=== PATIENT | male | born 1955 | race Caucasian/White ===

== ENCOUNTER 2020-04-22 13:27 | Inpatient (IN) | payer BC, OTHER, SELFPAY ==
[2020-04-22] MEDS ORDERED: NA CHLORIDE 0.9% 500 ML ONE (14:05)
--- NOTE | 2020-04-22 14:42 | RAD REPORT ---
EXAM DESCRIPTION: Joaquín Single View04/22/2020 2:25 pm CLINICAL HISTORY: Hypotension/swelling COMPARISON: none FINDINGS: The lungs appear clear of acute infiltrate. The heart is normal size. 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
[2020-04-22 15:35] LABS: Absolute Lymphocytes (CBC) 0.8 K/uL (0.7-4.9); Basophils % 0.3 % (0-1.3); Hematocrit 35.4 % (39.6-49.0); Lymphocytes % 4.6 % (15.3-44.8); MPV 8.4 fL (7.6-11.3); RBC Red Blood Cell Count 4.38 M/uL (4.33-5.43)
[2020-04-22 15:36] LABS: Protime INR 1.08
[2020-04-22 15:53] LABS: ALT/SGPT 14 U/L (12-78); AST/SGOT 29 U/L (15-37); Albumin 2.4 g/dL (3.4-5.0); Alkaline Phosphatase 73 U/L (45-117); BUN Blood Urea Nitrogen 15 mg/dL (7-18); Bicarbonate 22 mmol/L (21-32); Bilirubin Direct 0.3 mg/dL (0-0.2); Glucose Level 241 mg/dL (74-106); NT PRO-BNP 2436 pg/mL (<125); Potassium 4.4 mmol/L (3.5-5.1); Protein, Total 5.9 g/dL (6.4-8.2); Sodium Level 139 mmol/L (136-145); Troponin (Emerg Dept Use Only) < 0.02 ng/mL (0.0-0.045)
[2020-04-22 16:01] LABS: SARS-COV-2 RT PCR NEGATIVE (NEGATIVE)
[2020-04-22] MEDS ORDERED: CEFEPIME/SWI 1gm 20 ML ONE (16:24)
[2020-04-22] MEDS ORDERED: NA CHLORIDE 0.9% 2,000 ML ONE (16:24)
--- NOTE | 2020-04-22 16:32 | RAD REPORT ---
EXAM DESCRIPTION: CT - Head Brain Wo Cont - 04/22/2020 3:34 pm CLINICAL HISTORY: Syncope COMPARISON: None TECHNIQUE: Computed axial tomography of the head was obtained. IV contrast was not requested. All CT scans are performed using dose optimization technique as appropriate and may include automated exposure control or mA/KV adjustment according to patient size. FINDINGS: An intracranial bleed is not seen . The ventricles are normal in caliber. No extra-axial fluid collection is noted. Mild low-density areas within periventricular, deep and subcortical white matter likely represent isc hemic changes secondary to small vessel disease. Fluid within the sinuses/ mastoids is not seen. IMPRESSION: No acute intracranial abnormality is seen. If patient's symptoms persist MRI of the bra in would be recommended.
[2020-04-22 16:48] LABS: Urine Bacteria <20 /HPF (NONE SEEN); Urine Mucus SLIGHT /HPF (NONE SEEN)
--- OUTSIDE RECORDS SUMMARY | 2020-04-22 16:57 | XMS REPORT | Clinical Summary ---
:1955 Author Organization [facility] Address [address] [place] [address] Care Team Providers Name Role Phone Junaid Bess MD Primary Care Provider Allergies No Known Active Allergies Medications Medication Sig Dispensed Refills Start End Status Date Date predniSONE Take 1 tablet 90 tablet 3 05/22/19 Activ e (DELTASONE) 5 mg (5 mg total) by 20 021 tabletIndications: mouth daily. Transplanted kidney, Pancreas transplanted (HCC) zolpidem (AMBIEN) 10 Take 1 tablet 30 tablet 5 10/21/1910/20 Active mg tablet (10 mg total) 20 021 by mouth nightly as needed for sleep. ondansetron ODT Take 1 tablet 20 tablet 1 02/21/20 Active (ZOFRAN-ODT) 8 MG (8 mg total) by 20 disintegrating mouth every 8 tabletIndications: (eight) hours Malignant neoplasm as needed for of stomach, nausea or unspecified location vomiting. (HCC) prochlorperazine Take 1 tablet 30 tablet 1 02/21/20 Active (COMPAZINE) 10 MG (10 mg total) 20 tabletIndications: by mouth every Malignant neoplasm 6 (six) hours of stomach, as needed for unspecified location nausea or (HCC) vomiting. bromfenac (BromSite) Apply 2 drops 0 Active 0.075 % drops to eye daily. mycophenolate Take 2.5 mL 160 mL 11 02/28/20 Acti ve (CELLCEPT) 200 mg/mL (500 mg total) 20 suspension by mouth 2 (two) times a day for 30 days. tacrolimus (PROGRAF) Take 1 capsule 60 capsule 0 04/13/1905/12 Active 0.5 MG capsule (0.5 mg total) 21 021 by mouth 2 (two) times a day for 30 days. magnesium oxide 500 Take 500 mg by 30 each 11 04/13/19 Active mg tablet mouth daily. 21 furosemide (Lasix) Take 1 tablet 7 tablet 0 04/22/19 Active 20 mg tablet (20 mg total) 21 021 by mouth daily for 7 days. aspirin (ECOTRIN) 81 Take 81 mg by 0 04/13 Discontinued MG enteric coated mouth daily. 021 tablet zolpidem (AMBIEN) 10 Take 1 tablet 30 tablet 5 02/22/2006/23 Discontinued mg tablet (10 mg total) 18 020 (Reord er) by mouth nightly as needed for sleep. tacrolimus (PROGRAF) Take 1 capsule 180 capsule 3 05/08/19 Discontinued 1 MG capsule (1 mg total) by 19 020 ( Reorder) mouth 2 (two) times a day. predniSONE Take 1 tablet 90 tablet 3 06/01/19 Disco ntinued (DELTASONE) 5 mg (5 mg total) by 19 020 (Reorder) tabletIndications: mouth daily. Transplanted kidney, Pancreas transplanted (HCC) mycophenolate Take 1 tablet 180 tablet 3 04/17/19 D iscontinued (CELLCEPT) 500 mg (500 mg total) 20 020 (Reorder) tablet by mouth 2 (two) times a day. mycophenolate Take 1 tablet 180 tablet 3 05/07/19 D iscontinued (CELLCEPT) 500 mg (500 mg total) 20 020 (Reorder) tablet by mouth 2 (two) times a day. tacrolimus (PROGRAF) Take 1 capsule 180 capsule 3 05/07/19 Discontinued 1 MG capsule (1 mg total) by 20 020 mouth 2 (two) times a day. zolpidem (AMBIEN) 10 Take 1 tablet 30 tablet 5 06/24/1910/20 Discontinued mg tablet (10 mg total) 20 020 (Reord er) by mouth nightly as needed for sleep. zolpidem (AMBIEN) 10 Take 1 tablet 30 tablet 5 10/21/1910/20 Discontinued mg tablet (10 mg total) 20 020 (Reord er) by mouth nightly as needed for sleep. tacrolimus (PROGRAF) Take 1 capsule 180 capsule 3 12/11/19 Discontinued 0.5 MG capsule (0.5 mg total) 20 020 (Reorder) by mouth 2 (two) times a day. Total dose 1.5 mg/ 1.5 mg tacrolimus (PROGRAF) Take 1 capsule 180 capsule 3 12/12/19 Discontinued 0.5 MG capsule (0.5 mg total) 20 020 by mouth 2 (two) times a day. Total dose 1.5 mg/ 1.5 mg mycophenolate Take 1 tablet 180 tablet 3 12/12/19 D iscontinued (CELLCEPT) 500 mg (500 mg total) 20 020 tablet by mouth 2 (two) times a day. prednisoLONE acetate 1 drop 4 (four) 0 12/26/1927/04 Discontinued (PRED FORTE) 1 % times a day. 20 020 (Alternate ophthalmic therapy) suspension amitriptyline Take 1 tablet 30 tablet 11 01/09/20 Di scontinued (ELAVIL) 25 MG (25 mg total) 20 020 ( Stop Taking at tablet by mouth Discharge) nightly. acetaminophen-codein Take 1 tablet 30 tablet 1 01/17/2002/15 e (TYLENOL WITH by mouth every 20 020 CODEINE #3) 300-30 4 (four) hours mg per as needed for tabletIndications: moderate pain acute pain for up to 30 days .acute pain. tacrolimus (PROGRAF) Take 2 caps in 270 capsule 3 01/30/20 Discontinued 1 MG capsule the am 1 cap in 20 020 ( Reorder) the pm tacrolimus (PROGRAF) Take 1 capsule 90 capsule 3 01/30/2001/05 Discontinued 0.5 MG capsule (0.5 mg total) 20 020 (Reorder) by mouth nightly. tacrolimus (PROGRAF) Take 1 capsule 90 capsule 3 12/25/1912/12 Discontinued 0.5 MG capsule (0.5 mg total) 20 020 (Reorder) by mouth nightly. tacrolimus (PROGRAF) Take 2 caps in 270 capsule 3 12/25/19 Discontinued 1 MG capsule the am 1 cap in 20 020 ( Reorder) the pm ondansetron ODT Take 1 tablet 20 tablet 1 02/18/20 Discontinued (ZOFRAN-ODT) 8 MG (8 mg total) by 020 (Reorder) disintegrating mouth every 8 tabletIndications: (eight) hours Malignant neoplasm as needed for of stomach, nausea or unspecified location vomiting. (HCC) prochlorperazine Take 1 tablet 30 tablet 1 02/18/20 Discontinued (COMPAZINE) 10 MG (10 mg total) 020 (Reorder) tabletIndications: by mouth every Malignant neoplasm 6 (six) hours of stomach, as needed for unspecified location nausea or (HCC) vomiting. tacrolimus (PROGRAF) Take 1 capsule 90 capsule 3 02/20/2003/14 Discontinued 0.5 MG capsule (0.5 mg total) (Stop Taking at by mouth Discharge) nightly. tacrolimus (PROGRAF) Take 2 caps in 270 capsule 3 02/20/20 Discontinued 1 MG capsule the am 1 cap in ( Stop Taking at the pm Discharge) apixaban 5 mg (74 follow package 74 tablet 0 04/03/19 Discontinued tabs) tablets,dose instructions (Stop Taking at pack Discharge) ciprofloxacin HCl Take 1 tablet 10 tablet 0 04/13/19 (CIPRO) 500 MG (500 mg total) 021 tablet by mouth 2 (two) times a day for 5 days. 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 Encounters Date Type Specialty Care Team Description 04/21/2020 Nurse Only Oncology Jordan Sullivan, Malignant neopl asm of stomach, unspec ified location (HCC) (Primary Dx) 04/21/2020 Telephone Oncology Ronak Whipple RN 04/21/2020 Travel 04/21/2020 Orders Only Oncology Cody Larios RN 04/20/2020 Telephone Oncology Jordan Sullivan MD 04/16/2020 Telephone Oncology Jordan Sullivan MD 04/15/2020 Telephone Oncology Jordan Sullivan MD 04/14/2020 Patient Outreach Quality Rhonda Moore, ERIKA 04/14/2020 Patient Outreach Quality Rhonda Moore, ERIKA 04/14/2020 Patient Outreach Quality Rhonda Moore, ERIKA 04/10/2020 Orders Only Pharmacy Nkechi Allen, [facility] 04/07/2020 Orders Only Oncology Tiffany Deras RN 04/06/2020 Hospital Encounter Cardiology Gretta Bacon MD 04/13/2020 04/06/2020 Orders Only Pharmacy Nkechi Allen, [facility] 04/06/2020 Orders Only Oncology Jordan Sullivan, Malignant neopl asm of stomach, unspec ified location (HCC) (Primary Dx) 04/06/2020 Travel 04/06/2020 Orders Only Oncology Linda Fallno, [facility] 04/06/2020 Orders Only Pharmacy Aniya Montoya, [facility] 04/05/2020 Orders Only Oncology Jordan Sullivan MD 04/03/2020 Office Visit Oncology Jordan Sullivan, Malignant neopl asm of stomach, unspecified location (HCC) (Primary Dx); Bilateral renal masses; 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) 04/03/2020 Hospital Encounter Radiology Jordan Sullivan, Malignant neoplasm of MD cardia of stoma ch (HCC) 04/03/2020 Travel 03/27/2020 Nurse Only Oncology Jordan Sullivan, Malignant neopl asm of stomach, unspec ified location (HCC) (Primary Dx) 03/27/2020 Travel 03/25/2020 Infusion Oncology Jordan Sullivan, Malignant neopl asm of stomach, unspec ified location (HCC) (Primary Dx) 03/25/2020 Documentation Oncology Jordan Sullivan MD 03/25/2020 Oncology Oncology Terra Gongora, Survivorship RN 03/25/2020 Travel 03/24/2020 Telephone Oncology Ronak Whipple RN 03/19/2020 Orders Only Oncology Linda Fallon, [facility] 03/18/2020 Office Visit Oncology Jordan Sullivan, Malignant neopl asm of cardia of stomach (HCC) (Primary Dx); Odynophagia; Chronic nonintr actable headache, unspecified headache type; Renal mass, rig ht; 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) 03/18/2020 Orders Only Oncology Rachel, Malignant neopl asm of JUAN CARLOS Tamez cardia of stoma ch (HCC) (Primary Dx) 03/18/2020 Travel 03/16/2020 Telephone Transplant Riki Drug Eliza Shell 03/12/2020 Nurse Only Oncology Jordan Sullivan, Malignant neopl asm of MD stomach, unspec ified location (HCC) (Primary Dx) 03/12/2020 Oncology Oncology Terra Gongora, Survivorship RN 03/12/2020 Refill Transplant Edil, Med Refill ERIKA Yuan 03/12/2020 Travel 03/12/2020 Orders Only Oncology Beverly Pa, RN 03/11/2020 Telephone Oncology Jordan Sullivan, Malignant neopl asm of stomach, unspecified location (HCC) (Primary Dx); Malignant neopl asm of cardia of stomach (HCC) 03/10/2020 Infusion Oncology Jordan Sullivan, Malignant neopl asm of MD stomach, unspec ified location (HCC) (Primary Dx) 03/10/2020 Orders Only Oncology Linda Fallon [facility] 03/09/2020 Orders Only Oncology Tiffany Deras, ERIKA 03/05/2020 Hospital Encounter Radiology Jordan Sullivan, Malignant neoplasm of MD cardia of stoma ch (HCC) 03/04/2020 Travel 02/28/2020 Nurse Only Oncology Jordan Sullivan, Malignant neopl asm of MD stomach, unspec ified location (HCC) (Primary Dx) 02/28/2020 Oncology Oncology Terra Gongora, Survivorship RN 02/28/2020 Travel 02/28/2020 Orders Only Oncology Ronak Whipple, RN 02/26/2020 Infusion Oncology Jordan Sullivan, Malignant neopl asm of MD stomach, unspec ified location (HCC) (Primary Dx) 02/26/2020 Oncology Oncology Terra Gongora, Survivorship RN 02/25/2020 Hospital Encounter Vascular Access Jordan Sullivan MD 02/25/2020 Hospital Encounter Vascular Access Jordan Sullivan, Malign ant neoplasm of MD cardia of stoma ch (HCC) 02/25/2020 Telephone Radiology Sarah Rice, ERIKA 02/25/2020 Orders Only Oncology Harini Amezquita, ERIKA 02/25/2020 Orders Only Oncology Chintapenta, Linda, RP 02/25/2020 Refill Transplant Solo, Med Refill; Med Refill ERIKA Yuan 02/25/2020 Travel 02/25/2020 Orders Only General Internal Jordan Sullivan, Malignant n eoplasm of Medicine stomach, unspec ified location (HCC) (Primary Dx) 02/25/2020 Orders Only Oncology Harini Amezquita, ERIKA 02/21/2020 Travel 02/21/2020 Orders Only Oncology Ronak Whipple Malignant neopl asm of cardia of stomach (HCC) (Primary Dx); ERIKA Luz Malignant neopl asm of stomach, unspecified location (HCC) 02/20/2020 Orders Only Oncology Jordan Sullivan MD 02/20/2020 Refill Transplant Solo, Med Refill ERIKA Yuan 02/19/2020 Lab Lab Jordan Sullivan, Malignant neopl asm of cardia of stoma ch (HCC) 02/19/2020 Travel 02/18/2020 Orders Only Oncology Chintapenta, Malignant neopl asm of Linda, [facility] stomach, unspec ified location (HCC) (Primary Dx) 02/18/2020 Telephone Oncology Jordan Sullivan, Malignant neopl asm of cardia of stomach (HCC) (Primary Dx); Malignant neopl asm of stomach, unspecified location (HCC) 02/17/2020 Telephone Oncology Jordan Sullivan MD 02/12/2020 Telemedicine Oncology Jordan Sullivan, Malignant neopl asm of cardia of stomach (HCC) (Primary Dx); Odynophagia; 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); Renal mass, rig ht 02/12/2020 Orders Only Oncology Rachel Malignant neopl asm of JUAN CARLOS Tamez cardia of stoma ch (HCC) (Primary Dx) 02/11/2020 Telephone Oncology Joi Ramos MA 02/10/2020 Hospital Encounter Radiology Shahriar, Malignant neoplasm of Luis Quiroga MD cardia of stom ach (HCC) 02/10/2020 Telephone General Surgery Josselin Solis NP 02/10/2020 Travel 02/03/2020 Office Visit General Surgery Shahriar, Malignant ne oplasm of Luis Quiroga MD cardia of stom ach (HCC) (Primary Dx) 02/03/2020 Lab Lab Shahriar, Malignant neopl asm of Luis Quiroga MD cardia of stom ach (HCC) 02/03/2020 Travel 01/31/2020 Orders Only General Surgery Imasogie, Malignant ne oplasm of Crystal, ENGROSSER cardia of stoma ch (HCC) (Primary Dx) 01/31/2020 Refill Neurology Machelle Santiago MD 01/30/2020 Telephone Oncology Jordan Sullivan MD 01/30/2020 Refill Transplant Jared Solo Reflexis Yuan RN 01/28/2020 Hospital Encounter Radiology Jordan Sullivan, Malignant neoplasm of esophagus, unsp ecified location (HCC) 01/28/2020 Office Visit Neurology Machelle Santiago MD Nonintractabl e headache, unspecified chronicity pattern, unspecified headache type (Primary Dx); Organ transplan t; Immunosuppressi on (HCC); Insomnia, unspe cified type; Injury of head, sequela; Malignant neopl asm of esophagus, unspecified location (HCC) 01/28/2020 Travel 01/21/2020 Travel 01/17/2020 Consult Oncology Jordan Sullivan, 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) (Primary Dx); New daily persi stent headache; Malignant neopl asm of cardia of stomach (HCC); Odynophagia 01/17/2020 Orders Only Oncology RideaJoi ye MA 01/17/2020 Orders Only Oncology Rideau, Malignant neopl asm of Joi MA esophagus, unsp ecified location (HCC) (Primary Dx) 01/17/2020 Orders Only Oncology RideauJoi, MA 01/17/2020 Documentation Transplant Lissy Solo RN 01/16/2020 Hospital Encounter Radiology Machelle Santiago MD Nonintr actable headache, unspe cified chronicity sanaz marilyn, unspecified hea dache type 01/16/2020 Hospital Encounter Radiology Rehan Ceballos 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) 01/16/2020 Lab Lab Rehan Ceballos 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) (Primary Dx) 01/16/2020 Travel 01/13/2020 Travel 01/10/2020 Documentation Transplant Lissy Solo RN 01/10/2020 Transcribe Orders Access Rehan Ceballos t kori of MD Mark lower third of esophagus (HCC) (Primary Dx) 01/09/2020 Lab Lab Rehan Ceballos MD 01/09/2020 Office Visit Neurology Machelle Santiago MD Nonintractabl e headache, unspecified chronicity pattern, unspecified headache type (Primary Dx); Organ transplan t; Immunosuppressi on (HCC); Insomnia, unspe cified type; Injury of head, sequela 01/09/2020 Telephone Transplant Hesham Critical lab Re jeremy Gtz 01/09/2020 Travel 01/06/2020 Lab Lab Rehan Ceballos Encounter for screening MD Mark for other viral diseases (Prima ry Dx) 01/06/2020 Travel 12/25/2019 Telephone Transplant Riki, Critical result Suleman 12/25/2019 Travel 12/24/2019 Documentation Transplant Lissy Solo RN 12/13/2019 Travel 12/13/2019 Telephone Neurology Machelle Santiago MD 12/12/2019 Documentation Transplant Lissy Solo RN 12/11/2019 Office Visit Transplant Mervat, 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) (Primary Dx); Alexis Ye, Personal hist ory of immunosuppressive therapy; Immunosuppressi ve management encounter following kidney transplant; New daily persi stent headache; Odynophagia 12/11/2019 Telephone Transplant Riki Critical result Suleman 12/11/2019 Travel 12/03/2019 Documentation Transplant Lissy Solo, ERIKA 11/12/2019 Documentation Transplant Lissy Solo, ERIKA 10/21/2019 Refill Transplant Edil, Med Refill ERIKA Yuan 10/07/2019 Documentation Transplant Lissy Solo, ERIKA 09/11/2019 Travel 09/02/2019 Telephone Transplant Ibanez, Shwetha 09/02/2019 Documentation Transplant Bettie Barakat RN 08/30/2019 Telephone Transplant Ibanez, Shwetha 06/27/2019 Telephone Transplant Ibanez, Shwetha 06/24/2019 Refill Transplant Bettie Barakat, Med Refill RN 06/24/2019 Telephone Transplant Teo Senior, Request New Rx MA 05/28/2019 Telephone Transplant Ibanez, Shwetha 05/22/2019 Telephone Transplant Ibanez, Shwetha 05/22/2019 Refill Transplant Bettie Barakat Med Refill RN 05/15/2019 Refill General Surgery Crowell, Transplanted kidney; Alexis Ye, Pancreas franco splanted (HCC) 05/07/2019 Refill Transplant Bettie Barakat Med Refill RN after 04/22/2019 Immunizations Name Administration Dates Next Due FLUCELVAX QUAD PF 01/14/2020 (Deferred: Other - Already ad ministered at outside facility) Surgical History Surgery Date Site/Laterality Comments COMBINED KIDNEY-PANCREAS TRANSPLANT 2009 COMBINED KIDNEY-PANCREAS TRANSPLANT 05/22/2000 Medical History Medical History Date Comments History of gastric cancer Social History Tobacco Use Types Packs/Day Years Used Date Never Smoker Smokeless Tobacco: Never Used Alcohol Use Drinks/Week oz/Week Comments Never Alcohol Habits Answer Date Recorded How often do you have a drink containing alcohol? Never 01/09/2020 How many drinks containing alcohol do you have on a typical Not asked day when you are drinking? How often do you have six or more drinks on one occasion? 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 Last Filed Vital Signs Vital Sign Reading Time Taken Comments Blood Pressure 100/65 04/21/2020 1:59 PM SCR[employer] HOIST OPERATOR Pulse 98 04/21/2020 1:59 PM [employer]CR[employer] HOIST OPERATOR Temperature 36.4 C (97.5 F) 04/21/2020 1:59 PM [employer]CR[employer] HOIST OPERATOR Respiratory Rate 18 04/21/2020 1:59 PM [employer]CR[employer]IST OPERATOR Oxygen Saturation 99% 04/21/2020 1:59 PM [employer]CR[employer] HOIST OPERATOR Inhaled Oxygen Concentration - - Weight 72.5 kg (159 lb 12.8 oz) 04/21/2020 8:36 AM SCRAP HOIST OPERATOR Height 175.3 cm (5' 9") 04/06/2020 12:31 PM SCR[employer] HOIST OPERATOR Body Mass Index 23.6 04/06/2020 12:31 PM SCRAP HOIST OPERATOR Plan of Treatment Date Type Specialty Care Team Description 04/23/2020 Nurse Only Oncology Jordan Sullivan MD [address] [place] [address] 7703 05/01/2020 Office Visit Oncology Jordan Sullivan MD [address] [place] [address] 7703 05/06/2020 Infusion Oncology Jordan Sullivan MD [address] [place] [address] 7703 05/08/2020 Nurse Only Oncology Jordan Sullivan MD [address] [place] [address] 7703 05/20/2020 Infusion Oncology Jordan Sullivan MD [address] [place] [address] 7703 05/22/2020 Nurse Only Oncology Jordan Sullivan MD [address] [place] [address] 7703 Health Maintenance Due Date Last Done Comments DIABETES: RETINAL EYE EXAM 06/10/1965 DIABETIC FOOT EXAM 06/10/1965 COVID-19 VACCINE (1 of 2) 1971 HEPATITIS C SCREENING 06/10/1973 COLONOSCOPY SCREENING 06/10/2005 INFLUENZA VACCINE 10/12/2019 SHINGLES VACCINES (#1) 03/07/2040 Postponed from 06/10/2005 (Not Indicated) Implants Implanted Type Area Superintendent System Operation Device Shelf Model / Identifier Expiration Serial / Date Lot Port Imlpntbl Smart Port W/ Dtchd 0.4ml 6.6fr 55cm W/ Sheath - [id number] Implantable N/A: ANGIODYNAMICS 11/10/2022 [id number] 1 HOUS / Implanted: Qty: 1 on 03/05/2020 at [facility] Infusion Ports N/A INC / or Accessories [id number] Cook Celect [place] Navalign Uniset Vena Cava Filter - [id number] Vascular N/A: COOK PERIPHERAL 02/11/2023 [id number] / Implanted: Qty: 1 on 04/07/2020 at [facility] Filter N/A IN [place] / [id number] Procedures Procedure Name Priority Date/Time Associated Diagnosis Comme nts ESTIMATED GFR STAT 04/21/2020 8:39 Results fo r this AM [employer] HOIST OPERATOR procedure are i n the results section. MAGNESIUM LEVEL STAT 04/21/2020 8:39 Malignant neoplasm of Results for this AM [employer]CR[employer] HOIST OPERATOR stomach, unspecified procedu re are in location (HCC) the results section. HC COMPLETE BLD COUNT STAT 04/21/2020 8:39 Malignant neopl asm of Results for this W/AUTO DIFF AM [employer]CR[employer] HOIST OPERATOR stomach, unspecified procedu re are in location (HCC) the results section. COMPREHENSIVE METABOLIC STAT 04/21/2020 8:39 Malignant nydia plasm of Results for this PANEL AM SCRAP HOIST OPERATOR stomach, unspecified procedu re are in location (HCC) the results section. MANUAL DIFFERENTIAL Routine 04/13/2020 5:10 Resu lts for this AM SCRAP HOIST OPERATOR procedure are i n the results section. ESTIMATED GFR Routine 04/13/2020 5:10 Results fo r this AM SCRAP HOIST OPERATOR procedure are i n the results section. PHOSPHORUS LEVEL Routine 04/13/2020 5:10 Results for this AM SCRAP HOIST OPERATOR procedure are i n the results section. MAGNESIUM LEVEL Routine 04/13/2020 5:10 Results for this AM SCRAP HOIST OPERATOR procedure are i n the results section. CBC WITH PLATELET AND Routine 04/13/2020 5:10 Re sults for this DIFFERENTIAL AM [employer]CR[employer] HOIST OPERATOR procedure are i n the results section. BASIC METABOLIC PANEL Routine 04/13/2020 5:10 Re sults for this AM SCRAP HOIST OPERATOR procedure are i n the results section. LIPASE LEVEL Routine 04/13/2020 5:10 Results for this AM SCRAP HOIST OPERATOR procedure are i n the results section. AMYLASE LEVEL Routine 04/13/2020 5:10 Results fo r this AM SCRAP HOIST OPERATOR procedure are i n the results section. FK506 TACROLIMUS LEVEL, Routine 04/13/2020 5:10 Results for this RANDOM AM [employer]CRAP HOIST OPERATOR procedure are i n the results section. MANUAL DIFFERENTIAL Routine 04/12/2020 5:35 Resu lts for this AM SCRAP HOIST OPERATOR procedure are i n the results section. ESTIMATED GFR Routine 04/12/2020 5:35 Results fo r this AM SCRAP HOIST OPERATOR procedure are i n the results section. PARTIAL THROMBOPLASTIN Routine 04/12/2020 5:35 R esults for this TIME (PTT) AM SCRAP HOIST OPERATOR procedure are i n the results section. PROTHROMBIN TIME WITH Routine 04/12/2020 5:35 Re sults for this INR AM SCRAP HOIST OPERATOR procedure are i n the results section. PHOSPHORUS LEVEL Routine 04/12/2020 5:35 Results for this AM SCRAP HOIST OPERATOR procedure are i n the results section. MAGNESIUM LEVEL Routine 04/12/2020 5:35 Results for this AM SCRAP HOIST OPERATOR procedure are i n the results section. FK506 TACROLIMUS LEVEL, Routine 04/12/2020 5:35 Results for this RANDOM AM SCRAP HOIST OPERATOR procedure are i n the results section. CBC WITH PLATELET AND Routine 04/12/2020 5:35 Re sults for this DIFFERENTIAL AM SCRAP HOIST OPERATOR procedure are i n the results section. BASIC METABOLIC PANEL Routine 04/12/2020 5:35 Re sults for this AM SCRAP HOIST OPERATOR procedure are i n the results section. GASTROINTESTINAL PANEL Routine 04/11/2020 9:32 R esults for this AM SCRAP HOIST OPERATOR procedure are i n the results section. SMEAR REVIEW Routine 04/11/2020 5:30 Results for this AM SCRAP HOIST OPERATOR procedure are i n the results section. ESTIMATED GFR Routine 04/11/2020 5:30 Results fo r this AM SCRAP HOIST OPERATOR procedure are i n the results section. PARTIAL THROMBOPLASTIN Routine 04/11/2020 5:30 R esults for this TIME (PTT) AM SCRAP HOIST OPERATOR procedure are i n the results section. PROTHROMBIN TIME WITH Routine 04/11/2020 5:30 Re sults for this INR AM SCRAP HOIST OPERATOR procedure are i n the results section. PHOSPHORUS LEVEL Routine 04/11/2020 5:30 Results for this AM SCRAP HOIST OPERATOR procedure are i n the results section. MAGNESIUM LEVEL Routine 04/11/2020 5:30 Results for this AM SCRAP HOIST OPERATOR procedure are i n the results section. FK506 TACROLIMUS LEVEL, Routine 04/11/2020 5:30 Results for this RANDOM AM SCRAP HOIST OPERATOR procedure are i n the results section. HC COMPLETE BLD COUNT Routine 04/11/2020 5:30 Re sults for this W/AUTO DIFF AM SCRAP HOIST OPERATOR procedure are i n the results section. BASIC METABOLIC PANEL Routine 04/11/2020 5:30 Re sults for this AM SCRAP HOIST OPERATOR procedure are i n the results section. PARTIAL THROMBOPLASTIN Routine 04/10/2020 9:30 R esults for this TIME (PTT) AM SCRAP HOIST OPERATOR procedure are i n the results section. PROTHROMBIN TIME WITH Routine 04/10/2020 9:30 Re sults for this INR AM SCRAP HOIST OPERATOR procedure are i n the results section. SMEAR REVIEW Routine 04/10/2020 4:49 Results for this AM SCRAP HOIST OPERATOR procedure are i n the results section. FK506 TACROLIMUS LEVEL, Routine 04/10/2020 4:49 Results for this RANDOM AM SCRAP HOIST OPERATOR procedure are i n the results section. HC COMPLETE BLD COUNT Routine 04/10/2020 4:49 Re sults for this W/AUTO DIFF AM SCRAP HOIST OPERATOR procedure are i n the results section. ESTIMATED GFR Routine 04/10/2020 4:00 Results fo r this AM SCRAP HOIST OPERATOR procedure are i n the results section. PHOSPHORUS LEVEL Routine 04/10/2020 4:00 Results for this AM SCRAP HOIST OPERATOR procedure are i n the results section. MAGNESIUM LEVEL Routine 04/10/2020 4:00 Results for this AM SCRAP HOIST OPERATOR procedure are i n the results section. LIPASE LEVEL Routine 04/10/2020 4:00 Results for this AM SCRAP HOIST OPERATOR procedure are i n the results section. BASIC METABOLIC PANEL Routine 04/10/2020 4:00 Re sults for this AM SCRAP HOIST OPERATOR procedure are i n the results section. AMYLASE LEVEL Routine 04/10/2020 4:00 Results fo r this AM SCRAP HOIST OPERATOR procedure are i n the results section. HC COMPLETE BLD COUNT Routine 04/09/2020 5:11 Re sults for this W/AUTO DIFF PM SCRAP HOIST OPERATOR procedure are i n the results section. MAGNESIUM LEVEL Routine 04/09/2020 2:08 Results for this PM SCRAP HOIST OPERATOR procedure are i n the results section. FIBRINOGEN Routine 04/09/2020 5:23 Results for this AM SCRAP HOIST OPERATOR procedure are i n the results section. PROTHROMBIN TIME WITH Routine 04/09/2020 5:23 Re sults for this INR AM SCRAP HOIST OPERATOR procedure are i n the results section. FK506 TACROLIMUS LEVEL, Routine 04/09/2020 5:23 Results for this RANDOM AM SCRAP HOIST OPERATOR procedure are i n the results section. HC COMPLETE BLD COUNT Routine 04/09/2020 5:23 Re sults for this W/AUTO DIFF AM SCRAP HOIST OPERATOR procedure are i n the results section. ESTIMATED GFR Routine 04/09/2020 4:00 Results fo r this AM SCRAP HOIST OPERATOR procedure are i n the results section. PHOSPHORUS LEVEL Routine 04/09/2020 4:00 Results for this AM SCRAP HOIST OPERATOR procedure are i n the results section. MAGNESIUM LEVEL Routine 04/09/2020 4:00 Results for this AM SCRAP HOIST OPERATOR procedure are i n the results section. LIPASE LEVEL Routine 04/09/2020 4:00 Results for this AM SCRAP HOIST OPERATOR procedure are i n the results section. BASIC METABOLIC PANEL Routine 04/09/2020 4:00 Re sults for this AM SCRAP HOIST OPERATOR procedure are i n the results section. AMYLASE LEVEL Routine 04/09/2020 4:00 Results fo r this AM SCRAP HOIST OPERATOR procedure are i n the results section. HC COMPLETE BLD COUNT Timed 04/08/2020 11:20 Re sults for this W/AUTO DIFF PM SCRAP HOIST OPERATOR procedure are i n the results section. HC COMPLETE BLD COUNT Timed 04/08/2020 2:54 Re sults for this W/AUTO DIFF PM SCRAP HOIST OPERATOR procedure are i n the results section. HEMOGLOBIN & HEMATOCRIT Timed 04/08/2020 8:10 Results for this AM SCRAP HOIST OPERATOR procedure are i n the results section. FK506 TACROLIMUS LEVEL, Routine 04/08/2020 4:24 Results for this RANDOM AM SCRAP HOIST OPERATOR procedure are i n the results section. HC COMPLETE BLD COUNT Routine 04/08/2020 4:24 Re sults for this W/AUTO DIFF AM SCRAP HOIST OPERATOR procedure are i n the results section. ESTIMATED GFR Routine 04/08/2020 4:00 Results fo r this AM SCRAP HOIST OPERATOR procedure are i n the results section. PHOSPHORUS LEVEL Routine 04/08/2020 4:00 Results for this AM SCRAP HOIST OPERATOR procedure are i n the results section. MAGNESIUM LEVEL Routine 04/08/2020 4:00 Results for this AM SCRAP HOIST OPERATOR procedure are i n the results section. LIPASE LEVEL Routine 04/08/2020 4:00 Results for this AM SCRAP HOIST OPERATOR procedure are i n the results section. BASIC METABOLIC PANEL Routine 04/08/2020 4:00 Re sults for this AM SCRAP HOIST OPERATOR procedure are i n the results section. AMYLASE LEVEL Routine 04/08/2020 4:00 Results fo r this AM SCRAP HOIST OPERATOR procedure are i n the results section. HEMOGLOBIN & HEMATOCRIT Timed 04/07/2020 8:19 Results for this PM SCRAP HOIST OPERATOR procedure are i n the results section. IR IVC FILTER PLACEMENT Routine 04/07/2020 6:22 Results for this PM SCRAP HOIST OPERATOR procedure are i n the results section. MAGNESIUM LEVEL Routine 04/07/2020 1:44 Results for this PM SCRAP HOIST OPERATOR procedure are i n the results section. HEMOGLOBIN & HEMATOCRIT Timed 04/07/2020 12:05 Results for this PM SCRAP HOIST OPERATOR procedure are i n the results section. URINALYSIS SCREEN AND STAT 04/07/2020 9:45 Re sults for this MICROSCOPY, WITH REFLEX AM SCRAP HOIST OPERATOR proc edure are in TO CULTURE the results section. URINE CULTURE STAT 04/07/2020 9:45 Results fo r this AM SCRAP HOIST OPERATOR procedure are i n the results section. FK506 TACROLIMUS LEVEL, Routine 04/07/2020 5:30 Results for this RANDOM AM SCRAP HOIST OPERATOR procedure are i n the results section. ESTIMATED GFR Routine 04/07/2020 3:30 Results fo r this AM SCRAP HOIST OPERATOR procedure are i n the results section. CBC HEMOGRAM Timed 04/07/2020 3:30 Results for this AM SCRAP HOIST OPERATOR procedure are i n the results section. PHOSPHORUS LEVEL Routine 04/07/2020 3:30 Results for this AM SCRAP HOIST OPERATOR procedure are i n the results section. MAGNESIUM LEVEL Routine 04/07/2020 3:30 Results for this AM SCRAP HOIST OPERATOR procedure are i n the results section. LIPASE LEVEL Routine 04/07/2020 3:30 Results for this AM SCRAP HOIST OPERATOR procedure are i n the results section. AMYLASE LEVEL Routine 04/07/2020 3:30 Results fo r this AM SCRAP HOIST OPERATOR procedure are i n the results section. COMPREHENSIVE METABOLIC Routine 04/07/2020 3:30 Results for this PANEL AM SCRAP HOIST OPERATOR procedure are i n the results section. CBC HEMOGRAM Timed 04/06/2020 9:35 Results for this PM SCRAP HOIST OPERATOR procedure are i n the results section. US DUPLEX VENOUS LOWER STAT 04/06/2020 4:28 R esults for this EXTREMITY BILATERAL PM SCRAP HOIST OPERATOR procedur e are in the results section. XR CHEST 1 VW PORTABLE STAT 04/06/2020 3:38 R esults for this PM SCRAP HOIST OPERATOR procedure are i n the results section. PREPARE RBC STAT 04/06/2020 3:36 Results for this PM SCRAP HOIST OPERATOR procedure are i n the results section. PREPARE RBC STAT 04/06/2020 3:36 Results for this PM SCRAP HOIST OPERATOR procedure are i n the results section. PREPARE RBC STAT 04/06/2020 3:36 PM SCRAP HOIST OPERATOR HC COMPLETE BLD COUNT STAT 04/06/2020 3:36 Re sults for this W/AUTO DIFF PM SCRAP HOIST OPERATOR procedure are i n the results section. TYPE AND SCREEN Routine 04/06/2020 3:34 Results for this PM SCRAP HOIST OPERATOR procedure are i n the results section. ECG 12-LEAD STAT 04/06/2020 2:30 Results for this PM SCRAP HOIST OPERATOR procedure are i n the results section. COVID-19 QUALITATIVE Routine 04/06/2020 2:25 Res ults for this PCR PM SCRAP HOIST OPERATOR procedure are i n the results section. ESTIMATED GFR STAT 04/06/2020 1:55 Results fo r this PM SCRAP HOIST OPERATOR procedure are i n the results section. PHOSPHORUS LEVEL STAT 04/06/2020 1:55 Results for this PM SCRAP HOIST OPERATOR procedure are i n the results section. PROTHROMBIN TIME WITH STAT 04/06/2020 1:55 Re sults for this INR PM SCRAP HOIST OPERATOR procedure are i n the results section. PARTIAL THROMBOPLASTIN STAT 04/06/2020 1:55 R esults for this TIME (PTT) PM SCRAP HOIST OPERATOR procedure are i n the results section. LACTIC ACID LEVEL STAT 04/06/2020 1:55 Result s for this PM SCRAP HOIST OPERATOR procedure are i n the results section. IONIZED CALCIUM STAT 04/06/2020 1:55 Results for this PM SCRAP HOIST OPERATOR procedure are i n the results section. FK506 TACROLIMUS LEVEL, STAT 04/06/2020 1:55 Results for this RANDOM PM SCRAP HOIST OPERATOR procedure are i n the results section. COMPREHENSIVE METABOLIC STAT 04/06/2020 1:55 Results for this PANEL PM SCRAP HOIST OPERATOR procedure are i n the results section. CT ABD/PELVIC EXTERNAL Routine 04/04/2020 6:34 R esults for this STUDY AM SCRAP HOIST OPERATOR procedure are i n the results section. CT CHEST W CONTRAST Routine 04/03/2020 2:36 Malignant neoplas m of Results for this ABDOMEN W CONTRAST PM SCRAP HOIST OPERATOR cardia of stomach proc edure are in PELVIS W CONTRAST (HCC) the result s section. CARCINOEMBRYONIC Routine 03/25/2020 8:30 Malignant neoplasm o f Results for this ANTIGEN (CEA) AM SCRAP HOIST OPERATOR stomach, unspecified proced ure are in location (HCC) the results section. ABSOLUTE NEUTROPHIL STAT 03/25/2020 8:21 Resu lts for this COUNT AM SCRAP HOIST OPERATOR procedure are i n the results section. ESTIMATED GFR STAT 03/25/2020 8:21 Results fo r this AM SCRAP HOIST OPERATOR procedure are i n the results section. MAGNESIUM LEVEL STAT 03/25/2020 8:21 Malignant neoplasm of Results for this AM SCRAP HOIST OPERATOR stomach, unspecified procedu re are in location (HCC) the results section. HC COMPLETE BLD COUNT STAT 03/25/2020 8:21 Malignant neopl asm of Results for this W/AUTO DIFF AM SCRAP HOIST OPERATOR stomach, unspecified procedu re are in location (HCC) the results section. COMPREHENSIVE METABOLIC STAT 03/25/2020 8:21 Malignant nydia plasm of Results for this PANEL AM SCRAP HOIST OPERATOR stomach, unspecified procedu re are in location (HCC) the results section. ESTIMATED GFR STAT 03/10/2020 8:12 Results fo r this AM SCRAP HOIST OPERATOR procedure are i n the results section. MAGNESIUM LEVEL STAT 03/10/2020 8:12 Malignant neoplasm of Results for this AM SCRAP HOIST OPERATOR stomach, unspecified procedu re are in location (HCC) the results section. HC COMPLETE BLD COUNT STAT 03/10/2020 8:12 Malignant neopl asm of Results for this W/AUTO DIFF AM SCRAP HOIST OPERATOR stomach, unspecified procedu re are in location (HCC) the results section. COMPREHENSIVE METABOLIC STAT 03/10/2020 8:12 Malignant nydia plasm of Results for this PANEL AM SCRAP HOIST OPERATOR stomach, unspecified procedu re are in location (HCC) the results section. IR PORT PLACEMENT Routine 03/05/2020 11:45 Malignant neoplasm of Results for this AM SCRAP HOIST OPERATOR cardia of stomach procedure are in (HCC) the results section. ESTIMATED GFR STAT 02/26/2020 8:13 Results fo r this AM SCRAP HOIST OPERATOR procedure are i n the results section. MAGNESIUM LEVEL STAT 02/26/2020 8:13 Malignant neoplasm of Results for this AM SCRAP HOIST OPERATOR stomach, unspecified procedu re are in location (HCC) the results section. HC COMPLETE BLD COUNT STAT 02/26/2020 8:13 Malignant neopl asm of Results for this W/AUTO DIFF AM SCRAP HOIST OPERATOR stomach, unspecified procedu re are in location (HCC) the results section. COMPREHENSIVE METABOLIC STAT 02/26/2020 8:13 Malignant nydia plasm of Results for this PANEL AM SCRAP HOIST OPERATOR stomach, unspecified procedu re are in location (HCC) the results section. XR PICC CHEST PORTABLE Routine 02/25/2020 12:52 Malignant neop lasm of Results for this PM SCRAP HOIST OPERATOR cardia of stomach procedure are in (HCC) the results section. PICC INSERTION REQUEST Routine 02/25/2020 8:25 R esults for this AM SCRAP HOIST OPERATOR procedure are i n the results section. PARTIAL THROMBOPLASTIN Routine 02/19/2020 12:14 Malignant neop lasm of Results for this TIME (PTT) PM SCRAP HOIST OPERATOR cardia of stomach procedure are in (HCC) the results section. PROTHROMBIN TIME WITH Routine 02/19/2020 12:14 Malignant neopl asm of Results for this INR PM SCRAP HOIST OPERATOR cardia of stomach procedure are in (HCC) the results section. HC COMPLETE BLD COUNT Routine 02/19/2020 12:13 Malignant neopl asm of Results for this W/AUTO DIFF PM SCRAP HOIST OPERATOR cardia of stomach procedure are in (HCC) the results section. ESTIMATED GFR Routine 02/19/2020 11:37 Results fo r this AM SCRAP HOIST OPERATOR procedure are i n the results section. COMPREHENSIVE METABOLIC Routine 02/19/2020 11:37 Malignant nydia plasm of Results for this PANEL AM SCRAP HOIST OPERATOR cardia of stomach procedure are in (HCC) the results section. CT CHEST W CONTRAST Routine 02/10/2020 3:46 Malignant neoplas m of Results for this ABDOMEN W CONTRAST PM SCRAP HOIST OPERATOR cardia of stomach proc edure are in PELVIS W CONTRAST ([facility]) the result s section. PROTHROMBIN TIME WITH Routine 02/03/2020 9:33 Malignant neopl asm of Results for this INR AM SCRAP HOIST OPERATOR cardia of stomach procedure are in (HCC) the results section. PARTIAL THROMBOPLASTIN Routine 02/03/2020 9:33 Malignant neop lasm of Results for this TIME (PTT) AM SCRAP HOIST OPERATOR cardia of stomach procedure are in (HCC) the results section. PREALBUMIN LEVEL Routine 02/03/2020 9:33 Malignant neoplasm o f Results for this AM SCRAP HOIST OPERATOR cardia of stomach procedure are in (HCC) the results section. MRI BRAIN W WO CONTRAST Routine 01/28/2020 2:25 Malignant nydia plasm of Results for this PM SCRAP HOIST OPERATOR esophagus, procedure are i n unspecified location the res ults (HCC) section. CT HEAD WO CONTRAST Routine 01/16/2020 4:14 Nonintractable Re sults for this PM SCRAP HOIST OPERATOR headache, unspecified proced ure are in chronicity pattern, the resu lts unspecified headache section . type PET CT SKULL BASE TO Routine 01/16/2020 3:57 Malignant neopla sm of Results for this MID THIGH PM SCRAP HOIST OPERATOR lower third of procedure are in esophagus (HCC) the results section. POC GLUCOSE Routine 01/16/2020 2:44 Results for this PM SCRAP HOIST OPERATOR procedure are i n the results section. ESTIMATED GFR Routine 01/16/2020 12:16 Results fo r this PM SCRAP HOIST OPERATOR procedure are i n the results section. CARCINOEMBRYONIC Routine 01/16/2020 12:16 Malignant neoplasm o f Results for this ANTIGEN (CEA) PM SCRAP HOIST OPERATOR lower third of procedure ar e in esophagus (HCC) the results section. COMPREHENSIVE METABOLIC Routine 01/16/2020 12:16 Malignant nydia plasm of Results for this PANEL PM SCRAP HOIST OPERATOR lower third of procedure are in esophagus (HCC) the results section. CBC HEMOGRAM Routine 01/16/2020 12:16 Malignant neoplasm of Re sults for this PM SCRAP HOIST OPERATOR lower third of procedure are in esophagus (HCC) the results section. SURGICAL PATHOLOGY Routine 01/09/2020 3:57 Resul ts for this REQUEST PM CDT procedure are i n the results section. SURGICAL PATHOLOGY Routine 01/09/2020 3:57 Resul ts for this REQUEST PM CDT procedure are i n the results section. SURGICAL PATHOLOGY Routine 01/09/2020 3:57 Resul ts for this REQUEST PM CDT procedure are i n the results section. SURGICAL PATHOLOGY Routine 01/09/2020 2:57 Resul ts for this REQUEST PM CDT procedure are i n the results section. BK VIRUS BY PCR Routine 01/09/2020 10:02 Transplanted ki dney Results for this AM CDT Pancreas transplanted proced ure are in (HCC) the results prison use of drug sectio n. ESTIMATED GFR Routine 01/09/2020 9:02 Results fo r this AM CDT procedure are i n the results section. 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 CREATININE LEVEL, Routine 01/09/2020 9:02 Transplanted kidney Results for this URINE, RANDOM AM CDT Pancreas transplanted proce dure are in (HCC) the results terminal superintendent use of drug sectio n. PROTEIN, URINE, RANDOM Routine 01/09/2020 9:02 Transpla nted kidney Results for this AM CDT Pancreas transplanted proced ure are in (HCC) the results prison use of drug sectio n. LIPASE LEVEL Routine 01/09/2020 9:02 Transplanted ki dney Results for this AM CDT Pancreas transplanted proced ure are in (HCC) the results prison use of drug sectio n. AMYLASE LEVEL Routine 01/09/2020 9:02 Transplanted ki dney Results for this AM CDT Pancreas transplanted proced ure are in (HCC) the results prison use of drug sectio n. URINALYSIS SCREEN AND Routine 01/09/2020 9:02 Transplan duglas kidney Results for this MICROSCOPY, WITH REFLEX AM CDT Pancreas transpla nted procedure are in TO CULTURE (HCC) the results terminal superintendent use of drug sectio n. PHOSPHORUS LEVEL Routine 01/09/2020 9:02 Transplanted k idney Results for this AM CDT Pancreas transplanted proced ure are in (HCC) the results prison use of drug sectio n. MAGNESIUM LEVEL Routine 01/09/2020 9:02 Transplanted ki dney Results for this AM CDT Pancreas transplanted proced ure are in (HCC) the results prison use of drug sectio n. COMPREHENSIVE METABOLIC Routine 01/09/2020 9:02 Transpl anted kidney Results for this PANEL AM CDT Pancreas transplanted proced ure are in (HCC) the results prison use of drug sectio n. HC COMPLETE BLD COUNT Routine 01/09/2020 9:02 Transplan duglas kidney Results for this W/AUTO DIFF AM CDT Pancreas transplanted proced ure are in (HCC) the results prison use of drug sectio n. URINE CULTURE Routine 01/09/2020 9:02 Results fo r this AM CDT procedure are i n the results section. COVID-19 QUALITATIVE Routine 01/06/2020 10:12 Encounter for Re sults for this PCR AM CDT screening for other procedur e are in viral diseases the results section. ESTIMATED GFR Routine 12/25/2019 9:14 Results fo r this AM CDT procedure are i n the results section. FK506 TACROLIMUS LEVEL, Routine 12/25/2019 9:14 Transpl anted kidney Results for this RANDOM AM CDT Pancreas transplanted proced ure are in (HCC) the results prison use of drug sectio n. 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 PROTEIN, URINE, RANDOM Routine 12/25/2019 9:14 Transpla nted kidney Results for this AM CDT Pancreas transplanted proced ure are in (HCC) the results terminal superintendent use of drug sectio n. LIPASE LEVEL Routine 12/25/2019 9:14 Transplanted ki dney Results for this AM CDT Pancreas transplanted proced ure are in (HCC) the results prison use of drug sectio n. 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 URINALYSIS SCREEN AND Routine 12/25/2019 9:14 Transplan duglas kidney Results for this MICROSCOPY, WITH REFLEX AM CDT Pancreas transpla nted procedure are in TO CULTURE (HCC) the results prison use of drug sectio n. PHOSPHORUS LEVEL Routine 12/25/2019 9:14 Transplanted k idney Results for this AM CDT Pancreas transplanted proced ure are in (HCC) the results prison use of drug sectio n. MAGNESIUM LEVEL Routine 12/25/2019 9:14 Transplanted ki dney Results for this AM CDT Pancreas transplanted proced ure are in (HCC) the results prison use of drug sectio n. COMPREHENSIVE METABOLIC Routine 12/25/2019 9:14 Transpl anted kidney Results for this PANEL AM CDT Pancreas transplanted proced ure are in (HCC) the results prison use of drug sectio n. HC COMPLETE BLD COUNT Routine 12/25/2019 9:14 Transplan duglas kidney Results for this W/AUTO DIFF AM CDT Pancreas transplanted proced ure are in (HCC) the results prison use of drug sectio n. URINE CULTURE Routine 12/25/2019 9:14 Results fo r this AM CDT procedure are i n the results section. DONOR SPECIFIC ANTIBODY Routine 12/11/2019 8:21 Results for this AM CDT procedure are i n the results section. ESTIMATED GFR Routine 12/11/2019 8:21 Results fo r this AM CDT procedure are i n the results section. CYTOMEGALOVIRUS BY PCR Routine 12/11/2019 8:21 Transpla nted kidney Results for this AM CDT Pancreas transplanted proced ure are in (HCC) the results prison use of drug sectio n. 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 CREATININE LEVEL, Routine 12/11/2019 8:21 Transplanted kidney Results for this URINE, RANDOM AM CDT Pancreas transplanted proce dure are in (HCC) the results prison use of drug sectio n. 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 LIPASE LEVEL Routine 12/11/2019 8:21 Transplanted ki dney Results for this AM CDT Pancreas transplanted proced ure are in (HCC) the results prison use of drug sectio n. AMYLASE LEVEL Routine 12/11/2019 8:21 Transplanted ki dney Results for this AM CDT Pancreas transplanted proced ure are in (HCC) the results prison use of drug sectio n. URINALYSIS SCREEN AND Routine 12/11/2019 8:21 Transplan duglas kidney Results for this MICROSCOPY, WITH REFLEX AM CDT Pancreas transpla nted procedure are in TO CULTURE (HCC) the results prison use of drug sectio n. 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 COMPREHENSIVE METABOLIC Routine 12/11/2019 8:21 Transpl anted kidney Results for this PANEL AM CDT Pancreas transplanted proced ure are in (HCC) the results prison use of drug sectio n. 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 URINE CULTURE Routine 12/11/2019 8:21 Results fo r this AM CDT procedure are i n the results section. ESTIMATED GFR Routine 09/11/2019 8:40 Results fo r this AM CDT procedure are i n the results section. BK VIRUS BY PCR Routine 09/11/2019 8:40 Transplanted ki dney Results for this AM CDT Pancreas transplanted proced ure are in (HCC) the results prison use of drug sectio n. 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 FK506 TACROLIMUS LEVEL, Routine 09/11/2019 8:40 Transpl anted kidney Results for this RANDOM AM CDT Pancreas transplanted proced ure are in (HCC) the results prison use of drug sectio n. 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 URINALYSIS SCREEN AND Routine 09/11/2019 8:40 Transplan duglas kidney Results for this MICROSCOPY, WITH REFLEX AM CDT Pancreas transpla nted procedure are in TO CULTURE (HCC) the results prison use of drug sectio n. PHOSPHORUS LEVEL Routine 09/11/2019 8:40 Transplanted k idney Results for this AM CDT Pancreas transplanted proced ure are in (HCC) the results prison use of drug sectio n. MAGNESIUM LEVEL Routine 09/11/2019 8:40 Transplanted ki dney Results for this AM CDT Pancreas transplanted proced ure are in (HCC) the results prison use of drug sectio n. COMPREHENSIVE METABOLIC Routine 09/11/2019 8:40 Transpl anted kidney Results for this PANEL AM CDT Pancreas transplanted proced ure are in (HCC) the results prison use of drug sectio n. HC COMPLETE BLD COUNT Routine 09/11/2019 8:40 Transplan duglas kidney Results for this W/AUTO DIFF AM CDT Pancreas transplanted proced ure are in (HCC) the results prison use of drug sectio n. URINE CULTURE Routine 09/11/2019 8:40 Results fo r this AM CDT procedure are i n the results section. after 04/22/2019 Results Estimated GFR (04/21/2020 8:39 AM SCRAP HOIST OPERATOR)Only the most recent of18 resultswithin the time period is included. Estimated GFR >=90 mL/min/1.[address] NONDENOMINATIONAL Comment: m2 [place] Catergory Units Interpretation HOS PITAL G1 >=90 Normal or high G2 60-89 Mildly decreased G3a 45-59 Mildly to moderately decreas ed G3b 30-44 Moderately to severely decre ased G4 15-29 Severely decreased G5 <15 Kidney failure The eGFR was calculated using the Chronic Kidney Disea se Epidemiology Collaboration (CKD-EPI) equation. Interpretation is based on recommendations of the National Kidney Foundation-Kidney Disease Outcomes Darrell lity Initiative (NKF-KDOQI) published in 2014. Specimen Performing Organization Address [facility]/ZIP Code Phon e Number [facility] DEPARTMENT OF PATHOLOGY [address] [facility] X [address] AND GENOMIC MEDICINE [facility] [address] [facility] X [address] HOSPITAL CBC with platelet and differential (04/21/2020 8:39 AM SCRAP HOIST OPERATOR)Only the most recent of19 resultswithin the time period is included. WBC 4.7 4.5 - 11.0 k/uL [facility] RBC 3.67 (L) 4.40 - 6.00 [facility] m/uL [facility] HGB 9.3 (L) 14.0 - 18.0 [facility] g/dL [facility] HCT 30.7 (L) 41.0 - 51.0 % [facility] MCV 83.7 82.0 - 100.0 fL [facility] MCH 25.3 (L) 27.0 - 34.0 pg [facility] MCHC 30.3 (L) 31.0 - 37.0 [facility] g/dL [facility] RDW - SD 62.7 (H) 37.0 - 55.0 fL [facility] MPV 10.2 6.9 - 11.0 fL [facility] Platelet count 226 150 - 400 K/uL [facility] Nucleated RBC 0.00 /100 WBC [facility] Neutrophils 69.0 39.0 - 69.0 % [facility] Lymphocytes 17.2 (L) 25.0 - 45.0 % [facility] Monocytes 11.0 (H) 0.0 - 10.0 % [facility] Eosinophils 0.9 0.0 - 5.0 % [facility] Basophils 0.4 0.0 - 1.0 % [facility] Immature granulocytes 1.5 (H) 0.0 - 1.0 % [facility] Specimen Plasma Performing Organization Address [facility] Phon e Number [facility] DEPARTMENT OF PATHOLOGY [address] [place] [address] AND GENOMIC [facility] [id number] [place] [address] HOSPITAL Magnesium level (04/21/2020 8:39 AM SCRAP HOIST OPERATOR)Only the most recent of17 resultswithin the time period is included. Pathologist Sig nature Magnesium 1.8 1.6 - 2.4 mg/dL [facility] Specimen Plasma Performing Organization Address [facility] Phon e Number [facility] DEPARTMENT OF PATHOLOGY [address] [place] [address] AND [facility] [id number] [place] [address] Comprehensive metabolic panel (04/21/2020 8:39 AM SCRAP HOIST OPERATOR)Only the most recent of12 resultswithin the time period is included. Sodium 135 135 - 148 mEq/L [facility] Potassium 3.9 3.5 - 5.0 mEq/L [facility] Chloride 105 98 - 112 mEq/L [facility] CO2 27 24 - 31 mEq/L [facility] Anion gap 3@ANIO (L) 7 - 15 mEq/L [facility] BUN 9 8 - 23 mg/dL [facility] Creatinine 0.60 (L) 0.70 - 1.20 [facility] mg/dL [facility] Glucose 227 (H) 65 - 99 mg/dL [facility] Calcium 8.8 8.8 - 10.2 [facility] mg/dL [facility] Protein 5.0 (L) 6.3 - 8.3 g/dL [facility] Albumin 2.5 (L) 3.5 - 5.0 g/dL [facility] A/G ratio 1.0 0.7 - 3.8 [facility] Alkaline phosphatase 60 40 - 129 U/L [facility] AST 30 10 - 50 U/L [facility] ALT 8 5 - 50 U/L [facility] Total bilirubin 0.7 0.2 - 1.2 mg/dL [facility] Specimen Plasma Performing Organization Address City/[facility] Phon e Number [facility] DEPARTMENT OF PATHOLOGY [address] [facility] X [address] AND GENOMIC MEDICINE [facility] [address] [facility] X [address] HOSPITAL FK506 Tacrolimus level, random (04/13/2020 5:10 AM SCRAP HOIST OPERATOR)Only the most recent of 12 resultswithin the time period is included. FK506 level 6.0 ng/mL [facility] Comment: HOSPITAL Therapeutic range 5-20 ng/mL for 12 hour trough. The r adriano varies depending on the organ transplanted, time after transplantation and co-administered immunosuppressant therapies. Please use clinical judgment to interpret test result. Test performed using [employer]gen [employer] chemiluminescent microparticle immunoassay for Tacrolimus on the [employer] i System. Specimen Blood Performing Organization Address [facility] Phon e Number [facility] DEPARTMENT OF PATHOLOGY AND [address] [place] [address] [address] [address] Manual differential (04/13/2020 5:10 AM SCRAP HOIST OPERATOR)Only the most recent of2 results within the time period is included. Manual differential PERFORMED [facility] Neutrophils 67.0 39.0 - 69.0 % [facility] Lymphocytes 16.0 (L) 25.0 - 45.0 % [facility] Monocytes 11.0 (H) 0.0 - 10.0 % [facility] Eosinophils 0.0 0.0 - 5.0 % [facility] Basophils 0.0 0.0 - 1.0 % [facility] Metamyelocytes 6 % [facility] Promyelocytes 0 % [facility] Platelet slide review Nic adequate [facility] Anisocytosis Moderate [facility] Polychromasia Moderate [facility] Target cells Moderate (A) [facility] Specimen Performing Organization Address City/[facility] Phon e Number [facility] DEPARTMENT OF PATHOLOGY AND [address] [place] [address] [address] [address] Phosphorus level (04/13/2020 5:10 AM SCRAP HOIST OPERATOR)Only the most recent of12 results within the time period is included. Pathologist Sig [facility] Phosphorus 2.2 (L) 2.4 - 4.5 mg/dL [facility] L Specimen Blood Performing Organization Address City/[facility] Phon e Number [facility] DEPARTMENT OF PATHOLOGY AND [address] [place], [place] [address] [address] [address] Lipase level (04/13/2020 5:10 AM SCRAP HOIST OPERATOR)Only the most recent of9 resultswithin the time period is included. Pathologist Sig [facility] Lipase 15 13 - 60 U/L [facility] Specimen Blood Performing Organization Address City/[facility] Phon e Number [facility] DEPARTMENT OF PATHOLOGY AND [address] [place] [address] [address] [address] Amylase level (04/13/2020 5:10 AM SCRAP HOIST OPERATOR)Only the most recent of9 resultswithin the time period is included. Pathologist Sig [facility] Amylase 15 (L) 28 - 100 U/L [facility] Specimen Blood Performing Organization Address City/[facility] Phon e Number [facility] DEPARTMENT OF PATHOLOGY AND [address] [place] [address] [address] [address] Basic metabolic panel (04/13/2020 5:10 AM SCRAP HOIST OPERATOR)Only the most recent of6 results within the time period is included. Pathologist Sig nature Sodium 137 135 - 148 mEq/L [facility] Potassium 3.3 (L) 3.5 - 5.0 mEq/L [facility] Chloride 106 98 - 112 mEq/L [facility] CO2 23 (L) 24 - 31 mEq/L [facility] Anion gap 8@ANIO 7 - 15 mEq/L [facility] BUN 8 8 - 23 mg/dL [facility] Creatinine 0.55 (L) 0.70 - 1.20 mg/dL [facility] Glucose 158 (H) 65 - 99 mg/dL [facility] Calcium 8.3 (L) 8.8 - 10.2 mg/dL [facility] Specimen Blood Performing Organization Address City/[facility] Phon e Number [facility] DEPARTMENT OF PATHOLOGY AND [address] [place] [phone] Partial thromboplastin time, activated (04/12/2020 5:35 AM SCRAP HOIST OPERATOR)Only the most recent of6 resultswithin the time period is included. Pathologist [facility] PTT 44.3 (H) 23.0 - 36.0 [facility] Comment: [facility] PTT therapeutic range for unfractionated heparin is 61.0-112.0 seconds which corresponds to Anti-Xa 0.3-0.7 U/ml. Specimen Blood Performing Organization Address City/[facility] Phon e Number [facility] DEPARTMENT OF PATHOLOGY AND [address] [place] [address] [address] Prothrombin time with INR (04/12/2020 5:35 AM SCRAP HOIST OPERATOR)Only the most recent of7 resultswithin the time period is included. [facility] Prothrombin time 16.8 (H) 11.5 - 14.5 [facility] INR 1.4 MOBILE Comment: NONDENOMINATIONAL [facility] International Normalized Ratio (INR) is a [facility] HOSPITAL monitoring tool for patients who are stable on oral anticoagulant therapy. An INR of 2.0-3.0 is suggested for deep vein thrombosis/pulmonary embolism. Specimen Blood Performing Organization Address City/[facility] Phon e Number [facility] DEPARTMENT OF PATHOLOGY AND [address] [place] [address] [address] Gastrointestinal panel (04/11/2020 9:32 AM SCRAP HOIST OPERATOR) Pathologist [facility] Adenovirus 40/41 PCR Not Detected MOBILE Comment: NONDENOMINATIONAL Specimen Information HOSPITAL Specimen Source: Stool Specimen Site: Nonpreserved Astrovirus PCR Not Detected [facility] Campylobacter PCR Not Detected [facility] Clostridioides difficile Not Detected [facility] Cryptosporidium PCR Not Detected [facility] Cyclospora cayetanensis Not Detected [facility] Enteroaggregative E coli Not Detected [facility] Entamoeba histolytica Not Detected [facility] Enteroinvasive E coli Not Detected [facility] Enteropathogenic E coli Not Detected [facility] Norovirus PCR Not Detected [facility] Plesiomonas shigelloides Not Detected [facility] Rotavirus PCR Not Detected [facility] Salmonella PCR Not Detected [facility] Sapovirus PCR Not Detected [facility] Enterotoxigenic E coli Detected (A) [facility] Shigatoxin producing E Not Detected MOBILE coli PCR [facility] E coli O157 PCR Not Reported [facility] Vibrio PCR Not Detected [facility] Vibrio cholerae PCR Not Detected [facility] Yersinia enterocolitica Not Detected [facility] Giardia lamblia PCR Not Detected [facility] Specimen Stool - Nonpreserved Performing Organization Address City/[facility] Phon e Number [facility] DEPARTMENT OF PATHOLOGY AND [address] [place] [address] [phone] [address] Smear review (04/11/2020 5:30 AM SCRAP HOIST OPERATOR)Only the most recent of2 resultswithin the time period is included. Pathologist [facility] Platelet slide review Nic adequate [facility] Anisocytosis Moderate [facility] Polychromasia Moderate [facility] Schistocytes Occasional [facility] Spherocytes Occasional [facility] Ovalocytes Moderate [facility] Jasiel cells Moderate (A) [facility] Enlarged platelets Moderate (A) [facility] Specimen Performing Organization Address City/[facility] Phon e Number [facility] DEPARTMENT OF PATHOLOGY AND [address] [place] [address] [address] [address] Fibrinogen (04/09/2020 5:23 AM SCRAP HOIST OPERATOR) Pathologist Sig [facility] Fibrinogen 540 (H) 200 - 450 mg/dL [facility] L Specimen Blood Performing Organization Address City/[facility] Phon e Number [facility] DEPARTMENT OF PATHOLOGY AND [address] [place] [address] [address] [address] Hemoglobin & hematocrit (04/08/2020 8:10 AM SCRAP HOIST OPERATOR)Only the most recent of3 resultswithin the time period is included. Pathologist Sig [facility] HGB 7.5 (L) 14.0 - 18.0 g/dL [facility] HCT 23.4 (L) 41.0 - 51.0 % [facility] Specimen Blood Performing Organization Address City/State/ZIP Code Phon e Number [facility] DEPARTMENT OF PATHOLOGY AND [address] [place], [place] [address] GENOMIC MEDICINE [facility] [address] [place] [address] IR IVC Filter Placement (04/07/2020 6:22 PM SCRAP HOIST OPERATOR) Specimen Narrative Performed At Performing Radiologist WINSTON Tolbert MD Assistants None Anesthesia Type Lidocaine 1% was used for local anesthetic. Moderate s edation was administered by the procedure nurse and monitored intr aservice by the procedure physician for a total [id number]-[id number] sedation time of 11 minutes. Indication Deep venous thrombosis, contraindication to medical an ticoagulation therapy. Procedure 1. Inferior vena cavogram 2. Placement of a retrievable inferior v andrew cava filter Technique Written informed consent was obtained prior to the pro cedure. All elements of maximal sterile barrier technique were fol lowed. The patient's right neck was sterilely prepared and draped in the routine manner. Lidocaine 1% was used for local anesthetic. Using real-time ultrasound guidance, a 21-gauge microp uncture needle was used to access the right internal jugular vein. A 0.01 8 inch guidewire was advanced centrally under fluoroscopy. The needle w as removed, and a micropuncture sheath system was then placed over the guidewire. Under ultrasound guidance, documentation of vessel patency, needle access with permanent recording , and reporting are performed followed by placement of a sheath in the right internal jugular vein. The inner dilator and guidewire were then removed, and a 0.035 inch wire was advanced through the micropuncture sheath and into the inferior vena ca va under fluoroscopy. The micropuncture sheath was removed and a 5-[place] pigtail catheter was then placed over the guidew eboni and advanced into the left common iliac vein near the low inferior vena cava. An inferior vena cavagram was then performed wit h injection of contrast. Exchange was then made for the delivery syst em for Celect retrievable inferior vena cava filter. U sing the filter deployment device, the Celect filter was ad vanced, positioned, and deployed within the infrarenal inferio r vena cava. A completion inferior cavagram was then performed throug h the delivery sheath of the Celect filter. The deliver y sheath was removed and hemostasis was achieved with manual compre ssion. The patient tolerated the procedure well. Radiation Dose Ka,r = 105 mGy Complications None Specimens Removed None Estimated Blood Loss Less than 1 mL Blood/Blood Products Administered None Grafts/Implants As described in the above report Impression: 1. An initial inferior vena cavogram demonstrates a no rmal caliber inferior vena cava. There is no caval thrombus. Inflow from the left common iliac vein and left and right edwin al veins is noted. 2. Successful placement of a Celect retrievable inferi or vena cava filter within the infrarenal inferior vena cava. A com pletion inferior vena cavogram demonstrates all legs of the filter to b e completely deployed with no complications. [facility]-[id number] Procedure [address] [facility], Radiology Results Incoming - 04/08/2020 1:23 PM SCRAP HOIST OPERATOR Performing Radiologist Dawit Tolbert MD Assistants None Anesthesia Type Lidocaine 1% was used for local anesthet ic. Moderate sedation was administered by the procedure nurse and monitored intraservice by the procedure physician for a total [id number]-[id number] sedation time of 11 minutes. Indication Deep venous thrombosis, contraindication to medical anticoagulation therapy. Procedure 1. Inferior vena cavogram 2. Placement of a retrievable inferior v andrew cava filter Technique Written informed consent was obtained pr ior to the procedure. All elements of maximal sterile barrier technique were followed. The patient's right neck was sterilely prepared and draped in the routine manner. Lidocaine 1% was used for local anesthetic. Using real-time ultrasound guidance, a 2 1-gauge micropuncture needle was used to access the right internal jugular vein. A 0.018 inch guidewire was advanced centrally under fluoroscopy. The needle was removed, and a micropuncture sheath system was then placed over the guidewire. Under ultraso und guidance, documentation of vessel patency, needle access with permanent recording, and reporting are performed followed by placement of a sheath in the right internal jugular vein. The inner dilator and guidewire were then removed, and a 0.035 inch wire was advanced through the micropuncture sheath and into the inferior vena cava under fluoroscopy. The micropuncture sheath was removed and a 5-[place] pigtail catheter was then placed over the guidew eboni and advanced into the left common iliac vein near the low inferior vena cava. An inferior vena cavagram was then performed with injection of contrast. Exchange was then made for the delivery system for Celect retrievable inferior vena cava filter. U sing the filter deployment device, the Celect filter was advanced, positioned, and deployed within the infrarenal inferior vena cava. A completion inferior cavagram was then performed through the delivery sheath of the Celect filter. The delivery sheath was removed and hemostasis was achieved with manual compression. The patient tolerated the procedure well. Radiation Dose Ka,r = 105 mGy Complications None Specimens Removed None Estimated Blood Loss Less than 1 mL Blood/Blood Products Administered None Grafts/Implants As described in the above report Impression: 1. An initial inferior vena cavogram dem onstrates a normal caliber inferior vena cava. There is no caval thrombus. Inflow from the left common iliac vein and left and right renal veins is noted. 2. Successful placement of a Celect retr ievable inferior vena cava filter within the infrarenal inferior vena cava. A completion inferior vena cavogram demonstrates all legs of the filter to be completely deployed with no complications. [facility]-[id number] Performing Organization Address City/State/ZIP Code [facility] e Number [facility] [address] [place] [address] Urinalysis screen and microscopy, with reflex to culture (04/07/2020 9:45 AM SCRAP HOIST OPERATOR)Only the most recent of5 resultswithin the time period is included. Specimen site Clean catch [facility] Color, UA Nury [facility] Appearance, UA Clear [facility] Specific gravity, UA 1.030 1.001 - 1.035 [facility] pH, UA 5.0 5.0 - 8.5 [facility] Protein, UA Negative Negative [facility] Glucose, UA 3+ (A) Negative [facility] Ketones, UA Trace (A) Negative [facility] Bilirubin, UA Negative Negative [facility] Blood, UA Negative Negative [facility] Nitrite, UA Negative Negative [facility] Urobilinogen, UA <2.0 <2.0 [facility] Leukocyte esterase, Negative Negative [facility] Epithelial cells, UA <1 /HPF [facility] WBC, UA 1 0 - 1 /HPF [facility] RBC, UA <1 0 - 5 /HPF [facility] Bacteria, UA None seen None seen [facility] Yeast, UA None seen [facility] Yeast with None seen [facility] pseudohyphae, HOSPITAL Specimen Urine Performing Organization Address City/[facility] Phon e Number [facility] DEPARTMENT OF PATHOLOGY AND [address] [place], [place] [phone] 0 [place] [address] Urine culture (04/07/2020 9:45 AM SCRAP HOIST OPERATOR)Only the most recent of5 resultswithin the time period is included. Pathologist Sig nature Urine culture SEE COMMENTComment: [facility] Bacteriuria screen HOSPITAL negative. Specimen Performing Organization Address City/[facility] Phon e Number [facility] DEPARTMENT OF PATHOLOGY AND [address] [place], [place] [address] 0 [place] [address] CBC hemogram (04/07/2020 3:30 AM SCRAP HOIST OPERATOR)Only the most recent of3 resultswithin the time period is included. Pathologist Sig nature WBC 5.48 4.50 - 11.00 k/uL [facility] RBC 3.04 (L) 4.40 - 6.00 m/uL [facility] HGB 7.4 (L) 14.0 - 18.0 g/dL [facility] HCT 23.3 (L) 41.0 - 51.0 % [facility] MCV 76.6 (L) 82.0 - 100.0 fL [facility] MCH 24.3 (L) 27.0 - 34.0 pg [facility] MCHC 31.8 31.0 - 37.0 g/dL [facility] RDW - SD 44.3 37.0 - 55.0 fL [facility] MPV 11.0 8.8 - 13.2 fL [facility] Platelet count 166 150 - 400 k/uL [facility] Nucleated RBC 0.00 /100 WBC [facility] Specimen Plasma Performing Organization Address [facility] Phon e Number [facility] DEPARTMENT OF PATHOLOGY AND [address] [place] [address] duplex venous lower extremity (04/06/2020 4:28 PM SCRAP HOIST OPERATOR) Specimen Narrative Performed At [facility] Lower Extr emity Venous Report [id number] [facility], [address] [address] Pat.Name: BULMARO [place] Pat.ID: [id number] .Date: 04/06/2020 Refer.MD: GRETTA BACON MD Exam Time: 3:38:00 PM Study Type:L E Venous Height: 69in Weight: 147lb BSA: 1.81 m2 Ag e: 1955,64Y Sex: MALE Sonogr phr: Yuly Burak, RVT Pat. Stat.:Inpatient Room: [address] Tape Vol: SARAH/, CPT - 4: 32120 Echo Event ID:[id number] Order ID: [id number] Reason for Study:History of PE. Rule o ut DVT. History of gastric cancer. Status post renal and pancrea s transplant. Procedures: Colorflow, Grayscale/2D, Pul sed wave Doppler Race: C SUMMARY: DUPLEX SCAN OBSERVATIONS Deep Veins Superficial Veins Right Left Right Left GSV (prox) Normal Normal CFV Normal Normal (above knee) Femoral Normal Normal GSV (dist) Not Vis ualized Normal Profunda Normal Normal (below knee) Popliteal Normal Normal PT (prox) Normal Normal SSV Normal Not Visualized PT (dist) Normal Normal Peroneal Normal Obstructed Gastrocs Normal Normal RIGHT: There is normal compressibility w ith no evidence of echogenic material noted within the lumen of the v isualized veins. Colorflow and Doppler signals are normal. LEFT: One of paired peroneal vein is non -compressible with echogenic material inside of lumen with absent col orflow and Doppler signals. There is normal compressibility with no evidence of echogenic material noted within the lumen of the remaining visualized veins. Colorflow and Doppler signals are normal. PRELIMINARY FINDINGS: 1. Deep venous thrombosis of the left pe roneal vein. *The results given to ERIKA Friedman at 16:15 04/06/2020 PHYSICIAN INTERPRETATION: Deep venous thrombosis of the left peron eal vein. FINDINGS: Signed 04/07/2020 09:10 AM Giovanni Zavala MD, FACS, RPVI Procedure Note Interface, Radiology Results In - 2020 9:11 AM [facility] Vascular Ultrasound Laboratory Lower Extremity Veno us Report [address] [place] [address] Pat.Name: BULMARO [place] Pat.I D: [id number] St.Date: 04/06/2020 Refer .MD: GRETTA BACON MD Exam Time: 3:38:00 PM Study Type:LE Venous Height: 69in Weigh t: 147lb BSA: 1.81 m2 Age: 3 1955,64Y Sex: MALE Sonog rphr: Yuly Sumner RVT Pat. Stat.:Inpatient Room: [address] Tape Vol: SARAH/, CPT - 4: 20029 Echo Event ID:[id number] Order ID: [id number] Reason for Study:History of PE. Rule ou t DVT. History of gastric cancer. Status post renal and pancreas transplant. Procedures: Colorflow, Grayscale/2D, Pul sed wave Doppler Race: C SUMMARY: DUPLEX SCAN OBSERVATIONS Deep Veins Superficial Veins Right Left Right Left GSV (prox) Normal Normal CFV Normal Normal (above knee) Femoral Normal Normal GSV (dist) Not Vis ualized Normal Profunda Normal Normal (below knee) Popliteal Normal Normal PT (prox) Normal Normal SSV Normal Not Visualized PT (dist) Normal Normal Peroneal Normal Obstructed Gastrocs Normal Normal RIGHT: There is normal compressibility w ith no evidence of echogenic material noted within the lumen of the v isualized veins. Colorflow and Doppler signals are normal. LEFT: One of paired peroneal vein is non -compressible with echogenic material inside of lumen with absent col orflow and Doppler signals. There is normal compressibility with no evidence of echogenic material noted within the lumen of the remaining visualized veins. Colorflow and Doppler signals are normal. PRELIMINARY FINDINGS: 1. Deep venous thrombosis of the left pe roneal vein. *The results given to ERIKA Friedman at 16:15 04/06/2020 PHYSICIAN INTERPRETATION: Deep venous thrombosis of the left peron eal vein. FINDINGS: Signed 04/07/2020 09:10 AM Giovanni Zavala MD, FACS, RPVI Performing Organization Address [facility] Code Phon e Number CUPID [address] [place] [address] XR Chest 1 Vw Portable (04/06/2020 3:38 PM SCRAP HOIST OPERATOR) Specimen Narrative Performed At [facility] Examination: XR CHEST 1 VW PORTABLE Clinical history: Shortness of breath R retroperitoneal bleed Comparison: 02/25/2020 IMPRESSION: Bilateral mild atelectasis and/or infilt rates have developed. Indwelling support devices/catheters appear generally stable in position. No pneumothoraces are identified. There are no appar ent pleural effusions. The cardiomediastinal silhouette and the remainder of the chest appear essentially unchanged. [id number] Procedure Note Interface, Radiology Results Incoming - 04/06/2020 5:09 PM SCRAP HOIST OPERATOR Examination: XR CHEST 1 VW PORTABLE Clinical history: Shortness of breath R retroperitoneal bleed Comparison: 02/25/2020 IMPRESSION: Bilateral mild atelectasis and/or infilt rates have developed. Indwelling support devices/catheters nic ear generally stable in position. No pneumothoraces are identified. There are no apparent pleural effusions. The cardiomediastinal silhouette and the remainder of the chest appear essentially unchanged. [id number] Performing Organization Address [facility] Code Phon e Number RADIANT [address] [place] [address] Prepare RBC, 1 Units (04/06/2020 3:36 PM SCRAP HOIST OPERATOR)Only the most recent of2 results within the time period is included. Product name Red Cells AS1 MOBILE Leukored Irrad [facility] Unit number [id number] [facility] Product code [id number] [facility] Dispense status Transfused [facility] Blood expiration date [facility] Blood type code 9500 [facility] Blood type O NEGATIVE [facility] Compatibility Compatible [facility] Specimen Plasma Performing Organization Address [facility] Phon e Number [facility] DEPARTMENT OF PATHOLOGY AND [address] [place] [address] [phone] [address] Type and screen (04/06/2020 3:34 PM SCRAP HOIST OPERATOR) Pathologist Sig nature ABO grouping O [facility] Rh type NEG [facility] Antibody screen (gel) NEG [facility] Specimen Plasma Performing Organization Address [facility] Phon e Number [facility] DEPARTMENT OF PATHOLOGY AND [address] [place] [address] [phone] [facility] [address] [address] ECG 12 lead (04/06/2020 2:30 PM SCRAP HOIST OPERATOR) Pathologist Sig nature Ventricular rate 101 [facility] Atrial rate 101 [facility] SD interval 128 [facility] QRSD interval 82 [facility] QT interval 344 [facility] QTC interval 446 [facility] P axis 1 70 [facility] QRS axis 1 -7 [facility] T wave axis -9 [facility] MUSE EKG impression Sinus tachycardia-Inferior i nfarct (cited on or before 16-MAY-2009)-Cannot rule out Anterior infarct , age undetermined-Abnormal ECG-In automated comparison with ECG of 20-OCT-2010 10:40,-Nonspecific T wave abnormality now evident in Anterolateral [facility] MUSE leads- Specimen Narrative Performed At This result has an attachment that is no t available. Performing Organization Address [facility] Phon e Number [facility] MUSE [address] [place] [address] COVID-19 qualitative PCR (04/06/2020 2:25 PM SCRAP HOIST OPERATOR)Only the most recent of2 resultswithin the time period is included. Interpretation Negative results do not prec lude 2019-nCoV infection and should not be used as the sole basis for treatment or other patient management decisions. Negative results must be combined with clinical observations, patient history, and epidemiological LANE information. [facility] COVID-19 qualitative Not-Detected Not-Detecte MOBILE PCR result d [facility] COVID-19 qualitative See link below for MOBILE PCR PDF Lab NONDENOMINATIONAL ReportComment: Case [facility] Number: [id number] Specimen Nasal swab Performing Organization Address [facility] Phon e Number [facility] DEPARTMENT OF PATHOLOGY AND [address] [place] [address] [address] [facility] Lactic acid level (04/06/2020 1:55 PM SCRAP HOIST OPERATOR) Pathologist Sig nature Lactic acid 1.7 0.5 - 2.2 mmol/L [facility] Specimen Plasma Performing Organization Address City/[facility] Phon e Number [facility] DEPARTMENT OF PATHOLOGY AND [address] [place] [address] [phone] [address] Ionized calcium (04/06/2020 1:55 PM SCRAP HOIST OPERATOR) Pathologist Sig nature pH 7.42 [facility] Ionized calcium 1.12 1.11 - 1.32 mmol/L [facility] Specimen Plasma Performing Organization Address City/[facility] Phon e Number [facility] DEPARTMENT OF PATHOLOGY AND [address] [place], [place] [phone] [address] [address] [address] Abd/Pelvic External Study (04/04/2020 6:34 AM SCRAP HOIST OPERATOR) Specimen Narrative Performed At This exam was not acquired at a [facility] facility and has not been [facility] interpreted by a Nondenominational Provider. T he exam was imported into our imaging system. Performing Organization Address City/[facility]/ZIP Code Phon e Number [facility] [address] [place] [address] Chest W Contrast Abdomen W Contrast Pelvis W Contrast (04/03/2020 2:36 PM SCRAP HOIST OPERATOR)Only the most recent of2 resultswithin the time period is included. Specimen Narrative Performed At EXAMINATION: CT CHEST W CONTRAST ABDOM EN W CONTRAST PELVIS W CONTRAST HM [facility] CLINICAL HISTORY: 64 years Male C16.0 Malignant neop lasm of cardia, gastric cancer TECHNIQUE: Multiple axial images of the chest, abdom en, and pelvis were obtained following intravenous administration of iodinated contrast. Sagittal and coronal computerized reformatte d images were obtained. CT imaging was performed with iterative reconstruction techniques and/or automated exposure co ntrol to reduce radiation dose. COMPARISON: 02/10/2020 IMPRESSION: CHEST: Lower neck and thoracic inlet: No focal abnormality. Lungs and airways: A tiny nodular density in the anter ior right upper lobe (series 2 image 61 is unchanged and likely repres ents the sequela of previous inflammatory disease. There are no acute c onsolidations or interval developing suspicious pulmonary nodules. Pleura: No pleural effusion or pneumotho rax. Mediastinum and lymph nodes: No mediastinal, hilar, flowers praclavicular, or axillary adenopathy. Cardiovascular: The heart size is normal. Minimal baoz nary calcifications. Trace pericardial fluid and/or thicken ing. The thoracic aorta is minimally atherosclerotic without evidence of aneurysm. There are intraluminal filling defects with a embolus at the distal right main pulmonary artery with nonocclusi ve thrombus extending into the right middle lobe and right lower l obe segmental branches. Similar but less prominent finding is noted in the distal left main pulmonary artery. The main pulmonar y artery is slightly dilated and measures 3.1 cm. Other: A right IJ portacatheter is in sa tisfactory position. ABDOMEN: Liver: Small hepatic hypodensities in the hepatic dome are unchanged and compatible with benign cysts. Gallbladder/Biliary: The gallbladder contains a calcul us. The gallbladder is not distended. Spleen: The spleen is not enlarged. Pancreas: The sokaogon pancreas is atrophic without foca l mass. There our a couple of pancreas transplants in the right abdomen and right iliac fossa that are grossly unremarkable. Adrenal Glands: The adrenal glands are u nremarkable. Kidneys: The [place] kidneys are atrophic compatible wi th end-stage renal disease. There are several bilateral solid renal dorys s. A right upper pole renal mass has increased in size and measures 5.2 cm (formerly 4.6 cm). A posterior right midpole mass is slightly increased in size and measures 1.9 cm (forme rly 1.7 cm). A posterolateral left midpole renal mass measures 1.5 cm (formerly 1.3 cm) and anterolateral upper pole left renal mass measures 1.1 cm and is relatively unchanged. A left lower pole renal mass measures 2.3 cm and is also unchanged. Ther e are two renal transplants in the left iliac fossa. The lateral trans plant is without focal abnormality. The more medial transplant has shady ical atrophy and contains several cysts. A tiny calyceal calculus is also present. Vasculature: The abdominal aorta is minimally atherosc lerotic without evidence of aneurysm. Nodes: No enlarged retroperitoneal or me senteric lymphadenopathy. Bowel: There is diffuse thickening at the esophagogast krupa junction with mild diffuse thickening of the lower esophagus and sto mach. Findings may be related to interval XRT. There is no evidence of in testinal obstruction. The colon is partially decompressed. There is mild diffuse colonic mucosal en hancement. There are postoperative changes related to ventral hernia re pair with mesh. A small fat-containing hernia is present along the left lateral aspect of the hernia repair just cephalad to the umbilicus. A small section of small bowel protrudes in to the hernia opening. Ascites/fluid collections: No ascites or fluid collections. PELVIS: There is no evidence of pelvic mass, fluid collection, or pelvic lymphadenopathy. MUSCULOSKELETAL: No suspicious osseous lesions. SUMMARY: 1.Subacute pulmonary thromboembolic dise ase. 2.Persistent thickening at the esophagogastric junctio n compatible with primary neoplasm. Mild diffuse thickening of the lower esophagus and stomach similar to the prior study. 3.Enlarging renal masses involving the sokaogon kidneys compatible with multifocal renal cell carcinoma. A couple of the lesio ns on the sokaogon left kidney are stable in size and may r epresent complex cysts. 4.Status post double pancreatic and renal transplants. Small cysts, atrophy, and calyceal calculus in the medial left kierar c fossa renal transplant. 5.Mild colonic mucosal enhancement may r eflect mild colitis. 6.Status post ventral hernia repair with small fat-con taining hernia along the left lateral margin of the her byron repair. 7.Cholelithiasis. Results were discussed with Dr. Bernice jones 1540 hours. [id number] Procedure Note Hm Interface, Radiology Results Incoming - 04/03/2020 3:45 PM SCRAP HOIST OPERATOR EXAMINATION: CT CHEST W CONTRAST ABDOMEN W CONTRAST PELVIS W CONTRAST CLINICAL HISTORY: 64 years Male C16.0 M alignant neoplasm of cardia, gastric cancer TECHNIQUE: Multiple axial images of the chest, abdomen, and pelvis were obtained following intravenous administration of iodinated contrast. Sagittal and coronal computerized reformatted images were obtained. CT imaging was performed with iterative reconstruction techniques and/or automat ed exposure control to reduce radiation dose. COMPARISON: 02/10/2020 IMPRESSION: CHEST: Lower neck and thoracic inlet: No focal abnormality. Lungs and airways: A tiny nodular densit y in the anterior right upper lobe (series 2 image 61 is unchanged and likely represents the sequela of previous inflammatory disease. There are no acute consolidations or interval developing suspicious pulmonary nodules. Pleura: No pleural effusion or pneumotho rax. Mediastinum and lymph nodes: No mediasti nal, hilar, supraclavicular, or axillary adenopathy. Cardiovascular: The heart size is normal . Minimal coronary calcifications. Trace pericardial fluid and/or thickening. The thoracic aorta is minimally atherosclerotic without evidence of aneurysm. There are intraluminal filling defects with a embolus at the distal right main pulmonary artery w ith nonocclusive thrombus extending into the right middle lobe and right lower lobe segmental branches. Similar but less prominent finding is noted in the distal left main pulmonary artery. The main pulmonary artery is slightly dilated and measures 3.1 cm. Other: A right IJ portacatheter is in sa tisfactory position. ABDOMEN: Liver: Small hepatic hypodensities in th e hepatic dome are unchanged and compatible with benign cysts. Gallbladder/Biliary: The gallbladder con tains a calculus. The gallbladder is not distended. Spleen: The spleen is not enlarged. Pancreas: The sokaogon pancreas is atrophi c without focal mass. There our a couple of pancreas transplants in the right abdomen and right iliac fossa that are grossly unremarkable. Adrenal Glands: The adrenal glands are u nremarkable. Kidneys: The s[place]ogon kidneys are atrophic compatible with end-stage renal disease. There are several bilateral solid renal masses. A right upper pole renal mass has increased in size and measures 5.2 cm (formerly 4.6 cm). A posterior right midpole mass is slightly increased in size and measures 1.9 cm (formerly 1.7 cm). A posterolateral left midpole renal mass measures 1.5 cm (formerly 1.3 cm) and anterolateral upper pole left renal mass measures 1.1 cm and is relatively unchanged. A left lower pole renal mass measures 2.3 cm and is also u nchanged. There are two renal transplants in the left iliac fossa. The lateral transplant is without focal abnormality. The more medial transplant has cortical atrophy and contains several cysts. A tiny calyceal calculus is also present. Vasculature: The abdominal aorta is mini uche atherosclerotic without evidence of aneurysm. Nodes: No enlarged retroperitoneal or me senteric lymphadenopathy. Bowel: There is diffuse thickening at th e esophagogastric junction with mild diffuse thickening of the lower esophagus and stomach. Findings may be related to interval XRT. There is no evidence of intestinal obstruction. The colon is partially decompressed. There is mild diffuse colo agustin mucosal enhancement. There are postoperative changes related to ventral hernia repair with mesh. A small fat- containing hernia is present along the left lateral aspect of the hernia repair just cephalad to the umbilicus. A small section of small tyesha l protrudes into the hernia opening. Ascites/fluid collections: No ascites or fluid collections. PELVIS: There is no evidence of pelvic mass, flu id collection, or pelvic lymphadenopathy. MUSCULOSKELETAL: No suspicious osseous lesions. SUMMARY: 1.Subacute pulmonary thromboembolic dise ase. 2.Persistent thickening at the esophagog astric junction compatible with primary neoplasm. Mild diffuse thickening of the lower esophagus and stomach similar to the prior study. 3.Enlarging renal masses involving the n ative kidneys compatible with multifocal renal cell carcinoma. A couple of the lesions on the sokaogon left kidney are stable in size and may represent complex cysts. 4.Status post double pancreatic and yuly l transplants. Small cysts, atrophy, and calyceal calculus in the medial left iliac fossa renal transplant. 5.Mild colonic mucosal enhancement may r eflect mild colitis. 6.Status post ventral hernia repair with small fat-containing hernia along the left lateral margin of the hernia repair. 7.Cholelithiasis. Results were discussed with Dr. Bernice jones 1540 hours. OPC-[id number] Performing Organization Address City/State/ZIP Code Phon e Number [facility] [address] [place] [address] Carcinoembryonic antigen (CEA) (03/25/2020 8:30 AM SCRAP HOIST OPERATOR)Only the most recent of2 resultswithin the time period is included. CEA 17.8 (H) 0.0 - 3.8 [facility] Comment: ng/mL HOSPITAL Reference range for heavy smokers: 0.0 - 5.5 ng/mL The LUCINA [place] 8000 CEA immunoassay was used. Results obtained with different assay methods or kits should not be used interchangeably and may be differen t. Specimen Serum Performing Organization Address City/State/ZIP Code Phon e Number [facility] DEPARTMENT OF PATHOLOGY AND [address] [place], [place] [address] [facility] [address] [place] [address] Absolute neutrophil count (03/25/2020 8:21 AM SCRAP HOIST OPERATOR) Pathologist Sig nature Neutrophils, absolute 2.42 1.76 - 7.59 k/uL [facility] Specimen Plasma Performing Organization Address City/[facility] Code Phon e Number [facility] DEPARTMENT OF PATHOLOGY [address] [facility] X [address] AND [facility] [address] [facility] X [address] HOSPITAL IR Port Placement (03/05/2020 11:45 AM SCRAP HOIST OPERATOR) Specimen Narrative Performed At Performing Radiologist WINSTON Wilkerson MD Assistants None Anesthesia Type Moderate sedation was administered by the procedure nu rse and monitored by the procedure physician for a ewao-gw-mmyo sedation time of 33 minutes. Lidocaine 1% and lidocaine 1% mixed with epin ephrine were used for local anesthetic. Pre Procedure Diagnosis 64-year-old male with gastric cancer and need for chemotherapy Post Procedure Diagnosis Status post subcutaneous right chest por t placement. Procedure Subcutaneous right chest port placement. Technique Written informed consent was obtained prior to the pro cedure. All elements of maximal sterile barrier technique were fol lowed. Using ultrasound guidance, the right internal jugular vein w as punctured with a 21-gauge needle allowing placement of a 0.018 inch guidewire. The needle was removed and a micropunc ture sheath was then placed over the guidewire. Under ultrasound randall nce, documentation of vessel patency, needle access with permanent record ing, and reporting are performed followed by placement of a sheath in the right internal jugular vein. A subcut aneous pocket was then created at the right infraclavicular fossa using sharp and blunt dissection. A tunnel was made between the pocket and t he venotomy site, through which the 6.6-[place] port catheter was placed. The venotomy was sequentially dil ated to accept an 7-[place] peel-away sheath, through which the leading e dge of the catheter was advanced under fluoroscopic guidance. The trailing end of the catheter was trimmed to the appropri ate length and attached to a low profile Angiodynamics Sma rt Port CT. Following irrigation of the pocket with dilute antibio tic solution, the port was placed within the pocket. The port incision w as closed using a deep layer of interrupted 3-0 Vicryl sut ure, 4-0 Monocryl running subcuticular suture, and Steri-S trips. The small venotomy incision was closed using Steri-Strips. The p ort was accessed and found to flush and aspirate freely. A post placeme nt fluoroscopic imaging of the chest was then obtained. There were no complications. Radiation Dose Ka,r = 14 mGy Complications None. Specimens Removed None. Estimated Blood Loss Less than 2 mL. Blood/Blood Products Administered None. Grafts/Implants As described in the above report. Impression: Successful fluoroscopic-guided placement of a subcutan eous right chest port via the right internal jugular vein. The catheter tip lies at the right atrium/superior vena cava junction and is ready for use. [facility]-[id number] Procedure Note Hm Interface, Radiology Results Incoming - 03/05/2020 5:19 PM SCRAP HOIST OPERATOR Performing Radiologist Fabian Wilkerson MD Assistants None Anesthesia Type Moderate sedation was administered by e procedure nurse and monitored by the procedure physician for a kiae-be-hxtk sedation time of 33 minutes. Lidocaine 1% and lidocaine 1% mixed with epinephrine were used for local anesthetic. Pre Procedure Diagnosis 64-year-old male with gastric cancer and need for chemotherapy Post Procedure Diagnosis Status post subcutaneous right chest por t placement. Procedure Subcutaneous right chest port placement. Technique Written informed consent was obtained pr ior to the procedure. All elements of maximal sterile barrier technique were followed. Using ultrasound guidance, the right internal jugular vein was punctured with a 21-gauge needle allowing placement of a 0.018 inch guidewire. The needle was removed a nd a micropuncture sheath was then placed over the guidewire. Under ultrasound guidance, documentation of vessel patency, needle access with permanent recording, and reporting are performed followed by placement of a sheath in the right internal jugular vein. A subcutaneous pocket was then created at the right infraclavicular fossa using sharp and blunt dissection. A tunnel was made between the pocket and the venotomy site, through which the 6.6- [place] port catheter was placed. The venotomy was se quentially dilated to accept an 7-[place] peel-away sheath, through which the leading edge of the catheter was advanced under fluoroscopic guidance. The trailing end of the catheter was trimmed to the appropriate length and attached to a low profile Ang [employer] Smart Port CT. Following irrigation of the pocket with dilute antibiotic solution, the port was placed within the pocket. The port incision was closed using a deep layer of interrupted 3-0 Vicryl sut ure, 4-0 Monocryl running subcuticular sutur e, and Steri-Strips. The small venotomy incision was closed using Steri-Strips. The port was accessed and found to flush and aspirate freely. A post placement fluoroscopic imaging of the chest was then obtained. There were no complications. Radiation Dose Ka,r = 14 mGy Complications None. Specimens Removed None. Estimated Blood Loss Less than 2 mL. Blood/Blood Products Administered None. Grafts/Implants As described in the above report. Impression: Successful fluoroscopic-guided placement of a subcutaneous right chest port via the right internal jugular vein. The catheter tip lies at the right atrium/superior vena cava junction and is ready for use. [facility]-[id number] Performing Organization Address City/State/[facility] Code Phon e Number [facility] [address] [place] [address] XR Picc Chest Portable (02/25/2020 12:52 PM SCRAP HOIST OPERATOR) Specimen Narrative Performed At EXAMINATION: [facility]ST [facility]: C16.0 Malignant neop lasm of cardia, Chemotherapy COMPARISON: Chest x-ray 10/23/2019 IMPRESSION: Single frontal view reveals interval place ment right-sided PICC line with tip overlying the SVC. Lungs are clear. Pleural margins are sharp. Otherwise stable cardiomediastinal silhouet te. The remainder of the examination is unchanged. [facility]-[id number] Procedure Note Interface, Radiology Results Incoming - 02/25/2020 1:09 PM SCRAP HOIST OPERATOR EXAMINATION: XR PICC CHEST PORTABLE CLINICAL HISTORY: C16.0 Malignant neopl asm of cardia, Chemotherapy COMPARISON: Chest x-ray 10/23/2019 IMPRESSION: Single frontal view reveals interval placement right-sided PICC line with tip overlying the SVC. Lungs are clear. Pleural margins are sharp. Otherwise stable cardiomediastinal silhouette. The remainder of the examination is unchanged. [id number] Performing Organization Address City/State/ZIP Code Phon e Number [facility] [address] [place] [address] PICC insertion (02/25/2020 8:25 AM SCRAP HOIST OPERATOR) Narrative Performed At Washington Ventura RN 02/25/2020 1 2:41 PM PICC insertion Date/Time: 02/25/2020 12:37 PM Performed by: Washington Ventura RN Authorized by: Jordan Sullivan MD Consent: Consent obtained: Verbal Consent given by: Patient Risks discussed: Arterial puncture, incorrect ari cement, nerve damage, bleeding, infection, superficial thrombu s and deep vein thrombus Alternatives discussed: Alternative treatment [place] protocol: Procedure explained and questions ans wered to patient or proxy's satisfaction: yes Relevant documents present and verifi ed: yes Test results available and properly l abeled: yes Imaging studies available: yes Required blood products, implants, de vices, and special equipment available: yes Site/side marked: yes Immediately prior to procedure, a thais e out was called: yes Patient identity confirmed: Verbally with patient , arm band, provided demographic data and hospital-assigned i dentification number Pre-procedure details: Hand hygiene: Hand hygiene performed prior to insertion Sterile barrier technique: All elemen ts of maximal sterile technique followed Skin preparation: 2% chlorhexidine and ChloraPrep Skin preparation agent: Completely dr ied prior to procedure Anesthesia (see MAR for exact dosages): Anesthesia method: Local infiltrati on Local anesthetic: Lidocaine 1% w/o epi Route administered: Subcutaneous PICC Line Placement Details: Patient position: Flat Vessel Size (mm): 7 Indication For PICC: Chemo. Location: Right brachial Site selection rationale: Left AVF graft Device Type: Non-valved Catheter Lumens: Double lumen Catheter size: 5 Fr Catheter to vein ratio: 26% PICC Characteristics: Catheter Brand: Bioflo PICC External Catheter Length (cm): 0 Internal Catheter Length (cm): 40 Total Catheter Length (cm): 40 Catheter Lot Number: [id number] Procedure details: Landmarks identified: yes Ultrasound guidance: yes Sterile ultrasound techniques: Sterile gel and ster ile probe covers were used Number of attempts: 1 Number of PICC kits used during proce dure: 1 Extra guide wire required?: Yes Purpose of procedure: PICC Placemen t Successful PICC Placement: yes Patency/Placement: Flushes without difficulty, flushed with 10 mL normal saline, positive blood return, ul trasound placement verified and x-ray placement verified Dressing/Securement: Dressing dry and intact, ant imicrobial dressing dry and intact, antimicrobial dressing a pplied and catheter securement device Blood Loss Amount: Less than 20 mL Post-procedure details: Post-procedure: Dressing applied Tip placement confirmed by: X-Ray Patient tolerance of procedure: David erated well, no immediate complications Prealbumin level (02/03/2020 9:33 AM SCRAP HOIST OPERATOR) Pathologist Sig nature Prealbumin 12 (L) 16 - 32 mg/dL [facility] Specimen Serum Performing Organization Address City/State/ZIP Code Phon e Number [facility] DEPARTMENT OF PATHOLOGY AND [address] [place], [place] [address] GENOMIC MEDICINE [facility] [address] [place] [address] MRI Brain W Wo Contrast (01/28/2020 2:25 PM SCRAP HOIST OPERATOR) Specimen Narrative Performed At This result has an attachment that is no t available. EXAMINATION: MRI BRAIN W WO CONTRAST [facility] CLINICAL HISTORY: C15.9 Malignant neopla sm of esophagus unspecified, esophageal cancer COMPARISON: CT head 01/16/2020 TECHNIQUE: Multiplanar and multisequence MRI imaging of the brain was obtained with and without contrast. FINDINGS: A few scattered T2/FLAIR hyperintensitie s are noted throughout the bifrontal subcortical white matter, nonspecific but likely related to minimal chronic microvascular ischemic changes. No restricted dif fusion identified to indicate recent infarct. No susceptibility identified to suggest hem osiderin deposition from prior hemorrhage. No intra or extra-axial fluid collections identified. No mass, mass effect, or midline shift is seen. The basal ganglia, thalami, midbrain, po ns and cervicomedullary junction are unremarkable. The ventricles and sulci are unremarkable for patient's age. Sella turcica is normal in appearance. The basal cisterns are patent. The calvarium appears intact. The major intracranial vascular flow voi ds are present. No abnormal parenchymal or meningeal enhancement identified. Prior cataract lens extractions are note d bilaterally. The paranasal sinuses are unremarkable. The mastoid air cells and middle ear cavities are clear. IMPRESSION: No intracranial metastatic disease or acute abnormalit y identified. [facility]-[id number] Procedure Note Hm Interface, Radiology Results Incoming - 01/28/2020 2:32 PM SCRAP HOIST OPERATOR EXAMINATION: MRI BRAIN W WO CONTRAST CLINICAL HISTORY: C15.9 Malignant neopla sm of esophagus unspecified, esophageal cancer COMPARISON: CT head 01/16/2020 TECHNIQUE: Multiplanar and multisequence MRI imaging of the brain was obtained with and without contrast. FINDINGS: A few scattered T2/FLAIR hyperintensitie s are noted throughout the bifrontal subcortical white matter, nonspecific but likely related to minimal chronic microvascular ischemic changes. No restricted diffusion identified to indicate recent infarct. N o susceptibility identified to suggest hem osiderin deposition from prior hemorrhage. No intra or extra-axial fluid collections identified. No mass, mass effect, or midline shift is seen. The basal ganglia, thalami, midbrain, po ns and cervicomedullary junction are unremarkable. The ventricles and sulci are unremarkable for patient's age. Sella turcica is normal in appearance. The basal cisterns are patent. The calvarium appears intact. The major intracranial vascular flow voi ds are present. No abnormal parenchymal or meningeal enhancement identified. Prior cataract lens extractions are note d bilaterally. The paranasal sinuses are unremarkable. The mastoid air cells and middle ear cavities are clear. IMPRESSION: No intracranial metastatic disease or ac [place] abnormality identified. [facility]-[id number] Performing Organization Address City/State/ZIP Code Phon e Number [facility] [address] [place] [address] CT Head Wo Contrast (01/16/2020 4:14 PM SCRAP HOIST OPERATOR) Specimen Narrative Performed At EXAMINATION: CT HEAD WO CONTRAST [facility] CLINICAL HISTORY: R51.9 Headache unspecified, head ache for a few months. COMPARISON: None. TECHNIQUE: Noncontrast head CT performed using radiati on dose reduction techniques. Technical factors are evaluated and adju sted to ensure appropriate moderation of exposure. Automated dose m anagement technology is applied to adjust radiatio n exposure while achieving a diagnostic quality hesham ge. FINDINGS: No evidence of acute intracranial hemorrhage, mass, ma ss effect, midline shift, or acute infarct. Ventricles and sulci are normal in appearance for amol ent's age. Basal cisterns are clear. Mild chronic microvascular ischemi c change. Intracranial vascular calcifications are present. Calvarium is intact. Bilateral lens extractions. Mild scattered paranasal s inus mucosal thickening. Mastoid air cells are clear. IMPRESSION: 1. No CT evidence of acute intracranial abnormality. [id number] Procedure Note Hm Interface, Radiology Results Incoming - 01/16/2020 5:54 PM SCRAP HOIST OPERATOR EXAMINATION: CT HEAD WO CONTRAST CLINICAL HISTORY: R51.9 Headache unspe cified, headache for a few months. COMPARISON: None. TECHNIQUE: Noncontrast head CT performed using radiation dose reduction techniques. Technical factors are evaluated and adjusted to ensure appropriate moderation of exposure. Automated dose management technology is applied to adjust radiation exposure while achieving a diagnostic quality hesham ge. FINDINGS: No evidence of acute intracranial hemorr felicity, mass, mass effect, midline shift, or acute infarct. Ventricles and sulci are normal in appea milena for patient's age. Basal cisterns are clear. Mild chronic microvascular ischemic change. Intracranial vascular calcifications are present. Calvarium is intact. Bilateral lens extractions. Mild scatter ed paranasal sinus mucosal thickening. Mastoid air cells are clear. IMPRESSION: 1. No CT evidence of acute intracranial abnormality. [id number] Performing Organization Address City/State/ZIP Code Phon e Number [facility] [address] [place] [address] PET/CT Skull Base To Mid Thigh (01/16/2020 3:57 PM SCRAP HOIST OPERATOR) Specimen Addenda Addendum by Bulmaro Thornton MD on 0 5:37 PM ADDENDUM #1 Following discussion and review of the d iagnostic CT study performed today (02/10/2020), re-analysis of the PET-CT scan performed on 01/16/2020 was performed. The original report is addend ed as follows: FINDINGS: When compared to the more di stant CT exam from 09/05/2009, a new exophytic mass arising from the uppe r pole of the right [place] kidney is evident; this lesion demonstrates mod erate FDG uptake with SUV of 6.5. In the original report of the PET scan performed on 01/16/2020, this activ ity was described as excreted radiotracer from minimally functional re nal parenchyma. With the findings from today's contrast-enhanced CT, the h ypermetabolism associated with this mass is most compatible with malignancy. The smaller growing mass in the mid right kidney demonstrates very mild FDG uptake with an SUV of 1.8, highly suspicious for a metastatic satellite lesion. In the left [place] kidney, one exophytic lesion in the mid region (series 2 image 120) has also slightly increased in size now measuring 1.1 cm (previously 6 mm) and demonstrates faint FDG uptake with an SUV of 1.0. The other lesions in the left kidney demonstrate no discernible FDG uptake. IMPRESSION: 1.The diagnostic CT exam performed today (02/10/2020) demonstrates a new exophytic mass arising from the right na tive kidney; this lesion exhibits abnormal metabolic activity compatible w ith malignancy. In the setting of a known esophageal mass, this lesion suggests a synchronous neoplasm. Tissue sampling for definitive histopathological diagnosis is recommend ed. 2.The smaller lesion in the mid right na tive kidney is suspicious for a satellite metastasis. 3.In the left [place] kidney another smal l exophytic lesion which has slightly enlarged demonstrates faint met abolic activity, concerning for an underlying neoplastic process. Chronic i nflammatory etiologies are also possible. Attention on subsequent imaging is recommended. Remainder of the original report is unch anged. Narrative Performed At PROCEDURE: PET CT SKULL BASE TO MID THIG H [facility] INDICATION: C15.5 Malignant neoplasm of lower third of esophagus, C15.5 MALIG. NEOP. OF LOWER THIRD OF ESOPHAGUS Staging PET scan. COMPARISON: No recent relevant compariso n examinations are prior PET-CTs TECHNIQUE: Blood glucose measured at the time of injec tion was 114 mg/dL. The patient was then intravenously injected wit h 10 mCi of 18F-FDG. Approximately one hour later, PET images were acquired from the skull base to the mid thighs. Correspond ing, low dose, non-contrast CT scanning was performed as part of the attenuation correction process. FINDINGS: Head and neck: No suspicious lesions are seen in the h ead and neck. Physiological leyva matter metabolism throughout the bi lateral cerebral hemispheres and cerebellum limits the ev aluation of the BOG WORKER. Chest: No suspicious pulmonary lesions are identified. There is masslike area of irregular wall thickening in the lower esophag us at the GE junction demonstrating moderate FDG uptake with an SUV of 5.6. Approximately 3 cm above this lesion is a region of mild esophageal wall thickening demonstrating mild FD G uptake with an SUV of 4.0. No FDG-avid mediastinal or hilar lymphaden opathy is seen. There is no axillary lymphadenopathy. Abdomen: The liver and spleen demonstrate physiologica l metabolism without evidence of mass lesions. Calcified stone in t he gallbladder exhibits no focal inflammation. The pancreas appears a trophic and demonstrates no suspicious FDG uptake. A drenal glands are normal in appearance and metabolic activity . [place] kidneys appear atrophic with minimal excretory function on the right. No hypermetabolic retroperitoneal or mesent rema lymphadenopathy is seen. 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 Remainder of the pelvis reveals n o suspicious lesions or adenopathy. Musculoskeletal: There are no hypermetabolic or destru ctive bony lesions. IMPRESSION: 1.Esophageal mass at the GE junction demonstrates abno rmal metabolic activity, compatible with provided histo ry of primary malignancy. 2.Mildly hypermetabolic area of esophageal wall thicke brennen just superior to this mass mass may represent an inflammatory proces s and/or tumor involvement. 3.No definitive evidence of FDG-avid les ions elsewhere. 4.Additional findings as detailed above. 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 NEOP. OF LOWER THIRD OF ESOPHAGUS Staging PET scan. COMPARISON: No recent relevant compariso n examinations are prior PET-CTs TECHNIQUE: Blood glucose measured at the time of injection was 114 mg/dL. The patient was then intravenously injected with 10 mCi of 18F-FDG. Approximately one hour later, PET images were acquired from the skull base to the mid thighs. Corresponding, low dose, non-contrast CT scanning was perf ormed as part of the attenuation correction process. FINDINGS: Head and neck: No suspicious lesions are seen in the head and neck. Physiological leyva matter metabolism throughout the bilateral cerebral hemispheres and cerebellum limits the evaluation of the BOG WORKER. Chest: No suspicious pulmonary lesions a re identified. There is masslike area of irregular wall thickening in the lower esophagus at the GE junction demonstrating moderate FDG uptake with an SUV of 5.6. Approximately 3 cm above this lesion is a region of mild esophageal wall thickening demonst rating mild FDG uptake with an SUV of 4.0. No FDG-avid mediastinal or hilar lymphadenopathy is seen. There is no axillary lymphadenopathy. Abdomen: The liver and spleen demonstrat e physiological metabolism without evidence of mass lesions. Calcified stone in the gallbladder exhibits no focal inflammation. The pancreas appears atrophic and demonstrates no suspicious FDG uptake. Adrenal glands are normal in appearance and meta bolic activity. [place] kidneys appear atrophic with minimal excretory function on the right. No hypermetabolic retroperitoneal or mesenteric lymphadenopathy is seen. 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 Remainder of the pelvis reveals n o suspicious lesions or adenopathy. Musculoskeletal: There are no hypermetab olic or destructive bony lesions. IMPRESSION: 1.Esophageal mass at the GE junction dem onstrates abnormal metabolic activity, compatible with provided history of primary malignancy. 2.Mildly hypermetabolic area of esophage al wall thickening just superior to this mass mass may represent an inflammatory process and/or tumor involvement. 3.No definitive evidence of FDG-avid les ions elsewhere. 4.Additional findings as detailed above. [id number] Performing Organization Address [facility] Phon e Number [address] [address] POC glucose (01/16/2020 2:44 PM SCRAP HOIST OPERATOR) Pathologist [facility] POC glucose 114 (H) 65 - 99 mg/dL [facility] Comment: HOSPITAL Manager Cleaning Name: Bruce Valerio Device ID: [id number] Chartable: No Action Needed Specimen Blood Performing Organization Address [facility] Phon e Number [facility] DEPARTMENT OF PATHOLOGY AND [address] [place] [phone] GENOMIC MEDICINE [address] [address] Surgical pathology request (01/09/2020 3:57 PM CDT)Only the most recent of4 resultswithin the time period is included. [facility] DEPARTMENT OF PATHOLOGY AND GENOMIC MEDICINE Surgical pathology See link below for [facility] DEPARTMENT O F report PDF Lab Report PATHOLOGY AND GENOMIC MEDICINE Result status This is Supplemental [facility] DEPARTMENT OF Report for PATHOLOGY AND [id number] GENOMIC MEDICINE Specimen Performing Organization Address City/[facility] Phon e Number [facility] DEPARTMENT OF PATHOLOGY AND [address] [place] [phone] [facility] BK virus by PCR (01/09/2020 10:02 AM CDT)Only the most recent of3 resultswithin the time period is included. Pathologist Sig nature BK virus PCR <300 (A) Not-Detected [facility] copies/mL HOSPITAL BK virus PCR See link below DOMINGO GARCIA for PDF Lab HOSPITAL ReportComment: Specimen Plasma Performing Organization Address City/[facility] Phon e Number [facility] DEPARTMENT OF PATHOLOGY AND [address] [place] [phone] [place] [phone] [facility] Protein, urine, random (01/09/2020 9:02 AM CDT)Only the most recent of3 results within the time period is included. Pathologist Sig nature Protein, urine random 14 mg/dL [facility] Specimen Urine Performing Organization Address [facility] Phon e Number [facility] DEPARTMENT OF PATHOLOGY AND [address] [place] [address] [phone] [address] Creatinine level, urine, random (01/09/2020 9:02 AM CDT)Only the most recent of 3 resultswithin the time period is included. Pathologist Sig nature Creatinine, urine, 186 mg/dL [facility] Specimen Urine Performing Organization Address [facility] Phon e Number [facility] DEPARTMENT OF PATHOLOGY AND [address] [place], [place] [phone] [address] [address] Cytomegalovirus by PCR (12/11/2019 8:21 AM CDT) Cytomegalovirus by PCR Not-Detected Not-Detected [facility] IU/mL HOSPITAL Cytomegalovirus by PCR See link DOMINGO GARCIA below for PDF HOSPITAL Lab ReportComment : Specimen Performing Organization Address City/[facility] Phon e Number [facility] DEPARTMENT OF PATHOLOGY AND [address] [place] [address] [phone] [address] [facility] Donor specific antibody (12/11/2019 8:21 AM CDT) DSA serum ID [id number] [facility] DSA serum collection 12/11/2019 08:21 [facility] DSA class I antibody Negative [facility] DSA antibody I NONE [facility] DSA cPRA class I 0 [facility] DSA class II Negative [facility] DSA antibody II NONE [facility] DSA cPRA class II 0 [facility] Donor specific See link below [facility] antibody for PDF Lab HOSPITAL Report Specimen Blood Performing Organization Address [facility] Phon e Number [facility] DEPARTMENT OF PATHOLOGY AND [address] [place] [address] [address] [facility] Hemoglobin A1c (12/11/2019 8:21 AM CDT)Only the most recent of2 resultswithin the time period is included. Pathologist [facility] Hemoglobin A1C 5.9 (H) 4.0 - 5.6 % [facility] Comment: HOSPITAL HbA1c cutoffs for diagnosing diabetes: 4.0% - 5.6% = normal 5.7% - 6.4% = increased risk for diabetes (prediabetes )9 >=6.5% = diabetes9 Goals for glycemic control (ADA 2016) < 7.0% Target for non adults with diabetes. More or less stringent targets may be appropriate for individual patients. <7.5% Target for Children and adolescents with type 1 diabetes. Specimen Blood Performing Organization Address City/[facility] Phon e Number [facility] DEPARTMENT OF PATHOLOGY AND [address] [place], [place] [address] [facility] [address] [place] [phone] Lipid panel (09/11/2019 8:40 AM CDT) Cholesterol 159 <200 mg/dL [facility] Triglycerides 63 <150 mg/dL [facility] HDL cholesterol 60 >40 mg/dL [facility] LDL cholesterol 96Comment: Result <100 mg/dL MOBILE obtained by direct NONDENOMINATIONAL LDL measurement [facility] Lipid panel [facility] interpretation Comment: NONDENOMINATIONAL Total Cholesterol (mg/dL) HOSPIT [place] <200 Desirable 200-239 Borderline-high >=240 High Triglycerides (mg/dL) <150 Normal 150-199 Borderline-high 200-499 High >=500 Very high HDL Cholesterol (mg/dL) <40 Low (male) <40 Low (female) LDL Cholesterol (mg/dL) <100 Optimal 100-129 Near or above optimal 130-159 Borderline-high 160-189 High >=190 Very high Risk Catergories that modify LDL goals. Risk Catergories LDL goal (mg/d L) CHD and CHD risk equivalent <100 (10-year risk >20%) Multiple (2+) risk factors <130 (10-year risk =<20%) 0-1 risk factors <160 (<10-year risk) Defining levels of lipids in metabolic syndrome Triglycerides >=150 mg/dL HDL Cholesterol Men <40 mg /dL Women <40 mg/ dL Non-HDL cholesterol is a second target for therapy in persons with high triglycerides (>=200 mg/dL) Specimen Blood Performing Organization Address City/State/ZIP Code Phon e Number [facility] DEPARTMENT OF PATHOLOGY AND [address] [place] [address] [phone] GENOMIC MEDICINE [address] [address] after 04/22/2019 Advance Directives For more information, please contact: [phone] Type Date Recorded Patient Associate Professor Of English Explanati on Advance Directives, Living Will and Medical Power of Mobile Designer
[2020-04-22] MEDS ORDERED: VANCOMYCIN/NS 1 gm 1 GM/250 ML BAG IVPB ONE (17:00)
--- OUTSIDE RECORDS SUMMARY | 2020-04-22 17:00 | XMS REPORT | Continuity of Care Document ---
:1955 Author Organization [facility] t Address [address] [place] [address] Care Team Providers Name Role Phone Junaid Bess MD Primary Care Physician Laurie TORRES Attending Clinician Sukh Whipple RN Attending Clinician Unavailable Ric JAMES, A Attending Clinician Unavailable Oscar JAMES Attending Clinician Unavailable Jordi TORRES SReyna Attending Clinician Alejandro [facility] Attending Clinician Unavailable Augusta JAMES Attending Clinician Unavailable Vasyl [facility] Attending Clinician Unavailable Jan [facility], A Attending Clinician Unavailable Fransisca JAMES Attending Clinician Unavailable Rachel RANGEL Attending Clinician Unavailable Riki Attending Clinician Unavailable Edil JAMES Attending Clinician Unavailable Adair Pa RN Attending Clinician Unavailable Dwayne JAMES Attending Clinician Unavailable Alirio RN Attending Clinician Unavailable Junaid Bess MD Attending Clinician Will FAGAN Attending Clinician Mike TORRES Attending Clinician Andrea TORRES, JReyna Attending Clinician SU Attending Clinician Unavailable Tresa Dahl Attending Clinician Unavailable Shamar Attending Clinician Unavailable Roshni JAMES Attending Clinician Unavailable Nadeen RANGEL Attending Clinician Unavailable JORDI Bakeritting Clinician Unavailable Payers Payer Name Policy Type Policy Effective Date Expiration Date Sour ce Number [id number] CHOICE [id number] 2020 [place] PPO/FEDERAL 00:00:00 [facility] [employer] [id number] 2020-Presen tPPO Problems Condition Condition Condition Status Onset Resolution Last Treating Co mments Source Name Details Category Date Date Treatment Clinician Date Acute Acute Disease Active [place] blood loss blood loss 1-25 [facility] anemia anemia 00:00: st 00 Gastric Gastric Disease Active 2019-03 [place] cancer cancer 2-08 [facility] 00:00: st Bilateral Bilateral Disease Active 2019-03 [facility] renal renal 2- [facility] masses masses 00:00: st Malignant Malignant Disease Active 2019-03 [facility] 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106 [facility] of card[facility] of cardia 00:00: st of stomach of stomach 00 Headache Headache Disease Active [place] 12-10 [facility] 00:00: st Odynophagi Odynophagi Disease Active [place] a a 12-10 [facility] 00:00: st Immunosupp Immunosupp Disease Active 2018-03 [place] ressive ressive [facility] management management 00:00: st encounter encounter 00 following following kidney kidney transplant transplant Status Status Disease Active 2015-03 [place] post post 0-22 [facility] simultaneo simultaneo 00:00: st kidney us kidney 00 and and pancreas pancreas transplant transplant Personal Personal Disease Active 2015-03 [place] history of history of 0-22 [facility] immunosupp immunosupp 00:00: st ressive ressive 00 therapy therapy 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 Social History Social Habit Start Date Stop Date Quantity Comments Source History [facility] Meth odist Alcohol Std Drinks History [facility] od[facility] Alcohol Binge Sex Assigned At [facility] ethodist Exposure to Not sure [place] Metho dist SARS-CoV-2 (event) Tobacco use and 2020-04-07 2020-04-07 Never used [facility] ethodist exposure 00:00:00 00:00:00 Alcohol intake 2020-04-07 2020-04-07 [facility] thodist 00:00:00 00:00:00 non-drinker (finding) History [facility] 2020-01-09 2020-01-09 1 [place] Meth odist Alcohol Frequency 00:00:00 00:00:00 Smoking Status Start Date Stop Date Source Never smoker [place] Methodis t Medications Ordered Filled Start Stop Current Ordering Indication Dosage Frequency Signature Comments Components Source Medication Medication Date Date Medication? Clinician (SIG) Name Name furosemide 2020- Yes 20mg QD Take 1 [place] (Lasix) 20 04-22 tablet (20 [facility] mg tablet 00:00: 23:59 mg total) st 00 :00 by mouth daily for 7 days. bromfenac Yes 2[drp] QD Apply 2 [place] (BromSite) 2-09 drops to Metho di 0.075 % 12:52: eye daily. st drops 11 aspirin 2020- No 81mg QD Take 81 mg [place] [facility] (ECOTRIN) 04-13 by mouth Metho di 81 MG 15:33: 00:[address] enteric 50 :00 coated tablet magnesium Yes 500mg QD Take 500 [place] oxide 500 2-01 mg by [facility] mg tablet 00:00: mouth st 00 daily. tacrolimus 2020- Yes .5mg Q.5D Take 1 [place] (PROGRAF) 04-13 capsule Method i 0.5 MG 00:00: 23:59 (0.[address] capsule 00 :00 total) by mouth 2 (two) times a day for 30 days. ciprofloxac 2020- No 500mg Q.5D Take 1 [place] in HCl 04-13 tablet [facility] (CIPRO) 500 00:00: 23:59 ([address] MG tablet 00 :00 total) by mouth 2 (two) times a day for 5 days. apixaban 5 2020- No follow [place] mg (74 04-03 package [facility] tabs) 00:00: 00:[address] tablets,dos 00 :00 ns e pack mycophenola 2019-03 Yes 500mg Q.5D Take 2.5 [place] te 2-18 mL (500 mg [facility] (CELLCEPT) 00:00: total) by st 200 mg/mL 00 mouth 2 suspension (two) times a day for 30 days. ondansetron 2019-03 Yes Malignant 8mg Q8H Take 1 Abraham ODT 2-11 neoplasm of tablet (8 Met h[facility] (ZOFRAN-ODT 00:00: stomach, mg total) st ) 8 MG 00 unspecified by mouth disintegrat location every 8 ing tablet (HCC) (eight) hours as needed for nausea or vomiting. prochlorper 2019- Yes Malignant 10mg Q6H Take 1 [place] azine 04-23 neoplasm of tablet (10 M ethodi (COMPAZINE) 00:00: stomach, mg total) st 10 MG 00 unspecified by mouth tablet location every 6 (HCC) (six) hours as needed for nausea or vomiting. tacrolimus 2019-03- No .5mg QD Take 1 [place] (PROGRAF) 04-22 capsule Method i 0.5 MG 00:00: 00:00 (0.[address] capsule 00 :00 total) by mouth nightly. tacrolimus 2019-03- No Take 2 [place] (PROGRAF) 1 04-22 caps in Meth josé luis MG capsule 00:00: 00:[address] 00 :00 cap in the pm ondansetron 2019-03- No Malignant 8mg Q8H Take 1 [place] ODT 04-20 neoplasm of tablet (8 Me [facility] (ZOFRAN-ODT 00:00: 00:00 stomach, mg total) st ) 8 MG 00 :00 unspecified by mouth disintegrat location every 8 ing tablet (HCC) (eight) hours as needed for nausea or vomiting. prochlorper 2019-03- No Malignant 10mg Q6H Take 1 [place] azine 04-20 neoplasm of tablet (10 [facility] (COMPAZINE) 00:00: 00:00 stomach, mg total) st 10 MG 00 :00 unspecified by mouth tablet location every 6 (HCC) (six) hours as needed for nausea or vomiting. tacrolimus 2019-03- No Take 2 [place] (PROGRAF) 1 03-31 caps in Meth josé luis MG capsule 00:00: 00:[address] 00 :00 cap in the pm tacrolimus 2019-03- No .5mg QD Take 1 [place] (PROGRAF) 03-31 capsule Method i 0.5 MG 00:00: 00:00 (0.[address] capsule 00 :00 total) by mouth nightly. acetaminoph 2019-03- No acute pain 1{tbl} Q4H Take 1 [place] en-codeine 1-06 12-06 tablet by Met tom (TYLENOL 00:00: 23:[address] WITH 00 :00 every 4 CODEINE #3) (four) 300-30 mg hours as per tablet needed for moderate pain for up to 30 days .acute pain. amitriptyli 2019-03- No 25mg QD Take 1 [place] [facility] ne (ELAVIL) 0-29 11-23 tablet (25 M ethodi 25 MG 00:00: 00:00 mg total) st tablet 00 :00 by mouth nightly. prednisoLON 2019-03- No 1[drp] Q.25D 1 drop 4 [place] E acetate 0-15 12-15 (four) [facility] (PRED 00:00: 00:[address] FORTE) 1 % 00 :00 day. ophthalmic suspension tacrolimus 2019-03- No .5mg QD Take 1 [place] (PROGRAF) 0-14 12-10 capsule Method i 0.5 MG 00:00: 00:00 (0.[address] capsule 00 :00 total) by mouth nightly. tacrolimus 2019-03 No Take 2 [place] (PROGRAF) 1 0-14 12-10 caps in Meth josé luis MG capsule 00:00: 00:[address] 00 :00 cap in the pm mycophenola 2019-03- No 500mg Q.5D Take 1 [place] te 0 12-15 tablet [facility] (CELLCEPT) 00:00: 00:00 ([address] 500 mg 00 :00 total) by tablet mouth 2 (two) times a day. tacrolimus 2019-03- No .5mg Q.5D Take 1 [place] (PROGRAF) 0- capsule Method i 0.5 MG 00:00: 00:00 (0.[address] capsule 00 :00 total) by mouth 2 (two) times a day. Total dose 1.5 mg/ 1.5 mg tacrolimus 2019- No .5mg Q.5D Take 1 [place] (PROGRAF) 12-10 capsule [facility] i 0.5 MG 00:00: 00:00 (0.[address] capsule 00 :00 total) by mouth 2 (two) times a day. Total dose 1.5 mg/ 1.5 mg zolpidem 2020-0 2021- No 10mg QD Take 1 [place] (AMBIEN) 10 8-10 08-10 tablet (10 M ethodi mg tablet 00:00: 23:59 mg total) st 00 :00 by mouth nightly as needed for sleep. zolpidem 2020- No 10mg QD Take 1 [place] (AMBIEN) 10 8-10 08-10 tablet (10 M ethodi mg tablet 00:00: 00:00 mg total) st 00 :00 by mouth nightly as needed for sleep. zolpidem 2020- No 10mg QD Take 1 [place] (AMBIEN) 10 4-13 08-10 tablet (10 M ethodi mg tablet 00:00: 00:00 mg total) st 00 :00 by mouth nightly as needed for sleep. predniSONE No Pancreas 5mg QD Take 1 [place] (DELTASONE) -01 13-11 transplante tablet (5 [facility] 5 mg tablet 00:00: 23:59 d (HCC) mg total) st 00 :00 by mouth daily. tacrolimus 2019- No 1mg Q.5D Take 1 [place] (PROGRAF) 1 2-04 02-19 capsule (1 M ethodi MG capsule 00:00: 00:00 mg total) s t 00 :00 by mouth 2 (two) times a day. mycophenola 2019- No 500mg Q.5D Take 1 [place] te 2-25 10-01 tablet [facility] (CELLCEPT) 00:00: 00:00 ([address] 500 mg 00 :00 total) by tablet mouth 2 (two) times a day. mycophenola 2020- No 500mg Q.5D Take 1 [place] te 2-05 02-25 tablet [facility] (CELLCEPT) 00:00: 00:00 ([address] 500 mg 00 :00 total) by tablet mouth 2 (two) times a day. predniSONE 2019- No Pancreas 5mg QD Take 1 [place] (DELTASONE) 3- 03-11 transplante tablet (5 [facility] 5 mg tablet 00:00: 00:00 d (HCC) mg total) st 00 :00 by mouth daily. tacrolimus 2019- No 1mg Q.5D Take 1 [place] (PROGRAF) 1 2- 02-25 capsule (1 M ethodi MG capsule 00:00: 00:00 mg total) s t 00 :00 by mouth 2 (two) times a day. zolpidem 2017-03- No 10mg QD Take 1 [place] (AMBIEN) 10 04-2413 tablet (10 M ethodi mg tablet 00:00: 00:00 mg total) st 00 :00 by mouth nightly as needed for sleep. Vital Signs Vital Name Observation Time Observation Value Comments Source Systolic blood 2020-04-21 13:59:00 100 mm[Hg] [place]jam[place] n [facility] pressure Diastolic blood 2020-04-21 13:59:00 65 mm[Hg] [place] [facility] pressure Heart rate 2020-04-21 13:59:00 98 /min Jarad Merida Body temperature 2020-04-21 13:59:00 36.39 Diane Benjamin ton [facility] Respiratory rate 2020-04-21 13:59:00 18 /min Benjamin Merida Oxygen saturation in 2020-04-21 13:59:00 99 /min Jarad Merida Arterial blood by Pulse oximetry Body weight 2020-04-21 08:36:00 72.485 kg Jarad Merida BMI 2020-04-21 08:36:00 23.60 kg/m2 Jarad Merida Body height 2020-04-06 12:31:19 175.3 cm Jarad Merida Procedures Procedure Date / Time Performing Clinician Source Performed COMPREHENSIVE METABOLIC 2020-04-21 08:39:00 Jt James PANEL HC COMPLETE BLD COUNT 2020-04-21 08:39:00 Jt James W/AUTO DIFF MAGNESIUM LEVEL 2020-04-21 08:39:00 Jt James odist ESTIMATED GFR 2020-04-21 08:39:00 Jt James [id number] TACROLIMUS LEVEL, 2020-04-13 05:10:00 Stephenie Post R[facility] AMYLASE LEVEL 2020-04-13 05:10:00 Stephenie Post Mn thodist LIPASE LEVEL 2020-04-13 05:10:00 Stephenie Post Mn thodist BASIC METABOLIC PANEL 2020-04-13 05:10:00 Gretta Bacon CBC WITH PLATELET AND 2020-04-13 05:10:00 Gretta Bacon [facility] DIFFERENTIAL MAGNESIUM LEVEL 2020-04-13 05:10:00 Gretta Bacon Meth odist PHOSPHORUS LEVEL 2020-04-13 05:10:00 Gretta Bacon Met hodist ESTIMATED GFR 2020-04-13 05:10:00 Gretta Bacon Meth odist MANUAL DIFFERENTIAL 2020-04-13 05:10:00 Gretta Bacon [facility] BASIC METABOLIC PANEL 2020-04-12 05:35:00 Stephenie Post CBC WITH PLATELET AND 2020-04-12 05:35:00 Stephenie Post [facility] DIFFERENTIAL FK506 TACROLIMUS LEVEL, 2020-04-12 05:35:00 Stephenie Post [facility] RANDOM MAGNESIUM LEVEL 2020-04-12 05:35:00 Stephenie Post Me thodist PHOSPHORUS LEVEL 2020-04-12 05:35:00 Stephenie Post M ethodist PROTHROMBIN TIME WITH INR 2020-04-12 05:35:00 Aisha Hendricks PARTIAL THROMBOPLASTIN TIME 2020-04-12 05:35:00 Aisha Hendricks (PTT) ESTIMATED GFR 2020-04-12 05:35:00 Gretta Bacon odist MANUAL DIFFERENTIAL 2020-04-12 05:35:00 Gretta Bacon GASTROINTESTINAL PANEL 2020-04-11 09:32:00 Gretta Bacon on [facility] BASIC METABOLIC PANEL 2020-04-11 05:30:00 Stephenie Post HC COMPLETE BLD COUNT 2020-04-11 05:30:00 Stephenie Post W/AUTO DIFF [id number] TACROLIMUS LEVEL, 2020-04-11 05:30:00 Stephenie Post [facility] RANDOM MAGNESIUM LEVEL 2020-04-11 05:30:00 Stephenie Post Me thodist PHOSPHORUS LEVEL 2020-04-11 05:30:00 Stephenie Post M ethodist PROTHROMBIN TIME WITH INR 2020-04-11 05:30:00 Aisha Hendricks PARTIAL THROMBOPLASTIN TIME 2020-04-11 05:30:00 Aisha Hendricks (PTT) ESTIMATED GFR 2020-04-11 05:30:00 Gretta Bacon Meth odist SMEAR REVIEW 2020-04-11 05:30:00 Gretta Bacon Meth odist PROTHROMBIN TIME WITH INR 2020-04-10 09:30:00 Aisha Hendricks PARTIAL THROMBOPLASTIN TIME 2020-04-10 09:30:00 Aisha Hendricks (PTT) HC COMPLETE BLD COUNT 2020-04-10 04:49:00 Stephenie Post W/AUTO DIFF [id number] TACROLIMUS LEVEL, 2020-04-10 04:49:00 Stephenie Post R[facility] SMEAR REVIEW 2020-04-10 04:49:00 Stephenie Post Mn thodist AMYLASE LEVEL 2020-04-10 04:00:00 Stephenie Post Mn thodist BASIC METABOLIC PANEL 2020-04-10 04:00:00 Stephenie Post LIPASE LEVEL 2020-04-10 04:00:00 Stephenie Post Mn thodist MAGNESIUM LEVEL 2020-04-10 04:00:00 Stephenie Post Mn thodist PHOSPHORUS LEVEL 2020-04-10 04:00:00 Stephenei Post M ethodist ESTIMATED GFR 2020-04-10 04:00:00 Stephenie Post Mn thodist HC COMPLETE BLD COUNT 2020-04-09 17:11:00 Dario Meier [facility] W/AUTO DIFF [place] MAGNESIUM LEVEL 2020-04-09 14:08:00 Stephenie Post Me thodist HC COMPLETE BLD COUNT 2020-04-09 05:23:00 Stephenie Post W/AUTO DIFF [id number] TACROLIMUS LEVEL, 2020-04-09 05:23:00 Stephenie Post [facility] RANDOM PROTHROMBIN TIME WITH INR 2020-04-09 05:23:00 Sean Jamesk [place] [facility] FIBRINOGEN 2020-04-09 05:23:00 Jt James Meth odist AMYLASE LEVEL 2020-04-09 04:00:00 Stephenie Post Me thodist BASIC METABOLIC PANEL 2020-04-09 04:00:00 Stephenie Post [facility] LIPASE LEVEL 2020-04-09 04:00:00 Stephenie Post Me thodist MAGNESIUM LEVEL 2020-04-09 04:00:00 Stephenie Post Me thodist PHOSPHORUS LEVEL 2020-04-09 04:00:00 Stephenie Post M ethodist ESTIMATED GFR 2020-04-09 04:00:00 Stephenie Post Me thodist HC COMPLETE BLD COUNT 2020-04-08 23:20:00 Dario Meier [facility] W/AUTO DIFF [place] HC COMPLETE BLD COUNT 2020-04-08 14:54:00 Dario Meier [facility] W/AUTO DIFF [place] HEMOGLOBIN & HEMATOCRIT 2020-04-08 08:10:00 Dario Meier [facility] Parekh HC COMPLETE BLD COUNT 2020-04-08 04:24:00 Stephenie Post [facility] W/AUTO DIFF FK506 TACROLIMUS LEVEL, 2020-04-08 04:24:00 Stephenie Post [facility] RANDOM AMYLASE LEVEL 2020-04-08 04:00:00 Stephenie Post Me thodist BASIC METABOLIC PANEL 2020-04-08 04:00:00 Stephenie Post [facility] LIPASE LEVEL 2020-04-08 04:00:00 Stephenie Post Me thodist MAGNESIUM LEVEL 2020-04-08 04:00:00 Stephenie Post Me thodist PHOSPHORUS LEVEL 2020-04-08 04:00:00 Stephenie Post M ethodist ESTIMATED GFR 2020-04-08 04:00:00 Stephenie Post Mn thodist HEMOGLOBIN & HEMATOCRIT 2020-04-07 20:19:00 Dario Meier [place] IR IVC FILTER PLACEMENT 2020-04-07 18:22:48 Jt James [facility] MAGNESIUM LEVEL 2020-04-07 13:44:00 Stephenie Post Mn thodist HEMOGLOBIN & HEMATOCRIT 2020-04-07 12:05:00 Gretta Bacon [facility] URINE CULTURE 2020-04-07 09:45:00 Gretta Bacon Meth odist URINALYSIS SCREEN AND 2020-04-07 09:45:00 Dario Meier MICROSCOPY, WITH REFLEX TO [place] CULTURE [id number] TACROLIMUS LEVEL, 2020-04-07 05:30:00 Gretta Bacon [facility] RANDOM COMPREHENSIVE METABOLIC 2020-04-07 03:30:00 Tajik, Katelyn Merida PANEL AMYLASE LEVEL 2020-04-07 03:30:00 Tajik, Katelyn Merida LIPASE LEVEL 2020-04-07 03:30:00 Tajik, Katelyn Merida MAGNESIUM LEVEL 2020-04-07 03:30:00 Tajik, Katelyn Merida PHOSPHORUS LEVEL 2020-04-07 03:30:00 Tajik, Katelyn Merida CBC HEMOGRAM 2020-04-07 03:30:00 Tajik, Katelyn Merida ESTIMATED GFR 2020-04-07 03:30:00 Tajik, Katelyn Merida CBC HEMOGRAM 2020-04-06 21:35:00 Tajik, Katelyn Merida US DUPLEX VENOUS LOWER 2020-04-06 16:28:51 Dario Meier on [facility] EXTREMITY BILATERAL [place] XR CHEST 1 VW PORTABLE 2020-04-06 15:38:00 Dario Meier on [facility]oration[facility] Parekh HC COMPLETE BLD COUNT 2020-04-06 15:36:00 Keven Crawford W/AUTO DIFF PREPARE RBC 2020-04-06 15:36:00 Darshana Whitfield Meth odist TYPE AND SCREEN 2020-04-06 15:34:00 Katherine Baconnirav Abraham Satinder odvalentina ECG 12-LEAD 2020-04-06 14:30:33 Dario Meier Meth odist [place] COVID-19 QUALITATIVE PCR 2020-04-06 14:25:00 Dario Meier Juan Parekh COMPREHENSIVE METABOLIC 2020-04-06 13:55:00 Hardeep Dario Benjamin sellers [facility] PANEL [place] FK506 TACROLIMUS LEVEL, 2020-04-06 13:55:00 Hardeep Dario Benjamin sellers [facility] RANDOM [place] IONIZED CALCIUM 2020-04-06 13:55:[address] Me[address] [facility] Meth odist [place] LACTIC ACID LEVEL 2020-04-06 13:55:00 MeierDario Abraham Me thodist [place] PARTIAL THROMBOPLASTIN TIME 2020-04-06 13:55:00 MeierDario [facility] (PTT) [place] PROTHROMBIN TIME WITH INR 2020-04-06 13:55:00 Hardeep Dario Patrick Parekh PHOSPHORUS LEVEL 2020-04-06 13:55:00 Meier [facility] Met hodist [place] ESTIMATED GFR 2020-04-06 13:55:00 Jordi Gretta Abraham Satinder bains CT ABD/PELVIC EXTERNAL 2020-04-04 06:34:[address] CHEST W CONTRAST ABDOMEN 2020-04-03 14:36:19 Jt James W CONTRAST PELVIS W CONTRAST CARCINOEMBRYONIC ANTIGEN 2020-03-25 08:30:00 Jt James (CEA) COMPREHENSIVE METABOLIC 2020-03-25 08:21:00 Jt James PANEL HC COMPLETE BLD COUNT 2020-03-25 08:21:00 Jt James W/AUTO DIFF MAGNESIUM LEVEL 2020-03-25 08:21:00 Jt James ESTIMATED GFR 2020-03-25 08:21:00 Jt James ABSOLUTE NEUTROPHIL COUNT 2020-03-25 08:21:00 Jt James COMPREHENSIVE METABOLIC 2020-03-10 08:12:00 Jt James [facility] PANEL HC COMPLETE BLD COUNT 2020-03-10 08:12:00 Jt James [facility] W/AUTO DIFF MAGNESIUM LEVEL 2020-03-10 08:12:00 Jt James Meth odvalentina ESTIMATED GFR 2020-03-10 08:12:00 Jt James Meth odvalentina IR PORT PLACEMENT 2020-03-05 11:45:00 Jt James Me thodist COMPREHENSIVE METABOLIC 2020-02-26 08:13:00 Jt James [facility] PANEL HC COMPLETE BLD COUNT 2020-02-26 08:13:00 Jt James [facility] W/AUTO DIFF MAGNESIUM LEVEL 2020-02-26 08:13:00 Jt James Meth odvalentina ESTIMATED GFR 2020-02-26 08:13:00 Jt James XR PICC CHEST PORTABLE 2020-02-25 12:52:59 Jt James on [facility] PICC INSERTION REQUEST 2020-02-25 08:25:00 [place] PROTHROMBIN TIME WITH INR 2020-02-19 12:14:00 Jt James PARTIAL THROMBOPLASTIN TIME 2020-02-19 12:14:00 Jt James (PTT) HC COMPLETE BLD COUNT 2020-02-19 12:13:00 Jt James [facility] W/AUTO DIFF COMPREHENSIVE METABOLIC 2020-02-19 11:37:00 Jt James [facility] PANEL ESTIMATED GFR 2020-02-19 11:37:[address] CHEST W CONTRAST ABDOMEN 2020-02-10 15:46:00 ImasYamini mora W CONTRAST PELVIS W CONTRAST PREALBUMIN LEVEL 2020-02-03 09:33:00 Josselin Solis ethodist PARTIAL THROMBOPLASTIN TIME 2020-02-03 09:33:00 ImYamini barrios (PTT) PROTHROMBIN TIME WITH INR 2020-02-03 09:33:00 Josselin Solis MRI BRAIN W WO CONTRAST 2020-01-28 14:25:[address] HEAD WO CONTRAST 2020-01-16 16:14:30 Machelle Santiago Jarad Merida PET CT SKULL BASE TO MID 2020-01-16 15:57:00 Alba Ceballos THIGH POC GLUCOSE 2020-01-16 14:44:00 Alba Ceballos Mn thodist CBC HEMOGRAM 2020-01-16 12:16:00 [facility]OL[facility] 2020-01-16 12:16:00 Alba Ceballos [facility] PANEL CARCINOEMBRYONIC ANTIGEN 2020-01-16 12:16:00 Alba Ceballos (CEA) ESTIMATED GFR 2020-01-16 12:16:00 Alba Ceballos [facility] SURGICAL PATHOLOGY REQUEST 2020-01-09 15:57:00 Alba Ceballos SURGICAL PATHOLOGY REQUEST 2020-01-09 14:57:00 Alba Ceballos BK VIRUS BY PCR 2020-01-09 10:02:00 Selene Crowell URINE CULTURE 2020-01-09 09:02:00 Selene Crowell HC COMPLETE BLD COUNT 2020-01-09 09:02:00 Selene Crowell W/AUTO DIFF [place] COMPREHENSIVE METABOLIC 2020-01-09 09:02:00 Selene Crowell PANEL [place] MAGNESIUM LEVEL 2020-01-09 09:02:00 Selene Crowell PHOSPHORUS LEVEL 2020-01-09 09:02:00 Selene Crowell URINALYSIS SCREEN AND 2020-01-09 09:02:00 Selene Crowell MICROSCOPY, WITH REFLEX TO [place] SANDERS AMYLASE LEVEL 2020-01-09 09:02:00 Selene Crowell LIPASE LEVEL 2020-01-09 09:02:00 Selene Crowell PROTEIN, URINE, RANDOM 2020-01-09 09:02:00 Selene Crowell on [place] Ye CREATININE LEVEL, URINE, 2020-01-09 09:02:00 Selene Crowell ston [facility] RANDOM [place] O[place]ES TACROLIMUS LEVEL, 2020-01-09 09:02:00 Crowell, Selene sellers [facility] RANDOM [place] ESTIMATED GFR 2020-01-09 09:02:00 Crowell, Selene Jarad Ye COVID-19 QUALITATIVE PCR 2020-01-06 10:12:00 Alba Ceballos URINE CULTURE 2019-12-25 09:14:00 Crowell, Selene Ye HC COMPLETE BLD COUNT 2019-12-25 09:14:00 Crowell, Selene mario [facility] W/AUTO DIFF [place] COMPREHENSIVE METABOLIC 2019-12-25 09:14:00 Crowell, Selene sellers [facility] PANEL [place] MAGNESIUM LEVEL 2019-12-25 09:14:00 Crowell, Selene Ye PHOSPHORUS LEVEL 2019-12-25 09:14:00 Crowell, Selene Abraham Met mark Ye URINALYSIS SCREEN AND 2019-12-25 09:14:00 Crowell, Selene mario [facility] MICROSCOPY, WITH REFLEX TO [place] SANDERS AMYLASE LEVEL 2019-12-25 09:14:00 Crowell, Selene Ye LIPASE LEVEL 2019-12-25 09:14:00 Crowell, Selene Ye PROTEIN, URINE, RANDOM 2019-12-25 09:14:00 Crowell, Selene Ye CREATININE LEVEL, URINE, 2019-12-25 09:14:00 Crowell, Selene briones [facility] RANDOM [place] [id number] TACROLIMUS LEVEL, 2019-12-25 09:14:00 Crowell, Selene sellers [facility] RANDOM [place] ESTIMATED GFR 2019-12-25 09:14:00 Crowell, Selene Ye URINE CULTURE 2019-12-11 08:21:00 Crowell, Selene Ye HC COMPLETE BLD COUNT 2019-12-11 08:21:00 Crowell, Selene mario [facility] W/AUTO DIFF [place] COMPREHENSIVE METABOLIC 2019-12-11 08:21:00 Crowell, Selene sellers [facility] PANEL [place] MAGNESIUM LEVEL 2019-12-11 08:21:00 Crowell, Selene Ye PHOSPHORUS LEVEL 2019-12-11 08:21:00 Crowell, Selene Abraham Met mark Ye URINALYSIS SCREEN AND 2019-12-11 08:21:00 Crowell, Selene mario [facility] MICROSCOPY, WITH REFLEX TO [place] CULTURE AMYLASE LEVEL 2019-12-11 08:21:00 Crowell, Selene Ye LIPASE LEVEL 2019-12-11 08:21:00 Crowell, Selene Ye PROTEIN, URINE, RANDOM 2019-12-11 08:21:00 Crowell, Selene Ye CREATININE LEVEL, URINE, 2019-12-11 08:21:00 Crowell, Selene briones [facility] RANDOM [place] [id number] TACROLIMUS LEVEL, 2019-12-11 08:21:00 Crowell, Selene sellers [facility] RANDOM [place] HEMOGLOBIN A1C 2019-12-11 08:21:00 Crowell, Selene Ye BK VIRUS BY PCR 2019-12-11 08:21:00 Crowell, Selene Ye CYTOMEGALOVIRUS BY PCR 2019-12-11 08:21:00 Crowell, Selene Ye ESTIMATED GFR 2019-12-11 08:21:00 Crowell, Selene Ye DONOR SPECIFIC ANTIBODY 2019-12-11 08:21:00 Crowell, Selene Ye URINE CULTURE 2019-09-11 08:40:00 Crowell, Selene Ye HC COMPLETE BLD COUNT 2019-09-11 08:40:00 Crowell, Selene mario [facility] W/AUTO DIFF [place] COMPREHENSIVE METABOLIC 2019-09-11 08:40:00 Crowell, Selene sellers [facility] PANEL [place] MAGNESIUM LEVEL 2019-09-11 08:40:00 Crowell, Selene Ye PHOSPHORUS LEVEL 2019-09-11 08:40:00 Crowell, Selene Ye URINALYSIS SCREEN AND 2019-09-11 08:40:00 Crowell, Selene Merida MICROSCOPY, WITH REFLEX TO [place] SANDERS AMYLASE LEVEL 2019-09-11 08:40:00 Crowell, Selene Ye LIPASE LEVEL 2019-09-11 08:40:00 Crowell, Selene Ye LIPID PANEL 2019-09-11 08:40:00 Crowell, Selene Ye [id number] TACROLIMUS LEVEL, 2019-09-11 08:40:00 Crowell, Selene Goelist RANDOM [place] HEMOGLOBIN A1C 2019-09-11 08:40:00 Crowell, Selene Ye BK VIRUS BY PCR 2019-09-11 08:40:00 Crowell, Selene Ye ESTIMATED GFR 2019-09-11 08:40:00 Selene Crowell nara Ye Plan of Care Planned Activity Planned Date Details Comments Source Future Scheduled 2040-03-07 SHINGLES VACCINES Postponed from [place] [facility] 00:00:00 (#1) [code = 06/10/2005 (Not SHINGLES VACCINES Indicated) (#1)] Future Scheduled 2019-10-12 INFLUENZA VACCINE [place] [facility] 00:00:00 [code = INFLUENZA VACCINE] Future Scheduled 2005-06-10 COLONOSCOPY [place] [facility] 00:00:00 SCREENING [code = COLONOSCOPY SCREENING] Future Scheduled 1973-06-10 Hepatitis C [place] [facility] 00:00:00 screening (procedure) [code = [id number]] Future Scheduled 1971 COVID-19 VACCINE (1 [place] [facility] Test 00:00:00 of 2) [code = COVID-19 VACCINE (1 of 2)] Future Scheduled 1965-06-10 DIABETES: RETINAL [place] [facility] 00:00:00 EYE EXAM [code = DIABETES: RETINAL EYE EXAM] Future Scheduled 1965-06-10 DIABETIC FOOT EXAM [place] [facility] Test 00:00:00 [code = DIABETIC FOOT EXAM] Encounters Start End Encounter Admission Attending Care Care Encounter Source Date/Time Date/Time Type Type Clinicians Facility Department ID 2020-04-21 2020-04-21 Outpatient JT JAMES [facility] [id number] [place] 00:00:00 00:00:[address] 2020-04-06 2020-04-13 Inpatient JORDI [facility] [id number] [place] 00:00:00 00:00:00 GRETTA [address] 2020-04-03 2020-04-03 Outpatient JT JAMES [facility] [id number] [place] 00:00:00 00:00:[address] 2020-04-03 2020-04-03 Outpatient JT JAMES [facility] [id number] [place] 00:00:00 00:00:[address] 2020-03-27 2020-03-27 Outpatient JT JAMES [facility] [id number] [place] 00:00:00 00:00:[address] 2020-03-25 2020-03-25 Outpatient JT JAMES [facility] [id number] [place] 00:00:00 00:00:[address] 2020-03-18 2020-03-18 Outpatient JT JAMES [facility] [id number] [place] 00:00:00 00:00:[address] 2020-03-12 2020-03-12 Outpatient JT JAMES [facility] [id number] [place] 00:00:00 00:00:[address] 2020-03-10 2020-03-10 Outpatient JT JAMES [facility] [id number] [place] 00:00:00 00:00:[address] 2020-03-05 2020-03-05 Outpatient JT JAMES [facility] [id number] [place] 00:00:00 00:00:[address] 2020-02-28 2020-02-28 Outpatient JT JAMES [facility] [id number] [place] 00:00:00 00:00:[address] 2020-02-26 2020-02-26 Outpatient JT JAMES [facility] [id number] [place] 00:00:00 00:00:[address] 2020-02-25 2020-02-25 Outpatient JT JAMES [facility] [id number] [place] 00:00:00 00:00:[address] 2020-02-25 2020-02-25 Outpatient JT JAMES [facility] [id number] [place] 00:00:00 00:00:[address] 2020-02-19 2020-02-19 Outpatient JT JAMES [facility] [id number] [place] 00:00:00 00:00:[address] 2020-02-12 2020-02-12 Outpatient JT JAMES [facility] [id number] [place] 00:00:00 00:00:[address] 2020-02-10 2020-02-10 Outpatient ESNAADAM, [facility] [id number] [place] 00:00:00 00:00:00 NICOL [address] 2020-02-03 2020-02-04 Outpatient ESNAOLA, [facility] [id number] [place] 00:00:00 00:00:00 NICOL [address] 2020-02-03 2020-02-03 Outpatient ESNAOLA, [facility] [id number] [place] 00:00:00 00:00:00 NICOL [address] 2020-01-28 2020-01-28 Outpatient JERICA SANTIAGOG [facility] [id number] [place] 00:00:00 00:00:[address] 2020-01-28 2020-01-28 Outpatient SEAN JAMESK [facility] [id number] [place] 00:00:00 00:00:[address] 2020-01-17 2020-01-17 Outpatient JT JAMES [facility] [id number] [place] 00:00:00 00:00:[address] 2020-01-16 2020-01-16 Outpatient ANDREA, [facility] [id number] [place] 00:00:00 00:00:00 ALBA [address] 2020-01-16 2020-01-16 Outpatient ANDREA, [facility] [id number] [place] 00:00:00 00:00:00 ALBA [address] 2020-01-16 2020-01-16 Outpatient MIKEJERICAG [facility] [id number] [place] 00:00:00 00:00:[address] 2020-01-09 2020-01-09 Outpatient CROWELL, [facility] [id number] [place] 00:00:00 00:00:00 SELENE [address] 2020-01-09 2020-01-09 Outpatient ANDREA, [facility] [id number] [place] 00:00:00 00:00:00 ALBA [address] 2020-01-09 2020-01-09 Outpatient MIKE, MACHELLE [facility] [id number] [place] 00:00:00 00:00:[address] 2020-01-06 2020-01-06 Outpatient ANDREA, [facility] [id number] [place] 00:00:00 00:00:00 ALBA [address] 2019-12-25 2019-12-25 Outpatient CROWELL, [facility] [id number] 851 [place] 00:00:00 00:00:00 SELENE [address] 2019-12-11 2019-12-11 Outpatient CROWELL, [facility] [id number] [place] 00:00:00 00:00:00 SELENE [address] 2019-12-11 2019-12-11 Outpatient SU [facility] [id number] [place] 00:00:00 00:00:00 SELENE [address] 2019-09-11 2019-09-11 Outpatient SU [facility] [id number] [place] 00:00:00 00:00:00 SELENE [address] Results Test Description Test Time Test Comments Results Result Comments Source Comprehensive metabolic panel 2020-04-21 09:24:01 Test Item Value Reference Range Interpretation Comme nts Sodium (test code = 2951-2) 135 See_Comment [Automated message] The system which generated this result transmitted ref erence range: 135 - 148 mEq/L . The reference range was not u sed to interpret this result as normal/abnormal. Potassium (test code = 3.9 See_Comment [Aut omated message] The system 0323-3) which generated this result transmitted ref erence range: 3.5 - 5.0 mEq/L . The reference range was not u sed to interpret this result as normal/abnormal. Chloride (test code = 2075-0) 105 See_Comment [Automated message] The system which generated this result transmitted ref erence range: 98 - 112 mEq/L. Th e reference range was not u sed to interpret this result as normal/abnormal. CO2 (test code = 2028-9) 27 See_Comment [A utomated message] The system which generated this result transmitted ref erence range: 24 - 31 mEq/L. The reference range was not used to interpret this result as sobia l/abnormal. Anion gap (test code = 3@ANIO See_Comment L [Aut omated message] The system 80020-2) which generated this result transmitted ref erence range: 7 - 15 mEq/L. The reference range was not used to interpret this result as sobia l/abnormal. BUN (test code = 3094-0) 9 mg/dL 8-23 Creatinine (test code = 0.60 mg/dL 0.7-1.2 L 2160-0) Glucose (test code = 2345-7) 227 mg/dL 65-99 H Calcium (test code = 09806-6) 8.8 mg/dL 8.8-10.2 Protein (test code = 2885-2) 5.0 g/dL 6.3-8.3 L Albumin (test code = 1751-7) 2.5 g/dL 3.5-5 L A/G ratio (test code = 1.0 0.7-3.8 9-0) Alkaline phosphatase (test 60 U/L 40-129 code = 6768-6) AST (test code = 1920-8) 30 U/L 10-50 ALT (test code = 1742-6) 8 U/L 5-50 Total bilirubin (test code = 0.7 mg/dL 0.2-1.2 1974-04) Lab Interpretation (test code Abnormal = 36718-9) [facility] znhgq4579-74-33 09:24:01 Test Item Value Reference Range Interpretation Comments Magnesium (test code = 98264-3) 1.8 mg/dL 1.6-2.4 [place] [facility] [id number] 09:24:01 Test Item Value Reference Range Interpretation Comments Estimated GFR (test >=90 mL/min/1.73 m2 Caterg ory Units code = 5488) InterpretationG 1 >=90 Normal or highG2 60-89 Mildly alfknrsbzW3j 45-59 Mildly to mode rately tanotadwjV6c 30-44 Moderately to severely decreasedG4 15-29 Severely decre asedG5 <15 Kidn ey failureThe eGFR was calculated lacey phillips the Chronic Kidney Disease Epidemiology Co llaboration (CKD-EPI) equat ion. Interpretation is based on recommendations of the National Kidney Foundation-Kidn ey Disease Outcomes Qualit y Initiative (NKF-KDOQI) pub lished in 2014. [facility] with platelet and tknokevqtfsv4400-03-59 09:00:32 Test Item Value Reference Range Interpretation Comments WBC (test code = 4.7 See_Comment [Automated message] 70587-1) The system [employer] generated this result transmit duglas reference range : 4.5 - 11.0 k/uL. Th e reference range was not used to interpret this result as normal/abnormal . RBC (test code = 3.67 m/uL 4.4-6 L 07274-0) HGB (test code = 718-7) 9.3 g/dL 14-18 L HCT (test code = 4544-3) 30.7 % 41-51 L MCV (test code = 787-2) 83.7 fL 82-100 MCH (test code = 785-6) 25.3 pg 27-34 L MCHC (test code = 786-4) 30.3 g/dL 31-37 L RDW - SD (test code = 62.7 fL 37-55 H 07816-0) MPV (test code = 10.2 fL 6.9-11 87282-5) Platelet count (test 226 K/uL 150-400 code = 70251-5) Nucleated RBC (test code 0.00 See_Comment [A utomated message] = 27680-9) The system [employer] generated this result transmit duglas reference range : /100 WBC. The reference range was not used to interpret this result as normal/abnormal . Neutrophils (test code = 69.0 % 39-69 81296-1) Lymphocytes (test code = 17.2 % 25-45 L 72613-7) Monocytes (test code = 11.0 % 0-10 H 76246-4) Eosinophils (test code = 0.9 % 0-5 51627-5) Basophils (test code = 0.4 % 0-1 40237-3) Immature granulocytes 1.5 % 0-1 H (test code = 81029-5) Lab Interpretation (test Abnormal code = 88964-9) [place] [facility] zfvjovsrpnzx7789-54-84 09:55:33 Test Item Value Reference Range Interpretation Comments Manual differential (test code = PERFORMED 54116-3) Neutrophils (test code = 67.0 % 39-69 61496-0) Lymphocytes (test code = 16.0 % 25-45 L 25854-4) Monocytes (test code = 88309-5) 11.0 % 0-10 H Eosinophils (test code = 0.0 % 0-5 48711-8) Basophils (test code = 12977-6) 0.0 % 0-1 Metamyelocytes (test code = 6 % 740-1) Promyelocytes (test code = 0 % 783-1) Platelet slide review (test code Nic adequate = 08480-5) Anisocytosis (test code = 702-1) Moderate Polychromasia (test code = Moderate 26874-9) Target cells (test code = Moderate A 50039-2) Lab Interpretation (test code = Abnormal 87566-6) Jarad PyaaqnhddLC153 Tacrolimus level, vkataj8951-44-30 08:46:30 Test Item Value Reference Range Interpretation Comments FK506 level 6.0 ng/mL Therapeutic ran ge 5-20 ng/mL (test code = for 12 hour tro ugh. The 02453-5) range varies de pending on the organ trans planted, time after transplan tation and co-administered immunosuppressa nt therapies. Please use clin ical judgment to interpret te st result.Test per formed using [employer] t chemiluminescen t microparticle i mmunoassay for Tacrolimus on the [employer] i Sys tem. [facility]ad MethodistBasic metabolic telbc6635-47-73 06:26:21 Test Item Value Reference Range Interpretation Comments Sodium (test code = 137 See_Comment [Automa duglas message] 7361-2) The system [employer] generated this result transmit duglas reference range : 135 - 148 mEq/L. Th e reference range was not used to interpret this result as normal/abnormal . Potassium (test code = 3.3 See_Comment L [Aut omated message] 4893-3) The system [employer] generated this result transmit duglas reference range : 3.5 - 5.0 mEq/L. Th e reference range was not used to interpret this result as normal/abnormal . Chloride (test code = 106 See_Comment [Auto mated message] 5-0) The system [employer] generated this result transmit duglas reference range : 98 - 112 mEq/L. Th e reference range was not used to interpret this result as normal/abnormal . CO2 (test code = 23 See_Comment L [Automated message] 2027-11) The system [employer] generated this result transmit duglas reference range : 24 - 31 mEq/L. The reference range was not used to interpret this result as normal/abnormal . Anion gap (test code = 8@ANIO See_Comment [Aut omated message] 47037-0) The system [employer] generated this result transmit duglas reference range : 7 - 15 mEq/L. The reference range was not used to interpret this result as normal/abnormal . BUN (test code = 8 mg/dL 8 3094-0) Creatinine (test code = 0.55 mg/dL 0.7-1.2 L 2160-0) Glucose (test code = 158 mg/dL 65-99 H 2345-7) Calcium (test code = 8.3 mg/dL 8.8-10.2 L 87068-8) Lab Interpretation Abnormal (test code = 81397-0) [place] [facility]Am[facility] cdbgi0011-76-09 06:26:21 Test Item Value Reference Range Interpretation Comments Amylase (test code = 1798-8) 15 U/L 28-100 L Lab Interpretation (test code = Abnormal 54850-1) [place] [facility]Lipase kkcbu4262-08-20 06:26:21 Test Item Value Reference Range Interpretation Comments Lipase (test code = 3040-3) 15 U/L 13-60 [place] [facility]Phosphorus drrna6004-83-87 06:26:21 Test Item Value Reference Range Interpretation Comments Phosphorus (test code = 2777-1) 2.2 mg/dL 2.4-4.5 L Lab Interpretation (test code = Abnormal 11705-6) [place] [facility]Partial thromboplastin time, luvougrsp8516-47-95 08:42:29 Test Item Value Reference Range Interpretation Comments PTT (test code = 44.3 See_Comment H PTT therape utic range 96346-9) for unfractiona duglas heparin is61.0- 112.0 seconds which corresponds to Anti-Xa0.3-0.7 U/ml. [Automated mess age] The system [employer] generated this result transmitted ref erence range: 23.0 - 3 6.0 sec. The refere nce range was not u sed to interpret this result as normal/abnor mal. Lab Interpretation Abnormal (test code = 99948-9) [place] MethodistProthrombin time with [id number] 08:42:07 Test Item Value Reference Range Interpretation Comments Prothrombin time (test 16.8 See_Comment H [Aut omated message] code = 5902-2) The system [employer] [facility] generated this result transmitted ref erence range: 11.5 - 1 4.5 sec. The refere nce range was not u sed to interpret this result as normal/abnor mal. INR (test code = 1.4 The Interna tional 81070-7) Normalized Rati o (INR) is a therapeuti c monitoring tool for patients who ar e stable on oral anticoagulant t herapy. An INR of 2.0-3 .0 is suggested for d eep vein thrombosis/pulm onary embolism. Lab Interpretation Abnormal (test code = 19094-1) [facility]astro[facility] gsyxy3954-91-90 20:30:06 Test Item Value Reference Interpretation Comments Range Adenovirus 40/41 PCR Not Detected Specime n (test code = 7113) Informati onSpecimen Source: StoolSp ecimen Site: Nonpreser bud Astrovirus PCR (test Not Detected code = 4790) Campylobacter PCR Not Detected (test code = 7114) Clostridioides Not Detected difficile PCR (test code = 7115) Cryptosporidium PCR Not Detected (test code = 7116) Cyclospora Not Detected cayetanensis PCR (test code = 7117) Enteroaggregative E Not Detected coli PCR (test code = 4784) Entamoeba histolytica Not Detected PCR (test code = 7118) Enteroinvasive E coli Not Detected PCR (test code = 4788) Enteropathogenic E Not Detected coli PCR (test code = 4785) Norovirus PCR (test Not Detected code = 7119) Plesiomonas Not Detected shigelloides PCR (test code = 4782) Rotavirus PCR (test Not Detected code = 0231423) Salmonella PCR (test Not Detected code = 4783) Sapovirus PCR (test Not Detected code = 4791) Enterotoxigenic E coli Detected A PCR (test code = 4786) Shigatoxin producing E Not Detected coli PCR (test code = 4787) E coli O157 PCR (test Not Reported code = 7120) Vibrio PCR (test code Not Detected = 7121) Vibrio cholerae PCR Not Detected (test code = 7122) Yersinia Not Detected enterocolitica PCR (test code = 7123) Giardia lamblia PCR Not Detected (test code = 7124) Lab Interpretation Abnormal (test code = 55383-7) [facility] MethodistSmear xllzyi2523-63-11 12:14:52 Test Item Value Reference Range Interpretation Comments Platelet slide review (test code Nic adequate = 17472-5) Anisocytosis (test code = 702-1) Moderate Polychromasia (test code = Moderate 95501-0) Schistocytes (test code = 800-3) Occasional Spherocytes (test code = 802-9) Occasional Ovalocytes (test code = 774-0) Moderate Jasiel cells (test code = 7790-9) Moderate A Enlarged platelets (test code = Moderate A 04249-7) Lab Interpretation (test code = Abnormal 99342-3) Jarad MeridaUedjwnkgdVubtpsqifd0122-85-88 06:13:11 Test Item Value Reference Range Interpretation Comments Fibrinogen (test code = 77542-7) 540 mg/dL 200-450 H Lab Interpretation (test code = Abnormal 89190-1) [facility] MethodistIR IVC Filter Avdkvgnqu0544-10-53 13:20:28Hm Interface, Radiology Results 04/08/2020 1:23 PM CSTPerforming RadiologistDawit Tolbert MD AssistantsNone Anesthesia TypeLidocaine 1% was used for local anesthetic. Moderate sedation was administered by the procedure nurse and monitored intraservice by the procedure physician for a medlapxlf-uy-oslk sedation time of 11 minutes.Indication Deep venous thrombosis, contraindication to medical anticoagulation therapy.Procedure1. Inferior vena cavogram 2. Placement of a retrievable inferiorvena cava filter TechniqueWritten informed consent was obtained prior to the procedure. All elementsof maximal sterile barrier technique were followed. The patient's right neck was sterilely prepared and draped in the routine manner. Lidocaine 1% was used for local anesthetic. Using real-time ultrasound guidance, a 21-gauge micropuncture needle was used to access the [...] The inner dilator and guidewire were then removed,and a 0.035 inch wire was advanced through the micropuncture sheath and into the inferior vena cava under fluoroscopy. The micropuncture sheath was removed and a 5-Tamazight pigtail catheter was then placed over the guidewire and advanced into the left common iliac vein near the low inferior vena cava. An inferior vena cavagram was then performed with injection of contrast. Exchange was then made for the delivery system for Celect retrievable inferior vena cava filter. Using the filter deployment device, the Celect filter was advanced, positioned, and deployed within the infrarenal inferior vena cava.A completion inferior cavagram was then performed through the delivery sheath of the Celect filter. The delivery sheath was removed and hemostasis was achieved with manual compression. The patient tolerated the procedure well. Radiation DoseKa,r = 105 mGy ComplicationsNone Specimens RemovedNone Estimated Blood LossLess than 1 mL Blood/Blood Products AdministeredNone Grafts/ImplantsAs described in theabove report Impression: 1. An initial inferior vena cavogram demonstrates a normal caliber inferior vena cava. There is no caval thrombus. Inflow from the left common iliac vein and left and right renal veins is noted. 2. Successful placement of a Celect retrievable inferior vena cava filter within the infrarenal inferior vena cava. A completion inferior vena cavogram demonstrates all legs of the filter to be completely deployed with no complications. [facility]-[id number] MethodistPrepare RBC, 1 Wsfmc4851-95-32 10:30:00 Test Item Value Reference Range Interpretation Comments Product name (test code Red Cells AS1 Leukored = 25) Irrad Unit number (test code [id number] = 1230930) Product code (test code T5594U16 = 3092) Dispense status (test Transfused code = 24) Blood expiration date (test code = 302) Blood type code (test 9500 code = 308) Blood type (test code = O NEGATIVE 1314) Compatibility (test Compatible code = 6400) [place] [facility]/Pelvic External Qvekt9740-21-06 08:38:37This exam was not acquired at a [facility] facility and has not been interpreted by a [facility] Provider. The exam was imported into our imaging system.[place] [facility] Hemoglobin & czsyjkelgf1799-03-85 08:32:31 Test Item Value Reference Range Interpretation Comments HGB (test code = 718-7) 7.5 g/dL 14-18 L HCT (test code = 4544-3) 23.4 % 41-51 L Lab Interpretation (test code = Abnormal 90556-8) [place] MethodistUrinalysis screen and microscopy, with reflex to culture 2020-04-07 12:15:03 Test Item Value Reference Range Interpretation Comments Specimen site (test Clean catch code = 5992988) Color, UA (test code = Nury 5778-6) Appearance, UA (test Clear code = 5767-9) Specific gravity, UA 1.030 1.001-1.035 (test code = 5811-5) pH, UA (test code = 5.0 5.0-8.5 5803-2) Protein, UA (test code Negative Negative = 50079-8) Glucose, UA (test code 3+ Negative A = 59901-2) Ketones, UA (test code Trace Negative A = 2514-8) Bilirubin, UA (test Negative Negative code = 5770-3) Blood, UA (test code = Negative Negative 5794-3) Nitrite, UA (test code Negative Negative = 5802-4) Urobilinogen, UA (test <2.0 <2.0 code = 47015-0) Leukocyte esterase, UA Negative Negative (test code = 5799-2) Epithelial cells, UA <1 See_Comment [Autom ated (test code = 5787-7) message ] The system which generated this result transmitted reference range : /HPF. The refer ence range was not u sed to interpret th is result as normal/abnormal . WBC, UA (test code = 1 See_Comment [Autom ated 5821-4) message] The sy stem which generated this result transmitted reference range : 0 - 1 /HPF. The reference range was not used to interpret this result as normal/abnormal . RBC, UA (test code = <1 See_Comment [Autom ated 67648-7) message] The sy stem which generated this result transmitted reference range : 0 - 5 /HPF. The reference range was not used to interpret this result as normal/abnormal . Bacteria, UA (test code None seen None seen = 17137-8) Yeast, UA (test code = None seen 86888-6) Yeast with None seen pseudohyphae, UA (test code = 23928-3) Lab Interpretation Abnormal (test code = 33009-0) Jarad MeridaUrine tsaswtm8698-32-15 11:59:23 Test Item Value Reference Range Interpretation Comments Urine culture (test SEE COMMENT Bacteriu richard screen code = 2074949) negative. Jarad Bailey duplex venous lower dlootkbbm4349-26-57 09:10:00Interface, Radiology Results In - 04/07/2020 9:11 AM [facility] Vascular Ultrasound Laboratory Lower Extremity Venous Zehvuo[address] [address] Pat.Name: BULMARO [place] Pat.ID: [id number] .Date: 04/06/2020 Refer.MD: GRETTA BACON MD Exam Time: 3:38:00 PM Study Type:LE Venous Height: 69in Weight: 147lb BSA: 1.81 m2 Age: 3 1955,64Y Sex: MALE Sonogrphr: Yuly Sumner, RVT Pat. Stat.:Inpatient Room: [address] Tape Vol: SARAH/, CPT - 4: 18605 Echo Event ID:[id number] Order ID: [id number] Reason for Study:History of PE. Rule out DVT. History of gastriccancer. Status post renal and pancreas transplant. Procedures: Colorflow, Grayscale/2D, Pulsed wave DopplerRace: C SUMMARY: DUPLEX SCAN OBSERVATIONS Deep Veins Superficial Veins Right Left Right Left GSV (prox) Normal NormalCFV Normal Normal (above knee)Femoral Normal Normal GSV (dist) Not Visualized NormalProfunda NormalNormal (below knee)Popliteal Normal NormalPT (prox) Normal Normal SSV Normal Not VisualizedPT (dist) Normal Normal Peroneal Normal Obstructed Gastrocs Normal NormalRIGHT: There is normal compressibility with no evidence of echogenicmaterial noted within the lumen of the visualized veins. Colorflow andDoppler signals are normal. LEFT: One of paired peroneal vein is non-compressible with echogenicmaterial inside of lumen with absent colorflow and Doppler signals.There is normal compressibility with no evidence of echogenic materialnoted within the lumen of the remaining visualized veins. Colorflowand Doppler signals are normal. PRELIMINARY FINDINGS:1. Deep venous thrombosis of the left peroneal vein.*The results given to ERIKA Friedman at 16:15 04/06/2020HYSICIAN INTERPRETATION: Deep venous thrombosis of the left peroneal vein. FINDINGS: --------Signed 04/07/2020 09:10 William Zavala MD, FACS, [facility] CBC hryhdjhj6338-97-15 03:54:17 Test Item Value Reference Range Interpretation Comments WBC (test code = 5.48 See_Comment [Automated message] 81869-1) The system [employer] generated this result transmit duglas reference range : 4.50 - 11.00 k/ uL. The reference r adriano was not used to interpret this result as normal/abnormal . RBC (test code = 3.04 m/uL 4.4-6 L 18325-5) HGB (test code = 718-7) 7.4 g/dL 14-18 L HCT (test code = 4544-3) 23.3 % 41-51 L MCV (test code = 787-2) 76.6 fL 82-100 L MCH (test code = 785-6) 24.3 pg 27-34 L MCHC (test code = 786-4) 31.8 g/dL 31-37 RDW - SD (test code = 44.3 fL 37-55 92245-9) MPV (test code = 11.0 fL 8.8-13.2 13499-8) Platelet count (test 166 See_Comment [Autom ated message] code = 52054-8) The system [employer] generated this result transmit duglas reference range : 150 - 400 k/uL. The reference range was not used to interpret this result as normal/abnormal . Nucleated RBC (test code 0.00 See_Comment [A utomated message] = 52963-9) The system [employer] generated this result transmit dugals reference range : /100 WBC. The reference range was not used to interpret this result as normal/abnormal . Lab Interpretation (test Abnormal code = 05795-5) Jarad MeridaCOCARLOSD-19 qualitative [id number] 01:13:51 Test Item Value Reference Range Interpretation Comments Interpretation (test Negative results do code = 4333896) not preclude 2019-nCoV infection and should not be used as the sole basis for treatment or other patient management decisions. Negative results must be combined with clinical observations, patient history, and epidemiological information. COVID-19 qualitative Not-Detected Not-Detected PCR result (test code = 84583-5) COVID-19 qualitative See link below for C ase Number: PCR (test code = PDF Lab Report [id number]) [facility] MethodistECG 12 [id number] 22:53:46 Test Item Value Reference Range Interpretation Comments Ventricular rate (test 101 code = 253) Atrial rate (test code 101 = 255) MO interval (test code 128 = 266) QRSD interval (test 82 code = 260) QT interval (test code 344 = 264) QTC interval (test 446 code = 265) P axis 1 (test code = 70 267) QRS axis 1 (test code -7 = 268) T wave axis (test code -9 = 270) EKG impression (test Sinus code = 273) tachycardia-Inferior infarct (cited on or before 16-MAY-2009)-Cannot rule out Anterior infarct , age undetermined-Abnormal ECG-In automated comparison with ECG of 20-OCT-2010 10:40,-Nonspecific T wave abnormality now evident in Anterolateral leads- Abraham MethodistType and [id number] 17:45:00 Test Item Value Reference Range Interpretation Comments ABO grouping (test code = 883-9) O Rh type (test code = 78963-4) NEG Antibody screen (gel) (test code = NEG 890-4) [place] MethodistXR Chest 1 Vw [id number] 17:06:33Hm Interface, Radiology Results - 04/06/2020 5:09 PM CSTExamination: XR CHEST 1 VW PORTABLEClinical history: Shortness of breath R retroperitoneal bleedComparison: 02/25/2020IMPRESSION: Bilateral mild atelectasis and/or infiltrates have developed. Indwelling support devices/catheters appear generally stable in position. No pneumothoraces are identified. There are no apparent pleural effusions.The cardiomediastinal silhouette and the remainder of the chest appear essentially unchanged.OPC-[id number] MethodistIonized [id number] 15:24:37 Test Item Value Reference Range Interpretation Comments pH (test code = 2753-2) 7.42 Ionized calcium (test code = 1.12 mmol/L 1.11-1.32 ) [place] MethodistLactic acid [id number] 14:55:15 Test Item Value Reference Range Interpretation Comments Lactic acid (test code = 54236-6) 1.7 mmol/L 0.5-2.2 [place] MethodistCT Chest W Contrast Abdomen W Contrast Pelvis W Contrast 2020-04-03 15:42:29Hm Interface, Radiology Results 04/03/2020 3:45 PM CSTEXAMINATION: CT CHEST W CONTRAST ABDOMEN W CONTRAST PELVIS W CONTRASTCLINICAL HISTORY: 64 years Male C16.0 Malignant neoplasm of cardia, gastric cancerTECHNIQUE: Multiple axial images of the chest, abdomen, and pelvis were obtained following intravenous administration of iodinated contrast. Sagittal and coronal computerized reformatted images were obtained. CT imaging was performed with iterative reconstruction techniques and/or automated exposure control to reduce radiation dose. COMPARISON: 02/10/2020IMPRESSION:CHEST:Lower neckand thoracic inlet: No focal abnormality.Lungs and airways: A tiny nodular density in the anterior right upper lobe (series 2 image 61 is unchanged and likely represents the sequela of previous inflammatory disease. There are no acute consolidations or interval developing suspicious pulmonary nodules.Pleura: No pleural effusion or pneumothorax.Mediastinum and lymph nodes: No mediastinal, hilar, supraclavicular, or axillary adenopathy. Cardiovascular: The heart size is normal. Minimal coronary calcifications. Trace pericardial fluid and/or thickening. The thoracic aorta is minimally atheroscleroticwithout evidence of aneurysm. There are intraluminal filling defects with a embolus at the distal right main pulmonary artery with nonocclusive thrombus extending into the right middle lobe and right lower lobe segmental branches. Similar but less prominent finding is noted in the distal left main pulmonary artery. The main pulmonary artery is slightly dilated and measures 3.1 cm. Other: A right IJ portacatheter is in satisfactory position.ABDOMEN:Liver: Small hepatic hypodensities in the hepatic dome are unchanged and compatible with benign cysts.Gallbladder/Biliary: The gallbladder contains a calculus. The gallbladder is not distended.Spleen: The spleen is not enlarged.Pancreas: The [place] pancreas is atrophic without focal mass. There our a couple of pancreas transplants in the right abdomen and right iliac fossa that are grossly unremarkable.Adrenal Glands: The adrenal glands are unremarkable.Kidneys: The [place] kidneys are atrophic compatible with end-stage renal disease. There are severalbilateral solid renal masses. A right upper pole renal mass has increased in size and measures 5.2 cm (formerly 4.6 cm). A posterior right midpole mass is slightly increased in size and measures 1.9 cm(formerly 1.7 cm). A posterolateral left midpole renal mass measures 1.5 cm (formerly 1.3 cm) and anterolateral upper pole left renal mass measures 1.1 cm and is relatively unchanged. A left lower polerenal mass measures 2.3 cm and is also unchanged. There are two renal transplants in the left iliac fossa. The lateral transplant is without focal abnormality. The more medial transplant has cortical atrophy and contains several cysts. A tiny calyceal calculus is also present.Vasculature: The abdominal aorta is minimally atherosclerotic without evidence of aneurysm.Nodes: No enlarged retroperitoneal or mesenteric lymphadenopathy.Bowel: There is diffuse thickening at the esophagogastric junction withmild diffuse thickening of the lower esophagus and stomach. Findings may be related to interval XRT.There is no evidence of intestinal obstruction. The colon is partially decompressed. There is mild diffuse colonic mucosal enhancement. There are postoperative changes related to ventral hernia repair with mesh. A small fat-containing hernia is present along the left lateral aspect of the hernia repair just cephalad to the umbilicus. A small section of small bowel protrudes into the hernia opening.Ascites/fluid collections: No ascites or fluid collections.PELVIS:There is no evidence of pelvic mass, fluid collection, or pelvic lymphadenopathy. MUSCULOSKELETAL: No suspicious osseous lesions. SUMMARY:1.Subacute pulmonary thromboembolic disease.2.Persistent thickening at the esophagogastric junction compatible with primary neoplasm. Mild diffuse thickening of the lower esophagus and stomach similar to the prior study.3.Enlarging renal masses involving the [place] kidneys compatible with multifocal renal cell carcinoma. A couple of the lesions on the [place] left kidney are stable in size and may represent complex cysts.4.Status post double pancreatic and renal transplants. Small cysts, atrophy, and calyceal calculus in the medial left iliac fossa renal transplant.5.Mild colonic mucosal enhancement may reflect mild colitis.6.Status post ventral hernia repair with small fat-containing hernia along the left lateral margin of the hernia repair.7.Cholelithiasis.Results were discussed with Dr. Queen at 1540 hours.[id number] MethodistCarcinoembryonic antigen (CEA)2020-03-25 13:58:05 Test Item Value Reference Range Interpretation Comments CEA (test code = 17.8 ng/mL 0-3.8 H Reference r adriano for 2038-08) heavy smokers: 0.0 - 5.5 ng/mLThe [employer] [place] 8000 CEA immunoassay was used. Results obtaine d with different assay methods or kits should not be used interchangeably and may be differen t. Lab Interpretation Abnormal (test code = 08225-7) [place] MethodistAbsolute neutrophil [id number] 08:41:15 Test Item Value Reference Range Interpretation Comments Neutrophils, absolute 2.42 See_Comment [Auto mated message] The (test code = 751-8) system w [facility] generated this result tra nsmitted reference range : 1.76 - 7.59 k/uL. The reference range was not u sed to interpret this result as normal/abnormal . [place] MethodistIR Port [id number] 17:16:39Hm Interface, Radiology Results Incoming - 03/05/2020 5:19 PM CSTPerforming RadiologistRohit Rock TORRES AssistantsNone Anesthesia TypeModerate sedation was administered by the procedure nurse and monitored by the procedure physician for a zvfs-ie-tlxx sedation time of 33 minutes. Lidocaine 1% and lidocaine 1% mixed with epinephrine were used for local anesthetic. Pre Procedure Bxxldnlxj27-emly-pym male with gastric cancer and need for chemotherapy Post Procedure DiagnosisStatus post subcutaneous right chest port placement. ProcedureSubcutaneous right chest port placement. TechniqueWritten informed cons ent was obtained prior to the procedure. All elements of maximal sterile barrier technique were followed. Using ultrasound guidance, the right internal jugular vein was punctured with a 21-gauge needleallowing placement of a 0.018 inch guidewire. The needle was removed and a micropuncture sheath was then placed over the guidewire. Under ultrasound guidance, documentation of vessel patency, needle access with permanent recording, and reporting are performed followed by placement of a sheath in the right internal jugular vein. A subcutaneous pocket was then created at the right infraclavicular fossausing sharp and blunt dissection. A tunnel was made between the pocket and the venotomy site, through which the 6.6-Tamazight port catheter was placed. The venotomy was sequentially dilated to accept an 7-Tamazight peel-away sheath, through which the leading edge of the catheter was advanced under fluoroscopic guidance. The trailing end of the catheter was trimmed to the appropriate length and attached to a low profile Angiodynamics Smart Port CT. Following irrigation of the pocket with dilute antibiotic solution, the port was placed within the pocket. The port incision was closed using a deep layer of interrupted 3-0 Vicryl suture, 4-0 Monocryl running subcuticular suture, and Steri-Strips. The small venotomy incision was closed using Steri-Strips. The port was accessed and found to flush and aspirate freely. A post placement fluoroscopic imaging of the chest was then obtained. There were no complications. Radiation DoseKa,r = 14 mGyComplicationsNone. Specimens RemovedNone. Estimated Blood LossLess than 2 mL. Blood/Blood Products AdministeredNone. Grafts/ImplantsAs described in the above report. Impression: Successful fluoroscopic-guided placement of a subcutaneous right chest port via the right internal jugular vein. The catheter tip lies at the right atrium/superior vena cava junction and is ready for use. [facility]-[id number] MethodistXR Picc Chest [id number] 13:06:51Hm Interface, Radiology Results 02/25/2020 1:09 PM CSTEXAMINATION: XR PICC CHEST PORTABL ECLINICAL HISTORY: C16.0 Malignant neoplasm of cardia, ChemotherapyCOMPARISON: Chest x-ray 10/23/2019IMPRESSION: Single frontal view reveals interval placement right-sided PICC line with tip overlyingthe SVC. Lungs are clear. Pleural margins are sharp. Otherwise stable cardiomediastinal silhouette. The remainder of the examination is unchanged.[facility] MUS[facility]-[id number] MethodistPICC insertion 2020-02-25 08:25:00Washington Ventura RN 02/25/2020 12:41 PMPICC insertion Date/Time: 02/25/2020 12:37 PMPerformed by: Washington Ventura, RNAuthorized by: Jt James MD Consent: Consent obtained: Verbal Consent given by: Patient Risks discussed: Arterial puncture, incorrect placement, nerve damage, bleeding, infection, superficial thrombus and deep vein thrombus Alternatives discussed: Alternative treatmentUniversal protocol: Procedure explained and questions answered to patient or proxy's satisfaction: yes Relevant documents present and verified: yes Test results available and properly labeled: yes Imaging studies available: yes Required blood products, implants, devices, and special equipment available: yes Site/side marked: yes Immediately prior to procedure, a time out was called: yes Patient identity confirmed: Verbally with patient, arm band, provided demographic data and hospital-assigned identification numberPre-procedure details: Hand hygiene: Hand hygiene perform ed prior to insertion Sterile barrier technique: All elements of maximal sterile technique followed Skin preparation: 2% chlorhexidine and ChloraPrep Skin preparation agent: Completely dried prior to procedure Anesthesia (see MAR for exact dosages): Anesthesia method: Local infiltration Local anesthetic: Lidocaine 1% w/o epi Route administered: SubcutaneousPICC Line Placement Details: Patient position: Flat Vessel Size (mm): 7 Indication For PICC: Chemo. Location: Right brachial Site selection rationale: Left AVF graft Device Type: Non-valved Catheter Lumens: Double lumen Catheter size: 5 Fr Catheter to vein ratio: 26%PICC Characteristics: Catheter Brand: Bioflo PICC External Catheter Length (cm): 0 Internal Catheter Length (cm): 40 Total Catheter Length (cm): 40 Catheter Lot Number: [id number] details: Landmarks identified: yes Ultrasound guidance: yes Sterile ultrasound techniques: Sterile gel and sterile probe covers were used Number of attempts: 1 Number of PICC kits used during procedure: 1 Extra guide wire required?: Yes Purpose of procedure: PICC Placement Successful PICC Placement: yes Patency/Placement: Flushes without difficulty, flushed with 10 mL normal saline, positive blood return, ultrasound placement verified and x-ray placement verified Dressing/Securement: Dressing dry and intact, antimicrobial dressing dry and intact, antimicrobial dressing applied and catheter securement device Blood Loss Amount: Less than 20 mLPost-procedure details: Post-procedure: Dressing applied Tip placement confirmed by: X-Ray Patient tolerance of procedure: Tolerated well, no immediate complicationsW[place] City MethodistSurgical pathology [id number] 20:07:20 Test Item Value Reference Range Interpretation Comments Case number (test [id number] code = [id number]) Surgical pathology See link below for PDF report (test code = Lab Report 2255) Result status (test This is Supplemental code = [id number]) Report for [id number] Jarad MethodistPrealbumin [id number] 12:55:11 Test Item Value Reference Range Interpretation Comments Prealbumin (test code = 6793-4) 12 mg/dL 16-32 L Lab Interpretation (test code = Abnormal 49663-6) Jarad MethodistMRI Brain W Wo [id number] 14:29:12Hm Interface, Radiology Results - 01/28/2020 2:32 PM CSTEXAMINATION: MRI BRAIN W WO CONTRASTCLINICAL HISTORY: C15.9 Malignant neoplasm of esophagus unspecified, esophageal cancerCOMPARISON:CT head 01/16/2020TECHNIQUE: Multiplanar and multisequence MRI imaging of the brain was obtained withand without contrast.FINDINGS:A few scattered T2/FLAIR hyperintensities are noted throughout the bifrontal subcortical white matter, nonspecific but likely related to minimal chronic microvascular ischemic changes. No restricted diffusion identified to indicate recent infarct. No susceptibility identified to suggest hemosiderin deposition from prior hemorrhage. No intra or extra-axial fluid collections identified. No mass, mass effect, or midline shift is seen.The basal ganglia, thalami, midbrain, [place] and cervicomedullary junction are unremarkable. The ventricles and sulci are unremarkable for patient's age. Sella turcica is normal in appearance. The basal cisterns are patent. The calvarium appears intact. The major intracranial vascular flow voids are present. No abnormal parenchymal or meningeal enhancement identified. Prior cataract lens extractions are noted bilaterally. The paranasal sinuses are unremarkable. The mastoid air cells and middle ear cavities are clear.IMPRESSION:No intracranial metastatic disease or acute abnormality identified.[facility]-[id number] MethodistCT Head Wo [id number] 17:51:09Hm Interface, Radiology Results 01/16/2020 5:54 PM CSTEXAMINATION: CT HEAD WO CONTRASTCLINICAL HISTORY: R51.9 Headache unspecified, headache for a few months.COMPARISON: None.TECHNIQUE: Noncontrast head CT performed using radiation dose reduction techniques. Technical factors are evaluated and adjusted to ensure appropriate moderation of exposure. Automated dose management technology is applied to adjust radiation exposure while achieving a diagnostic quality image. FINDINGS:No evidence of acute intracranial hemorrhage, mass, mass effect, midline shift, or acute infarct. Ventricles and sulci are normal in appearance for patient's age. Basal cisterns are clear. Mild chronic microvascular ischemic change. Intracranial vascular calcifications are present. Calvarium is intact.Bilateral lens extractions. Mild scattered paranasal sinus mucosal thickening. Mastoid air cells are clear. IMPRESSION:1. No CT evidence of acute intracranial abnormality.[id number] MethodistPET/CT Skull Base To Mid Thigh 2020-01-16 17:05:19Addendum by Bulmaro Thornton MD on 02/10/2020 5:37 PM ADDENDUM #1 Following discussion and review of the diagnostic CT study performed today (02/10/2020), re-analysis of the PET-CTscan performed on 01/16/2020 was performed. The original report is addended as follows: FINDINGS: When compared to the more distant CT exam from 09/05/2009, a new exophytic mass arising from the upperpole of the right [place] kidney is evident; this lesion demonstrates moderate FDG uptake with SUV of6.5. In the original report of the PET scan performed on 01/16/2020, this activity was described as excreted radiotracer from minimally functional renal parenchyma. With the findings from today's contrast-enhanced CT, the hypermetabolism associated with this mass is most compatible with malignancy. The smaller growing mass in the mid right kidney demonstrates very mild FDG uptake with an SUV of 1.8, highly suspicious for a metastatic satellite lesion. In the left [place] kidney, one exophytic lesion in the mid [...] new exophytic mass arising from the right [place] kidney; this lesion exhibits abnormal metabolic activity compatible with malignancy. In the setting of a known esophageal mass, this lesion suggests a synchronous neoplasm. Tissue sampling for definitive histopathological diagnosis is recommended. 2.The smaller lesion in the mid right [place] kidney is suspicious for a satellite metastasis. 3.In the left [place] kidney another small exophytic lesion which has slightly enlarged demonstrates faint metabolic activity, concerning for an underlying neoplastic process. Chronic inflammatory etiologies are also possible. Attention on subsequent imaging is recommended. Remainder of the original report is unchanged. [facility], Radiology Results - 01/16/2020 5:05 PM CSTPROCEDURE: PET CT SKULL BASE TO MID THIGHINDICATION: C15.5 Malignant neoplasm of lower third of esophagus, C15.5 MALIG. NEOP. OF LOWER THIRD OF ESOPHAGUS Staging PET scan. COMPARISON: No recent relevant comparison examinations are prior PET-CTs TECHNIQUE: Blood glucose measured at the time of injection was 114 mg/dL. The patient was then intravenously injected with 10 mCi of 18F-FDG. Approximately one hourlater, PET images were acquired from the skull base to the mid thighs. Corresponding, low dose, non-contrast CT scanning was performed as part of the attenuation correction process. FINDINGS: Head andneck: No suspicious lesions are seen in the head and neck. Physiological leyva matter metabolism throughout the bilateral cerebral hemispheres and cerebellum limits the evaluation of the BOTTOM SCRUBBER. Chest: No suspicious pulmonary lesions are identified. There is masslike area of irregular wall thickening in the lower esophagus at the GE junction demonstrating moderate FDG uptake with an SUV of 5.6. Approximately 3 cm above this lesion is a region of mild esophageal wall thickening demonstrating mild FDG uptake with an SUV of 4.0. No FDG-avid mediastinal or hilar lymphadenopathy is seen. There is no axillary lymphadenopathy. Abdomen: The liver and spleen demonstrate physiological metabolism without evidence of mass lesions. Calcified stone in the gallbladder exhibits no focal inflammation. The pancreas appears atrophic and demonstrates no suspicious FDG uptake. Adrenal glands are normal in appearance and metabolic activity. [place] kidneys appear atrophic with minimal excretory function on the right. Nohypermetabolic retroperitoneal or mesenteric lymphadenopathy is seen. Pelvis: There are 2 transplanted kidneys in the left pelvis both demonstrating excretory function; such activity again reduces the s ensitivity of detecting FDG-avid lesions in these organs and the tract. Remainder of the pelvis reveals no suspicious lesions or adenopathy. Musculoskeletal: There are no hypermetabolic or destructive bony lesions. IMPRESSION: 1.Esophageal mass at the GE junction demonstrates abnormal metabolicactivity, compatible with provided history of primary malignancy.2.Mildly hypermetabolic area of esophageal wall thickening just superior to this mass mass may represent an inflammatory process and/or tumor involvement.3.No definitive evidence of FDG-avid lesions elsewhere.4.Additional findings as detailed above. [id number]-RINANU8BfnlizxMethodist [facility] [id number] 14:53:16 Test Item Value Reference Range Interpretation Comments POC glucose (test code 114 mg/dL 65-99 H Opera tor Name: Bruce = [id number]) ValerieDevice I D: [id number] able: No Action Neede d Lab Interpretation Abnormal (test code = 77789-7) Jarad Merida
[2020-04-22 17:05] LABS: Urine Blood 2+ (NEG); Urine Glucose 1+ (NEG); Urine Protein 3+ (NEG)
[2020-04-22 17:14] LABS: Anisocytosis 1+; Blood Morphology Comment NOTED (NOT SEEN); Platelet Estimate ADEQ; White Blood Cell Scan OK (OK)
--- NOTE | 2020-04-22 17:32 | ER ---
Nurse's Notes [facility] Max Name: Bulmaro Ann Age: 64 yrs Sex: Male : 1955 Arrival Date: 04/22/2020 Time: 13:36 Bed 7 Private MD: Diagnosis: Syncope and collapse;Other sepsis;Hypotension Presentation: 04/22 13:37 Chief complaint: EMS states: "pt reporting vision blacked out 2 times today with jd3 general weakness. his blood pressure was also low on out arrival. we started a 20 G IV to the right AC and gave a 250 ml NS bolus.". Coronavirus screen: At this time, the client does not indicate any symptoms associated with coronavirus-19. Ebola Screen: Patient negative for fever greater than or equal to 101.5 degrees Fahrenheit, and additional compatible Ebola Virus Disease symptoms. Initial Sepsis Screen: Does the patient meet any 2 criteria? No. Patient's initial sepsis screen is negative. Does the patient have a suspected source of infection? No. Patient's initial sepsis screen is negative. Risk Assessment: Do you want to hurt yourself or someone else? Patient reports no desire to harm self or others. Onset of symptoms was April 22, 2020. 13:37 Method Of Arrival: EMS: [facility] j 13:37 Acuity: KELLY 2 jd3 Historical: - Home Meds: 18:50 apixaban oral oral [Active]; aspirin Oral [Active]; Prednisone Oral [Active]; jd3 tacrolimus oral oral [Active]; Zolpidem Tartrate Oral [Active]; - PMHx: 18:50 stomach cancer/on going chemo treatment; jd3 - PSHx: 18:50 kidney transplant; jd3 18:51 port o cath; jd3 - Immunization history:: Adult Immunizations up to date. - Social history:: Smoking status: Patient denies any tobacco usage or history of. Screenin:40 Abuse screen: Denies threats or abuse. Nutritional screening: No deficits noted. jd3 Tuberculosis screening: No symptoms or risk factors identified. Fall Risk Ambulatory Aid- None/Bed Rest/Nurse Assist (0 pts). Gait- Normal/Bed Rest/Wheelchair (0 pts) Mental Status- Oriented to own ability (0 pts). Total Christianson Fall Scale indicates No Risk (0-24 pts). Assessment: 13:41 General: Appears in no apparent distress. uncomfortable, Behavior is calm, cooperative, jd3 appropriate for age. Pain: Denies pain. Neuro: Level of Consciousness is awake, alert, obeys commands, Oriented to person, place, time, situation, Reports weakness generalized. Cardiovascular: Denies chest pain, Capillary refill < 3 seconds Patient's skin is warm and dry. Respiratory: Airway is patent Respiratory effort is even, unlabored, Respiratory pattern is regular, symmetrical, Denies cough, shortness of breath. GI: No signs and/or symptoms were reported involving the gastrointestinal system. : No signs and/or symptoms were reported regarding the genitourinary system. EENT: No signs and/or symptoms were reported regarding the EENT system. Derm: Skin is intact, Skin is dry, Skin is pale, Skin temperature is warm. Musculoskeletal: Circulation, motion, and sensation intact. Range of motion: intact in all extremities. 15:53 Reassessment: No changes from previously documented assessment. Patient and/or family jd3 updated on plan of care and expected duration. Pain level reassessed. Patient is alert, oriented x 3, equal unlabored respirations, skin warm/dry/pink. 17:04 Reassessment: Patient appears in no apparent distress at this time. Patient and/or jd3 family updated on plan of care and expected duration. Pain level reassessed. Patient is alert, oriented x 3, equal unlabored respirations, skin warm/dry/pink. awaiting disposition. 18:48 Reassessment: Patient appears in no apparent distress at this time. Patient and/or jd3 family updated on plan of care and expected duration. Pain level reassessed. Patient is alert, oriented x 3, equal unlabored respirations, skin warm/dry/pink. 19:39 Reassessment: Patient and/or family updated on plan of care and expected duration. Pain ea level reassessed. Patient is alert, oriented x 3, equal unlabored respirations, skin warm/dry/pink. Report given to receiving nurse. 19:50 Reassessment: Patient and/or family updated on plan of care and expected duration. Pain ea level reassessed. Patient is alert, oriented x 3, equal unlabored respirations, skin warm/dry/pink. Pt left ED via stretcher per office systems technology instructor, pt tolerating well. Vital Signs: 13:39 BP 90 / 53; Pulse 99; Resp 18 S; Temp 97.7(O); Pulse Ox 96% on R/A; Weight 71.21 kg jd3 (R); Height 5 ft. 9 in. (175.26 cm) (R); Pain 0/10; 14:59 BP 93 / 55; Pulse 89; Resp 17 S; Pulse Ox 100% on R/A; jd3 15:53 BP 94 / 70; Pulse 89; Resp 18 S; Pulse Ox 100% on R/A; jd3 17:04 BP 107 / 76; Pulse 90; Resp 17 S; Pulse Ox 100% on R/A; jd3 18:48 BP 104 / 91; Pulse 91; Resp 17 S; Pulse Ox 100% on R/A; jd3 19:20 BP 97 / 67; Pulse 90; Resp 16; Temp 97.6; Pulse Ox 99% ; ea 13:39 Body Mass Index 23.18 (71.21 kg, 175.26 cm) jd3 ED Course: 13:36 Patient arrived in ED. iw 13:37 Mike Lehman, ERIKA is Primary Nurse. jd3 13:38 Vasu Beebe MD is Attending Physician. kdr 13:38 Carlos Sorensen PA is PHCP. cp 13:39 Triage completed. jd3 13:40 Arm band placed on. jd3 13:41 Patient has correct armband on for positive identification. Bed in low position. Call jd3 light in reach. Side rails up X2. electronic device monitor on. Pulse ox on. NIBP on. 13:54 EKG done, by ED staff, reviewed by Carlos CASTRO. em1 14:25 XRAY Chest (1 view) In Process Unspecified. EDMS 15:34 CT Head Brain wo Cont In Process Unspecified. EDMS 16:25 initiated transfer to [facility]. bd 16:40 pt denied due to no capacity at this time, per Pina Michel. bd 16:[address] [facility]. pt denied due to no beds at this time. bd 17:29 Latrice Ramos MD is Hospitalizing Provider. cp 19:19 No provider procedures requiring assistance completed. Patient admitted, IV remains in ea place. Administered Medications: 14:00 Drug: NS 0.9% 500 ml Route: IV; Rate: bolus; Site: right antecubital; jd3 15:00 Follow up: Response: No adverse reaction; IV Status: Completed infusion jd3 16:20 Drug: Cefepime 2 grams Route: IVPB; Rate: 200 ml/hr; Infused Over: 30 mins; Site: right jd3 antecubital; 17:00 Follow up: Response: No adverse reaction; IV Status: Completed infusion jd3 16:20 Drug: NS 0.9% (30 ml/kg) 30 ml/kg Route: IV; Rate: bolus; Site: right antecubital; jd3 17:20 Follow up: Response: No adverse reaction; IV Status: Completed infusion jd3 17:05 Drug: vancoMYCIN 1 grams Route: IVPB; Infused Over: 2 hrs; Site: right antecubital; jd3 19:00 Follow up: Response: No adverse reaction; IV Status: Completed infusion jd3 Outcome: 17:32 Decision to Hospitalize by Provider. cp 19:20 Condition: stable ea 19:20 Instructed on the need for admit, Demonstrated understanding of instructions. 19:30 Admitted to Med/surg accompanied by tech, via stretcher, room 225, with chart, Report sg called to Jony JAMES 19:51 Patient left the ED. ea Signatures: Dispatcher [employer] EDMS Abigail Donaldson Steven, Vasu Camara RN, MD MD kdr Williams, Irene, RN RN iw Martinez, Eric em1 Carlos Sorensen PA PA cp Giulia Bae RN RN ea Davies, Jonathon, RN RN jd3
--- NOTE | 2020-04-22 17:32 | EDPHYS ---
Physician Documentation [facility] Dami Name: Bulmaro Ann Age: 64 yrs Sex: Male : 1955 Arrival Date: 04/22/2020 Time: 13:36 Bed 7 Private MD: ED Physician Vasu Beebe HPI: 04/22 13:45 This 64 yrs old Male presents to ER via EMS with complaints of Syncope. cp 13:45 The patient has experienced syncope, "blacked out". cp 13:45 Onset: The symptoms/episode began/occurred today. Duration: The patient has had cp multiple episodes, that last an unknown period of time. Context: occurred at home. Associated injury: The patient did not suffer any apparent associated injury. Associated signs and symptoms: Pertinent positives: weakness, low blood pressure, Pertinent negatives: abdominal pain, chest pain, headache, seizure. Current symptoms: general weakness. Historical: - Home Meds: 18:50 apixaban oral oral [Active]; aspirin Oral [Active]; Prednisone Oral [Active]; jd3 tacrolimus oral oral [Active]; Zolpidem Tartrate Oral [Active]; - PMHx: 18:50 stomach cancer/on going chemo treatment; jd3 - PSHx: 18:50 kidney transplant; jd3 18:51 port o cath; jd3 - Immunization history:: Adult Immunizations up to date. - Social history:: Smoking status: Patient denies any tobacco usage or history of. ROS: 13:50 Constitutional: Negative for body aches, chills, fever, poor PO intake. cp 13:50 Eyes: Negative for injury, pain, redness, and discharge. cp 13:50 ENT: Negative for ear pain, sore throat, difficulty swallowing, difficulty handling secretions. 13:50 Cardiovascular: Positive for edema, Negative for chest pain, palpitations. 13:50 Respiratory: Negative for cough, shortness of breath, wheezing. 13:50 Abdomen/GI: Negative for abdominal pain, nausea, vomiting, and diarrhea, constipation, black/tarry stool, rectal bleeding. 13:50 Skin: Negative for cellulitis, rash. 13:50 Neuro: Positive for syncope, general weakness, Negative for altered mental status, headache. 13:50 All other systems are negative. Exam: 13:55 ECG was reviewed by the Attending Physician. cp 13:57 Constitutional: The patient appears in no acute distress, alert, awake, cp non-diaphoretic, non-toxic, well developed, well nourished. 13:57 Head/Face: Normocephalic, atraumatic. cp 13:57 Eyes: Periorbital structures: appear normal, Pupils: equal, round, and reactive to light and accomodation, Extraocular movements: intact throughout, Conjunctiva: normal, no exudate, no injection, Sclera: no appreciated abnormality, Lids and lashes: appear normal, bilaterally. 13:57 ENT: External ear(s): are unremarkable, Nose: is normal, Mouth: Lips: moist, Oral cp mucosa: moist, Posterior pharynx: Airway: no evidence of obstruction, patent. 13:57 Neck: ROM/movement: is normal, is supple, without pain, no range of motions limitations, no nuchal rigidity. 13:57 Chest/axilla: Inspection: normal, Palpation: is normal, no crepitus, no tenderness. 13:57 Cardiovascular: Rate: normal, Rhythm: regular, Edema: ankle edema, that is mild, JVD: is not appreciated. 13:57 Respiratory: the patient does not display signs of respiratory distress, Respirations: normal, no use of accessory muscles, no retractions, labored breathing, is not present, Breath sounds: are clear throughout, no decreased breath sounds, no stridor, no wheezing. 13:57 Abdomen/GI: Inspection: scar(s), are noted in the mid abdomen, Bowel sounds: active, all quadrants, Palpation: abdomen is soft and non-tender, in all quadrants. 13:57 Back: pain, is absent, ROM is normal. 13:57 Skin: cellulitis, is not appreciated, no rash present. 13:57 Neuro: Orientation: to person, place \\T\\ time. Mentation: is normal, Cerebellar function: is grossly normal, Motor: moves all fours, strength is normal, Sensation: is normal. Vital Signs: 13:39 BP 90 / 53; Pulse 99; Resp 18 S; Temp 97.7(O); Pulse Ox 96% on R/A; Weight 71.21 kg jd3 (R); Height 5 ft. 9 in. (175.26 cm) (R); Pain 0/10; 14:59 BP 93 / 55; Pulse 89; Resp 17 S; Pulse Ox 100% on R/A; jd3 15:53 BP 94 / 70; Pulse 89; Resp 18 S; Pulse Ox 100% on R/A; jd3 17:04 BP 107 / 76; Pulse 90; Resp 17 S; Pulse Ox 100% on R/A; jd3 18:48 BP 104 / 91; Pulse 91; Resp 17 S; Pulse Ox 100% on R/A; jd3 19:20 BP 97 / 67; Pulse 90; Resp 16; Temp 97.6; Pulse Ox 99% ; ea 13:39 Body Mass Index 23.18 (71.21 kg, 175.26 cm) jd3 MDM: 13:41 Patient medically screened. 17:10 Data reviewed: vital signs, nurses notes, lab test result(s), EKG, radiologic studies, CT scan, plain films, I have discussed the patient's presentation/case with the attending Emergency Department Physician; and as a result, I will admit patient. 17:10 Test interpretation: by ED physician or midlevel provider: ECG, plain radiologic studies. 17:30 ED course: Attempt to transfer patient [facility] unsuccessful due to facilities being at volume capacity. Will admit here for continued care. 17:30 Physician consultation: Latrice Ramos MD was called at 17:30, was contacted at 17:30, regarding admission, to the telemetry unit. 04/22 13:41 Order name: Basic Metabolic Panel cp 04/22 13:41 Order name: CBC with Diff cp 04/22 13:41 Order name: LFT's; Complete Time: 16:03 cp 04/22 13:41 Order name: Magnesium; Complete Time: 16:03 cp 04/22 13:41 Order name: NT PRO-BNP; Complete Time: 16:03 cp 04/22 13:41 Order name: PT-INR; Complete Time: 16:03 cp 04/22 13:41 Order name: Troponin (emerg Dept Use Only); Complete Time: 16:03 cp 04/22 13:41 Order name: Lactate; Complete Time: 15:38 cp 04/22 15:38 Interpretation: Abnormal: LAC 5.8. cp 04/22 13:41 Order name: Blood Culture Adult (2) cp 04/22 13:41 Order name: Urine Microscopic Only; Complete Time: 16:50 04/22 16:50 Interpretation: Normal except: URBC 10-20. 04/22 13:41 Order name: Procalcitonin; Complete Time: 16:03 04/22 16:03 Interpretation: Abnormal: Procalcitonin 0.09. 04/22 13:41 Order name: Type And Screen 04/22 13:41 Order name: Basic Metabolic Panel; Complete Time: 16:03 EDHI 04/22 13:41 Order name: CBC with Automated Diff; Complete Time: 17:22 EDHI 04/22 15:39 Interpretation: Normal except: WBC 17.00; HGB 10.8; HCT 35.4; MCH 24.7; MCHC 30.6; RDW cp 21.9; PRIMITIVO% 88.8; LYM% 4.6; NEUT A 15.1. 04/22 14:48 Order name: COVID-19 : Document "Date of Symptom Onset" if Symptomatic. 04/22 14:48 Order name: Influenza Screen (a \\T\\ B) 04/22 16:01 Order name: COVID-19/FLU A+B; Complete Time: 16:03 [facility] 04/22 17:04 Order name: Urine Dipstick--Ancillary (enter results); Complete Time: 17:22 04/22 17:14 Order name: CBC Smear Scan; Complete Time: 17:22 EDHI 04/22 18:12 Order name: Comprehensive Metabolic Panel [facility] 04/22 18:12 Order name: Comprehensive Metabolic Panel [facility] 04/22 18:12 Order name: Cortisol [facility] 04/22 18:12 Order name: Cortisol [facility] 04/22 18:12 Order name: Lactate [facility] 04/22 18:12 Order name: Lactate [facility] 04/22 18:12 Order name: Magnesium [facility] 04/22 18:12 Order name: Magnesium [facility] 04/22 18:12 Order name: NT PRO-BNP [facility] 04/22 13:41 Order name: XRAY Chest (1 view); Complete Time: 14:45 04/22 14:45 Interpretation: Report reviewed. 04/22 13:41 Order name: EKG; Complete Time: 13:42 04/22 13:41 Order name: Cardiac monitoring; Complete Time: 13:43 cp 04/22 13:41 Order name: EKG - Nurse/Tech; Complete Time: 13:54 cp 04/22 13:41 Order name: IV Saline Lock; Complete Time: 14:00 cp 04/22 13:41 Order name: Labs collected and sent; Complete Time: 16:36 cp 04/22 13:41 Order name: O2 Per Protocol; Complete Time: 13:43 cp 04/22 13:41 Order name: O2 Sat Monitoring; Complete Time: 13:43 cp 04/22 13:41 Order name: Urine Dipstick-Ancillary (obtain specimen); Complete Time: 16:05 cp 04/22 14:49 Order name: CT Head Brain wo Cont; Complete Time: 16:50 cp 04/22 16:51 Interpretation: Report reviewed. cp 04/22 18:12 Order name: NT PRO-BNP EDMS 04/22 18:12 Order name: Phosphorus EDMS 04/22 18:12 Order name: Phosphorus EDMS 04/22 18:12 Order name: PTT, Activated Partial Thromb EDMS 04/22 18:12 Order name: PTT, Activated Partial Thromb EDMS 04/22 18:12 Order name: Regular EDMS 04/22 18:12 Order name: CBC with Automated Diff EDMS 04/22 18:12 Order name: CBC with Automated Diff EDMS 04/22 18:13 Order name: Urinalysis EDMS 04/22 18:48 Order name: Lactate Sepsis 2 HR Follow-up EDMS 04/22 19:11 Order name: ABO/RH no charge EDMS EC:55 Rate is 94 beats/min. Rhythm is regular. NM interval is normal. QRS interval is normal. cp QT interval is normal. T waves are Inverted in leads III, V3. Interpreted by me. Reviewed by me. Administered Medications: 14:00 Drug: NS 0.9% 500 ml Route: IV; Rate: bolus; Site: right antecubital; jd3 15:00 Follow up: Response: No adverse reaction; IV Status: Completed infusion jd3 16:20 Drug: Cefepime 2 grams Route: IVPB; Rate: 200 ml/hr; Infused Over: 30 mins; Site: right jd3 antecubital; 17:00 Follow up: Response: No adverse reaction; IV Status: Completed infusion jd3 16:20 Drug: NS 0.9% (30 ml/kg) 30 ml/kg Route: IV; Rate: bolus; Site: right antecubital; jd3 17:20 Follow up: Response: No adverse reaction; IV Status: Completed infusion jd3 17:05 Drug: vancoMYCIN 1 grams Route: IVPB; Infused Over: 2 hrs; Site: right antecubital; jd3 19:00 Follow up: Response: No adverse reaction; IV Status: Completed infusion jd3 Disposition: 04/23 16:56 Co-signature as Attending Physician, Vasu Beebe MD I agree with the assessment and kdr plan of care. Disposition: 04/22/20 17:32 Hospitalization ordered by Latrice Ramos for Inpatient Admission. Preliminary diagnosis are Syncope and collapse, Other sepsis, Hypotension. - Bed requested for Telemetry/MedSurg (Inpatient). - Status is Inpatient Admission. ea - Condition is Fair. - Problem is new. - Symptoms have improved. Signatures: Dispatcher [employer] EDHI Maria Isabel Cardenas RN RN dw Rittger, Kevin, MD MD [facility] Carlos Sorensen PA PA cp Antunez, Elena, RN RN ea Davies, Jonathon, RN RN jd3 Corrections: (The following items were deleted from the chart) 04/22 15:16 14:48 CORONAVIRUS ordered. EDHI EDMS 15:17 14:48 Influenza Screen (A ordered. EDHI EDMS 16:04 14:48 Edge ordered. cp jd3 18:33 17:32 Hospitalization Ordered by Latrice Ramos MD for Inpatient Admission. Preliminary dw diagnosis is Syncope and collapse; Other sepsis; Hypotension. Bed requested for Telemetry/MedSurg (Inpatient). Status is Inpatient Admission. Condition is Fair. Problem is new. Symptoms have improved. cp 19:51 18:33 04/22/2020 17:32 Hospitalization Ordered by Latrice Ramos MD for Inpatient ea Admission. Preliminary diagnosis is Syncope and collapse; Other sepsis; Hypotension. Bed requested for Telemetry/MedSurg (Inpatient). Status is Inpatient Admission. Condition is Fair. Problem is new. Symptoms have improved. dw
[2020-04-22] MEDS ORDERED: ONDANSETRON 4 MG/2 ML VIAL IV PRN (18:08)
[2020-04-22] MEDS ORDERED: ACETAMINOPHEN 500 MG TAB PO PRN (18:08)
[2020-04-22] MEDS ORDERED: VANCOMYCIN 750 MG in NA CHLORIDE 0.9% 150 ML IVPB ONE (19:00)
[2020-04-22] MEDS ORDERED: PIPER/TAZO/NS 3.375gm 3.375 GM/100 ML BAG IVPB SCH (19:00)
[2020-04-22] MEDS: ENOXAPARIN 40 MG/0.4 ML SQ SCH (20:29)
[2020-04-22] MEDS: NA CHLORIDE 0.9% 1,000 ML IV SCH (20:29)
[2020-04-22] MEDS: MYCOPHENOLATE MOFETIL 200 MG/ML PO SCH (21:00)
[2020-04-22] MEDS: TACROLIMUS 0.5 MG PO SCH (21:00)
[2020-04-22] MEDS ORDERED: PIPER/TAZO/NS 3.375gm 3.375 GM/100 ML BAG ONE (21:08)
[2020-04-22 21:40] VITALS: BMI 23.9
[2020-04-23 00:47] LABS: Urine Appearance CLOUDY; Urine Bilirubin NEGATIVE (NEG); Urine Blood 3+ (NEG); Urine Color DK YELLOW; Urine Glucose 1+ (NEG); Urine Protein 3+ (NEG); Urine Urobilinogen 0.2 mg/dL (0.2-1.0); Urine pH 6.5 (5.0-7.0)
[2020-04-23 00:51] LABS: Urine Microscopic Reflex ORDER UMIC
[2020-04-23 03:16] LABS: Urine Bacteria 20-50 /HPF (NONE SEEN); Urine RBC 20-50 /HPF (NONE SEEN)
[2020-04-23 03:17] LABS: Urine Urothelial Cells <5 /HPF (NONE SEEN)
[2020-04-23] MEDS ORDERED: PIPER/TAZO/NS 3.375gm 3.375 GM/100 ML BAG IVPB SCH ×2 (04:00→10:00)
[2020-04-23] MEDS ORDERED: PIPER/TAZO/NS 3.375gm 3.375 GM/100 ML BAG ONE (04:05)
[2020-04-23 04:37] LABS: Absolute Lymphocytes (CBC) 1.1 K/uL (0.7-4.9); Basophils % 0.2 % (0-1.3); Hematocrit 32.2 % (39.6-49.0); MPV 8.5 fL (7.6-11.3); RBC Red Blood Cell Count 4.01 M/uL (4.33-5.43)
[2020-04-23] MEDS: NA CHLORIDE 0.9% 1,000 ML IV SCH ×3 (05:00→22:31)
[2020-04-23 05:01] LABS: Albumin 2.4 g/dL (3.4-5.0); Bilirubin Total 0.8 mg/dL (0.2-1.0); Magnesium 2.2 mg/dL (1.8-2.4); Phosphorus 5.1 mg/dL (2.5-4.9); Potassium 4.8 mmol/L (3.5-5.1); Protein, Total 5.2 g/dL (6.4-8.2)
[2020-04-23] MEDS: predniSONE 5 MG TAB PO SCH (09:15)
[2020-04-23] MEDS: ENOXAPARIN 40 MG/0.4 ML SQ SCH (09:15)
[2020-04-23] MEDS: ASPIRIN EC 81 MG TAB PO SCH (09:15)
[2020-04-23] MEDS: TACROLIMUS 0.5 MG PO SCH ×2 (10:30→20:35)
[2020-04-23] MEDS: MYCOPHENOLATE MOFETIL 200 MG/ML PO SCH ×2 (11:06→20:35)
[2020-04-23] MEDS ORDERED: VANCOMYCIN 1.25 GM in NA CHLORIDE 0.9% 250 ML IVPB SCH (13:00)
[2020-04-23] MEDS ORDERED: HEPARIN 500 UNIT/5 ML SYR IV PRN (18:09)
[2020-04-24 06:36] LABS: Absolute Lymphocytes (CBC) 0.8 K/uL (0.7-4.9); Basophils % 0.3 % (0-1.3); Hematocrit 28.8 % (39.6-49.0); Lymphocytes % 16.9 % (15.3-44.8); MPV 8.1 fL (7.6-11.3); RBC Red Blood Cell Count 3.57 M/uL (4.33-5.43)
[2020-04-24 06:52] LABS: Albumin 2.2 g/dL (3.4-5.0); Bilirubin Total 0.8 mg/dL (0.2-1.0); Magnesium 2.4 mg/dL (1.8-2.4); Phosphorus 4.1 mg/dL (2.5-4.9); Potassium 4.2 mmol/L (3.5-5.1); Protein, Total 5.4 g/dL (6.4-8.2)
[2020-04-24] MEDS: NA CHLORIDE 0.9% 1,000 ML IV SCH ×2 (08:44→11:45)
[2020-04-24] MEDS: predniSONE 5 MG TAB PO SCH (08:45)
[2020-04-24] MEDS: TACROLIMUS 0.5 MG PO SCH ×2 (08:45→21:25)
[2020-04-24] MEDS: ASPIRIN EC 81 MG TAB PO SCH (08:45)
[2020-04-24] MEDS: ENOXAPARIN 40 MG/0.4 ML SQ SCH (08:45)
[2020-04-24] MEDS: MYCOPHENOLATE MOFETIL 200 MG/ML PO SCH ×3 (08:46→21:26)
--- NOTE | 2020-04-24 09:03 | P.HP ---
Certification for Inpatient Patient admitted to: Inpatient With expected LOS: >2 Midnights Patient will require the following post-hospital care: None Practitioner: I am a practitioner with admitting privileges, knowledge of patient current condition, hospital course, and medical plan of care. Services: Services provided to patient in accordance with Admission requirements found in Title 42 Section 412.3 of the Code of Federal Regulations Patient History Date of Service: 04/22/20 Reason for admission: Hypotension/sepsis History of Present Illness: Patient is a 64-year-old gentleman who has history of gastric cancer, who came to the hospital with hypotension and concern for sepsis. Patient was brought into the emergency room for evaluation. Patient's blood pressure was low and patient was given bolused with fluids. Patient was also on his chemotherapy that he was receiving from [facility]. He has a infusion pump that goes over 48 hr. Patient was completing get and he got lightheaded. In the emergency room his blood pressure of 90/50. He was given fluid boluses and blood pressure came up to 110. Currently he is feeling much better. Rule out infectious etiology and if this is negative and his blood pressure remains stable then I will plan to discharge him home over the next 48-72 hr. Allergies No Known Allergies Allergy (Verified 04/22/20 20:40) Home Medications: Aspirin [Aspirin EC 81 MG] 81 mg PO DAILY 04/22/20 Tacrolimus [Prograf] 0.5 mg PO BID 04/22/20 mycophenolate mofetiL [Mycophenolate Mofetil] 500 mg PO BID 04/22/20 predniSONE [Prednisone] 5 mg PO DAILY 04/22/20 - Past Medical/Surgical History -: Kidney failure -: Diabetes Juvenile -: Kidney transplant x 2 - Family History Father Family History: Reviewed- Non-Contributory - Social History Smoking Status: Never smoker Alcohol use: No CD- Drugs: No Caffeine use: No Place of Residence: Home Review of Systems 10-point ROS is otherwise unremarkable Physical Examination - Vital Signs Temperature: 97.2 F Blood Pressure: 123/64 Pulse: 83 Respirations: 16 Pulse Ox (%): 0 - Physical Exam General: Alert, In no apparent distress, Oriented x3 HEENT: Atraumatic, PERRLA, Mucous membr. moist/pink, EOMI, Sclerae nonicteric Neck: Supple, 2+ carotid pulse no bruit, No LAD, Without JVD or thyroid abnormality Respiratory: Clear to auscultation bilaterally, Normal air movement Cardiovascular: Regular rate/rhythm, Normal S1 S2, No murmurs Gastrointestinal: Normal bowel sounds, Soft and benign, Non-distended, No tenderness Musculoskeletal: No clubbing, No swelling, No tenderness Integumentary: No rashes Neurological: Normal gait, Normal speech, Normal strength at 5/5 x4 extr, Normal tone, Sensation intact, Cranial nerves 3-12 intact, Normal affect Lymphatics: No axilla or inguinal lymphadenopathy Assessment & Plan - Problems (Diagnosis) (1) Sepsis Current Visit: Yes Status: Acute (2) Hypotension Current Visit: Yes Status: Acute (3) Gastric cancer Current Visit: Yes Status: Acute - Plan Plan: 1. Continue with antibiotics 2. Continue with IV hydration 3. Check cortisol level 4. Monitor orthostatics 5. Monitor procalcitonin level 6. GI and DVT prophylaxis Discharge Plan: Home Plan to discharge in: Greater than 2 days - Advance Directives Does patient have a Living Will: No Does patient have a Durable POA for Healthcare: No - Code Status/Comfort Care Code Status Assessed: Yes Code Status: Full Code Critical Care: No Time Spent Managing PTS Care (In Minutes): 45
[2020-04-24] MEDS ORDERED: HYDROCORTISONE SUC 100 MG INJ IV ONE (09:05)
--- NOTE | 2020-04-24 09:05 | P.PN ---
Subjective Date of Service: 04/23/20 Patient is doing much better. Continue with IV fluids. Do a dose of cores all. Anticipate discharge in the morning. Review of Systems 10-point ROS is otherwise unremarkable Physical Examination - Vital Signs Temperature: 97.2 F Blood Pressure: 123/64 Pulse: 83 Respirations: 16 Pulse Ox (%): 0 - Physical Exam General: Alert, In no apparent distress, Oriented x3 Respiratory: Clear to auscultation bilaterally, Normal air movement Cardiovascular: Regular rate/rhythm, Normal S1 S2 Gastrointestinal: Normal bowel sounds, Soft and benign, Non-distended, No tenderness Musculoskeletal: No tenderness Integumentary: No rashes Neurological: Normal speech, Normal tone, Normal affect Lymphatics: No axilla or inguinal lymphadenopathy - Studies Medications List Reviewed: Yes Assessment & Plan - Problems (Diagnosis) (1) Sepsis Current Visit: Yes Status: Acute (2) Hypotension Current Visit: Yes Status: Acute (3) Gastric cancer Current Visit: Yes Status: Acute - Plan Plan: Continue with plan of care as mentioned below 1. Continue with antibiotics 2. Continue with IV hydration 3. Cortisol level was stable 4. Monitor orthostatics 5. Monitor procalcitonin level 6. GI and DVT prophylaxis Discharge Plan: Home - Advance Directives Does patient have a Living Will: No Does patient have a Durable POA for Healthcare: No - Code Status/Comfort Care Code Status: Full Code Critical Care: No Time Spent Managing PTS Care (In Minutes): 30
[2020-04-24] MEDS ORDERED: FUROSEMIDE 20 MG/ 2ML VIAL IV ONE (12:00)
[2020-04-24] MEDS ORDERED: ALBUMIN HUMAN 25% 100 ML IV ONE (12:00)
[2020-04-24 12:52] LABS: Folic Acid, (Folate) > 20.0 ng/mL (3.1-17.5)
[2020-04-24] MEDS: PANTOPRAZOLE 40MG TABLET PO SCH (16:30)
[2020-04-24] MEDS ORDERED: CYANOCOBALAMIN 1000MCG/ML INJ IM ONE (17:00)
[2020-04-24] MEDS ORDERED: WATER FOR INJ,STERILE 10 ML IV SCH (18:00)
--- NOTE | 2020-04-24 18:57 | RAD REPORT ---
EXAM DESCRIPTION: US - Extrem Venous W Compress [place] - 04/24/2020 6:39 pm CLINICAL HISTORY: DVT Bilateral leg edema and swelling. COMPARISON: No comparisons TECHNIQUE: Real-time sonographic interrogation of the left and right lower extremity deep venous sys tems was performed. FINDINGS: Echogenic material with partial compressibility is identified in both common femoral to po pliteal veins compatible with bilateral DVT. IMPRESSION: Positive for bilateral DVT.
[2020-04-24] MEDS: Tacrolimus [Prograf] 0.5 MG Capsule PO SCH (21:00)
[2020-04-24] MEDS: HYDROCORTISONE SUC 100 MG INJ IV SCH (21:31)
[2020-04-25] MEDS: NA CHLORIDE 0.9% 1,000 ML IV SCH (08:00)
[2020-04-25] MEDS: ENOXAPARIN 40 MG/0.4 ML SQ SCH (08:52)
[2020-04-25] MEDS: HYDROCORTISONE SUC 100 MG INJ IV SCH (08:52)
[2020-04-25] MEDS: PANTOPRAZOLE 40MG TABLET PO SCH ×2 (08:52→15:48)
[2020-04-25] MEDS: predniSONE 5 MG TAB PO SCH (08:52)
[2020-04-25] MEDS: ASPIRIN EC 81 MG TAB PO SCH (08:52)
[2020-04-25] MEDS: TACROLIMUS 0.5 MG PO SCH ×2 (08:56→21:05)
[2020-04-25] MEDS: MYCOPHENOLATE MOFETIL 200 MG/ML PO SCH ×4 (08:57→21:00)
[2020-04-25] MEDS: Tacrolimus [Prograf] 0.5 MG Capsule PO SCH ×2 (09:00→21:00)
[2020-04-25] MEDS ORDERED: PANTOPRAZOLE 40MG TABLET PO ONE (12:00)
--- NOTE | 2020-04-25 12:13 | P.PN ---
Date of Service: 04/24/20 Subjective Patient was orthostatics. IV steroids in tapering dose. IV albumin as well. Continue with current plan of care at this time. Review of Systems 10-point ROS is otherwise unremarkable Physical Examination - Vital Signs Reviewed - Physical Exam General: Alert, In no apparent distress, Oriented x3 Respiratory: Clear to auscultation bilaterally, Normal air movement Cardiovascular: Regular rate/rhythm, Normal S1 S2 Gastrointestinal: Normal bowel sounds, Soft and benign, Non-distended, No tenderness Musculoskeletal: No tenderness Integumentary: No rashes Neurological: Normal speech, Normal tone, Normal affect Lymphatics: No axilla or inguinal lymphadenopathy - Studies Medications List Reviewed: Yes Assessment & Plan - Problems (Diagnosis) (1) Sepsis Current Visit: Yes Status: Acute (2) Hypotension Current Visit: Yes Status: Acute (3) Gastric cancer Current Visit: Yes Status: Acute - Plan Plan: Continue with plan of care as mentioned below 1. Continue with antibiotics 2. Start IV albumin 3. Tapering dose of steroid 4. Monitor orthostatics 5. Increase protein intake 6. GI and DVT prophylaxis
[2020-04-25 13:40] LABS: Albumin 2.4 g/dL (3.4-5.0); Bilirubin Total 0.8 mg/dL (0.2-1.0); Magnesium 2.1 mg/dL (1.8-2.4); Potassium 4.4 mmol/L (3.5-5.1); Protein, Total 5.5 g/dL (6.4-8.2); Thyroid Stimulating Hormone 0.492 uIU/mL (0.360-3.740)
[2020-04-25] MEDS: APIXABAN 5 MG TABLET PO SCH (15:48)
[2020-04-25] MEDS ORDERED: ALBUMIN HUMAN 25% 100 ML IV ONE (16:04)
[2020-04-25] MEDS ORDERED: FUROSEMIDE 20 MG/ 2ML VIAL IV ONE (16:04)
[2020-04-25] MEDS ORDERED: CYANOCOBALAMIN 1000MCG/ML INJ IM ONE (16:06)
[2020-04-25] MEDS ORDERED: D5W 1,000 ML with NA BICARB 8.4% 50 MEQ IV SCH ×2 (18:00)
[2020-04-25] MEDS ORDERED: DEXTROSE 10%-WATER 500 ML IV ONE (18:34)
[2020-04-25] MEDS ORDERED: D5W 1,000 ML IV ONE ×2 (18:36→18:44)
[2020-04-25] MEDS ORDERED: SODIUM BICARB 50 MEQ/50ML VIAL ONE (18:42)
[2020-04-25] MEDS: ACETYLCYST 20% 800 MG/4 ML VIAL PO SCH (21:00)
[2020-04-25] MEDS: predniSONE 20 MG TAB PO SCH (21:10)
[2020-04-26] MEDS: APIXABAN 5 MG TABLET PO SCH ×2 (02:00→14:25)
[2020-04-26] MEDS: NA CHLORIDE 0.9% 1,000 ML IV SCH (04:00)
[2020-04-26 06:51] LABS: Absolute Lymphocytes (CBC) 0.5 K/uL (0.7-4.9); Basophils % 0.1 % (0-1.3); Hematocrit 25.8 % (39.6-49.0); Lymphocytes % 12.5 % (15.3-44.8); MPV 8.3 fL (7.6-11.3); RBC Red Blood Cell Count 3.29 M/uL (4.33-5.43)
[2020-04-26 06:54] LABS: Magnesium 1.9 mg/dL (1.8-2.4); Phosphorus 2.8 mg/dL (2.5-4.9); Potassium 4.1 mmol/L (3.5-5.1)
[2020-04-26] MEDS: MYCOPHENOLATE MOFETIL 200 MG/ML PO SCH ×4 (09:00→20:29)
[2020-04-26] MEDS: Tacrolimus [Prograf] 0.5 MG Capsule PO SCH ×2 (09:00→20:28)
--- NOTE | 2020-04-26 09:18 | RAD REPORT ---
EXAM DESCRIPTION: CT - Chest For Pe Angio - 04/26/2020 7:02 am CLINICAL HISTORY: Chest pain COMPARISON: None. TECHNIQUE: Dynamically enhanced axial 3 mm thick images of the chest were obtained during administra tion of <100> mL Isovue 370 IV contrast. Coronal and oblique reconstruction images were generated and reviewed. Exam utilizes a protocol for optimal evaluation of pulmonary arterial tree. Maximum intensity projections 3D imaging was utilized All CT scans are performed using dose optimization technique as appropriate and may include automated exposure control or mA/KV adjustment according to patient size. FINDINGS: A pulmonary embolus is not seen. A thoracic aortic aneurysm is not noted. Small bilateral pleural effusions. A pericardial effusion is not seen. A lung consolidation is not present. IMPRESSION: Negative for a pulmonary embolism.
[2020-04-26] MEDS: predniSONE 20 MG TAB PO SCH ×2 (09:59→20:27)
[2020-04-26] MEDS: ASPIRIN EC 81 MG TAB PO SCH (09:59)
[2020-04-26] MEDS: PANTOPRAZOLE 40MG TABLET PO SCH ×2 (09:59→17:27)
[2020-04-26] MEDS: ACETYLCYST 20% 800 MG/4 ML VIAL PO SCH ×2 (09:59→20:29)
[2020-04-26] MEDS: TACROLIMUS 0.5 MG PO SCH ×2 (10:04→20:27)
--- NOTE | 2020-04-27 05:22 | P.PN ---
Date of Service: 04/25/20 Subjective Venous Doppler was positive. Infection is stable. Blood pressure is stable. Patient ambulating and will continue working with physical therapy. Appear to be a little forgetful. Nephrology to see the patient & neurology consultation if they're available Review of Systems 10-point ROS is otherwise unremarkable Physical Examination - Vital Signs Reviewed - Physical Exam General: Alert, In no apparent distress, Oriented x3 Respiratory: Clear to auscultation bilaterally, Normal air movement Cardiovascular: Regular rate/rhythm, Normal S1 S2 Gastrointestinal: Normal bowel sounds, Soft and benign, Non-distended, No tenderness Neurological: Normal speech, Normal tone, Normal affect Assessment & Plan - Problems (Diagnosis) (1) Sepsis Current Visit: Yes Status: Acute (2) Hypotension Current Visit: Yes Status: Acute (3) Gastric cancer Current Visit: Yes Status: Acute - Plan Plan: Continue with plan of care as mentioned below 1. Continue with antibiotics 2. Start IV albumin 3. Tapering dose of steroid 4. Monitor orthostatics 5. Increase protein intake 6. GI and DVT prophylaxis
--- NOTE | 2020-04-27 05:26 | P.PN ---
Date of Service: 04/26/20 Subjective CTP protocol this morning was negative. Patient is clinically doing well. It just putting discharge home in the morning if he continues to improve. The biggest issue is that he does not have anyone living with him. He does have home health services. He sort of has a care provider. Spoke with his neighbor who stated they will try to get him assistance twice a day. He has a pretty big jehovah's witness family and they have been helping patient. He will continue with [facility] for his chemotherapy for a gastric cancer. Patient does appear to have an IVC filter. Will hold off on anticoagulation because of is history of bleeding disorder. Review of Systems 10-point ROS is otherwise unremarkable Physical Examination - Vital Signs Reviewed - Physical Exam General: Alert, In no apparent distress, Oriented x3 Respiratory: Clear to auscultation bilaterally, Normal air movement Cardiovascular: Regular rate/rhythm, Normal S1 S2 Gastrointestinal: Normal bowel sounds, Soft and benign, Non-distended, No tenderness Neurological: Normal speech, Normal tone, Normal affect Assessment & Plan - Problems (Diagnosis) (1) Sepsis Current Visit: Yes Status: Acute (2) Hypotension Current Visit: Yes Status: Acute (3) Gastric cancer Current Visit: Yes Status: Acute - Plan Plan: Continue with plan of care as mentioned below 1. Continue with antibiotics 2. IV albumin as needed 3. Tapering dose of steroid 4. Monitor orthostatics 5. Increase protein intake 6. Conitnue with PT 7. HH and make sure caretakers present
[2020-04-27 05:56] LABS: Absolute Lymphocytes (CBC) 0.4 K/uL (0.7-4.9); Basophils % 0.1 % (0-1.3); Hematocrit 26.6 % (39.6-49.0); Lymphocytes % 12.7 % (15.3-44.8); MPV 8.3 fL (7.6-11.3)
[2020-04-27 06:17] LABS: Albumin 2.5 g/dL (3.4-5.0); Bilirubin Total 0.6 mg/dL (0.2-1.0); Ferritin 325.3 ng/mL (26-388); Magnesium 1.8 mg/dL (1.8-2.4); Potassium 3.8 mmol/L (3.5-5.1); Protein, Total 5.3 g/dL (6.4-8.2); Thyroid Stimulating Hormone 0.952 uIU/mL (0.360-3.740)
[2020-04-27] MEDS ORDERED: POTASSIUM CL SA 10 MEQ TAB PO ONE (06:54)
[2020-04-27] MEDS ORDERED: MAGNESIUM SULFATE 1 gm IVPB 1 GM/100 ML BAG IV ONE (06:55)
[2020-04-27] MEDS: PANTOPRAZOLE 40MG TABLET PO SCH ×2 (07:30→15:37)
--- NOTE | 2020-04-27 08:25 | P.PN ---
Subjective Date of Service: 04/27/20 Primary Care Provider: Dr. Sullivan ([facility]) Chief Complaint: Hypotension/sepsis Subjective: Improving (Patient doing well. Tolerating diet. No significant nausea, vomiting. Blood pressure stable.) Physical Examination - Vital Signs Temperature: 97.4 F Blood Pressure: 128/60 Pulse: 64 Respirations: 20 Pulse Ox (%): 98 - Studies Medications List Reviewed: Yes Assessment & Plan Discharge Plan: Home Plan to discharge in: 24 Hours Physician Review Additional Text: Physical exam: Patient alert, cooperative. No significant distress. Heart: Regular rate and rhythm. Lungs: Clear. Abdomen: Soft nontender nondistended Extremities: Good range of motion to the upper lower extremities. Some peripheral edema noted to the lower extremities bilateral. Impression: Hypotension secondary to dehydration with poor oral intake and mild to moderate protein malnutrition History of gastric cancer with recent treatment Diabetes mellitus type 2 with hyperglycemia History of kidney transplant on immunosuppressive/steroid therapy Recent bilateral DVT previously on anti coagulation therapy but discontinued due to hematuria requiring transfusion now with IVC filter Anemia of chronic disease with B12 deficiency Plan: Hypotension secondary to dehydration with poor oral intake and mild to moderate protein malnutrition: Will have physical therapy evaluate ambulation. Will also have dietary address daily needs. Check orthostatics today. Encourage oral intake. Anticipate improvement and possible discharge later today if doing well. Patient will continue with home health and physical therapy at discharge. History of gastric cancer with recent treatment: Patient is seen at the [facility] for this. Continue with follow up with oncology. Diabetes mellitus type 2 with hyperglycemia: Will start glimepiride. Check A1c. Verify if patient taking other medications at home. History of kidney transplant on immunosuppressive/steroid therapy: Continue with steroid treatment and immunosuppressive therapy. Patient seen by transplant team. Recent bilateral DVT previously on anti coagulation therapy but discontinued due to hematuria requiring transfusion now with IVC filter: IVC filter in place. Continue aspirin, Plavix. Will need to verify home medication. Patient previously on Eliquis but this was discontinued due to hematuria/bleeding requiring transfusion. Anemia of chronic disease with B12 deficiency: Will start supplementation. Time Spent Managing Pts Care (In Minutes): 55
[2020-04-27] MEDS: Tacrolimus [Prograf] 0.5 MG Capsule PO SCH ×2 (09:00→21:00)
[2020-04-27] MEDS: MYCOPHENOLATE MOFETIL 200 MG/ML PO SCH ×4 (09:00→21:29)
[2020-04-27] MEDS: ASPIRIN EC 81 MG TAB PO SCH (09:05)
[2020-04-27] MEDS: predniSONE 10 MG TAB PO SCH ×2 (09:06→21:27)
[2020-04-27] MEDS: ACETYLCYST 20% 800 MG/4 ML VIAL PO SCH (09:07)
[2020-04-27] MEDS: TACROLIMUS 0.5 MG PO SCH ×2 (09:08→21:27)
[2020-04-27] MEDS: CYANOCOBALAMIN 1,000 MCG TAB PO SCH (09:36)
[2020-04-27] MEDS: FOLIC ACID 1 MG TABLET PO SCH (09:36)
[2020-04-27] MEDS: MULTIVITAMIN TAB PO SCH (09:36)
[2020-04-27] MEDS: THIAMINE HCL 100 MG TABLET PO SCH (09:36)
[2020-04-27 12:12] VITALS: O2SAT 100
[2020-04-27] MEDS: GLIMEPIRIDE 2 MG TABLET PO SCH (16:47)
[2020-04-28] MEDS: MYCOPHENOLATE MOFETIL 200 MG/ML PO SCH ×2 (09:00→09:48)
[2020-04-28] MEDS: Tacrolimus [Prograf] 0.5 MG Capsule PO SCH (09:00)
[2020-04-28] MEDS: TACROLIMUS 0.5 MG PO SCH (09:48)
[2020-04-28] MEDS: GLIMEPIRIDE 2 MG TABLET PO SCH (09:51)
[2020-04-28] MEDS: PANTOPRAZOLE 40MG TABLET PO SCH (09:51)
[2020-04-28] MEDS: ASPIRIN EC 81 MG TAB PO SCH (09:51)
[2020-04-28] MEDS: CYANOCOBALAMIN 1,000 MCG TAB PO SCH (09:52)
[2020-04-28] MEDS: MULTIVITAMIN TAB PO SCH (09:52)
[2020-04-28] MEDS: THIAMINE HCL 100 MG TABLET PO SCH (09:52)
[2020-04-28] MEDS: FOLIC ACID 1 MG TABLET PO SCH (09:52)
[2020-04-28] MEDS: predniSONE 10 MG TAB PO SCH (09:59)
--- NOTE | 2020-04-28 12:02 | P.DS ---
Admission Date: 04/22/20 Discharge Date: 04/28/20 Primary Care Provider: Dr. Sullivan ([facility]) Disposition: ROUTINE DISCHARGE Discharge Condition: GOOD Reason for Admission: Hypotension/sepsis Consultations: none Procedures: COVID: Negative CT Head: FINDINGS: An intracranial bleed is not seen . The ventricles are normal in caliber. No extra-axial fluid collection is noted. Mild low-density areas within periventricular, deep and subcortical white matter likely represent ischemic changes secondary to small vessel disease. Fluid within the sinuses/ mastoids is not seen. IMPRESSION: No acute intracranial abnormality is seen. CTA scan: FINDINGS: A pulmonary embolus is not seen. A thoracic aortic aneurysm is not noted. Small bilateral pleural effusions. A pericardial effusion is not seen. A lung consolidation is not present. IMPRESSION: Negative for a pulmonary embolism. Venous doppler: FINDINGS: Echogenic material with partial compressibility is identified in both common femoral to popliteal veins compatible with bilateral DVT. IMPRESSION: Positive for bilateral DVT. Medical Problem List: Hypotension secondary to dehydration with poor oral intake and mild to moderate protein malnutrition History of gastric cancer with recent treatment Diabetes mellitus type 2 with hyperglycemia History of kidney transplant on immunosuppressive/steroid therapy Recent bilateral DVT previously on anti coagulation therapy but discontinued due to hematuria requiring transfusion now with IVC filter Anemia of chronic disease with B12 deficiency Brief History of Present Illness: 64-year-old male presented to the emergency room with low blood pressure. Patient required numerous boluses of fluid. Patient with history of gastric cancer. Patient admitted for further evaluation and treatment. Hospital Course: Patient presented with hypotension secondary to dehydration with poor oral intake and mild to moderate protein malnutrition. The patient was evaluated for possible sepsis. This was ruled out. Blood cultures negative. CT chest unremarkable. The patient improved with IV fluid hydration. Orthostatics now within normal range. At discharge patient will continue with his home medications. Recommend to encourage fluid intake. Patient may need to consider monitoring oral intake as well. Patient with history of gastric cancer with recent treatment. Patient will continue with Oncology. Patient with diabetes mellitus type 2 with hyperglycemia. Patient was started on Glimepride 2 mg 1 pill twice daily. Patient will continue with this medication. Recommend to monitor blood sugars at least twice daily. May need to hold medication if blood blood sugar less than 100. Recommend to maintain blood sugars less 140 fasting less than 200 after meals. Further adjustment in medication can be done by his PCP. Patient with history of bilateral DVT. This was confirmed with venous Doppler. Patient had been recently hospitalized for hematuria requiring transfusion. Patient now with IVC filter. Patient will continue with aspirin as previous. Patient had been on Eliquis but this was discontinued due to hematuria and bleeding. Recommend recheck CBC in 1-2 weeks to monitors progress. Patient with history of kidney transplant on immunosuppressive/steroid therapy. At discharge patient will continue with prednisone 5 mg daily, tacrolimus 0.5 mg 1 pill twice daily, and mycophenolate 2.5 mL twice daily. Follow up with transplant team to further monitor and adjust. Patient with anemia of chronic disease with B12 deficiency. At discharge patient will continue with folic acid 1 mg daily, thiamine 100 mg daily, and vitamin B12 supplementation daily. Recommend to recheck lab-CBC and B12 level in 2-4 weeks to monitors progress. Further adjustment in medication can be done by his PCP. Prior to discharge patient will continue with home health and physical therapy. Fall precautions in place. Vital Signs/Physical Exam: Temp Pulse Resp BP Pulse Ox 98 F 64 18 130/69 99 04/28/20 08:00 04/28/20 08:00 04/28/20 08:00 04/28/20 08:00 04/28/20 08:00 General: Alert, In no apparent distress, Oriented x3, Cooperative HEENT: Atraumatic Neck: Supple Respiratory: Clear to auscultation bilaterally, Normal air movement Cardiovascular: Normal pulses, Regular rate/rhythm Gastrointestinal: Normal bowel sounds, Soft and benign, Non-distended, No tenderness, No masses, No rebound, No guarding Neurological: Normal speech, Normal strength at 5/5 x4 extr, Normal tone, Normal affect Laboratory Data at Discharge: WBC 3.50 K/uL (4.3-10.9) L 04/27/20 05:43 Hgb 8.6 g/dL (13.6-17.9) L 04/27/20 05:43 Hct 26.6 % (39.6-49.0) L 04/27/20 05:43 Plt Count 155 K/uL (152-406) D 04/27/20 05:43 PT 12.4 SECONDS (9.5-12.5) 04/22/20 15:17 INR 1.08 04/22/20 15:17 APTT 30.6 SECONDS (24.3-36.9) 04/23/20 04:17 Sodium 143 mmol/L (136-145) 04/28/20 04:24 Potassium 4.0 mmol/L (3.5-5.1) 04/28/20 04:24 BUN 25 mg/dL (7-18) H 04/28/20 04:24 Creatinine 0.95 mg/dL (0.55-1.3) 04/28/20 04:24 Glucose 261 mg/dL (74-106) H 04/28/20 04:24 Phosphorus 2.8 mg/dL (2.5-4.9) 04/26/20 06:10 Magnesium 2.0 mg/dL (1.8-2.4) 04/28/20 04:24 Total Bilirubin 0.6 mg/dL (0.2-1.0) 04/27/20 05:43 AST 13 U/L (15-37) L 04/27/20 05:43 ALT 10 U/L (12-78) L 04/27/20 05:43 Alkaline Phosphatase 58 U/L (45-117) 04/27/20 05:43 Home Medications: Aspirin [Aspirin EC 81 MG] 81 mg PO DAILY 04/22/20 Tacrolimus [Prograf] 0.5 mg PO BID 04/22/20 mycophenolate mofetiL [Mycophenolate Mofetil] 2.5 ml PO BID 04/22/20 predniSONE [Prednisone] 5 mg PO DAILY 04/22/20 Cefdinir [Omnicef] 300 mg PO BID #10 capsule 04/24/20 Cyanocobalamin (Vitamin B-12) [Vitamin B12] 5,000 mcg SL DAILY #30 tab.rapdis 04/25/20 Pantoprazole [Protonix Tab*] 40 mg PO BIDAC #60 tab 04/25/20 Cyanocobalamin [Vitamin B-12*] 1,000 mcg PO DAILY #90 tab 04/28/20 Glimepiride [Amaryl*] 2 mg PO BIDWM #60 tab 04/28/20 Thiamine HCl [Vitamin B-1*] 100 mg PO DAILY #90 tablet 04/28/20 New Medications: Glimepiride [Amaryl*] 2 mg PO BIDWM #60 tab Cefdinir [Omnicef] 300 mg PO BID #10 capsule Pantoprazole [Protonix Tab*] 40 mg PO BIDAC #60 tab Thiamine HCl [Vitamin B-1*] 100 mg PO DAILY #90 tablet Cyanocobalamin [Vitamin B-12*] 1,000 mcg PO DAILY #90 tab Cyanocobalamin (Vitamin B-12) [Vitamin B12] 5,000 mcg SL DAILY #30 tab.chris Physician Discharge Instructions: Follow up with PCP in 1 week to follow up hospitalization. Patient presented with hypotension secondary to dehydration with poor oral intake and mild to moderate protein malnutrition. The patient was evaluated for possible sepsis. This was ruled out. Blood cultures negative. CT chest unremarkable. The patient improved with IV fluid hydration. Orthostatics now within normal range. At discharge patient will continue with his home medications. Recommend to encourage fluid intake. Patient may need to consider monitoring oral intake as well. Patient with history of gastric cancer with recent treatment. Patient will continue with Oncology. Patient with diabetes mellitus type 2 with hyperglycemia. Patient was started on Glimepride 2 mg 1 pill twice daily. Patient will continue with this medication. Recommend to monitor blood sugars at least twice daily. May need to hold medication if blood blood sugar less than 100. Recommend to maintain blood sugars less 140 fasting less than 200 after meals. Further adjustment in medication can be done by his PCP. Patient with history of bilateral DVT. This was confirmed with venous Doppler. Patient had been recently hospitalized for hematuria requiring transfusion. Patient now with IVC filter. Patient will continue with aspirin as previous. Patient had been on Eliquis but this was discontinued due to hematuria and bleeding. Recommend recheck CBC in 1-2 weeks to monitors progress. Patient with history of kidney transplant on immunosuppressive/steroid therapy. At discharge patient will continue with prednisone 5 mg daily, tacrolimus 0.5 mg 1 pill twice daily, and mycophenolate 2.5 mL twice daily. Follow up with transplant team to further monitor and adjust. Patient with anemia of chronic disease with B12 deficiency. At discharge patient will continue with folic acid 1 mg daily, thiamine 100 mg daily, and vitamin B12 supplementation daily. Recommend to recheck lab-CBC and B12 level in 2-4 weeks to monitors progress. Further adjustment in medication can be done by his PCP. Prior to discharge patient will continue with home health and physical therapy. Fall precautions in place. Diet: Regular Activity: Fall precautions Followup: NONE,NONE [Primary Care Provider] - Time spent managing pt's care (in minutes): 55
[2020-04-28 14:41] VITALS: BP 128/67; TEMP 98.8
== END 2020-04-28 15:57 | disposition home or self-care (01) | DRG 312 ==
LOC: ER 13:27 → ERHOLD 18:08 → 2ND 19:39
PROVIDERS: ADMIT Hospitalist; ATTEND Family Medicine
DX: I95.1 Orthostatic hypotension (principal); Z94.0 Kidney transplant status; C16.9 Malignant neoplasm of stomach, unspecified; E44.0 Moderate protein-calorie malnutrition; E11.65 Type 2 diabetes mellitus with hyperglycemia; D63.8 Anemia in other chronic diseases classified elsewhere; D51.9 Vitamin B12 deficiency anemia, unspecified; E86.0 Dehydration; Z79.82 Long term (current) use of aspirin; Z79.52 Long term (current) use of systemic steroids; Z68.23 Body mass index [BMI] 23.0-23.9, adult; Z79.899 Other long term (current) drug therapy; Z86.718 Personal history of other venous thrombosis and embolism; Z95.828 Presence of other vascular implants and grafts; Z20.822 Contact with and (suspected) exposure to COVID-19
CPT/HCPCS: 0240U; 36415; 70450; 71045; 71275; 80048; 80053; 80076; 80202; 81003; 81015; 82533; 82607; 82728; 82746; 83036; 83540; 83605; 83735; 83880; 84100; 84145; 84439; 84443; 84484; 85025; 85044; 85610; 85730; 86850; 86900; 86901; 87040; 87086; 87088; 93005; 93970; 96361; 96365; 96366; 96367; 96368; 97112; 97116; 97161; 99285; J0692; J1642; J1650; J1720; J1940; J2543; J3370; J3420; J3475; J7030; J7040; J7050; J7512; J7799; P9047; Q9967

== ENCOUNTER 2020-09-18 07:15 | Day surgery (SDC) | payer OTHER ==
[2020-09-18] MEDS ORDERED: CEFAZOLIN/SWI 1gm 1 GM/10 ML SYR ONE (07:43)
[2020-09-18] MEDS ORDERED: NA CHLORIDE 0.9% 1,000 ML ONE (07:43)
[2020-09-18] MEDS ORDERED: propofoL 200 MG/20 ML VIAL IV ONE (09:16)
[2020-09-18] MEDS ORDERED: LIDOCAINE 1% MPF 5 ML VIAL ONE (09:16)
--- NOTE | 2020-09-18 09:34 | ENDO RPT ---
[address], [address] EGD WITH PEG PROCEDURE REPORT EXAM DATE: 09/18/2020 PATIENT NAME: Bulmaro Ann MR #: [id number] BIRTHDATE: 1955 ATTENDING: Tavares Mccoy DR STATUS: outpatient ROSS FURNACE OPERATOR: Velvet Mark RN and Kasey Henry INDICATIONS: The patient is a 65 yr old Male here for an EGD with PEG due to dysphagia and odynophagia PROCEDURE PERFORMED: EGD-PEG MEDICATIONS: Per Anesthesia. TOPICAL ANESTHETIC: none CONSENT: The patient understands the risks and benefits of the procedure and understands that these risks include, but are not limited to: sedation, allergic reaction, infection, perforation and/or bleeding. Alternative means of evaluation and treatment include, among others: physical exam, x-rays, and/or surgical intervention. The patient elects to proceed with this endoscopic procedure. DESCRIPTION OF PROCEDURE: During intra-op preparation period all mechanical medical equipment was checked for proper function. Hand hygiene and appropriate measures for infection prevention was taken. After the risks, benefits and alternatives of the procedure were thoroughly explained, Informed consent was verified, confirmed and timeout was successfully executed by the treatment team. The patient was anesthetized with topical anesthesia and the Pentax EG-[id number] ([id number]) endoscope was introduced through the mouth and advanced to the pylorus. The instrument was slowly withdrawn as the mucosa was fully examined. A mass was found in the gastroesophageal junction. Erythema was found in the body and the antrum of the stomach. The stomach was then inflated with air, and by a combination of transillumination and manual palpation, the site for the gastrostomy tube placement was selected and marked on the anterior abdominal wall. The skin of the anterior abdomen was surgically prepped and draped with sterile towels. Utilizing strict sterile technique, the selected site was then anesthetized with 1% xylocaine by injection into the skin and subcutaneous tissue. A 1 cm incision was made through the skin and subcutaneous tissue, and the needle/cannula assembly was then passed through the abdominal wall and through the anterior wall of the stomach, maintaining visualization with the endoscope. A snare device previously placed through the instrument channel was then opened and placed around the cannula, the needle was removed, and the insertion wire was passed through the cannula and into the stomach lumen. The snare was then loosened from the cannula, and repositioned to snare the insertion wire. The snare was then pulled up to the endoscope distal tip, and the scope was then withdrawn bringing with it the snare and insertion wire. The insertion wire was then released from the snare, and then loop-attached to the PEG PULL gastrostomy tube. Using the pull technique, the G-tube was then pulled into place by traction on the insertion wire at the abdominal wall end. The G-tube insertion site was then cleansed once again, and the external bolster was placed over the tube to secure it to the abdominal wall. A sterile dressing was then applied, and the procedure terminated. Retroflexion was not performed. The gastroscope was then slowly withdrawn and removed. ADVERSE EVENT: There were no complications. IMPRESSIONS: A mass was found in the gastroesophageal junction RECOMMENDATIONS: 1. avoid NSAIDS 2. follow-up: office 2 week(s) 3. begin feeding tomorrow 4. follow PEG suggestions REPEAT EXAM: Tavares Mccoy DR eSigned: Tavares Mccoy DR 09/18/2020 9:33 AM cc: CPT CODES: ICD9 CODES: PATIENT NAME: Bulmaro Ann MR#: [id number]
[2020-09-18] MEDS ORDERED: FENTANYL CITR 100 MCG/2 ML ONE (10:25)
[2020-09-18 12:34] VITALS: TEMP 98.5
[2020-09-18 12:41] VITALS: BP 184/69; O2SAT 98
== END 2020-09-18 11:20 | disposition home or self-care (01) ==
LOC: OR 07:15
PROVIDERS: ATTEND Surgery
PROC: 0DH63UZ Insertion of Feeding Device into Stomach, Percutaneous Approach (ICD-10-PCS; principal; 2020-09-18 08:30)
DX: R19.06 Epigastric swelling, mass or lump (principal); R13.10 Dysphagia, unspecified
CPT/HCPCS: 82947; 49450; 43246; J2704; J3010; J0690; J7030

== ENCOUNTER 2020-11-04 10:35 | Emergency (ER) | payer OTHER ==
--- OUTSIDE RECORDS SUMMARY | 2020-11-04 10:42 | XMS REPORT | Continuity of Care Document ---
:1955 Author Organization [facility] t Address [address] [place] [address] Care Team Providers Name Role Phone [phone] Primary Care Physician Unavailable Luis Jansen MD Attending Clinician Edil JAMES Attending Clinician Unavailable Jade MACIAS Attending Clinician Unavailable Magdalena JAMES Attending Clinician Unavailable Aaron Hassan MA Attending Clinician Unavailable Will FAGAN Attending Clinician Junaid Bess MD Attending Clinician Richard Cain MD Attending Clinician Monika Cates APRN Attending Clinician Laurie TRORES Attending Clinician [place] Attending Clinician Unavailable Tresa Dahl Attending Clinician Unavailable [place] DASILVA Attending Clinician Unavailable Rosa Liang MD Attending Clinician Ray JAMES Attending Clinician Unavailable MERVAT Attending Clinician Unavailable Rachel RANGEL Attending Clinician Unavailable Alba Powell MD Attending Clinician Pato Silverman MD Attending Clinician Siomara RANGEL Attending Clinician Unavailable Hernesto RANGEL Attending Clinician Unavailable Belle JAMES Attending Clinician Unavailable Mark Mendez MD Attending Clinician MD Mark MENDEZ Attending Clinician Unavailable Sukh Whipple RN Attending Clinician Unavailable Fransisca JAMES Attending Clinician Unavailable Wendie Attending Clinician Unavailable Christopher Valdivia [facility] Attending Clinician Unavailable Yolanda CNC MILL PROGRAMMER, Marcus Attending Clinician Yolanda TORRES, [place] Attending Clinician Yolanda TORRES Attending Clinician Ric RN, A Attending Clinician Unavailable Oscar RN Attending Clinician Unavailable Jordi TORRES, SReyna Attending Clinician Alejandro [facility] Attending Clinician Unavailable Augusta JAMES Attending Clinician Unavailable MD Buddy BACON Attending Clinician Unavailable Vasyl [facility] Attending Clinician Unavailable Jan [facility], A Attending Clinician Unavailable Thierno RN, Adair Attending Clinician Unavailable Dwayne RN Attending Clinician Unavailable Alirio RN Attending Clinician Unavailable Mike TORRES Attending Clinician KALLIE Attending Clinician Unavailable SHAHRIAR Admitting Clinician Unavailable MD Mark MENDEZ Admitting Clinician Unavailable YOLANDA Admitting Clinician Unavailable JORDI Admitting Clinician Unavailable MD Buddy BACON Admitting Clinician Unavailable Payers Payer Name Policy Type Policy Effective Date Expiration Date Sour ce Number UHC MEDICAREUHC [id number] 2020 [employer] MEDICARE 00:00:00 [facility] [id number]/[id number] [facility] [id number] 2006 2020 00:00:00 00:00:00 Problems Condition Condition Condition Status Onset Resolution Last Treating Co mments Source Name Details Category Date Date Treatment Clinician Date Malignant Malignant Disease Active [facility] 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[facility] of lower of lower 00:00: Hospit a third of third of 00 l esophagus esophagus Encounter Encounter Disease Active [facility] for for [address] antineopla antineopla 00:00: Ho spita stic stic 00 l radiation radiation therapy therapy Neuropathi Neuropathi Disease Active M ethodi c pain c pain 08-12 st 00:00: Hospita 00 l Insomnia Insomnia Disease Active Metho di due to due to 08-12 st medical medical 00:00: Hospita condition condition 00 l 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 Nonoperat nhung managemen t from vascular standpoin tReyna Hebertay to proceed with proposed surgery for gastric cancer. Leg Leg Disease Active Last [facility] swelling swelling 5-[address] 00:00: t & Plan: Hospita 00 Formattin l g of this note might be different from the original. 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 Recommend 20 to 30 mm knee-high compressi on stockings Acute deep Acute deep Disease Active M ethodi vein vein 3-19 st thrombosis thrombosis 00:00: Ho spivee (DVT) of (DVT) of 00 l proximal proximal vein of vein of left lower left lower extremity extremity Type 1 Type 1 Disease Active [facility] diabetes diabetes 2-20 st mellitus mellitus 00:00: Hospit a with with 00 l hyperglyce hyperglyce gopal gopal Uncontroll Uncontroll Disease Active M ethodi ed ed 2-19 st diabetes diabetes 00:00: Hospit a mellitus mellitus 00 l Acute Acute Disease Active [facility] blood loss blood loss 04-06 st anemia anemia 00:00: Hospita 00 l Gastric Gastric Disease Active 2019-03 [facility] cancer cancer 04-20 st 00:00: Hospita 00 l Bilateral Bilateral Disease Active 2019-03 [facility] renal renal 2 st masses masses 00:00: Hospita 00 l Malignant Malignant Disease Active 2019-03 Met [facility] 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1- st of cardia of cardia 00:00: Hosp jazlyn of stomach of stomach 00 l Headache Headache Disease Active Metho di 12-10 st 00:00: Hospita 00 l Odynophagi Odynophagi Disease Active M ethodi a a 12-10 st 00:00: Hospita 00 l Immunosupp Immunosupp Disease Active 2018-03 M ethodi ressive ressive management management 00:00: Patrick hemphill encounter encounter 00 l following following kidney kidney transplant transplant Status Status Disease Active 2015-03 Methodi post post 0- st simultaneo simultaneo 00:00: Ho kanchan us kidney us kidney 00 l and and pancreas pancreas transplant transplant Personal Personal Disease Active 2015-03 Metho di history of history of 0 st immunosupp immunosupp 00:00: Ho spita ressive ressive 00 l therapy therapy 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 Family History Family Member Diagnosis Comments Start Date Stop Date Source Natural mother Breast cancer [facility] Social History Social Habit Start Date Stop Date Quantity Comments Source History [facility] Jain Alcohol Std Drinks Hospit al History [facility] Alcohol Binge Hospital Tobacco use and 2020-09-08 2020-09-08 Never used Jain exposure 00:00:00 00:00:00 Hospital Alcohol intake 2020-09-08 2020-09-08 Lifetime Jain 00:00:00 00:00:00 non-drinker Hospital (finding) History SDOH 2020-05-01 2020-05-01 1 [facility]ain Alcohol Frequency 00:00:00 00:00:00 Hospita l Sex Ass[birth year] At [birth year] M [facility]ain 00:00:00 00:00:00 Hospital Smoking Status Start Date Stop Date Source Never smoker [facility] Medications Ordered Filled Start Stop Current Ordering Indication Dosage Frequency Signature Comments Components Source Medication Medication Date Date Medication? Clinician (SIG) Name Name DULoxetine Yes TAKE 1 Metho di (CYMBALTA) 09-[address] 60 MG 00:00: MOUTH Hospita capsule 00 EVERY DAY l acetaminoph 2020- No 500mg Q8H Take 1 Me thodi en (Tylenol 09-[address] Extra 00:00: 04:59 (500 mg Hospita Strength) 00 :00 total) by l 500 MG mouth tablet every 8 (eight) hours for 3 days. mycophenola Yes 500mg Q.5D Take 1 Met hodi te 6-[address] (CELLCEPT) 00:00: (500 mg Hosp jazlyn 500 mg 00 total) by l tablet mouth 2 (two) times a day for 7 days. mycophenola 2020- No 500mg Q.5D Take 1 Me thodi te 08-13-[address] (CELLCEPT) 00:00: 00:00 (500 mg Hos sanju 500 mg 00 :00 total) by l tablet mouth 2 (two) times a day. zolpidem CR 2020- No 12.5mg QD Take 1 M ethodi (Ambien CR) 08-[address] 12.5 MG CR 00:00: 04:59 (12.5 mg Ho spita tablet 00 :00 total) by l mouth nightly as needed for sleep for up to 20 doses. HYDROcodone 2020- No [id number] 1{tbl} Q4H Take 1 [facility] -acetaminop 08-[address] hen ([place]) 00:00: 04:59 mouth Hosp jazlyn 10-325 mg 00 :00 every 4 l per tablet (four) hours as needed for moderate pain for up to 50 doses .chronic pain. Max Daily Amount: 6 tablets DULoxetine 2020- No 60mg QD Take 1 Meth josé luis (Cymbalta) 08-[address] 60 MG 00:00: 00:00 (60 mg Hospita capsule 00 :00 total) by l mouth daily. tacrolimus Yes 1.5mg in Met hodi (PROGRAF) 08-[address] 0.5 MG 00:00: 1 mg in Hospita capsule 00 the pm l mycophenola 2020- No 500mg Q.5D Take 1 Me thodi te 08-[address] (CELLCEPT) 00:00: 00:00 (500 mg Hos sanju 500 mg 00 :00 total) by l tablet mouth 2 (two) times a day. tacrolimus 2020- No .5mg Q.5D Take 1 Meth josé luis (PROGRAF) 08-[address] 0.5 MG 00:00: 00:00 (0.5 mg Hospita capsule 00 :00 total) by l mouth 2 (two) times a day. Increase 1mg/ 0.5. 07/13/2020In crease 1.5/1. 08/04/2020 predniSONE 2020-2021- No [id number] 5mg QD Take 1 [facility] (DELTASONE) 07-13 05-04 tablet (5 st 5 mg tablet 00:00: 04:59 mg total) Hospita 00 :00 by mouth l daily. tacrolimus 2020- No .5mg Q.5D Take 1 Meth josé luis (PROGRAF) 5-03 05-[address] 0.5 MG 00:00: 00:00 (0.5 mg Hospita capsule 00 :00 total) by l mouth 2 (two) times a day. Increase 1mg/ 0.5. 07/13/2020 predniSONE 2020-2020- No [id number] 5mg QD Take 1 [facility] (DELTASONE) 07-07 05-03 tablet (5 st 5 mg tablet 00:00: 00:00 mg total) Hospita 00 :00 by mouth l daily. pantoprazol 2020- No 40mg Q.5D Take 40 mg Methodi e 06-29-[address] (PROTONIX) 16:02: 00:00 (two) Hospi ta 40 MG EC 30 :00 times a l tablet day. bromfenac 2020- No 2[drp] QD Apply 2 Me thodi (BromSite) 06-29-[address] 0.075 % 16:01: 00:00 eye daily. Hos sanju drops 22 :00 l linaGLIPtin Yes 5mg QD Take 1 Meth josé luis (TRADJENTA) 3-09 tablet (5 st 5 mg tablet 00:00: mg total) H ospita 00 by mouth l daily. mycophenola 2020- No 500mg Q.5D Take 2.5 Methodi te 3-08 08-08 mL ([address] (CELLCEPT) 00:00: 00:00 total) by H ospita 200 mg/mL 00 :00 mouth 2 l suspension (two) times a day for 96 days. insulin NPH 2021- No Take 10 Me thodi (NovoLIN N 3-04 03-[address] NPH U-100 00:00: 05:59 AMHold Hospi ta Insulin) 00 :00 05/12/20 l 100 unit/mL injection tacrolimus 2020- No .5mg Q.5D Take 1 Meth josé luis (PROGRAF) 3-04 05-[address] 0.5 MG 00:00: 00:00 (0.5 mg Hospita capsule 00 :00 total) by l mouth 2 (two) times a day. diphenoxyla 2020- No 1{tbl} Q.25D Take 1 Methodi te-atropine 3-04 03-[address] (LomotiL) 00:00: 04:59 mouth 4 Hosp jazlyn 2.5-0.025 00 :00 (four) l mg per times a tablet day as needed for diarrhea for up to 10 days. May take up to 8 tablets per day. mycophenola 2020- No 500mg Q.5D Take 2.5 Methodi te 3-04 03-08 mL ([address] (CELLCEPT) 00:00: 00:00 total) by H ospita 200 mg/mL 00 :00 mouth 2 l suspension (two) times a day for 90 days. linaGLIPtin 2020- No 5mg QD Take 1 Met hodi (TRADJENTA) 05-05 03-09 tablet (5 st 5 mg tablet 00:00: 00:00 mg total) Hospita 00 :00 by mouth l daily with breakfast. predniSONE 2020- No 10mg QD Take 1 Meth josé luis (DELTASONE) 05-05- tablet (10 s t 10 mg 00:00: 00:00 mg total) Hospit a tablet 00 :00 by mouth l daily for 30 days. insulin 2020- No 3U QD Inject 3-9 Met hodi lispro 05-05-[address] (ADMELOG) 00:00: 00:00 under the Ho spita 100 unit/mL 00 :00 skin daily l injection with breakfast. insulin NPH 2020- No 10U QD Inject 10 Methodi (HumuLIN-N) 05-05- Units st 100 unit/mL 00:00: 00:00 under the Hospita injection 00 :00 skin daily l with breakfast. glimepiride 2020- No 2mg Q.5D Take 2 mg [facility] (AMARYL) 2 05-04-[address] MG tablet 20:01: 00:00 (two) Hospit a 24 :00 times a l day. insulin Yes 1{each} Q.25D 1 each 4 Me thodi syringe-nee - (four) st dle U-100 00:00: times a Hospi ta 0.3 mL day. l gauge x 5/16" syringe insulin Yes 3U Q.[id number] Inject 3-9 Methodi ASPART 2-[id number] (NovoLOG 00:00: 3D under the Hosp jazlyn U-100 00 skin 3 l Insulin (three) aspart) 100 times a unit/mL day before injection meals. BD Insulin Yes Q.25D 4 (four) Me thodi Syringe 2-[address] Half Unit 00:00: day. Hospita 0.3 mL l gauge x 5/16" syringe insulin NPH 2020- No Take 10 Me thodi (NovoLIN N - 03-[address] NPH U-100 00:00: 00:00 AM Hospita Insulin) 00 :00 l 100 unit/mL injection SITagliptin 2020- No 100mg QD Take 1 Me thodi (Januvia) 05-04 03-[address] 100 MG 00:00: 00:00 (100 mg Hospita tablet 00 :00 total) by l mouth daily. glimepiride 2020- No TWICE Meth josé luis (AMARYL) 2 04-28-[address] MG tablet 00:00: 00:00 MEALS Hospit a 00 :00 l Eliquis 2020- No FOLLOW Methodi DVT-PE 04-[address] Treat 30D 00:00: 00:00 INSTRUCTIO H ospita Start 5 mg 00 :00 NS l (74 tabs) tablets,dos e pack furosemide 2020- No 20mg QD Take 1 Meth josé luis (Lasix) 20 04-22-18 tablet (20 st mg tablet 00:00: 05:59 mg total) Ho spita 00 :00 by mouth l daily for 7 days. aspirin 2020- No 81mg QD Take 81 mg Met hodi (ECOTRIN) 04-[address] 81 MG 21:33: 00:00 daily. Hospita enteric 50 :00 l coated tablet tacrolimus 2020- No .5mg Q.5D Take 1 Meth josé luis (PROGRAF) 04-13-[address] 0.5 MG 00:00: 00:00 (0.5 mg Hospita capsule 00 :00 total) by l mouth 2 (two) times a day for 30 days. magnesium No 500mg QD Take 500 Me thodi oxide 500 04-13 03-[address] mg tablet 00:00: 00:00 mouth Hospit a 00 :00 daily. l ciprofloxac No 500mg Q.5D Take 1 Me thodi in HCl 04-[address] (CIPRO) 500 00:00: 05:59 (500 mg Ho spita MG tablet 00 :00 total) by l mouth 2 (two) times a day for 5 days. apixaban 5 follow Meth josé luis mg (74 04-[address] tabs) 00:00: 00:00 instructio Hospi ta tablets,dos 00 :00 ns l e pack mycophenola 2019-03 500mg Q.5D Take 2.5 Methodi te 18 03-04 mL ([address] (CELLCEPT) 00:00: 00:00 total) by H ospita 200 mg/mL 00 :00 mouth 2 l suspension (two) times a day for 30 days. ondansetron 2019-03 [id number] 8mg Q8H Take 1 Methodi ODT 04-23-19 tablet (8 st (ZOFRAN-ODT 00:00: 00:00 mg total) Hospita ) 8 MG 00 :00 by mouth l disintegrat every 8 ing tablet (eight) hours as needed for nausea or vomiting. prochlorper 2019-03 No [id number] 10mg Q6H Take 1 Methodi azine 04-23-19 tablet (10 st (COMPAZINE) 00:00: 00:00 mg total) Hospita 10 MG 00 :00 by mouth l tablet every 6 (six) hours as needed for nausea or vomiting. tacrolimus 2019-03 No .5mg QD Take 1 Meth josé luis (PROGRAF) 04-[address] 0.5 MG 00:00: 00:00 (0.5 mg Hospita capsule 00 :00 total) by l mouth nightly. tacrolimus 2019-03- No Take 2 Meth josé luis (PROGRAF) 1 2- 02-[address] MG capsule 00:00: 00:00 the am 1 Ho spita 00 :00 cap in the l pm ondansetron 2019-03 No [id number] 8mg Q8H Take 1 Methodi ODT 04-20 12-11 tablet (8 st (ZOFRAN-ODT 00:00: 00:00 mg total) Hospita ) 8 MG 00 :00 by mouth l disintegrat every 8 ing tablet (eight) hours as needed for nausea or vomiting. prochlorper 2019-03 No [id number] 10mg Q6H Take 1 Methodi azine 2 12-11 tablet (10 st (COMPAZINE) 00:00: 00:00 mg total) Hospita 10 MG 00 :00 by mouth l tablet every 6 (six) hours as needed for nausea or vomiting. tacrolimus 2019-03- No Take 2 Meth josé luis (PROGRAF) 1 03-[address] MG capsule 00:00: 00:00 the am 1 Ho spita 00 :00 cap in the l pm tacrolimus 2019-03- No .5mg QD Take 1 Meth josé luis (PROGRAF) 03-[address] 0.5 MG 00:00: 00:00 (0.5 mg Hospita capsule 00 :00 total) by l mouth nightly. acetaminoph 2019-03 [id number] 1{tbl} Q4H Take 1 Method[facility] en-codeine 03-18 12-[address] (TYLENOL 00:00: 05:59 mouth Hospita WITH 00 :00 every 4 l CODEINE #3) (four) 300-30 mg hours as per tablet needed for moderate pain for up to 30 days .acute pain. amitriptyli 2019-03 25mg QD Take 1 Met hodi ne (ELAVIL) 0-29 11-23 tablet (25 s t 25 MG 00:00: 00:00 mg total) Hospit a tablet 00 :00 by mouth l nightly. prednisoLON 2019-03- No 1[drp] Q.25D 1 drop 4 Methodi E acetate 0-15 12-15 (four) st (PRED 00:00: 00:00 times a Hospita FORTE) 1 % 00 :00 day. l ophthalmic suspension tacrolimus 2019-03- No .5mg QD Take 1 Meth josé luis (PROGRAF) 0-14 12-[address] 0.5 MG 00:00: 00:00 (0.5 mg Hospita capsule 00 :00 total) by l mouth nightly. tacrolimus 2019-03- No Take 2 Meth josé luis (PROGRAF) 1 0-14 12-[address] MG capsule 00:00: 00:00 the am 1 Ho spita 00 :00 cap in the l pm mycophenola 2019-03- No 500mg Q.5D Take 1 Me thodi te 0-01 12-[address] (CELLCEPT) 00:00: 00:00 (500 mg Hos sanju 500 mg 00 :00 total) by l tablet mouth 2 (two) times a day. tacrolimus 2019-03- No .5mg Q.5D Take 1 Meth josé luis (PROGRAF) 0- 11-[address] 0.5 MG 00:00: 00:00 (0.5 mg Hospita capsule 00 :00 total) by l mouth 2 (two) times a day. Total dose 1.5 mg/ 1.5 mg tacrolimus 2019- No .5mg Q.5D Take 1 Meth josé luis (PROGRAF) 9-30 10- capsule st 0.5 MG 00:00: 00:00 (0.5 mg Hospita capsule 00 :00 total) by l mouth 2 (two) times a day. Total dose 1.5 mg/ 1.5 mg zolpidem No 10mg QD Take 1 Method i (AMBIEN) 10 8-10 04-19 tablet (10 s t mg tablet 00:00: 00:00 mg total) Ho spita 00 :00 by mouth l nightly as needed for sleep. predniSONE 2020- No [id number] 5mg QD Take 1 [facility] (DELTASONE) 3-11 04-27 tablet (5 st 5 mg tablet 00:00: 00:00 mg total) Hospita 00 :00 by mouth l daily. tacrolimus 2019- No 1mg Q.5D Take 1 Meth josé luis (PROGRAF) 1 2-25 11-19 capsule (1 s t MG capsule 00:00: 00:00 mg total) H ospita 00 :00 by mouth 2 l (two) times a day. mycophenola 2020- No 500mg Q.5D Take 1 Me thodi te 05-[address] (CELLCEPT) 00:00: 00:00 (500 mg Hos sanju 500 mg 00 :00 total) by l tablet mouth 2 (two) times a day. Immunizations Ordered Immunization Filled Immunization Date Status Commen ts Source Name Name [facility] 2020-07-30 [facility] Hospital Vital Signs Vital Name Observation Time Observation Value Comments Source Systolic blood 2020-09-04 21:29:00 167 mm[Hg] [facility] pressure Diastolic blood 2020-09-04 21:29:00 76 mm[Hg] [facility] pressure Heart rate 2020-09-04 21:29:00 71 /min [facility] Body temperature 2020-09-04 21:29:00 35.78 Diane [facility] Respiratory rate 2020-09-04 21:29:00 16 /min [facility] Oxygen saturation in 2020-09-04 21:29:00 99 /min [facility] Arterial blood by Pulse oximetry Body height 2020-09-04 14:04:00 175.3 cm [facility] Body weight 2020-09-04 14:04:00 69.854 kg [facility] BMI 2020-09-04 14:04:00 22.74 kg/m2 [facility] Procedures Procedure Date / Time Performing Clinician Source Performed POC GLUCOSE 2020-09-04 19:47:00 [facility] SURGICAL PATHOLOGY REQUEST 2020-09-04 18:54:00 [facility] LA AN ELECTIVE ENDOTRACHEAL 2020-09-04 18:14:00 Hayden Cruz [facility] AIRWAY LAPAROTOMY, EXPLORATORY 2020-09-04 18:00:00 [facility] POC GLUCOSE 2020-09-04 14:13:00 [facility] URINE CULTURE 2020-08-21 14:12:00 Crowell, Selene Ye HC COMPLETE BLD COUNT 2020-08-21 14:12:00 Crowell, [facility] W/AUTO DIFF [place] COMPREHENSIVE METABOLIC 2020-08-21 14:12:00 Crowell, [facility] PANEL [place] MAGNESIUM LEVEL 2020-08-21 14:12:00 Crowell, Selene Ye PHOSPHORUS LEVEL 2020-08-21 14:12:00 Crowell, Selene Ye URINALYSIS SCREEN AND 2020-08-21 14:12:00 Crowell, [facility] MICROSCOPY, WITH REFLEX TO [place] CULTURE AMYLASE LEVEL 2020-08-21 14:12:00 Crowell, Selene Ye LIPASE LEVEL 2020-08-21 14:12:00 Crowell, Selene Ye PROTEIN, URINE, RANDOM 2020-08-21 14:12:00 Crowell, [facility] [place] CREATININE LEVEL, URINE, 2020-08-21 14:12:00 Crowell, [facility] RANDOM [place] [id number] TACROLIMUS LEVEL, 2020-08-21 14:12:00 Crowell, [facility] RANDOM [place] ESTIMATED GFR 2020-08-21 14:12:00 Crowell, Selene Ye URINE CULTURE 2020-08-03 15:21:00 Crowell, Selene Ye HC COMPLETE BLD COUNT 2020-08-03 15:21:00 Crowell, [facility] W/AUTO DIFF [place] COMPREHENSIVE METABOLIC 2020-08-03 15:21:00 Crowell, [facility] PANEL [place] MAGNESIUM LEVEL 2020-08-03 15:21:00 Crowell, Selene Ye PHOSPHORUS LEVEL 2020-08-03 15:21:00 Crowell, Selene Ye URINALYSIS SCREEN AND 2020-08-03 15:21:00 Crowell, [facility] MICROSCOPY, WITH REFLEX TO [place] CULTURE AMYLASE LEVEL 2020-08-03 15:21:00 Crowell, Selene Ye LIPASE LEVEL 2020-08-03 15:21:00 Crowell, Selene Ye PROTEIN, URINE, RANDOM 2020-08-03 15:21:00 Crowell, [facility] [place] CREATININE LEVEL, URINE, 2020-08-03 15:21:00 Crowell, [facility] RANDOM [place] [id number] TACROLIMUS LEVEL, 2020-08-03 15:21:00 Crowell, [facility] RANDOM [place] ESTIMATED GFR 2020-08-03 15:21:00 Crowell, Selene Ye PET CT SKULL BASE TO MID 2020-07-23 16:13:38 [facility] THIGH POC GLUCOSE 2020-07-23 14:53:00 [facility] URINE CULTURE 2020-07-13 14:58:00 Crowell, Selene Ye HC COMPLETE BLD COUNT 2020-07-13 14:58:00 Crowell, [facility] W/AUTO DIFF [place] COMPREHENSIVE METABOLIC 2020-07-13 14:58:00 Crowell, [facility] PANEL [place] MAGNESIUM LEVEL 2020-07-13 14:58:00 Crowell, Selene Ye PHOSPHORUS LEVEL 2020-07-13 14:58:00 Crowell, Selene Goelist Kayla ospigalo Ye URINALYSIS SCREEN AND 2020-07-13 14:58:00 Crowell, [facility] MICROSCOPY, WITH REFLEX TO [place] CULTURE AMYLASE LEVEL 2020-07-13 14:58:00 Crowell, Selene Ye LIPASE LEVEL 2020-07-13 14:58:00 Crowell, Selene Ye URIC ACID LEVEL 2020-07-13 14:58:00 Crowell, Selene Ye LIPID PANEL 2020-07-13 14:58:00 Crowell, Selene Ye PROTEIN, URINE, RANDOM 2020-07-13 14:58:00 Crowell, [facility] [place] CREATININE LEVEL, URINE, 2020-07-13 14:58:00 Crowell, [facility] RANDOM [place] [id number] TACROLIMUS LEVEL, 2020-07-13 14:58:00 Crowell, [facility] RANDOM [place] HEMOGLOBIN A1C 2020-07-13 14:58:00 Crowell, Selene Ye INSULIN, RANDOM 2020-07-13 14:58:00 Crowell, Selene Ye C-PEPTIDE 2020-07-13 14:58:00 CrowellSelene Patrick maxwellgalo Ye BK VIRUS BY PCR 2020-07-13 14:58:00 Crowell, Selene Goelist maxwellgalo Ye CYTOMEGALOVIRUS BY PCR 2020-07-13 14:58:00 Crowell, [facility] [place] ESTIMATED GFR 2020-07-13 14:58:00 CrowellSelene henderson Patrick maxwellgalo Ye PROINSULIN LEVEL 2020-07-13 14:58:00 CrowellSelene ospigalo [place] DONOR SPECIFIC ANTIBODY 2020-07-13 14:58:00 Crowell, [facility] [place] COVID-19 QUALITATIVE RT-PCR 2020-07-06 16:41:00 Alba Mendez [facility] PROTHROMBIN TIME WITH INR 2020-06-29 18:22:00 [facility] PARTIAL THROMBOPLASTIN TIME 2020-06-29 18:22:00 [facility] (PTT) PREALBUMIN LEVEL 2020-06-29 18:22:00 ImasogJosselin higuera [facility] CT CHEST W CONTRAST ABDOMEN 2020-06-08 19:53:27 [facility] W CONTRAST PELVIS W CONTRAST US DUPLEX VENOUS LOWER 2020-06-08 16:50:00 [facility] EXTREMITY BILATERAL CBC WITH PLATELET AND 2020-05-29 05:00:00 [facility] DIFFERENTIAL COMPREHENSIVE METABOLIC 2020-05-29 05:00:00 [facility] PANEL CARCINOEMBRYONIC ANTIGEN 2020-05-29 05:00:00 [facility] (CEA) SEDIMENTATION RATE 2020-05-29 05:00:00 [facility] D-DIMER 2020-05-29 05:00:00 [facility] CARCINOEMBRYONIC ANTIGEN 2020-05-20 15:55:00 [facility] (CEA) COMPREHENSIVE METABOLIC 2020-05-20 14:40:00 [facility] PANEL CBC WITH PLATELET AND 2020-05-20 14:40:00 [facility] DIFFERENTIAL MAGNESIUM LEVEL 2020-05-20 14:40:00 Jt Sullivan Ho spital ESTIMATED GFR 2020-05-20 14:40:00 Jt Sullivan spital MANUAL DIFFERENTIAL 2020-05-20 14:40:00 minoo [facility] ABSOLUTE NEUTROPHIL COUNT 2020-05-20 14:40[facility] 2020-05-06 15:20:00 Laurie [facility] (CEA) COMPREHENSIVE METABOLIC 2020-05-06 15:04:00 minooCHI [facility] PANEL HC COMPLETE BLD COUNT 2020-05-06 15:04:00 [facility] DIFF MAGNESIUM LEVEL 2020-05-06 15:04:00 Jt Sullivan spital ESTIMATED GFR 2020-05-06 15:04:00 Jt Sullivan spital ABSOLUTE NEUTROPHIL COUNT 2020-05-06 15:04[facility] 2020-05-04 16:59:00 Linh Cruz Ho spital POC GLUCOSE 2020-05-04 13:06:00 Linh Cruz Ho spital HC COMPLETE BLD COUNT 2020-05-04 12:35:00 [facility] DIFF FK506 TACROLIMUS LEVEL, 2020-05-04 12:35:00 Yolanda [facility] RANDOM POC GLUCOSE 2020-05-04 11:54:00 Linh Cruz Ho spital BASIC METABOLIC PANEL 2020-05-04 10:00:00 Yolanda [facility] ESTIMATED GFR 2020-05-04 10:00:00 Linh Cruz Ho spital POC GLUCOSE 2020-05-04 03:10:00 CruzLinh acevedo Ho spital POC GLUCOSE 2020-05-03 23:40:00 CruzLinh acevedo Ho spital POC GLUCOSE 2020-05-03 17:31:00 CruzLinh acevedo Ho spital POC GLUCOSE 2020-05-03 13:43:00 Linh Cruz Ho spital BASIC METABOLIC PANEL 2020-05-03 11:30:00 Yolanda [facility] HC COMPLETE BLD COUNT 2020-05-03 11:30:00 Yolanda [facility] W/AUTO DIFF FK506 TACROLIMUS LEVEL, 2020-05-03 11:30:00 Yolanda [facility] RANDOM C-PEPTIDE 2020-05-03 11:30:00 [facility] INSULIN, RANDOM 2020-05-03 11:30:00 [facility] VITAMIN D 25 HYDROXY LEVEL 2020-05-03 11:30:00 [facility] ESTIMATED GFR 2020-05-03 11:30:00 Linh Cruz Ho spital POC GLUCOSE 2020-05-03 09:51:00 CruzLinh acevedo Ho spital POC GLUCOSE 2020-05-03 01:52:00 CruzLinh acevedo Ho spital POC GLUCOSE 2020-05-02 22:37:00 CruzLinh acevedo Ho spital POC GLUCOSE 2020-05-02 18:18:00 CruzLinh acevedo Ho spital HEMOGLOBIN & HEMATOCRIT 2020-05-02 14:55:00 Cruz, [facility] POC GLUCOSE 2020-05-02 13:39:00 Linh Cruz Ho spital BASIC METABOLIC PANEL 2020-05-02 10:33:00 Yolanda [facility] HC COMPLETE BLD COUNT 2020-05-02 10:33:00 Yolanda [facility] W/AUTO DIFF MAGNESIUM LEVEL 2020-05-02 10:33:00 Linh Cruz Ho spital PHOSPHORUS LEVEL 2020-05-02 10:33:00 Linh Cruz H ospital HEMOGLOBIN A1C 2020-05-02 10:33:00 Linh Cruz Ho spital FK506 TACROLIMUS LEVEL, 2020-05-02 10:33:00 Yolanda [facility] RANDOM ESTIMATED GFR 2020-05-02 10:33:00 Cruz, Linh Merida Ho spital SMEAR REVIEW 2020-05-02 10:33:00 CruzLinh dhillon Ho spital POC GLUCOSE 2020-05-02 09:36:00 CruzLinh dhillon Ho spital URINE CULTURE 2020-05-02 09:35:00 Cruz, [facility] URINALYSIS SCREEN AND 2020-05-02 09:35:00 Dario Meier [facility] MICROSCOPY, WITH REFLEX TO CULTURE POC GLUCOSE 2020-05-02 06:12:00 CruzLinh acevedo Ho spital POC GLUCOSE 2020-05-02 03:34:00 Cruz, Linh Merdia Ho spital POC GLUCOSE 2020-05-02 00:34:00 CruzLinh dhillon Ho spital POC GLUCOSE 2020-05-01 23:44:00 Cruz, Linh Merida Ho spital POC GLUCOSE 2020-05-01 23:42:00 Cruz, Linh Merdia Ho spital BETA HYDROXYBUTYRATE 2020-05-01 22:41:00 Dario Meier [facility] METABOLIC 2020-05-01 20:24:00 Cruz, [facility] PANEL ESTIMATED GFR 2020-05-01 20:24:00 Cruz, [facility] AMYLASE LEVEL 2020-05-01 20:24:00 Cruz, [facility] LIPASE LEVEL 2020-05-01 20:24:00 Cruz, [facility] HC COMPLETE BLD COUNT 2020-05-01 20:21:00 Cruz, [facility] W/AUTO DIFF POC GLUCOSE 2020-05-01 19:23:00 Cruz, [facility] METABOLIC 2020-04-21 14:39:00 Jt hennessy [facility] PANEL HC COMPLETE BLD COUNT 2020-04-21 14:39:[address] [facility] W/AUTO DIFF MAGNESIUM LEVEL 2020-04-21 14:39:00 Jt Sullivan spital ESTIMATED GFR 2020-04-21 14:39:00 Jt Sullivan spital FK506 TACROLIMUS LEVEL, 2020-04-13 11:10:00 Stephenie Post [facility] RANDOM AMYLASE LEVEL 2020-04-13 11:10:00 Stephenie Post [facility] LIPASE LEVEL 2020-04-13 11:10:00 Stephenie Post [facility] BASIC METABOLIC PANEL 2020-04-13 11:10:[address] [facility] CBC WITH PLATELET AND 2020-04-13 11:10:[address] [facility] DIFFERENTIAL MAGNESIUM LEVEL 2020-04-13 11:10:00 Gretta Bacon SReyna GoelJain Ho spital PHOSPHORUS LEVEL 2020-04-13 11:10:00 Gretta Bacon H ospital ESTIMATED GFR 2020-04-13 11:10:00 Gretta Bacon spital MANUAL DIFFERENTIAL 2020-04-13 11:10:00 Gretta Bacon SReyna [facility] BASIC METABOLIC PANEL 2020-04-12 11:35:00 Stephenie Post [facility] CBC WITH PLATELET AND 2020-04-12 11:35:00 Stephenie Post [facility] DIFFERENTIAL FK506 TACROLIMUS LEVEL, 2020-04-12 11:35:00 Stephenie Post [facility] RANDOM MAGNESIUM LEVEL 2020-04-12 11:35:00 Stephenie Post [facility] PHOSPHORUS LEVEL 2020-04-12 11:35:00 Stephenie Post [facility] PROTHROMBIN TIME WITH INR 2020-04-12 11:35:00 [facility] PARTIAL THROMBOPLASTIN TIME 2020-04-12 11:35:00 [facility] ESTIMATED GFR 2020-04-12 11:35:00 Gretta Bacon spital MANUAL DIFFERENTIAL 2020-04-12 11:35:00 [facility] 2020-04-11 15:32:00 JordiGretta [facility] BASIC METABOLIC PANEL 2020-04-11 11:30:00 Stephenie Post [facility] HC COMPLETE BLD COUNT 2020-04-11 11:30:00 Stephenie Post [facility] W/AUTO DIFF FK506 TACROLIMUS LEVEL, 2020-04-11 11:30:00 Stephenie Post [facility] RANDOM MAGNESIUM LEVEL 2020-04-11 11:30:00 Stephenie Post [facility] PHOSPHORUS LEVEL 2020-04-11 11:30:00 Stephenie Post [facility] PROTHROMBIN TIME WITH INR 2020-04-11 11:30:00 [facility] PARTIAL THROMBOPLASTIN TIME 2020-04-11 11:30:00 [facility] ([facility] ESTIMATED GFR 2020-04-11 11:30:00 [facility] SMEAR REVIEW 2020-04-11 11:30:00 [facility]ital PROTHROMBIN TIME WITH INR 2020-04-10 15:30:00 [facility] PARTIAL THROMBOPLASTIN TIME 2020-04-10 15:30:00 [facility] ([facility] HC COMPLETE BLD COUNT 2020-04-10 10:49:00 Stephenie Post [facility] W/AUTO DIFF FK506 TACROLIMUS LEVEL, 2020-04-10 10:49:00 [facility] S[facility] 2020-04-10 10:49:00 Stephenie Post [facility] PHOSPHORUS LEVEL 2020-04-10 10:00:00 [facility] 2020-04-10 10:00:00 Stephenie Post [facility] AMYLASE LEVEL 2020-04-10 10:00:00 [facility] BAS[facility]OLIC PANEL 2020-04-10 10:00:00 [facility] 2020-04-10 10:00:00 Stephenie Post [facility] MAGNESIUM LEVEL 2020-04-10 10:00:00 Stephenie Post [facility] HC COMPLETE BLD COUNT 2020-04-09 23:11:[address] [facility] W/AUTO DIFF MAGNESIUM LEVEL 2020-04-09 20:08:00 Stephenie Post [facility] HC COMPLETE BLD COUNT 2020-04-09 11:23:00 Stephenie Post [facility] W/AUTO DIFF FK506 TACROLIMUS LEVEL, 2020-04-09 11:23:00 Stephenie Post [facility] RANDOM PROTHROMBIN TIME WITH INR 2020-04-09 11:23:00 minoo Jt [facility] FIBRINOGEN 2020-04-09 11:23:00 minoo [facility] spital AMYLASE LEVEL 2020-04-09 10:00:00 Stephenie Post [facility] BASIC METABOLIC PANEL 2020-04-09 10:00:00 Stephenie Post [facility] LIPASE LEVEL 2020-04-09 10:00:00 Stephenie Post [facility] MAGNESIUM LEVEL 2020-04-09 10:00:00 Stephenie Post [facility] PHOSPHORUS LEVEL 2020-04-09 10:00:00 Stephenie Post [facility] ESTIMATED GFR 2020-04-09 10:00:00 Stephenie Post [facility] HC COMPLETE BLD COUNT 2020-04-09 05:20:[address] [facility] W/AUTO DIFF HC COMPLETE BLD COUNT 2020-04-08 20:54:[address] [facility] W/AUTO DIFF HEMOGLOBIN & HEMATOCRIT 2020-04-08 14:10:00 [facility] HC COMPLETE BLD COUNT 2020-04-08 10:24:00 Stephenie Post [facility] W/AUTO DIFF FK506 TACROLIMUS LEVEL, 2020-04-08 10:24:00 Stephenie Post [facility] RANDOM AMYLASE LEVEL 2020-04-08 10:00:00 Sincere, Stephenie [facility] BASIC METABOLIC PANEL 2020-04-08 10:00:00 [facility] LIPASE LEVEL 2020-04-08 10:00:00 [facility] MAGNESIUM LEVEL 2020-04-08 10:00:00 [facility] PHOSPHORUS LEVEL 2020-04-08 10:00:00 [facility] ESTIMATED GFR 2020-04-08 10:00:00 [facility] HEMOGLOBIN & HEMATOCRIT 2020-04-08 02:19:00 [facility] 2020-04-08 00:22:48 Jt Sullivan [facility] MAGNESIUM LEVEL 2020-04-07 19:44:00 [facility] HEMOGLOBIN & HEMATOCRIT 2020-04-07 18:05:00 [facility] URINE CULTURE 2020-04-07 15:45:00 [facility] spital URINALYSIS SCREEN AND 2020-04-07 15:45:00 [facility] MI[facility]OS[facility], WITH REFLEX TO CULTURE [id number] TACROLIMUS LEVEL, 2020-04-07 11:30:00 [facility] RANDOM COMPREHENSIVE METABOLIC 2020-04-07 09:30:00 [facility] PANEL AMYLASE LEVEL 2020-04-07 09:30:00 Kinyarwanda, [facility] LIPASE LEVEL 2020-04-07 09:30:00 Kinyarwanda, [facility] MAGNESIUM LEVEL 2020-04-07 09:30:00 Kinyarwanda, [facility] PHOSPHORUS LEVEL 2020-04-07 09:30:00 Kinyarwanda, [facility] CBC HEMOGRAM 2020-04-07 09:30:00 Kinyarwanda, [facility] ESTIMATED GFR 2020-04-07 09:30:00 Kinyarwanda, [facility] CBC HEMOGRAM 2020-04-07 03:35:00 Kinyarwanda, [facility] US DUPLEX VENOUS LOWER 2020-04-06 22:28:51 [facility] EXTREMITY BILATERAL XR CHEST 1 VW PORTABLE 2020-04-06 21:38:00 [facility] HC COMPLETE BLD COUNT 2020-04-06 21:36:[address] [facility] W/AUTO DIFF PREPARE RBC 2020-04-06 21:36:00 Darshana Whitfield spital TYPE AND SCREEN 2020-04-06 21:34:00 Gretta Bacon spital ECG 12-LEAD 2020-04-06 20:30:33 [facility] ospital COVID-19 QUALITATIVE RT-PCR 2020-04-06 20:25:00 [facility] COMPREHENSIVE METABOLIC 2020-04-06 19:55:00 [facility] PANEL FK506 TACROLIMUS LEVEL, 2020-04-06 19:55:00 [facility] RANDOM IONIZED CALCIUM 2020-04-06 19:55:00 [facility] ospital LACTIC ACID LEVEL 2020-04-06 19:55:00 [facility] PARTIAL THROMBOPLASTIN TIME 2020-04-06 19:55:00 [facility] ([facility] PROTHROMBIN TIME WITH INR 2020-04-06 19:55:00 [facility] PHOSPHORUS LEVEL 2020-04-06 19:55:00 [facility] ESTIMATED GFR 2020-04-06 19:55:[address] ABD/PELVIC EXTERNAL 2020-04-04 12:34:00 Katelyn Vidal [facility] CHEST W CONTRAST ABDOMEN 2020-04-03 20:36:19 minoo [facility] W CONTRAST PELVIS W CONTRAST CARCINOEMBRYONIC ANTIGEN 2020-03-25 14:30:00 Jt Sullivan [facility] ([facility]) COMPREHENSIVE METABOLIC 2020-03-25 14:21:00 minoo [facility] PANEL HC COMPLETE BLD COUNT 2020-03-25 14:21:00 [facility] DIFF MAGNESIUM LEVEL 2020-03-25 14:21:00 Jt Sullivan Ho spital ESTIMATED GFR 2020-03-25 14:21:00 Jt Sullivanist Ho spital ABSOLUTE NEUTROPHIL COUNT 2020-03-25 14:21:00 [facility] 2020-03-10 14:12:[address] [facility] PANEL HC COMPLETE BLD COUNT 2020-03-10 14:12:00 [facility]/AUTO DIFF MAGNESIUM LEVEL 2020-03-10 14:12:00 Jt Sullivan Ho spital ESTIMATED GFR 2020-03-10 14:12:00 Jt Sullivanist Patrick spital IR PORT PLACEMENT 2020-03-05 17:45:[facility] 2020-02-26 14:13:00 minoo [facility] PANEL HC COMPLETE BLD COUNT 2020-02-26 14:13:00 [facility]/AUTO DIFF MAGNESIUM LEVEL 2020-02-26 14:13:00 Jt Sullivan spital ESTIMATED GFR 2020-02-26 14:13:00 Jt Sullivan spital XR PICC CHEST PORTABLE 2020-02-25 18:52:[facility] 2020-02-25 14:25:00 LorenzoWashington jaime [facility] PROTHROMBIN TIME WITH INR 2020-02-19 18:14:00 [facility] TH[facility]BOPLASTIN TIME 2020-02-19 18:14:00 [facility] ([facility] HC COMPLETE BLD COUNT 2020-02-19 18:13:00 [facility] DIFF [facility] METABOLIC 2020-02-19 17:37:00 [facility] PANEL ESTIMATED GFR 2020-02-19 17:37:[address] CHEST W CONTRAST ABDOMEN 2020-02-10 21:46:00 ImasogErinn higueraa l [facility] W CONTRAST PELVIS W CONTRAST PREALBUMIN LEVEL 2020-02-03 15:33:00 [facility] PARTIAL THROMBOPLASTIN TIME 2020-02-03 15:33:00 [facility] Yamini sheehan [facility] ([facility]) PROTHROMBIN TIME WITH INR 2020-02-03 15:33:00 [facility] MRI BRAIN W WO CONTRAST 2020-01-28 20:25:46 Jt Sullivan [facility] CT HEAD WO CONTRAST 2020-01-16 22:14:30 [facility] SKULL [facility] TO MID 2020-01-16 21:57:00 [facility] THIGH POC GLUCOSE 2020-01-16 20:44:00 [facility] CBC HEMOGRAM 2020-01-16 18:16:00 [facility] COMPREHENSIVE METABOLIC 2020-01-16 18:16:00 [facility] PANEL CARCINOEMBRYONIC ANTIGEN 2020-01-16 18:16:00 [facility] (CEA) ESTIMATED GFR 2020-01-16 18:16:00 [facility] SURGICAL PATHOLOGY REQUEST 2020-01-09 20:57:00 [facility] SURGICAL PATHOLOGY REQUEST 2020-01-09 19:57:00 [facility] BK VIRUS BY PCR 2020-01-09 15:02:00 Selene Crowell URINE CULTURE 2020-01-09 14:02:00 Selene Crowell HC COMPLETE BLD COUNT 2020-01-09 14:02:00 [facility] W/AUTO DIFF [place] COMPREHENSIVE METABOLIC 2020-01-09 14:02:00 [facility] [place] MAGNESIUM LEVEL 2020-01-09 14:02:00 Selene Crowell PHOSPHORUS LEVEL 2020-01-09 14:02:00 Selene Crowell ospigalo Ye URINALYSIS SCREEN AND 2020-01-09 14:02:00 [facility] MICROSCOPY, WITH REFLEX TO [place] CULTURE AMYLASE LEVEL 2020-01-09 14:02:00 Crowell, Selene Ye LIPASE LEVEL 2020-01-09 14:02:00 Crowell, Selene Ye PROTEIN, URINE, RANDOM 2020-01-09 14:02:00 Crowell, [facility] [place] CREATININE LEVEL, URINE, 2020-01-09 14:02:00 Crowell, [facility] RANDOM [place] FK506 TACROLIMUS LEVEL, 2020-01-09 14:02:00 Crowell, [facility] RANDOM [place] ESTIMATED GFR 2020-01-09 14:02:00 Crowell, Selene Goelist Patrick Ye COVID-19 QUALITATIVE RT-PCR 2020-01-06 15:12:00 Alba Mendez [facility] URINE CULTURE 2019-12-25 14:14:00 Crowell, Selene Ye HC COMPLETE BLD COUNT 2019-12-25 14:14:00 Crowell, [facility] W/AUTO DIFF [facility] COMPREHENSIVE METABOLIC 2019-12-25 14:14:00 Crowell, [facility] PANEL [place] MAGNESIUM LEVEL 2019-12-25 14:14:00 Crowell, Selene Goelist Patrick Ye PHOSPHORUS LEVEL 2019-12-25 14:14:00 Crowell, Selene Goelist Kayla ospigalo Ye URINALYSIS SCREEN AND 2019-12-25 14:14:00 Crowell, [facility] MICROSCOPY, WITH REFLEX TO [place] CULTURE AMYLASE LEVEL 2019-12-25 14:14:00 Crowell, Selene Ye LIPASE LEVEL 2019-12-25 14:14:00 Crowell, Selene Ye PROTEIN, URINE, RANDOM 2019-12-25 14:14:00 Crowell, [facility] [place] CREATININE LEVEL, URINE, 2019-12-25 14:14:00 Crowell, [facility] RANDOM [place] FK506 TACROLIMUS LEVEL, 2019-12-25 14:14:00 Crowell, [facility] RANDOM [place] ESTIMATED GFR 2019-12-25 14:14:00 Crowell, Selene Ye URINE CULTURE 2019-12-11 13:21:00 Crowell, Selene Goelist Patrick Ye HC COMPLETE BLD COUNT 2019-12-11 13:21:00 Crowell, [facility] W/AUTO DIFF [facility] COMPREHENSIVE METABOLIC 2019-12-11 13:21:00 Crowell, [facility] PANEL [place] MAGNESIUM LEVEL 2019-12-11 13:21:00 CrowellSelene PHOSPHORUS LEVEL 2019-12-11 13:21:00 Selene Crowell ospigalo Ye URINALYSIS SCREEN AND 2019-12-11 13:21:00 Crowell [facility] MICROSCOPY, WITH REFLEX TO [place] CULTURE AMYLASE LEVEL 2019-12-11 13:21:00 CrowellSelene LIPASE LEVEL 2019-12-11 13:21:00 CrowellSelene PROTEIN, URINE, RANDOM 2019-12-11 13:21:00 Crowell, [facility] [place] CREATININE LEVEL, URINE, 2019-12-11 13:21:00 Crowell, [facility] RANDOM [place] FK506 TACROLIMUS LEVEL, 2019-12-11 13:21:00 Crowell, [facility] RANDOM [place] HEMOGLOBIN A1C 2019-12-11 13:21:00 CrowellSelene BK VIRUS BY PCR 2019-12-11 13:21:00 Crowell, Selene Ye CYTOMEGALOVIRUS BY PCR 2019-12-11 13:21:00 Crowell, [facility] [place] ESTIMATED GFR 2019-12-11 13:21:00 Crowell, Selene Merida yane Ye DONOR SPECIFIC ANTIBODY 2019-12-11 13:21:00 Crowell, [facility] [place] Plan of Care Planned Activity Planned Date Details Comments Source Future Scheduled Test 65+ PNEUMOCOCCAL [facility] VACCINE (1 of 4 - PCV13) [code = 65+ PNEUMOCOCCAL VACCINE (1 of 4 - PCV13)] Future Scheduled Test DIABETES: RETINAL EYE [facility] EXAM [code = DIABETES: RETINAL EYE EXAM] Future Scheduled Test DIABETIC FOOT EXAM [facility] [code = DIABETIC FOOT EXAM] Future Scheduled Test Hepatitis C screening [facility] (procedure) [code = 794384719] Future Scheduled Test COLONOSCOPY SCREENING [facility] [code = COLONOSCOPY SCREENING] Future Scheduled Test INFLUENZA VACCINE [code [facility] = INFLUENZA VACCINE] Future Scheduled Test SHINGLES VACCINES (#1) [facility] [code = SHINGLES VACCINES (#1)] Encounters Start End Encounter Admission Attending Care Care Encounter Source Date/Time Date/Time Type Type Clinicians Facility Department ID 2020-09-30 2020-09-30 [facility], 1.2.840.1 [id number] Methodi 10:00:00 10:20:00 ne Dotty 23808.1.[address] 3.430.2.7 Hospit a .3.484795 l .8 2020-09-30 2020-09-30 [facility], [facility] [id number] [address] [place] [address] 00:00:00 00:00:[address] 2020-09-28 2020-09-28 Documentat Solo, 1.2.840.1 [id number] 2 [id number] Methodi 00:00:00 00:00:00 ion Lissy 13330.1.[address] 3.430.2.7 Hospit a .3.871742 l .8 2020-09-25 2020-09-25 Documentat Jade, 1.2.840.1 [id number] Methodi 00:00:00 00:00:00 ion Lela 92481.1.[address] 3.430.2.7 Hospit a .3.883890 l .8 2020-09-25 2020-09-25 Documentat Magdalena, 1.2.840.1 [id number] 21 [id number] Methodi 00:00:00 00:00:00 ion Nataly 24037.1.[address] 3.430.2.7 Hospit a .3.035214 l .8 2020-09-21 2020-09-21 Documentat Edil, 1.2.840.1 [id number] 2 [id number] Methodi 00:00:00 00:00:00 [address]issy [address]121.1.[address] 3.430.2.7 Hospit a .3.640354 l .8 2020-09-08 2020-09-08 Documentat Solo, 1.2.840.1 [id number] 2 [id number] Methodi 00:00:00 00:00:00 ion Lissy 23843.1.[address] 3.430.2.7 Hospit a .3.725072 l .8 2020-09-07 2020-09-07 Telephone Mo, 1.2.840.1 [id number] 2099 [id number] Methodi 00:00:00 00:00:00 [place] M 22636.1.[address] 3.430.2.7 Hospit a .3.580142 l .8 2020-09-07 2020-09-07 Telephone Will, 1.2.840.9 [id number] 2 [id number] Methodi 00:00:00 00:00:[address] 3.430.2.7 Hospit a .3.107973 l .8 2020-09-04 2020-09-04 [facility] 1.2.840.1 [id number] [id number] Methodi 08:19:00 21:52:00 Encounter Luis Quiroga 12824.1.[address] 3.430.2.7 Hospit a .3.413816 l .8 2020-09-04 2020-09-04 Anesthesia Surya Cain 1.2.840.1 [id number] Methodi 13:00:00 14:50:00 Event Georgiana Cates 26847.1.[address] 3.430.2.7 Hospit a .3.056256 l .8 2020-09-04 2020-09-[address] [facility] 1.2.840.1 [id number] [id number] Methodi 10:30:00 13:30:00 Luis Quiroga 57588.1.[address] 3.430.2.7 Hospit a .3.463409 l .8 2020-09-04 2020-09-04 RefJt Laguna 1.2.840.1 [id number] 21 [id number] Methodi 00:00:00 00:00:[address] 3.430.2.7 Hospit a .3.940452 l .8 2020-09-04 2020-09-04 Documentat Edil 1.2.840.1 [id number] 2 [id number] Methodi 00:00:00 00:00:00 ion Lissy 10379.1.[address] 3.430.2.7 Hospit a .3.955255 l .8 2020-09-04 2020-09-04 Travel 1.2.840.1 1.2.034.852 [id number] Methodi 00:00:00 00:00:[address] 3.430.2.7 0.2.7.3.698 Ho spita .3.126099 084.8 l .8 2020-09-04 2020-09-04 Inpatient [facility] [id number] 572 [place] 00:00:00 00:00:[address] LU[address] 2020-09-02 2020-09-02 Pre-[place]miss [place], 1.2.840.1 [id number] Methodi 08:53:20 09:53:20 ion Lusi Quiroga 87790.1.[address] Testing 3.430.2.7 Hospit a .3.184564 l .8 2020-09-02 2020-09-02 Travel 1.2.840.1 1.2.955.742 [id number] Methodi 00:00:00 00:00:[address] 3.430.2.7 0.2.7.3.698 Ho spita .3.766993 084.8 l .8 2020-09-02 2020-09-02 Outpatient [facility] [id number] 40[address] [place] 00:00:00 00:00:[address] LUIS [address] 2020-08-28 2020-08-28 Refill Solo, 1.2.840.1 [id number] Methodi 00:00:00 00:00:[address] 3.430.2.7 Hospit a .3.820904 l .8 2020-08-28 2020-08-28 Telephone [place], 1.2.840.1 [id number] Methodi 00:00:00 00:00:[address] 3.430.2.7 Hospit a .3.337337 l .8 2020-08-26 2020-08-26 Telephone [place], 1.2.840.1 [id number] 2100 [id number] Methodi 00:00:00 00:00:00 Caryn Gtz 68697.1.[address] 3.430.2.7 Hospit a .3.816013 l .8 2020-08-25 2020-08-25 Documentat [place], 1.2.840.1 [id number] 2 [id number] Methodi 00:00:00 00:00:00 eloy Yuan [address]27.1.[address] 3.430.2.7 Hospit a .3.580265 l .8 2020-08-24 2020-08-24 Social [place], 1.2.840.1 [id number] 89475 23538 Methodi 00:00:00 00:00:00 Work Harini 88248.1.[address] 3.430.2.7 Hospit a .3.065660 l .8 2020-08-21 2020-08-21 [facility], 1.2.840.1 [id number] 61427 Methodi 01:00:00 17:08:48 Encounter Kaushik AaronReyna 50639.1.[address] 3.430.2.7 Hospit a .3.534783 l .8 2020-08-21 2020-08-21 [facility], Kaushik Lee 1.2.840.1 [id number] [id number] Methodi 10:54:00 16:50:41 Encounter Verónica Bell 43192.1.[address] 3.430.2.7 Hospit a .3.010246 l .8 2020-08-21 2020-08-21 [facility], 1.2.840.1 [id number] 68216 01741 Methodi 12:00:00 13:16:02 Encounter Kaushik AaronReyna 63084.1.[address] 3.430.2.7 Hospit a .3.726800 l .8 2020-08-21 2020-08-21 Documentat [place], 1.2.840.1 [id number] 2 [id number] Methodi 00:00:00 00:00:00 eloy Yuan [address]23.1.[address] 3.430.2.7 Hospit a .3.670051 l .8 2020-08-21 2020-08-21 Travel 1.2.840.1 1.2.438.471 1026 [id number] Methodi 00:00:00 00:00:[address] 3.430.2.7 0.2.7.3.698 Ho spita .3.676309 084.8 l .8 2020-08-21 2020-08-21 Outpatient [facility] [id number] [address] [place] 00:00:00 00:00:00 KAUS[address]K [address] 2020-08-21 2020-08-21 Outpatient [facility] [place] [facility] [id number] 070 [place] 00:00:00 00:00:00 SELENE [address] 2020-08-21 2020-08-21 [facility]patient [facility] [id number] 873 [place] 00:00:00 00:00:00 KAUSHIK 956 Method i 2020-08-21 2020-08-21 [facility], [facility] [id number] 301 [place] 00:00:00 00:00:00 KAUSHIK [address] 2020-08-20 2020-08-20 [facility], 1.2.840.1 [id number] 2099 [id number] Methodi 00:00:00 00:00:00 Kaushik WalkerReyna [address] 3.430.2.7 Hospit a .3.666536 l .8 2020-08-20 2020-08-20 Travel 1.2.840.1 1.2.489.954 6414 299511 Methodi 00:00:00 00:00:[address] 3.430.2.7 0.2.7.3.698 Ho spita .3.144321 084.8 l .8 2020-08-20 2020-08-20 Telephone Garth, 1.2.840.1 [id number] 2099 767995 Methodi 00:00:00 00:00:00 [address] Lee [address].1.[address] 3.430.2.7 Hospit a .3.548450 l .8 2020-08-13 2020-08-13 Refill Edil, 1.2.840.1 [id number] 2099892 Methodi 00:00:00 00:00:[address] 3.430.2.7 Hospit a .3.073160 l .8 2020-08-12 2020-08-12 Office Jt Sullivan 1.2.840.1 [id number] Methodi 15:36:43 16:06:[address] 3.430.2.7 Hospit a .3.921400 l .8 2020-08-12 2020-08-12 Outpatient JT SULLIVAN [facility] 235 [id number] [place] 00:00:00 00:00:[address] 2020-08-12 2020-08-12 Orders [place], 1.2.840.1 [id number] 010549 1119 Methodi 00:00:00 00:00:00 Only Joi 96484.1.[address] 3.430.2.7 Hospit a .3.514813 l .8 2020-08-12 2020-08-12 Travel 1.2.840.1 1.2.764.127 4512 837042 Methodi 00:00:00 00:00:[address] 3.430.2.7 0.2.7.3.698 Ho spita .3.935702 084.8 l .8 2020-08-11 2020-08-11 Refill Edil, 1.2.840.1 [id number] 2099 307094 Methodi 00:00:00 00:00:[address] 3.430.2.7 Hospit a .3.267207 l .8 2020-08-04 2020-08-04 Documentat Edil, 1.2.840.1 [id number] 2 [id number] Methodi 00:00:00 00:00:00 ion Lissy 08921.1.[address] 3.430.2.7 Hospit a .3.856055 l .8 2020-08-03 2020-08-03 [facility], 1.2.840.3 [id number] 2099 296515 Methodi 12:18:59 14:24:46 Visit Luis Quiroga 41304.1.[address] 3.430.2.7 Hospit a .3.578372 l .8 2020-08-03 2020-08-03 [facility] [id number] 074 [place] 00:00:00 00:00:00 SELENE [address] 2020-08-03 2020-08-03 Outpatient [facility] [id number] 4233 [place] 00:00:00 00:00:00 LUIS [address] 2020-08-03 2020-08-03 Telephone GraciaminooJt 1.2.840.1 [id number] Methodi 00:00:00 00:00:[address] 3.430.2.7 Hospit a .3.424563 l .8 2020-08-03 2020-08-03 Travel 1.2.840.1 1.2.774.190 2875 461709 Methodi 00:00:00 00:00:[address] 3.430.2.7 0.2.7.3.698 Ho spita .3.442521 084.8 l .8 2020-07-23 2020-07-23 [facility], 1.2.840.1 [id number] 2100 833074 Methodi 09:42:11 23:59:00 Encounter Luis CinthiaReyna 05214.1.[address] 3.430.2.7 Hospit a .3.786465 l .8 2020-07-23 2020-07-23 Outpatient [facility] [id number] [place] 00:00:00 00:00:00 LUIS [address] 2020-07-23 2020-07-23 Travel 1.2.840.1 1.2.132.808 6048 881582 Methodi 00:00:00 00:00:[address] 3.430.2.7 0.2.7.3.698 Ho spita .3.299805 084.8 l .8 2020-07-21 2020-07-21 Telemedici Shahriar, Luis F. 1.2.840.1 10 [id number] Methodi 09:09:06 09:12:45 ne Thai Powell 68520.1.[address] 3.430.2.7 Hospit a .3.223545 l .8 2020-07-21 2020-07-21 Telemedici [facility], 1.2.840.1 [id number] 956 [id number] Methodi 07:59:36 08:21:19 ne Edita 65032.1.1 781 s t Pato 3.430.2.7 Hospi ta .3.830047 l .8 2020-07-21 2020-07-21 Outpatient BAVARE, [facility] [id number] 888 [place] 00:00:00 00:00:00 CHARUDATTA [address] 2020-07-21 2020-07-21 Outpatient [facility], [facility] [id number] 9928 [place] 00:00:00 00:00:00 LUIS [address] 2020-07-16 2020-07-16 Telephone Shahriar, 1.2.840.0 [id number] Methodi 00:00:00 00:00:[address] 3.430.2.7 Hospit a .3.371228 l .8 2020-07-16 2020-07-16 Travel 1.2.840.1 1.2.094.887 4023 360325 Methodi 00:00:00 00:00:[address] 3.430.2.7 0.2.7.3.698 spita .3.595115 084.8 l .8 2020-07-16 2020-07-16 Abstract Siomara, 1.2.840.1 [id number] 21 [id number] Methodi 00:00:00 00:00:[address] 3.430.2.7 Hospit a .3.474187 l .8 2020-07-15 2020-07-15 Telephone Riki, 1.2.840.1 [id number] 21 [id number] Methodi 00:00:00 00:00:[address] 3.430.2.7 Hospit a .3.923613 l .8 2020-07-13 2020-07-13 Office Shahriar, 1.2.840.7 [id number] 2100 729755 Methodi 10:34:26 13:10:04 Visit Luis FReyna 76201.1.[address] 3.430.2.7 Hospit a .3.585368 l .8 2020-07-13 2020-07-13 Outpatient CROWELL, [facility] [id number] 353 [place] 00:00:00 00:00:00 SELENE [address] 2020-07-13 2020-07-13 Outpatient SARAHCASTLE HAYNE, [facility] [id number] 9901 [place] 00:00:00 00:00:00 LUIS [address] 2020-07-13 2020-07-13 Documentat Edil 1.2.840.1 [id number] 2 [id number] Methodi 00:00:00 00:00:00 ion Lissy 50357.1.[address] 3.430.2.7 Hospit a .3.514529 l .8 2020-07-13 2020-07-13 Telephone Hernesto, 1.2.840.1 [id number] 2100 472171 Methodi 00:00:00 00:00:[address] 3.430.2.7 Hospit a .3.914055 l .8 2020-07-13 2020-07-13 Telephone Belle 1.2.840.1 [id number] Methodi 00:00:00 00:00:00 , Tanya 25594.1.[address] 3.430.2.7 Hospit a .3.093461 l .8 2020-07-13 2020-07-13 Travel 1.2.840.1 1.2.706.316 1545 922437 Methodi 00:00:00 00:00:[address] 3.430.2.7 0.2.7.3.698 Ho spita .3.560977 084.8 l .8 2020-07-07 2020-07-07 Refill Crowell, 1.2.840.1 [id number] 500621 3087 Methodi 00:00:00 00:00:[address] [place] 3.430.2.7 Hospit a .3.073544 l .8 2020-07-07 2020-07-07 Refill Solo, 1.2.840.1 [id number] 2099 205354 Methodi 00:00:00 00:00:[address] 3.430.2.7 Hospit a .3.501688 l .8 2020-07-07 2020-07-07 Orders Edil, 1.2.840.1 [id number] 2099 410311 Methodi 00:00:00 00:00:00 Only Lissy 01295.1.[address] 3.430.2.7 Hospit a .3.064941 l .8 2020-07-06 2020-07-06 El Mendez, 1.2.840.1 [id number] 56592 64313 Methodi 11:31:21 11:46:21 Alba Flores 65086.1.[address] 3.430.2.7 Hospit a .3.547677 l .8 2020-07-06 2020-07-06 Juany MENDEZ [facility] [id number] 5555 [place] 00:00:00 00:00:[address] PETER [address] 2020-07-06 2020-07-06 Travel 1.2.840.1 1.2.669.909 0545 432771 Methodi 00:00:00 00:00:[address] 3.430.2.7 0.2.7.3.698 Ho spita .3.575239 084.8 l .8 2020-07-01 2020-07-01 Telemedici [facility], 1.2.840.1 [id number] 501 [id number] Methodi 08:09:35 10:58:05 ne Dotty 46316.1.[address] Smith 3.430.2.7 Hospit a .3.536741 l .8 2020-07-01 2020-07-01 Outpatient [facility] [id number] 822 [place] 00:00:00 00:00:00 DOTTY [address] 2020-06-29 2020-06-29 Lab [facility], 1.2.840.1 [id number] 63966 78104 Methodi 12:54:03 12:59:03 Luis Quiroga 80915.1.[address] 3.430.2.7 Hospit a .3.210935 l .8 2020-06-29 2020-06-29 Office [facility], 1.2.840.3 [id number] 2100 625605 Methodi 10:49:28 12:33:53 Visit Luis Quiroga 25907.1.[address] 3.430.2.7 Hospit a .3.782137 l .8 2020-06-29 2020-06-29 Outpatient [facility] [id number] 4618 [place] 00:00:00 00:00:00 ULIS [address] 2020-06-29 2020-06-29 Outpatient [facility] [id number] 5513 [place] 00:00:00 00:00:00 LUIS [address] 2020-06-29 2020-06-29 Travel 1.2.840.1 1.2.970.473 8201 983084 Methodi 00:00:00 00:00:[address] 3.430.2.7 0.2.7.3.698 Ho spita .3.171836 084.8 l .8 2020-06-19 2020-06-19 Telephone [place], 1.2.840.1 [id number] 2100 240502 Methodi 00:00:00 00:00:[address] 3.430.2.7 Hospit a .3.500890 l .8 2020-06-18 2020-06-18 Telephone Jt Sullivan 1.2.840.1 [id number] [id number] Methodi 00:00:00 00:00:[address] 3.430.2.7 Hospit a .3.033661 l .8 2020 2020 Telephone Whipple, 1.2.840.1 [id number] 2100 101766 Methodi 00:00:00 00:00:00 Lotti Sukh 50411.1.1 797 s t 3.430.2.7 Hospit a .3.746594 l .8 2020-06-09 2020-06-09 [place] Jt Sullivan 1.2.840.1 [id number] Methodi 00:00:00 00:00:[address] 3.430.2.7 Hospit a .3.814702 l .8 2020-06-08 2020-06-08 [facility] Jt Sullivan 1.2.840.1 [id number] 2 [id number] Methodi 13:15:39 23:59:[address] 3.430.2.7 Hospit a .3.312577 l .8 2020-06-08 2020-06-08 [facility] Jt Sullivan 1.2.840.1 [id number] 2 [id number] Methodi 10:44:29 13:14:[address] 3.430.2.7 Hospit a .3.458107 l .8 2020-06-08 2020-06-08 Outpatient GRACIAMINOOJT [facility] [id number] [place] 00:00:00 00:00:[address] 2020-06-08 2020-06-08 Outpatient JT SULLIVAN [facility] 454 [id number] [place] 00:00:00 00:00:[address] 2020-06-08 2020-06-08 Telephone Sarabjit, 1.2.840.1 [id number] 2099 117220 Methodi 00:00:00 00:00:00 Lotti Sukh 51035.1.1 081 s t 3.430.2.7 Hospit a .3.403185 l .8 2020-06-08 2020-06-08 Travel 1.2.840.1 1.2.013.092 0214 956045 Methodi 00:00:00 00:00:[address] 3.430.2.7 0.2.7.3.698 Ho spita .3.286982 084.8 l .8 2020-06-01 2020-06-01 Travel 1.2.840.1 1.2.776.771 7947 712703 Methodi 00:00:00 00:00:[address] 3.430.2.7 0.2.7.3.698 Ho spita .3.122808 084.8 l .8 2020-05-29 2020-05-29 Office Jt Sullivan 1.2.840.1 [id number] Methodi 13:39:53 16:29:[address] 3.430.2.7 Hospit a .3.495136 l .8 2020-05-29 2020-05-29 Lab Jt Sullivan 1.2.840.1 [id number] [id number] Methodi 15:17:04 15:22:[address] 3.430.2.7 Hospit a .3.933644 l .8 2020-05-29 2020-05-29 Outpatient JT SULLIVAN [facility] [id number] [place] 00:00:00 00:00:[address] 2020-05-29 2020-05-29 Outpatient JT SULLIVAN [facility] 217 [id number] [place] 00:00:00 00:00:[address] 2020-05-29 2020-05-29 Orders Jt Sullivan 1.2.840.1 [id number] 21 [id number] Methodi 00:00:00 00:00:[address] 3.430.2.7 Hospit a .3.255135 l .8 2020-05-29 2020-05-29 Orders Jt Sullivan 1.2.840.1 [id number] 21 [id number] Methodi 00:00:00 00:00:[address] 3.430.2.7 Hospit a .3.222970 l .8 2020-05-29 2020-05-29 Orders Jt Sullivan 1.2.840.1 [id number] [id number] Methodi 00:00:00 00:00:[address] 3.430.2.7 Hospit a .3.378523 l .8 2020-05-29 2020-05-29 Orders [place], 1.2.840.1 [id number] 797145 4384 Methodi 00:00:00 00:00:00 Only Joi 51696.1.[address] 3.430.2.7 Hospit a .3.761586 l .8 2020-05-29 2020-05-29 Travel 1.2.840.1 1.2.724.985 9838 315738 Methodi 00:00:00 00:00:[address] 3.430.2.7 0.2.7.3.698 Ho spita .3.769611 084.8 l .8 2020-05-22 2020-05-22 Nurse Only Jt Sullivan 1.2.840.1 [id number] [id number] Methodi 13:46:07 14:16:[address] 3.430.2.7 Hospit a .3.967011 l .8 2020-05-22 2020-05-22 Outpatient JT SULLIVAN [facility] 294 [id number] [place] 00:00:00 00:00:[address] 2020-05-22 2020-05-22 Travel 1.2.840.1 1.2.566.313 5405 275969 Methodi 00:00:00 00:00:[address] 3.430.2.7 0.2.7.3.698 Ho spita .3.844754 084.8 l .8 2020-05-20 2020-05-20 Infusion Jt Sullivan 1.2.840.1 [id number] 2 [id number] Methodi 08:26:52 11:26:[address] 3.430.2.7 Hospit a .3.741981 l .8 2020-05-20 2020-05-20 Outpatient LAURIESEANK [facility] 919 [id number] [place] 00:00:00 00:00:[address] 2020-05-20 2020-05-20 [facility], 1.2.840.1 [id number] 2100 374191 Methodi 00:00:00 00:00:00 [facility] Terra 05199.1.1 166 s t ip 3.430.2.7 Hospit a .3.043067 l .8 2020-05-20 2020-05-20 Telephone Jt Sullivan 1.2.840.1 [id number] Methodi 00:00:00 00:00:[address] 3.430.2.7 Hospit a .3.176642 l .8 2020-05-19 2020-05-19 Office [facility], 1.2.840.1 [id number] 669084 9545 Methodi 13:42:15 14:02:15 Visit Dotty 28535.1.[address] Smith 3.430.2.7 Hospit a .3.940195 l .8 2020-05-19 2020-05-19 [facility] [id number] 482 [place] 00:00:00 00:00:[address] DOTTY [address] 2020-05-19 2020-05-19 Travel 1.2.840.1 1.2.730.240 1722 220544 Methodi 00:00:00 00:00:[address] 3.430.2.7 0.2.7.3.698 Ho spita .3.501013 084.8 l .8 2020-05-18 2020-05-18 Social Wendie, 1.2.840.1 [id number] 604847 9511 Methodi 00:00:00 00:00:00 Work Ephraim 34312.1.[address] 3.430.2.7 Hospit a .3.946560 l .8 2020-05-18 2020-05-18 Orders Christopher Valdivia, 1.2.840.1 [id number] 41126 87212 Methodi 00:00:00 00:00:00 Only Qing 99404.1.[address] 3.430.2.7 Hospit a .3.278715 l .8 2020-05-18 2020-05-18 Refill Edil, 1.2.840.1 049393831 2100 197804 Methodi 00:00:00 00:00:[address] 3.430.2.7 Hospit a .3.463906 l .8 2020-05-18 2020-05-18 Jt Molina 1.2.840.1 [id number] Methodi 00:00:00 00:00:[address] 3.430.2.7 Hospit a .3.688205 l .8 2020-05-14 2020-05-14 Documentat Edil, 1.2.840.1 111464765 2 [id number] Methodi 00:00:00 00:00:00 ion Lissy 76239.1.[address] 3.430.2.7 Hospit a .3.794065 l .8 2020-05-13 2020-05-13 Telephone Jt Sullivan 1.2.840.1 [id number] Methodi 00:00:00 00:00:[address] 3.430.2.7 Hospit a .3.884109 l .8 2020-05-12 2020-05-12 Documentat Adrian Cruz 1.2.840.1 702422108 [id number] Methodi 00:00:00 00:00:00 ion Marcus 26282.1.[address] 3.430.2.7 Hospit a .3.537995 l .8 2020-05-12 2020-05-12 Telephone Jt Sullivan 1.2.840.1 [id number] [id number] Methodi 00:00:00 00:00:[address] 3.430.2.7 Hospit a .3.431601 l .8 2020-05-11 2020-05-11 Telephone Sarabjit 1Reyna2.840.1 [id number] 2100 876385 Methodi 00:00:00 00:00:00 Lotti Sukh 82959.1.1 114 s t 3.430.2.7 Hospit a .3.812181 l .8 2020-05-08 2020-05-08 Nurse Only Jt Sullivan 1.2.840.1 [id number] Methodi 13:43:41 14:13:[address] 3.430.2.7 Hospit a .3.547443 l .8 2020-05-08 2020-05-08 Outpatient JT SULLIVAN [facility] 028 [id number] [place] 00:00:00 00:00:[address] 2020-05-08 2020-05-08 Travel 1.2.840.1 1.2.683.256 3101 050441 Methodi 00:00:00 00:00:[address] 3.430.2.7 0.2.7.3.698 Ho spita .3.394817 084.8 l .8 2020-05-08 2020-05-08 Telephone Jt Sullivan 1.2.840.1 [id number] Methodi 00:00:00 00:00:[address] 3.430.2.7 Hospit a .3.903394 l .8 2020-05-06 2020-05-06 Infusion Jt Sullivan 1.2.840.1 [id number] 2 [id number] Methodi 08:47:40 11:47:[address] 3.430.2.7 Hospit a .3.837275 l .8 2020-05-06 2020-05-06 Outpatient JT SULLIVAN [facility] 693 [id number] [place] 00:00:00 00:00:[address] 2020-05-06 2020-05-06 [facility] [place], 1.2.840.1 [id number] 2100 517447 Methodi 00:00:00 00:00:00 [facility] Terra 17044.1.1 321 s t ip 3.430.2.7 Hospit a .3.241986 l .8 2020-05-06 2020-05-06 Travel 1.2.840.1 1.2.270.112 5556 078813 Methodi 00:00:00 00:00:[address] 3.430.2.7 0.2.7.3.698 Ho spita .3.909007 084.8 l .8 2020-05-05 2020-05-05 Telephone Jt Sullivan 1.2.840.1 [id number] Methodi 00:00:00 00:00:[address] 3.430.2.7 Hospit a .3.983807 l .8 2020-05-01 2020[facility]04 [facility] 1.2.840.1 10 [id number] Methodi 13:25:00 14:01:00 Encounter Linh Cruz 37109.1.[address] 3.430.2.7 Hospit a .3.548188 l .8 2020-05-04 2020-05-04 Refill Adrian Cruz 1.2.840.1 [id number] 21 [id number] Methodi 00:00:00 00:00:[address] 3.430.2.7 Hospit a .3.763676 l .8 2020-05-01 2020-05-04 Inpatient YOLANDA [facility] 064 [id number] 49 [place] 00:00:00 00:00:[address] LINH [address] 2020-05-03 2020-05-03 Refill Mervat, 1.2.840.1 [id number] 982548 5201 Methodi 00:00:00 00:00:[address] [place] 3.430.2.7 Hospit a .3.574764 l .8 2020-05-01 2020-05-01 Travel 1.2.840.1 1.2.840.752 0565 056690 Methodi 00:00:00 00:00:[address] 3.430.2.7 0.2.7.3.698 Ho spita .3.217489 084.8 l .8 2020-05-01 2020-05-01 Documentat Edli, 1.2.840.1 [id number] 2 [id number] Methodi 00:00:00 00:00:00 ion Lissy 49738.1.[address] 3.430.2.7 Hospit a .3.538093 l .8 2020-05-01 2020-05-01 Oncology Fransisca, 1.2.840.1 [id number] 2099 553071 Methodi 00:00:00 00:00:00 [facility] Terra 45551.1.1 363 s t ip 3.430.2.7 Hospit a .3.094710 l .8 2020-04-26 2020-04-26 Refill Jt Sullivan 1.2.840.1 [id number] 21 [id number] Methodi 00:00:00 00:00:[address] 3.430.2.7 Hospit a .3.882360 l .8 2020-04-23 2020-04-23 Oncology [place], 1.2.840.1 [id number] 2099 026772 Methodi 00:00:00 00:00:00 [facility] Terra 11244.1.1 811 s t ip 3.430.2.7 Hospit a .3.305338 l .8 2020-04-21 2020-04-21 Nurse Only Jt Sullivan 1.2.840.1 [id number] Methodi 08:31:18 09:01:[address] 3.430.2.7 Hospit a .3.081967 l .8 2020-04-21 2020-04-21 Outpatient JT SULLIVAN [facility] 842 [id number] [place] 00:00:00 00:00:[address] 2020-04-21 2020-04-21 Telephone Sarabjit, 1.2.840.1 [id number] 2099 169564 Methodi 00:00:00 00:00:00 Ronak Luz 22387.1.1 542 s t 3.430.2.7 Hospit a .3.429493 l .8 2020-04-21 2020-04-21 Travel 1.2.840.1 1.2.341.681 1603 965873 Methodi 00:00:00 00:00:[address] 3.430.2.7 0.2.7.3.698 Ho spita .3.124810 084.8 l .8 2020-04-21 2020-04-21 Orders Ric, 1.2.840.1 [id number] 087838 4866 Methodi 00:00:00 00:00:00 Only Cody Valdez 37169.1.[address] 3.430.2.7 Hospit a .3.336646 l .8 2020-04-20 2020-04-20 Telephone Jt Sullivan 1.2.840.1 [id number] Methodi 00:00:00 00:00:[address] 3.430.2.7 Hospit a .3.419217 l .8 2020-04-16 2020-04-16 Telephone Jt Sullivan 1.2.840.1 [id number] [id number] Methodi 00:00:00 00:00:[address] 3.430.2.7 Hospit a .3.608343 l .8 2020-04-15 2020-04-15 Telephone Jt Sullivan 1.2.840.1 [id number] Methodi 00:00:00 00:00:[address] 3.430.2.7 Hospit a .3.042929 l .8 2020-04-14 2020-04-14 Patient Oscar, 1.2.840.1 [id number] 072 [id number] Methodi 00:00:00 00:00:00 Outreach Rhonda 39125.1.[address] 3.430.2.7 Hospit a .3.145298 l .8 2020-04-14 2020-04-14 Patient Oscar, 1.2.840.1 [id number] 749 [id number] Methodi 00:00:00 00:00:00 Outreach Rhonda 49426.1.[address] 3.430.2.7 Hospit a .3.656233 l .8 2020-04-14 2020-04-14 Patient Oscar, 1.2.840.1 [id number] 846 [id number] Methodi 00:00:00 00:00:00 Outreach Rhonda 86560.1.[address] 3.430.2.7 Hospit a .3.841123 l .8 2020-04-06 2020-04-13 Hospital Jordi, 1.2.840.1 [id number] 01020 14150 Methodi 12:24:00 15:33:00 Encounter Gretta Rothman. 00762.1.1 [address] t 3.430.2.7 Hospit a .3.013821 l .8 2020-04-06 2020-04-13 [facility] 067 [id number] 23 [place] 00:00:00 00:00:00 GRETTA [address] 2020-04-10 2020-04-10 Orders Alejandro, 1.2.840.1 [id number] 89433 Methodi 00:00:00 00:00:00 Only Nkechi 43161.1.[address] 3.430.2.7 Hospit a .3.830272 l .8 2020-04-07 2020-04-07 Orders Augusta, 1.2.840.1 [id number] 957592 0386 Methodi 00:00:00 00:00:00 Only Tiffany 92570.1.[address] 3.430.2.7 Hospit a .3.793030 l .8 2020-04-06 2020-04-06 Orders Alejandro, 1.2.840.1 [id number] 11657 51791 Methodi 00:00:00 00:00:00 Only Nkechi 97666.1.[address] 3.430.2.7 Hospit a .3.015005 l .8 2020-04-06 2020-04-06 Orders Jt Sullivan 1.2.840.1 [id number] 21 [id number] Methodi 00:00:00 00:00:[address] 3.430.2.7 Hospit a .3.101237 l .8 2020-04-06 2020-04-06 Travel 1.2.840.1 1.2.041.998 8077 091330 Methodi 00:00:00 00:00:[address] 3.430.2.7 0.2.7.3.698 Ho spita .3.250326 084.8 l .8 2020-04-06 2020-04-06 Orders [place] 1.2.840.1 [id number] Methodi 00:00:00 00:00:00 Only , Linda 70497.1.[address] 3.430.2.7 Hospit a .3.660648 l .8 2020-04-06 2020-04-06 Orders Jan 1.2.840.1 [id number] 2100 862525 Methodi 00:00:00 00:00:00 Only Aniya Valdez 53186.1.[address] 3.430.2.7 Hospit a .3.140411 l .8 2020-04-05 2020-04-05 Orders Jt Sullivan 1.2.840.1 [id number] Methodi 00:00:00 00:00:[address] 3.430.2.7 Hospit a .3.880809 l .8 2020-04-03 2020-04-03 [facility] Jt Sullivan 1.2.840.1 [id number] 2 [id number] Methodi 12:59:11 23:59:[address] 3.430.2.7 Hospit a .3.593828 l .8 2020-04-03 2020-04-03 Office Jt Sullivan 1.2.840.1 [id number] 21 [id number] Methodi 15:49:32 16:19:[address] 3.430.2.7 Hospit a .3.651197 l .8 2020-04-03 2020-04-03 Outpatient JT SULLIVAN [facility] [id number] [place] 00:00:00 00:00:[address] 2020-04-03 2020-04-03 Outpatient JT SULLIVAN [facility] 051 [id number] [place] 00:00:00 00:00:[address] 2020-04-03 2020-04-03 Travel 1.2.840.1 1.2.389.043 0739 046546 Methodi 00:00:00 00:00:[address] 3.430.2.7 0.2.7.3.698 Ho spita .3.628343 084.8 l .8 2020-03-27 2020-03-27 Nurse Only Jt [place] 1.2.840.1 [id number] Methodi 13:00:27 13:30:[address] 3.430.2.7 Hospit a .3.690239 l .8 2020-03-27 2020-03-27 Outpatient LAURIE JT [facility] 254 [id number] [place] 00:00:00 00:00:[address] 2020-03-27 2020-03-27 Travel 1.2.840.1 1.2.988.774 1464 [id number] Methodi 00:00:00 00:00:[address] 3.430.2.7 0.2.7.3.698 Ho spita .3.242753 084.8 l .8 2020-03-25 2020-03-25 Infusion Jt Sullivan 1.2.840.1 [id number] 2 [id number] Methodi 08:09:53 14:24:[address] 3.430.2.7 Hospit a .3.830230 l .8 2020-03-25 2020-03-25 Outpatient LAURIESEANK [facility] 206 [id number] [place] 00:00:00 00:00:[address] 2020-03-25 2020-03-25 Documentat Jt Sullivan 1.2.840.1 [id number] Methodi 00:00:00 00:00:[address] 3.430.2.7 Hospit a .3.657633 l .8 2020-03-25 2020-03-25 Oncology [place], 1.2.840.1 [id number] 2100 [id number] Methodi 00:00:00 00:00:00 [facility] Terra 34165.1.1 749 s t ip 3.430.2.7 Hospit a .3.402795 l .8 2020-03-25 2020-03-25 Travel 1.2.840.1 1.2.218.871 5394 743311 Methodi 00:00:00 00:00:[address] 3.430.2.7 0.2.7.3.698 Ho spita .3.791738 084.8 l .8 2020-03-24 2020-03-24 Telephone [place], 1.2.840.1 [id number] 2099 [id number] Methodi 00:00:00 00:00:00 Lotti Sukh 76623.1.1 959 s t 3.430.2.7 Hospit a .3.044054 l .8 2020-03-19 2020-03-19 Orders [place] 1.2.840.1 [id number] Methodi 00:00:00 00:00:00 Only , Linda 87358.1.[address] 3.430.2.7 Hospit a .3.393889 l .8 2020-03-18 2020-03-18 Office Jt Sullivan 1.2.840.1 [id number] Methodi 15:16:53 16:33:[address] 3.430.2.7 Hospit a .3.090765 l .8 2020-03-18 2020-03-18 Outpatient JT SULLIVAN [facility] [id number] [place] 00:00:00 00:00:[address] 2020-03-18 2020-03-18 Orders [place], 1.2.840.1 [id number] 0834 Methodi 00:00:00 00:00:00 Only Joi 78391.1.[address] 3.430.2.7 Hospit a .3.539104 l .8 2020-03-18 2020-03-18 Travel 1.2.840.1 1.2.077.600 4379 [id number] Methodi 00:00:00 00:00:[address] 3.430.2.7 0.2.7.3.698 Ho spita .3.265624 084.8 l .8 2020-03-16 2020-03-16 Telephone [place], 1.2.840.1 [id number] 21 [id number] Methodi 00:00:00 00:00:[address] 3.430.2.7 Hospit a .3.803825 l .8 2020-03-12 2020-03-12 Nurse Only Jt Sullivan 1.2.840.1 [id number] Methodi 12:53:19 13:23:[address] 3.430.2.7 Hospit a .3.048590 l .8 2020-03-12 2020-03-12 Outpatient JT SULLIVAN [facility] 561 [id number] [place] 00:00:00 00:00:[address] 2020-03-12 2020-03-12 Oncology [place], 1.2.840.1 [id number] 2099 [id number] Methodi 00:00:00 00:00:00 [facility] [place] 65367.1.1 324 s t ip 3.430.2.7 Hospit a .3.145391 l .8 2020-03-12 2020-03-12 Refill Solo, 1.2.840.1 [id number] 2099 111149 Methodi 00:00:00 00:00:[address] 3.430.2.7 Hospit a .3.004693 l .8 2020-03-12 2020-03-12 Travel 1.2.840.1 1.2.709.306 4934 258407 Methodi 00:00:00 00:00:[address] 3.430.2.7 0.2.7.3.698 Ho spita .3.983258 084.8 l .8 2020-03-12 2020-03-12 Orders Pa, 1.2.840.1 [id number] 66676 24876 Methodi 00:00:00 00:00:00 Only Beverly 71010.1.[address] [place] 3.430.2.7 Hospit a .3.096665 l .8 2020-03-11 2020-03-11 Telephone Jt Sullivan 1.2.840.1 [id number] Methodi 00:00:00 00:00:[address] 3.430.2.7 Hospit a .3.410974 l .8 2020-03-10 2020-03-10 Infusion Jt Sullivan 1.2.840.1 [id number] 2 [id number] Methodi 07:52:36 14:07:[address] 3.430.2.7 Hospit a .3.435059 l .8 2020-03-10 2020-03-10 Outpatient JT SULLIVAN [facility] 029 [id number] [place] 00:00:00 00:00:[address] 2020-03-10 2020-03-10 Orders [place] 1.2.840.1 [id number] 21 [id number] Methodi 00:00:00 00:00:00 Only , Linda 90420.1.[address] 3.430.2.7 Hospit a .3.177356 l .8 2020-03-09 2020-03-09 Orders Tayam, 1.2.840.1 [id number] 825518 3754 Methodi 00:00:00 00:00:00 Only Tiffany 77951.1.[address] 3.430.2.7 Hospit a .3.550369 l .8 2020-03-05 2020-03-05 [facility] Jt Sullivan 1.2.840.1 [id number] 2 [id number] Methodi 09:12:12 23:59:[address] 3.430.2.7 Hospit a .3.660138 l .8 2020-03-05 2020-03-05 Outpatient JT SULLIVAN [facility] 232 [id number] [place] 00:00:00 00:00:[address] 2020-03-04 2020-03-04 Travel 1.2.840.1 1.2.059.672 5021 103557 Methodi 00:00:00 00:00:[address] 3.430.2.7 0.2.7.3.698 Ho spita .3.333542 084.8 l .8 2020-02-28 2020-02-28 Nurse Only Jt uSllivan 1.2.840.1 [id number] Methodi 12:57:08 13:27:[address] 3.430.2.7 Hospit a .3.140877 l .8 2020-02-28 2020-02-28 Outpatient JT SULLIVAN [facility] 990 [id number] [place] 00:00:00 00:00:[address] 2020-02-28 2020-02-28 [place], 1.2.840.1 [id number] 2099 075041 Methodi 00:00:00 00:00:00 [facility] Terra 18452.1.1 579 s t ip 3.430.2.7 Hospit a .3.086564 l .8 2020-02-28 2020-02-28 Travel 1.2.840.1 1.2.755.990 3251 469610 Methodi 00:00:00 00:00:[address] 3.430.2.7 0.2.7.3.698 Ho spita .3.375715 084.8 l .8 2020-02-28 2020-02-28 Orders Whipple, 1.2.840.1 813017543 016400 2622 Methodi 00:00:00 00:00:00 Only Ronak Luz 08677.1.1 365 s t 3.430.2.7 Hospit a .3.578199 l .8 2020-02-26 2020-02-26 Infusion Jt Sullivan 1.2.840.1 [id number] 2 [id number] Methodi 08:06:25 14:21:[address] 3.430.2.7 Hospit a .3.808730 l .8 2020-02-26 2020-02-26 Outpatient JT SULLIVAN [facility] 296 [id number] [place] 00:00:00 00:00:[address] 2020-02-26 2020-02-26 [place], 1.2.840.1 [id number] 2100 [id number] Methodi 00:00:00 00:00:00 [facility] Terra 38136.1.1 138 s t ip 3.430.2.7 Hospit a .3.707284 l .8 2020-02-25 2020-02-25 [facility] Jt Sullivan 1.2.840.1 [id number] 2 [id number] Methodi 11:00:00 23:59:[address] 3.430.2.7 Hospit a .3.348928 l .8 2020-02-25 2020-02-25 [facility] Jt Sullivan 1.2.840.1 [id number] 2 [id number] Methodi 08:25:00 10:59:[address] 3.430.2.7 Hospit a .3.743962 l .8 2020-02-25 2020-02-25 Outpatient JT SULLIVAN [facility] 577 [id number] [place] 00:00:00 00:00:[address] 2020-02-25 2020-02-25 Outpatient JT SULLIVAN [facility] 521 [id number] [place] 00:00:00 00:00:[address] 2020-02-25 2020-02-25 Telephone Dwayne, 1.2.840.1 [id number] Methodi 00:00:00 00:00:[address] 3.430.2.7 Hospit a .3.014380 l .8 2020-02-25 2020-02-25 Henna Amezquita, 1.2.840.1 [id number] 086043 1877 Methodi 00:00:00 00:00:00 Only Harini 40291.1.[address] 3.430.2.7 Hospit a .3.831883 l .8 2020-02-25 2020-02-25 Orders [place] 1.2.840.1 142307218 [id number] Methodi 00:00:00 00:00:00 Only , Linda 10027.1.[address] 3.430.2.7 Hospit a .3.589894 l .8 2020-02-25 2020-02-25 Refill Edil, 1.2.840.1 [id number] 2099 110240 Methodi 00:00:00 00:00:[address] 3.430.2.7 Hospit a .3.414551 l .8 2020-02-25 2020-02-25 Travel 1.2.840.1 1.2.451.590 4286 668718 Methodi 00:00:00 00:00:[address] 3.430.2.7 0.2.7.3.698 Ho spita .3.450408 084.8 l .8 2020-02-25 2020-02-25 Orders Jt Sullivan 1.2.840.1 [id number] Methodi 00:00:00 00:00:[address] 3.430.2.7 Hospit a .3.760181 l .8 2020-02-25 2020-02-25 Orders Alirio, 1.2.840.1 [id number] 957605 3386 Methodi 00:00:00 00:00:00 Only Harini 88603.1.[address] 3.430.2.7 Hospit a .3.225679 l .8 2020-02-21 2020-02-21 Travel 1.2.840.1 1.2.923.405 2714 148758 Methodi 00:00:00 00:00:[address] 3.430.2.7 0.2.7.3.698 Ho spita .3.380879 084.8 l .8 2020-02-21 2020-02-21 Orders [place], 1.2.840.1 [id number] 617371 1352 Methodi 00:00:00 00:00:00 Only Ronak Luz 25047.1.1 423 s t 3.430.2.7 Hospit a .3.125087 l .8 2020-02-20 2020-02-20 Jt Culp 1.2.840.1 534912577 [id number] Methodi 00:00:00 00:00:[address] 3.430.2.7 Hospit a .3.177085 l .8 2020-02-20 2020-02-20 Refill Edil, 1.2.840.1 [id number] 2099 439611 Methodi 00:00:00 00:00:[address] 3.430.2.7 Hospit a .3.966304 l .8 2020-02-19 2020-02-19 Lab Jt Sullivan 1.2.840.1 [id number] [id number] Methodi 11:34:11 11:39:[address] 3.430.2.7 Hospit a .3.306460 l .8 2020-02-19 2020-02-19 [facility] JT SULLIVAN [facility] 090 [id number] [place] 00:00:00 00:00:[address] 2020-02-19 2020-02-19 Travel 1.2.840.1 1.2.029.588 3314 735554 Methodi 00:00:00 00:00:[address] 3.430.2.7 0.2.7.3.698 Ho spita .3.593428 084.8 l .8 2020-02-18 2020-02-18 Orders [place] 1.2.840.1 [id number] Methodi 00:00:00 00:00:00 Only , Linda 74945.1.[address] 3.430.2.7 Hospit a .3.984317 l .8 2020-02-18 2020-02-18 Telephone Jt Sullivan 1.2.840.1 [id number] Methodi 00:00:00 00:00:[address] 3.430.2.7 Hospit a .3.302799 l .8 2020-02-17 2020-02-17 Telephone Jt Sullivan 1.2.840.1 [id number] Methodi 00:00:00 00:00:[address] 3.430.2.7 Hospit a .3.160125 l .8 2020-02-12 2020-02-12 Telemedici Jt Sullivan 1.2.840.1 [id number] Methodi 12:59:38 13:54:[address] 3.430.2.7 Hospit a .3.111229 l .8 2020-02-12 2020-02-12 Outpatient JT SULLIVAN [facility] 189 [id number] [place] 00:00:00 00:00:[address] 2020-02-12 2020-02-12 Orders [place], 1.2.840.1 [id number] 6605 Methodi 00:00:00 00:00:00 Only Joi 17058.1.[address] 3.430.2.7 Hospit a .3.923265 l .8 2020-02-11 2020-02-11 Telephone [place], 1.2.840.1 [id number] 2100 869278 Methodi 00:00:00 00:00:[address] 3.430.2.7 Hospit a .3.555498 l .8 2020-02-10 2020-02-10 [facility], 1.2.840.1 [id number] 2100 797657 Methodi 14:42:02 23:59:00 Encounter Luis Quiroga 44549.1.[address] 3.430.2.7 Hospit a .3.250714 l .8 2020-02-10 2020-02-10 Outpatient [facility] [id number] 4085 [place] 00:00:00 00:00:00 LUIS [address] 2020-02-10 2020-02-10 Telephone jaredabby, 1.2.840.1 [id number] Methodi 00:00:00 00:00:[address] 3.430.2.7 Hospit a .3.084501 l .8 2020-02-10 2020-02-10 Travel 1.2.840.1 1.2.985.406 1076 947093 Methodi 00:00:00 00:00:[address] 3.430.2.7 0.2.7.3.698 Ho spita .3.791657 084.8 l .8 2020-02-03 2020-02-04 Office [facility], 1.2.840.2 [id number] 2100 345301 Methodi 13:15:06 09:08:46 Visit Luis F. 17007.1.[address] 3.430.2.7 Hospit a .3.464557 l .8 2020-02-03 2020-02-04 Outpatient [facility] [id number] 5664 [place] 00:00:00 00:00:00 LUIS [address] 2020-02-03 2020-02-03 [facility], 1.2.840.1 [id number] 31097 36017 Methodi 09:22:16 09:27:[address] 15420.1.[address] 3.430.2.7 Hospit a .3.530978 l .8 2020-02-03 2020-02-03 Outpatient [facility], [facility] [id number] 2859 [place] 00:00:00 00:00:00 LUIS [address] 2020-02-03 2020-02-03 Travel 1.2.840.1 1.2.386.403 3073 740517 Methodi 00:00:00 00:00:[address] 3.430.2.7 0.2.7.3.698 Ho spita .3.628490 084.8 l .8 2020-01-31 2020-01-31 Orders jaredkalen, 1.2.840.1 [id number] 2100 714273 Methodi 00:00:00 00:00:00 Only Crystal 65042.1.[address] 3.430.2.7 Hospit a .3.700230 l .8 2020-01-31 2020-01-31 Refill Machelle Mckeon 1.2.840.1 [id number] 001 [id number] Methodi 00:00:00 00:00:[address] 3.430.2.7 Hospit a .3.797128 l .8 2020-01-28 2020-01-30 Office Machelle Mckeon 1.2.840.1 [id number] 964 [id number] Methodi 09:39:32 18:33:[address] 3.430.2.7 Hospit a .3.256983 l .8 2020-01-30 2020-01-30 Telephone Jt Sullivan 1.2.840.1 [id number] Methodi 00:00:00 00:00:[address] 3.430.2.7 Hospit a .3.894091 l .8 2020-01-30 2020-01-30 Refill Solo, 1.2.840.1 [id number] 2099 950539 Methodi 00:00:00 00:00:[address] 3.430.2.7 Hospit a .3.630311 l .8 2020-01-28 2020-01-28 [facility] Jt Sullivan 1.2.840.1 [id number] 2 [id number] Methodi 12:12:23 23:59:[address] 3.430.2.7 Hospit a .3.656485 l .8 2020-01-28 2020-01-28 Outpatient MIKEJERICAG [facility] 2100 [id number] [place] 00:00:00 00:00:[address] 2020-01-28 2020-01-28 Outpatient JT SULLIVAN [facility] 094 [id number] [place] 00:00:00 00:00:[address] 2020-01-28 2020-01-28 Travel 1.2.840.1 1.2.773.756 7131 619438 Methodi 00:00:00 00:00:[address] 3.430.2.7 0.2.7.3.698 Ho spita .3.741331 084.8 l .8 2020-01-21 2020-01-21 Travel 1.2.840.1 1.2.072.294 4178 363002 Methodi 00:00:00 00:00:[address] 3.430.2.7 0.2.7.3.698 Ho spita .3.843972 084.8 l .8 2020-01-17 2020-01-17 Consult Jt Sullivan 1.2.840.1 [id number] 21 [id number] Methodi 09:30:38 10:30:[address] 3.430.2.7 Hospit a .3.969017 l .8 2020-01-17 2020-01-17 Outpatient JT SULLIVAN [facility] 085 [id number] [place] 00:00:00 00:00:[address] 2020-01-17 2020-01-17 Orders [place], 1.2.840.1 [id number] 774710 3334 Methodi 00:00:00 00:00:00 Only Joi 74623.1.[address] 3.430.2.7 Hospit a .3.680356 l .8 2020-01-17 2020-01-17 Orders [place], 1.2.840.1 [id number] 896748 4020 Methodi 00:00:00 00:00:00 Only Joi 36134.1.[address] 3.430.2.7 Hospit a .3.223073 l .8 2020-01-17 2020-01-17 Orders [place], 1.2.840.1 [id number] 174532 5296 Methodi 00:00:00 00:00:00 Only Joi 81655.1.[address] 3.430.2.7 Hospit a .3.518780 l .8 2020-01-17 2020-01-17 Documentat Ed[place], 1.2.840.1 [id number] 2 [id number] Methodi 00:00:00 00:00:00 ion Lissy 81245.1.[address] 3.430.2.7 Hospit a .3.929778 l .8 2020-01-16 2020-01-16 [facility] Machelle Mckeon 1.2.840.1 [id number] 21 [id number] Methodi 15:52:39 23:59:[address] 3.430.2.7 Hospit a .3.663828 l .8 2020-01-16 2020-01-16 [facility], 1.2.840.1 [id number] 2100 882122 Methodi 13:10:26 15:51:00 Encounter Alba Flores 87245.1.1 586 s t 3.430.2.7 Hospit a .3.602748 l .8 2020-01-16 2020-01-16 [facility], 1.2.840.1 [id number] 64028 31479 Methodi 12:03:06 12:08:06 Alba Flores 15003.1.[address] 3.430.2.7 Hospit a .3.027905 l .8 2020-01-16 2020-01-16 Outpatient [facility] [id number] 5766 [place] 00:00:00 00:00:00 ALBA [address] 2020-01-16 2020-01-16 [facility] 1.2.840.1 1.2.979.910 5762 978147 Methodi 00:00:00 00:00:[address] 3.430.2.7 0.2.7.3.698 spita .3.546915 084.8 l .8 2020-01-16 2020-01-16 [facility] 107719 0102 [place] 00:00:00 00:00:00 ALBA Flores [facility] 2020-01-16 2020-01-16 Outpatient [facility] 2100 [id number] [place] 00:00:00 00:00:[address] 2020-01-13 2020-01-13 Travel 1.2.840.1 1.2.728.051 3584 641115 Methodi 00:00:00 00:00:[address] 3.430.2.7 0.2.7.3.698 Ho spita .3.687651 084.8 l .8 2020-01-10 2020-01-10 Documentat Solo, 1.2.840.1 [id number] 2 [id number] Methodi 00:00:00 00:00:00 ion Lsisy 52375.1.[address] 3.430.2.7 Hospit a .3.036233 l .8 2020-01-10 2020-01-10 Transcribe Andrea 1.2.840.1 [id number] 21 [id number] Methodi 00:00:00 00:00:00 Orders Alba Flores 65579.1.[address] 3.430.2.7 Hospit a .3.277495 l .8 2020-01-09 2020-01-09 Lab Andrea 1.2.840.1 [id number] 28077 57357 Methodi 14:47:34 14:52:34 Alba Flores [address]008.1.[address] 3.430.2.7 Hospit a .3.061880 l .8 2020-01-09 2020-01-09 Office Machelle Mckeon 1.2.840.1 [id number] 572 [id number] Methodi 09:31:49 13:09:[address] 3.430.2.7 Hospit a .3.802899 l .8 2020-01-09 2020-01-09 Outpatient MERVAT, [facility] [id number] 002 [place] 00:00:00 00:00:00 SELENE [address] 2020-01-09 2020-01-09 Outpatient ANDREA [facility] [id number] 1589 [place] 00:00:00 00:00:00 ALBA [address] 2020-01-09 2020-01-09 Telephone Hesham 1.2.840.1 [id number] 2100 125530 Methodi 00:00:00 00:00:[address] C[address] Gtz 28068.1.[address] 3.430.2.7 Hospit a .3.298841 l .8 2020-01-09 2020-01-09 Travel 1.2.840.1 1.2.288.669 8708 539326 Methodi 00:00:00 00:00:[address] 3.430.2.7 0.2.7.3.698 Ho spita .3.840241 084.8 l .8 2020-01-09 2020-01-09 Outpatient MACHELLE MCKEON [facility] 2099 [id number] [place] 00:00:00 00:00:[address] 2019-12-11 2020-01-08 Office [place], 1.2.840.1 [id number] 243092 5623 Methodi 12:32:42 15:56:38 Visit Selene 25008.1.[address] [place] 3.430.2.7 Hospit a .3.478987 l .8 2020-01-06 2020-01-06 Lab Andrea, 1.2.840.1 [id number] 30008 57625 Methodi 09:42:54 09:57:54 Alba Flores 52182.1.[address] 3.430.2.7 Hospit a .3.772675 l .8 2020-01-06 2020-01-06 Outpatient ANDREA [facility] [id number] 1525 [place] 00:00:00 00:00:[address] PETER [address] 2020-01-06 2020-01-06 Travel 1.2.840.1 1.2.136.101 4911 506374 Methodi 00:00:00 00:00:[address] 3.430.2.7 0.2.7.3.698 Ho spita .3.435221 084.8 l .8 2019-12-25 2019-12-25 Outpatient MERVAT [facility] [id number] 851 [place] 00:00:00 00:00:00 SELENE [address] 2019-12-25 2019-12-25 Telephone Riki, 1.2.840.1 [id number] 21 [id number] Methodi 00:00:00 00:00:[address] 3.430.2.7 Hospit a .3.673446 l .8 2019-12-25 2019-12-25 Travel 1.2.840.1 1.2.812.279 0907 330908 Methodi 00:00:00 00:00:[address] 3.430.2.7 0.2.7.3.698 Ho spita .3.179703 084.8 l .8 2019-12-24 2019-12-24 Documentat Solo, 1.2.840.1 [id number] 2 [id number] Methodi 00:00:00 00:00:00 eloy Yuan 45885.1.[address] 3.430.2.7 Hospit a .3.429330 l .8 2019-12-13 2019-12-13 Travel 1.2.840.1 1.2.826.651 5777 885069 Methodi 00:00:00 00:00:[address] 3.430.2.7 0.2.7.3.698 Ho spita .3.339516 084.8 l .8 2019-12-13 2019-12-13 Telephone Machelle Mckeon 1.2.840.1 [id number] 2 [id number] Methodi 00:00:00 00:00:[address] 3.430.2.7 Hospit a .3.119272 l .8 2019-12-12 2019-12-12 Documentat Solo, 1.2.840.1 [id number] 2 [id number] Methodi 00:00:00 00:00:00 eloy Yuan [address]4874.1.[address] 3.430.2.7 Hospit a .3.504939 l .8 2019-12-11 2019-12-11 [id number] [address] [place] [address] 00:00:00 00:00:00 SELENE [address] 2019-12-11 2019-12-11 Outpatient MERVAT [facility] [id number] 374 [place] 00:00:00 00:00:00 SELENE [address] 2019-12-11 2019-12-11 Telephone [place], 1.2.840.1 [id number] 21 [id number] Methodi 00:00:00 00:00:[address] 3.430.2.7 Hospit a .3.502071 l .8 2019-12-11 2019-12-11 Travel 1.2.840.1 1.2.473.710 7748 161227 Methodi 00:00:00 00:00:[address] 3.430.2.7 0.2.7.3.698 Ho spita .3.012472 084.8 l .8 2019-12-03 2019-12-03 Documentat Solo, 1.2.840.1 [id number] 2 [id number] Methodi 00:00:00 00:00:00 ion Lissy 30084.1.[address] 3.430.2.7 Hospit a .3.615539 l .8 2019-11-12 2019-11-12 Documentat Solo, 1.2.840.1 [id number] 2 [id number] Methodi 00:00:00 00:00:00 ion Lissy 22234.1.[address] 3.430.2.7 Hospit a .3.452835 l .8 2019-09-11 2019-09-11 Outpatient MERVAT [facility] [id number] 438 [place] 00:00:00 00:00:00 SELENE [address] 2019-05-29 2019-05-29 Outpatient CHRISTOPHER ARREGUIN MDA MDA 808 [id number] 07:52:47 07:52:47 KATHRIN mario Results Test Description Test Time Test Comments Results Result Comments Source Surgical pathology request 2020-09-07 19:01:19 Test Item Value Reference Range Interpretation Comme nts Case number (test code = [id number]) [id number] Surgical pathology report (test code = See link below for PDF Lab R eport 2252) Result status (test code = 0794523) This is Final Report for [id number] 1610-3 [facility] [id number] 19:49:35 Test Item Value Reference Range Interpretation Comments POC glucose (test code = 57427-4) 96 mg/dL 65-99 [id number] 18:14:00Hayden Cruz CRNA 09/04/2020 1:40 PMAirway Date/Time: 09/04/2020 1:14 PM Location: OR Performed by: JOSE/Emigdio/JOSE/AA: Hayden Cruz CRNAAuthorized by: Surya Cain MD Urgency: ElectiveDifficult Airway: No Preoxygenated with 100% O2: Yes C- spine Precautions Maintained Throughout: No Mask Ventilation: Easy maskFinal Airway Type: Endotracheal airwayFinal Endotracheal Airway:ETTCuffed: Yes Technique Used: Direct laryngoscopyDevices/Methods Used in Placement: Intubating styletInsertion Site: OralBlade Type: MillerLaryngoscope Blade/Videolaryngoscope Blade Size: 2ETT Size (mm): 8.0Cuff at minimum occlusion pressure: Yes Measured from: LipsETT to Lips (cm): 23Placement Verified by: CO2 detection, direct visualization and equal breath sounds Laryngoscopic view: Grade IIa - partial view of glottisRapid Sequence Induction (RSI): No Modified RSI: No Number of Attempts at Approach: [facility] Mid [id number] 17:05:20PROCEDURE: PET CT SKULL BASE TO MID THIGH INDICATION: 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 COMPARISON: CT CAP 06/08/2020 and PET-CT 01/16/2020 TECHNIQUE: Blood glucose measured at the time of injection was 84 mg/dL. The patient was then intravenously injected with 11 mCi of 18F-FDG. Approximately one hour later, PET images were acquired from the skull vertex to the mid thi ghs. Corresponding, low dose, non-contrast CT scanning was performed as part of the attenuation correction process. FINDINGS: Head and neck: No suspicious lesions are identified in the head and neck.Cheney matter metabolism throughout the bilateral cerebral hemispheres and cerebellum is within normallimits. Chest: Previously seen hypermetabolic esophageal mass at the GE junction has improved with no focal FDG uptake discernible from adjacent normal soft tissue with SUV of 1.9 (previous SUV was 5.6). Prior area of mild wall thickening and mild hypermetabolism superior the primary mass has essentially resolved. Remainder of the esophagus demonstrates no evidence of discrete FDG-avid mass lesions.No hypermetabolic paraesophageal or other mediastinal lymph nodes are seen. There is no hilar lymphadenopathy. Lungs remain free of suspicious lesions. Small left pleural effusion has improved now at trace level. Abdomen: The upper exophytic right renal mass in the comparison PET scan has minimally improved in size now measuring 4.6 x 3.8 cm (previously 4.4 x 4.3 cm) but demonstrates significant reduction in FDG uptake with SUV of 3.1 (previous SUV was 6.5). The adjacent right perinephric 3.8 x 3.4 cm lesion demonstrates mild FDG uptake with maximum SUV of 2.7. Previously seen exophytic lesion in the [place] left kidney appears slightly larger measuring 1.4 cm (previously 1.1 cm) and remains ametabolic. No new enlarging or hypermetabolic renal lesions are identified. Remaining intra-abdominal solid organs are unremarkable. No hypermetabolic retroperitoneal or mesenteric lymphadenopathy is seen. Pelvis: Renal graft in the upper left pelvis demonstrates preserved metabolism and excretory function.However the lower left pelvic renal graft appears to demonstrate decreased excretory function. Remainder of the pelvis reveals no suspicious lesions. Musculoskeletal: No worrisome osseous lesions are i dentified. IMPRESSION: 1.Significant interval improvement in previously seen primary esophageal mass centered at the GE junction, compatible with a favorable response to therapy. 2.Prior mild hypermetabolism in the lower esophagus superior to the primary mass has also resolved. 3.Since the prior PET scan there is interval worsening of bilateral renal masses arising from the [place] kidneys howeverthere is reduction in metabolic activity in the right superior lesion. Findings remain suspicious for underlying neoplastic process. Attention on close follow-up imaging is recommended. Biopsy is required for definitive histopathological diagnosis. 4.The lower of 2 transplanted kidneys in the left pelvis appears to demonstrate reduced excretory function. Further workup is recommended. 5.No clear evidence of FDG-avid lesions elsewhere. 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 COMPARISON: CT CAP 06/08/2020 and PET-CT 01/16/2020 TECHNIQUE: Blood glucose measured at the time of injection was 84 mg/dL. The patient was then intravenously injected with 11 mCi of 18F-FDG. Approximatelyone hour later, PET images were acquired from the skull vertex to the mid thighs. Corresponding, lowdose, non-contrast CT scanning was performed as part of the attenuation correction process. FINDINGS: Head and neck: No suspicious lesions are identified in the head and neck. [place] matter metabolism throughout the bilateral cerebral hemispheres and cerebellum is within normal limits. Chest: Previously seen hypermetabolic esophageal mass at the GE junction has improved with no focal FDG uptake discernible from adjacent normal soft tissue with SUV of 1.9 (previous SUV was 5.6). Prior area of mild wall thickening and mild hypermetabolism superior the primary mass has essentially resolved. Remainder of the esophagus demonstrates no evidence of discrete FDG-avid mass lesions. No hypermetabolic paraesophageal or other mediastinal lymph nodes are seen. There is no hilar lymphadenopathy. Lungs remain free of suspicious lesions. Small left pleural effusion has improved now at trace level. Abdomen: The upper exophytic right renal mass in the comparison PET scan has minimally improved in size now measuring 4.6 x 3.8 cm (previously 4.4 x 4.3 cm) but demonstrates significant reduction in FDG uptake with SUV of 3.1 (previous SUV was 6.5). The adjacent right perinephric 3.8 x 3.4 cm lesion demonstrates mild FDG uptake with maximum SUV of 2.7. Previously seen exophytic lesion in the [place] left kidney appears slightly larger measuring 1.4 cm (previously 1.1 cm) and remains ametabolic. No new enlarging orhypermetabolic renal lesions are identified. Remaining intra- abdominal solid organs are unremarkable. No hypermetabolic retroperitoneal or mesenteric lymphadenopathy is seen. Pelvis: Renal graft in theupper left pelvis demonstrates preserved metabolism and excretory function. However the lower left pelvic renal graft appears to demonstrate decreased excretory function. Remainder of the pelvis reveals no suspicious lesions. Musculoskeletal: No worrisome osseous lesions are identified. IMPRESSION: 1.Significant interval improvement in previously seen primary esophageal mass centered at the GE sherry ction, compatible with a favorable response to therapy.2.Prior mild hypermetabolism in the lower esophagus superior to the primary mass has also resolved.3.Since the prior PET scan there is interval worsening of bilateral renal masses arising from the [place] kidneys however there is reduction in metabolic activity in the right superior lesion. Findings remain suspicious for underlying neoplastic process. Attention on close follow-up imaging is recommended. Biopsy is required for definitive histopathological diagnosis.4.The lower of 2 transplanted kidneys in the left pelvis appears to demonstrate red uced excretory function. Further workup is recommended.5.No clear evidence of FDG-avid lesions elsewhere. [facility]-[id number] HospitalCOVID-19 qualitative [id number] 00:25:51 Test Item Value Reference Range Interpretation Comments Interpretation (test code = 4252453) COVID-19 qualitative RT-PCR Not-Detected Not-Detected result (test code = 50291-0) COVID-19 qualitative RT-PCR See link below for (test code = 7070) PDF Lab Report Jain CydipmrlVCUR-OeD-2 (COVID-19) RNA [Presence] in Respiratory specimen by JAYMIE with probe [id number] 19:25:21 Test Item Value Reference Range Interpretation Comments SARS-CoV-2 (COVID-19) RNA Not detected Not-Detected [Presence] in Respiratory specimen by JAYMIE with probe detection (test code = 36053-0) Whether patient is employed in a healthcare setting (test code = 48804-7) Whether the patient has symptoms related to condition of interest (test code = 04162-8) Patient was hospitalized because of this condition (test code = 75526-3) Whether the patient was admitted to intensive care unit (ICU) for condition of interest (test code = 02187-5) Whether patient resides in a congregate care setting (test code = 52556-8) Us duplex venous lower [id number] 03:22:00 Vascular Ultrasound Laboratory Lower Extremity Venous Report [id number] [address] Pat.Name: EUGENIA OH Pat.ID: [id number] .Date: 06/08/2020 Refer.MD: JT SULLIVAN MD. Exam Time: 11:11:00 AM Study Type:LE Venous Height: 69in Age: 3 1955,64Y Sex: MALE Sonogrphr: DANI Nguyen. Stat.:Outpatient Room: [facility] 16 Tape Vol: RF, CPT - 4: 38640 Echo Event ID:[id number] Order ID: [id number] Reason for Study:Bilateral leg swelling and pain. History of PE, DVT,gastic cancer with recent chemotherapy.Procedures: Colorflow, Grayscale/2D, Power Doppler ImagingRace: C SUMMARY: Deep Veins Superficial Veins* Normal Reflux Criteria: < 1 second * Normal RefluxCriteria: < 0.5 seconds * Abnormal Reflux Criteria: > or equal to 1 second * Abnormal RefluxCriteria: > or equal to 0.5 seconds DUPLEX SCAN OBSERVATIONS Deep Veins Superficial Veins Right Left Right Left GSV (prox) Normal NormalCFV Partial Partial (above knee)Femoral Obstructed Partial GSV (dist) Normal NormalProfunda Normal Obstructed (below knee)Popliteal Obstructed PartialPT (prox) Obstructed Obstructed SSV Normal NormalPT (dist) Obstructed Obstructed Peroneal Obstructed Obstructed Gastrocs Obstructed NormalRIGHT: The common femoral vein is dilated and partially compressiblewith echogenic material within the lumen and colorflow and Doppler arepresent. The femoral, popliteal, gastrocnemius, posterior tibial andperoenal veins are non- compressible with echogenic material fillingthe lumen and colorflow and Doppler signals are absent. There isnormal compressibility of the greater and lesser saphenous veins. LEFT: The common femoral, femoral, popliteal vein is dilated andpartially compressiblewith echogenic material within the lumen andcolorflow and Doppler are present. The profunda femoris, posteriortibial and peroneal veins are non-compressible with echogenic materialfilling the lumen and colorflow and Doppler signals are absent. Thereis normal compressibility with colorflow and Doppler signals presentin the remaining visualized veins. PRELIMINARY FINDINGS:1. Partial acute deep venousthrombosis of the common femoral vein,bilaterally.2. Total acute deep venous thrombosis of the right femoral andpopliteal vein. 3. Partial acute deep venous thrombosis of the left femoral andpopliteal vein. 4. Total acute deep venous thrombosis of the left profunda femorisvein.5. Total deep venous thrombosis of the posterior tibial and peronealveins, bilaterally.6. Total venous thrombosis of the right gastrocnemius veins. Verbal results given to Joi @ 12:10 pm on 06/08/2020.PHYSICIAN INTERPRETATION: Venous examination of the both lower extremities demonstratedbilateral acute extensive venous thrombosis . FINDINGS: --Signed 06/08/2020 10:22 PMSilvestre Ly MD, RPVIInterface, Radiology Results In - 06/08/2020 10:23 PM CDT Vascular Ultrasound Laboratory Lower Extremity Venous Report [id number] [place] [address] Pat.Name: EUGENIA OH Pat.ID: [id number] .Date: 06/08/2020 Refer.MD: JT SULLIVAN MD. Exam Time: 11:11:00 AM Study Type:LE Venous Height: 69in Age: 3 1955,64Y Sex: MALE Sonogrphr: Kell Anthony RVT Pat. Stat.:Outpatient Room: [facility] 16 Tape Vol: RF, CPT - 4: 22442 Echo Event ID:[id number] Order ID: [id number] Reason for Study:Bilateral leg swelling and pain. History of PE, DVT,gastic cancer with recent chemotherapy.Procedures: Colorflow, Grayscale/2D, Power Doppler ImagingRace: C SUMMARY: Deep Veins Superficial Veins* Normal Reflux Criteria: < 1 second * Normal RefluxCriteria: < 0.5 seconds * Abnormal Reflux Criteria: > or equalto 1 second * Abnormal RefluxCriteria: > or equal to 0.5 seconds DUPLEX SCAN OBSERVATIONS Deep Veins Superficial Veins Right Left Right Left GSV (prox) Normal NormalCFV Partial Partial (above knee)Femoral Obstructed Partial GSV (dist) Normal NormalProfunda Normal Obstructed (below knee)Popliteal Obstructed PartialPT (prox) Obstructed Obstructed SSV Normal NormalPT (dist) Obstructed Obstructed Peroneal Obstructed Obstructed Gastrocs Obstructed NormalRIGHT: The common femoral vein is dilated and partially compressiblewith echogenic material within the lumen and colorflow and Doppler arepresent. The femoral, popliteal, gastrocnemius, posterior tibial andperoenal veins are non-compressible with echogenic material fillingthe lumen and colorflow and Doppler signals are absent. There isnormal compressibility of the greater and lesser saphenous veins. LEFT: The common femoral, femoral, popliteal vein is dilated andpartially compressible with echogenic material within the lumen andcolorflow and Doppler are present. The profunda femoris, posteriortibial and peroneal veins are non-compressible with echogenic materialfilling the lumen and colorflow and Doppler signals are absent. Thereis normal compressibility with colorflow and Doppler signals presentin the remaining visualized veins. PRELIMINARY FINDINGS:1. Partial acute deep venous thrombosis of the common femoral vein,bilaterally.2. Total acute deep venous thrombosis of the right femoral andpopliteal vein. 3. Partial acute deep venous thrombosis of the left femoral andpopliteal vein. 4. Total acute deep venous thrombosis of the left profunda femorisvein.5. Total deep venous thrombosis of the posterior tibial and peronealveins, bilaterally.6. Total venous thrombosis of the right gastrocnemius veins. Verbal results given toDaysha @ 12:10 pm on 06/08/2020.PHYSICIAN INTERPRETATION: Venous examination of the both lower extremi ties demonstratedbilateral acute extensive venous thrombosis . FI NDINGS: Signed 06/08/2020 10:22 Jlaeel Ly MD, [facility] Chest W Contrast Abdomen W Contrast Pelvis W [id number] 20:10:07EXAMINATION: CT CHEST W CONTRAST ABDOMEN W CONTRAST PELVIS W CONTRAST CLINICAL HISTORY: C16.9 Malignant neoplasm of stomach unspecified, gastric cancer TECHNIQUE: Multiple axial images of the chest, abdomen, and pelvis were acquired after the administration of intravenous iodinated contrast. CT imaging was performed with iterative reconstruction technique and/or automated exposure control to reduce radiation dose. COMPARISON: April 03, 2020 FINDINGS: CHEST:Lungs and airways: No acute airspacedisease or suspicious pulmonary nodules. Atelectasis is present in the lung bases.Pleura: New small left pleural effusion.Mediastinum and lymph nodes: No suspicious intrathoracic lymphadenopathy. Cardiovascular: Port right chest wall with catheter tip terminating in the lower SVC. Mild coronary artery, aortic, and mitral annular calcifications. Small pericardial effusion. Subtle pericardial enhancement. Tiny calcification involving the anterior right pericardium. ABDOMEN:Liver: There is mild periportal edema. A few subcentimeter hepatic hypodensities appear similar to the prior exam are too small to evaluate.Gallbladder: The gallbladder is underdistended, limiting evaluation. Stones are present.Spleen: The spleen is not enlarged.Pancreas: Partial pancreatic atrophy. Two right lower quadrant pancreatic transplants are in place.Adrenal Glands: The adrenal glands are unremarkable.Kidneys: The [place] kidneys are markedly atrophic. The right upper pole renal lesion has decreased in density compared to the prior exam, although slightly increased in size, now 5.2 x 5.4 cm, previously 4.8 x 5.2 cm. Previously enhancing right lower pole lesion has decreased in size, now 1.7 cm (previously 2.2 cm). Right perinephric hematoma has decreased in size compared to outside exam from 04/06/2020. A left pelvic renal transplant is in place and contains innumerable cysts. There appears to be thrombus extending into the transplant vein, new from the prior exam. An additional left lower quadrant transplant shows subtle pelviectasis but is otherwise normal in appearance.Vascular: Mild aortic and branch vessel calc ifications. An IVC filter is in place, with moderate thrombus within the IVC and extending into the iliac veins bilaterally.Nodes: No enlarged retroperitoneal or mesenteric lymphadenopathy.Bowel: Wall thickening near the gastroesophageal junction, slightly decreased in bulk compared to the prior examination (the irregularity makes measurement difficult). Poor evaluation of individual loops of bowel due to surrounding ascites. No evidence of high-grade bowel obstruction there are numerous colonic diverticula.Ascites/fluid collections: Scattered stranding and small ascites throughout the abdomen and pelvis. PELVIS:Free fluid layers into the pelvis. MUSCULOSKELETAL: Mild anasarca. Tiny left ventral h ernia containing fat and fluid. Scarring over the anterior abdominal wall. Scattered degenerative osseous changes. Mild bilateral gynecomastia. IMPRESSION: 1.Slightly decreased wall thickening near the gastroesophageal junction.2.New small left pleural effusion.3.Small pericardial effusion. There is now subtle pericardial enhancement. Recommend clinical correlation for pericarditis.4.Redemonstrationof multiple suspicious renal masses. The largest right upper pole lesion has decreased in density compared to the prior exam, possibly indicating necrosis. A right lower pole lesion has decreased in siz e.5.Decreased right perinephric hematoma compared to the outside exam from .An IVC filter has been placed. There is extensive clot within the IVC inferior to the filter, extending into both iliac veins, and now extending into the vein of the lower left pelvic kidney transplant (this appears to be the nonfunctional transplant).7.Additional chronic and incidental findings as detailed above. [id number] Interface, Radiology Results Incoming - 06/08/2020 3:13 PM CDT EXAMINATION: CT CHEST W CONTRAST ABDOMEN W CONTRAST PELVIS W C ONTRASTCLINICAL HISTORY: C16.9 Malignant neoplasm of stomach unspecified, gastric cancerTECHNIQUE: Multiple axial images of the chest, abdomen, and pelvis were acquired after the administration of intravenous iodinated contrast. CT imaging was performed with iterative reconstruction technique and/or automated exposure control to reduce radiation dose.COMPARISON: April 03, 2020FINDINGS:CHEST:Lungs and airways: No acute airspace disease or suspicious pulmonary nodules. Atelectasis is present in the lung bases.Pleura: New small left pleural effusion.Mediastinum and lymph nodes: No suspicious intrathoracic lymphadenopathy. Cardiovascular: Port right chest wall with catheter tip terminating in the lower SVC. Mild coronary artery, aortic, and mitral annular calcifications. Small pericardial effusion. Subtle pericardial enhancement. Tiny calcification involving the anterior right pericardium.ABDOMEN:Liver: There is mild periportal edema. A few subcentimeter hepatic hypodensities appear similar to the prior exam are too small to evaluate.Gallbladder: The gallbladder is underdistended, limiting evaluation. Stones are present.Spleen: The spleen is not enlarged.Pancreas: Partial pancreatic atrophy. Two right lower quadrant pancreatic transplants are in place.Adrenal Glands: The adrenal glands are unremarkable.Kidneys: The [place] kidneys are markedly atrophic. The right upper pole renal lesion has decreased in density compared to the prior exam, although slightly increased in size, now 5.2 x 5.4cm, previously 4.8 x 5.2 cm. Previously enhancing right lower pole lesion has decreased in size, now1.7 cm (previously 2.2 cm). Right perinephric hematoma has decreased in size compared to outside exam from 04/06/2020. A left pelvic renal transplant is in place and contains innumerable cysts. There appears to be thrombus extending into the transplant vein, new from the prior exam. An additional left lower quadrant transplant shows subtle pelviectasis but is otherwise normal in appearance.Vascular: Mild aortic and branch vessel calcifications. An IVC filter is in place, with moderate thrombus withinthe IVC and extending into the iliac veins bilaterally.Nodes: No enlarged retroperitoneal or mesenteric lymphadenopathy.Bowel: Wall thickening near the gastroesophageal junction, slightly decreased in bulk compared to the prior examination (the irregularity makes measurement difficult). Poor evaluation of individual loops of bowel due to surrounding ascites. No evidence of high-grade bowel obstruction there are numerous colonic diverticula.Ascites/fluid collections: Scattered stranding and small ascites throughout the abdomen and pelvis.PELVIS:Free fluid layers into the pelvis. MUSCULOSKELETAL: Mild anasarca. Tiny left ventral hernia containing fat and fluid. Scarring over the anterior abdominal wall. Scattered degenerative osseous changes. Mild bilateral gynecomastia.IMPRESSION:1.Slightly decreased wall thickening near the gastroesophageal junction.2.New small left pleural effusion.3.Small pericardial effusion. There is now subtle pericardial enhancement. Recommend clinical correlation for pericarditis.4.Redemonstration of multiple suspicious renal masses. The largest right upper pole lesion has decreased in density compared to the prior exam, possibly indicating necrosis. A right lower polelesion has decreased in size.5.Decreased right perinephric hematoma compared to the outside exam from .An IVC filter has been placed. There is extensive clot within the IVC inferior to the filter, extending into both iliac veins, and now extending into the vein of the lower left pelvic kidney transplant (this appears to be the nonfunctional transplant).7.Additional chronic and incidental findings as detailed above.[id number]jbjryV-[id number] 16:53:00 Test Item Value Reference Range Interpretation Comments D-dimer (test code = See_Comment H [Autom ated message] 53597-2) The system [employer] generated this result transmitted ref erence range: 0.00 - 0 .49 mg/L FEU. The reference range was not used to int erpret this result as normal/abnormal . NAYELI (test code = NAYELI) Lab Interpretation (test Abnormal code = 73784-1) [facility]apolisedimentation [id number] 16:53:00 Test Item Value Reference Range Interpretation Comments Sedimentation rate (test See_Comment [A utomated message] code = 4537-7) The system [employer] generated this result transmitted ref erence range: 0 - 30 m m/hr. The reference r adriano was not used to int erpret this result as normal/abnormal . NAYELI (test code = NAYELI) [facility] CenterCarcinoembryonic antigen (CEA)2020-05-30 12:09:00 Test Item Value Reference Range Interpretation Comments CEA (test code = 2039-6) 8.0 ng/mL 0.0-4.7 H NAYELI (test code = NAYELI) Lab Interpretation (test code = Abnormal 29345-7) [facility] CenterGastrointestinal [id number] 02:30:06 Test Item Value Reference Range Interpretation Comments Adenovirus 40/41 PCR (test code Not Detected = 0810) Astrovirus PCR (test code = Not Detected 2937) Campylobacter PCR (test code = Not Detected 1114) Clostridioides difficile PCR Not Detected (test code = 7115) Cryptosporidium PCR (test code = Not Detected 7116) Cyclospora cayetanensis PCR Not Detected (test code = 7117) Enteroaggregative E coli PCR Not Detected (test code = 4784) Entamoeba histolytica PCR (test Not Detected code = 7118) Enteroinvasive E coli PCR (test Not Detected code = 4788) Enteropathogenic E coli PCR Not Detected (test code = 4785) Norovirus PCR (test code = 7119) Not Detected Plesiomonas shigelloides PCR Not Detected (test code = 4782) Rotavirus PCR (test code = Not Detected 6541838) Salmonella PCR (test code = Not Detected 4783) Sapovirus PCR (test code = 4791) Not Detected Enterotoxigenic E coli PCR (test Detected A code = 4786) Shigatoxin producing E coli PCR Not Detected (test code = 4787) E coli O157 PCR (test code = Not Reported 7120) Vibrio PCR (test code = 7121) Not Detected Vibrio cholerae PCR (test code = Not Detected 7122) Yersinia enterocolitica PCR Not Detected (test code = 7123) Giardia lamblia PCR (test code = Not Detected 7124) Lab Interpretation (test code = Abnormal 85701-4) [facility] IVC Filter [id number] 19:20:28Performing RadiologistDawit Tolbert MD AssistantsNone Anesthesia TypeLidocaine 1% was used for local anesthetic. Moderate sedation was administered by the procedure nurse and monitored intraservice by the procedure physician for a total akqc-wr-zhwi sedation time of 11 minutes. Indication Deep venous thrombosis, contraindication to medical anticoagulation therapy. Procedure1. Inferior vena cavogram2. Placement of a retrievable inferior vena cava filter TechniqueWritten informed consent was obtained [...] 0.018 inch guidewire was advanced centrally under fluoroscopy.The needle was removed, and a micropuncture sheath system was then placed over the guidewire. Under u ltrasound guidance, documentation of vessel patency, needle access with permanent recording, and reporting are performed followed by placement of a sheath in the right internal jugular vein. The inner dilator and guidewire were then removed, and a 0.035 inch wire was advanced through the micropuncturesheath and into the inferior vena cava under fluoroscopy. The micropuncture sheath was removed and a5-Honduran pigtail catheter was then placed over the guidewire and advanced into the left common iliacvein near the low inferior vena cava. An inferior vena cavagram was then performed with injection ofcontrast. Exchange was then made for the delivery [...] mL Blood/Blood Products AdministeredNone Grafts/ImplantsAs described in the above report Impression: 1. An initial inferior venacavogram demonstrates a normal caliber inferior vena cava. There is no caval thrombus. Inflow from the left common iliac vein and left and right renal veins is noted. 2. Successful placement of a Celect retrievable inferior vena cava filter within the infrarenal inferior vena cava. A completion inferior vena cavogram demonstrates all legs of the filter to be completely deployed with no complications. [facility]- [id number] Interface, Radiology Results Incoming - 04/08/2020 1:23 PM CSTFormatting of thisnote might be different from the original.Performing RadiologistDawit Tolbert MD AssistantsNone Anesthesia TypeLidocaine 1% was used for local anesthetic. Moderate sedation was administered by the procedure nurse and monitored intraservice by the procedure physician for a total lssv-mx-qhit sedation time of 11 minutes.Indication Deep venous thrombosis, contraindication to medical anticoagulation therapy.Procedure1. Inferior vena cavogram 2. Placement of a retrievable inferior vena cava filter TechniqueWritten informed consent was obtained prior to the procedure. All elements of maximal sterile barrier technique were followed. The patient's right neck was sterilely prepared and draped in the routine manner. Lidocaine 1% was used for local anesthetic. Using real-time ultrasound guidance, a 21-gaugemicropuncture needle was used to access the right [...] The micropuncture sheath was removed and a 5-Honduran pigtail catheter was then placed over the guidewire and advanced into the left common iliac vein near the low inferior vena cava. An inferior vena cavagramwas then performed with injection of contrast. Exchange was then made for the delivery system for Celect retrievable inferior vena cava filter. Using the filter deployment device, the Celect filter wasadvanced, positioned, and deployed within the infrarenal inferior vena cava. A completion inferior ca vagram was then performed through the delivery sheath of the Celect filter. The delivery sheath was removed and hemostasis was achieved with manual compression. The patient tolerated the procedure well. Radiation DoseKa,r = 105 mGy ComplicationsNone Specimens RemovedNone Estimated Blood LossLess than 1 mL Blood/Blood Products AdministeredNone Grafts/ImplantsAs described in the above report Impression: 1. An initial inferior vena cavogram demonstrates a normal caliber inferior vena cava. There is nocaval thrombus. Inflow from the left common iliac vein and left and right renal veins is noted. 2. Successful placement of a Celect retrievable inferior vena cava filter within the infrarenal inferior vena cava. A completion inferior vena cavogram demonstrates all legs of the filter to be completely deployed with no complications. [facility]-[id number] HospitalCT Abd/Pelvic External [id number] 14:38:37 This exam was not acquired at a Jain facility and has not been interpreted by a Jain Provider. The exam was imported into our imaging system. [facility] 12 [id number] 04:53:46 Test Item Value Reference Range Interpretation Comments Ventricular rate (test code = 253) Atrial rate (test code = 255) LA interval (test code = 266) QRSD interval (test code = 260) QT interval (test code = 264) QTC interval (test code = 265) P axis 1 (test code = 267) QRS axis 1 (test code = 268) T wave axis (test code = 270) EKG impression (test code = 273) [facility]ain JbdayxcdWQEC-PiO-6 (COVID-19) RNA [Presence] in Respiratory specimen by JAYMIE with probe [id number] 01:13:22 Test Item Value Reference Range Interpretation Comments SARS-CoV-2 (COVID-19) RNA Not detected Not-Detected [Presence] in Respiratory specimen by JAYMIE with probe detection (test code = 54074-2) XR Chest 1 Vw [id number] 23:06:33 Examination: XR CHEST 1 VW PORTABLE Clinical history: Shortness of breath R retroperitoneal bleed Comparison: 02/25/2020 IMPRESSION: Bilateral mild atelectasis and/or infiltrates have developed. Indwelling support devices/catheters appear generally stable in position. No pneumothoraces are identified. There are no apparent pleural effusions. The cardiomediastinal silhouette and the remainder of the chest appear essentially unchanged. [id number] Hm Interface, Radiology Results 04/06/2020 5:09 PM CST Examination: XR CHEST 1 VW PORTABLEClinical history: Shortness of breath R retroperitoneal bleedComparison: 02/25/2020IMPRESSION: Bilateral mild atelectasis and/or infiltrates have developed. Indwelling support devices/catheters appear generally stable in position. No pneumothoraces are identified. There are no apparent pleural effusions.The cardiomediastinal silhouette and the remainder of the chest appear essentially unchanged.[id number] HospitalIR Port Placement 2020-03-05 23:16:39Performing RadiologistRoluly Wilkerson MD AssistantsNone Anesthesia TypeModerate sedation was administered by the procedure nurse and monitored by the procedure physician for a ohyn-dy-uctr sedation time of33 minutes. Lidocaine 1% and lidocaine 1% mixed with epinephrine were used for local anesthetic. Pre Procedure Kwgthwkcf88-qyyj-zjq male with gastric cancer and need for chemotherapy Post Procedure DiagnosisStatus post subcutaneous right chest port placement. ProcedureSubcutaneous right chest port placement. TechniqueWritten informed consent was obtained prior to [...] and blunt dissection. A tunnel was made betweenthe pocket and the venotomy site, through which the 6.6-Honduran port catheter was placed. The venotomy was sequentially dilated to accept an 7-Honduran peel-away sheath, through which the leading edge [...] incision was closed using Steri-Strips. The port wasaccessed and found to flush and aspirate freely. A post placement fluoroscopic imaging of the chest was then obtained. There were no complications. Radiation DoseKa,r = 14 mGy ComplicationsNone. Specimens RemovedNone. Estimated Blood LossLess than 2 mL. Blood/Blood Products AdministeredNone. Grafts/ImplantsAs described in the above report. Impression: Successful fluoroscopic-guided placement ofa subcutaneous right chest port via the right internal jugular vein. The catheter tip lies at the right atrium/superior vena cava junction and is ready for use. [facility]-[id number] Interface, Radiology Results Incoming - 03/05/2020 5:19 PM CST Performing RadiologistRodenitat Rock TORRES AssistantsNone Anesthesia TypeModerate sedation was administeredby the procedure nurse and monitored by the procedure physician for a skza-ck-jwvy sedation time of 33 minutes. Lidocaine 1% and lidocaine 1% mixed with epinephrine were used for local anesthetic. Pre Procedure [id number] male with gastric cancer and need for chemotherapy Post Procedure Diagn osisStatus post subcutaneous right chest port placement. ProcedureSubcutaneous right chest port placement. TechniqueWritten informed consent was obtained prior to the procedure. All elements of maximalsterile barrier technique were followed. Using ultrasound guidance, [...] and the venotomy site, through which the 6.6-Honduran port catheter was placed. The venotomy wassequentially dilated to accept an 7-Honduran peel-away sheath, through which the leading edge of the catheter was advanced under fluoroscopic guidance. The trailing end of the catheter was trimmed to theappropriate length and attached to a low profile [...] The catheter tip lies at the right atrium/flowers perior vena cava junction and is ready for use. 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 Lungs are clear. Pleural margins are sharp. Otherwisestable cardiomediastinal silhouette. The remainder of the examination is unchanged. [facility]-[id number] Interface, Radiology Results Incoming - 02/25/2020 1:09 PM CST EXAMINATION: XR PICC CHEST PORTABLECLINICAL HISTORY: C16.0 Malignant neoplasm of cardia, ChemotherapyCOMPARISON: Chest x-ray 10/23/2019IMPRESSION: Single frontal view reveals interval placement right-sided PICC line with tip overlying the SVC. Lungs are clear. Pleural margins are sharp. Otherwise stable cardiomediastinal silhouette. The remainder of the examination is unchanged.[facility]-[id number] [facility] [id number] 14:25:00Washington Ventura RN 02/25/2020 12:41 PMPICC insertion Date/Time: 02/25/2020 12:37 PMPerformed by: Washington Ventura, RNAuthorized by: Jt Sullivan MD Consent: Consent obtained: Verbal Consent given by: Patient Risks discussed: Arterial puncture, incorrect placement, nerve damage, bleeding, infection, superficial thrombus and deep vein thrombus Alternatives discussed: Alternative treatm entUniversal protocol: Procedure explained and questions answered to [...] identification numberPre-procedure details: Hand hygiene: Hand hygiene performed prior [...] Catheter Length (cm): 40 Catheter Lot Number: [id number] details: Landmarks identified: yes Ultrasound guidance: yes [...] Loss Amount: Less than 20 mLPost-procedure details: Post- procedure: Dressing applied Tip placement confirmed by: X-Ray Patient tolerance of procedure: Tolerated well, no immediate complicationsMethodiAlta View HospitalI Brain W Wo [id number] 20:29:12EXAMINATION: MRI BRAIN W WO CONTRAST CLINICAL HISTORY: 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 FINDINGS: A few scattered T2/FLAIR hyperintensities are noted throughout the bifrontal subcortical white matter, nonspecific but likely related to minimal chronic microvascular ischemic changes. No restricted diffusion identified to indicate recent infarct. No susceptibility identified to suggest hemosiderin deposition from prior hemorrhage.No intra or extra-axial fluid collections identified. No mass, mass effect, or midline shift is seen. The basal ganglia, thalami, midbrain, dafne and cervicomedullary junction are unremarkable. The ventricles and sulci are unremarkable for patient's age. Sella turcica is normal in appearance. The basal cisterns are patent. The calvarium appears intact. The major intracranial vascular flow voids are present. No abnormal parenchymal or meningeal enhancement identified. Prior cataract lens extractionsare noted bilaterally. The paranasal sinuses are unremarkable. The mastoid air cells and middle ear cavities are clear. IMPRESSION: No intracranial metastatic disease or acute abnormality identified. [facility]- [id number] Interface, Radiology Results - 01/28/2020 2:32 PM CST EXAMINATION: MRI BRAIN W WO CONTRASTCLINICAL HISTORY: C15.9 Malignant neoplasm of esophagus unspecified, esophageal cancerCOMPARISON: CT head 01/16/2020TECHNIQUE: Multiplanar and multisequence MRI imaging of the brain was obtained with and without contrast.FINDINGS:A few scattered T2/FLAIR hyperintensities are noted throughout the bifrontal subcortical white matter, nonspecific but likely related to minimal chronic microvascular ischemic changes. No restricted diffusion identified to indicate recent infarct. No susceptibility identified to suggest hemosiderin deposition from prior hemorrhage. No intra or extra-axial fluid collections identified. No mass,mass effect, or midline shift is seen.The basal [...] clear.IMPRESSION:No intracranial metastatic disease or acute abnormality identified.[facility]-[id number] HospitalCT Head Wo [id number] 23:51:09EXAMINATION: CT HEAD WO CONTRAST CLINICAL HISTORY: R51.9 Headache unspecified, headache for a few months. COMPARISON: None. TECHNIQUE: Noncontrast head CT performed using radiation dose reduction techniques. Technical factors are evaluated and adjusted to ensure appropriate moderation of exposure. Automated dose management technology is applied to adjust radiation exposure while achieving a diagnostic quality image. FINDINGS: No evidence of acute intracranial hemorrhage, mass, mass effect, midline shift, or acute infarct. Ventricles and sulci are normal in appearance for patient's age. Ba maria e cisterns are clear. Mild chronic microvascular ischemic change. Intracranial vascular calcifications are present. Calvarium is intact. Bilateral lens extractions. Mild scattered paranasal sinus mucosal thickening. Mastoid air cells are clear. IMPRESSION: 1. No CT evidence of acute intracranial abno rmality. [id number] Interface, Radiology Results [facility] - 01/16/2020 5:54 PM CST EXAMINATION: CT HEAD WO CONTRASTCLINICAL HISTORY:R51.9 Headache unspecified, headache for a few months.COMPARISON: None.TECHNIQUE: Noncontrast head CT performed using radiation dose reduction techniques. Technical factors are evaluated and adjusted to ensure appropriate moderation of exposure. Automated dose management technology is applied to adjust radiation exposure while achieving a diagnostic quality image. FINDINGS:No evidence of acute i ntracranial hemorrhage, mass, mass effect, midline shift, or acute infarct. Ventricles and sulci arenormal in appearance for patient's age. Basal cisterns are clear. Mild chronic microvascular ischemic change. Intracranial vascular calcifications are present. Calvarium is intact.Bilateral lens extractions. Mild scattered paranasal sinus mucosal thickening. Mastoid air cells are clear. IMPRESSION:1.No CT evidence of acute intracranial abnormality.[id number] [facility] RNA [Presence] in Respiratory specimen by JAYMIE with probe [id number] 16:30:07 Test Item Value Reference Range Interpretation Comments SARS-CoV-2 (COVID-19) RNA Not detected Not-Detected [Presence] in Respiratory specimen by JAYMIE with probe detection (test code = 78478-3)
[2020-11-04 11:31] LABS: Absolute Lymphocytes (CBC) 0.3 K/uL (0.7-4.9); Basophils % 0.3 % (0-1.3); Hematocrit 48.3 % (39.6-49.0); Lymphocytes % 2.9 % (15.3-44.8)
[2020-11-04 11:54] LABS: Protime INR 1.39
--- NOTE | 2020-11-04 12:22 | RAD REPORT ---
EXAM DESCRIPTION: RAD - Chest Single View - 11/04/2020 11:47 am CLINICAL HISTORY: sepsis protocol COMPARISON: April 22, 2020 TECHNIQUE: AP portable chest image was obtained 11/04/2020 11:47 am . FINDINGS: No acute right lung parenchymal finding identifiable. Left base is more difficult to asses s. Lung volumes are low which accentuates the lung markings. There is also left hemidiaphragm elevati on. Patchy pneumonia of the left base cannot be excluded. No failure or volume overload findings. Right-sided Port-A-Cath remains in place. Heart and vasculatu re are normal. No measurable pleural effusion and no pneumothorax. No acute bony abnormality seen. No acute aortic findings suspected. IMPRESSION: Left base patchy parenchymal opacification is present. This may be artifact of shallow i nspiration. However, an early left base pneumonia cannot be excluded in this patient with suspected s epsis.
[2020-11-04] MEDS ORDERED: NA CHLORIDE 0.9% 2,000 ML ONE (12:31)
[2020-11-04] MEDS ORDERED: PANTOPRAZOLE 40 MG INJ ONE (12:31)
[2020-11-04] MEDS ORDERED: Meropenem 1 GM/100 ML BAG ONE (12:31)
[2020-11-04] MEDS ORDERED: CEFTRIAXONE/SWI 1gm 1 GM/10 ML SYR ONE (12:33)
[2020-11-04 12:36] LABS: ALT/SGPT 13 U/L (12-78); AST/SGOT 24 U/L (15-37); Albumin 2.8 g/dL (3.4-5.0); Alkaline Phosphatase 113 U/L (45-117); BUN Blood Urea Nitrogen 51 mg/dL (7-18); Bicarbonate 16 mmol/L (21-32); Bilirubin Direct 0.4 mg/dL (0-0.2); Glucose Level 248 mg/dL (74-106); Magnesium 3.1 mg/dL (1.8-2.4); NT PRO-BNP 4701 pg/mL (<125); Potassium 4.1 mmol/L (3.5-5.1); Protein, Total 7.8 g/dL (6.4-8.2); Sodium Level 137 mmol/L (136-145); Troponin (Emerg Dept Use Only) < 0.02 ng/mL (0.0-0.045)
[2020-11-04] MEDS ORDERED: PANTOPRAZOLE INJ 80 MG in NA CHLORIDE 0.9% 250 ML IV SCH (13:00)
--- NOTE | 2020-11-04 13:07 | ER ---
Nurse's Notes [facility] Name: Bulmaro Ann Age: 65 yrs Sex: Male : 1955 Arrival Date: 11/04/2020 Time: 10:38 Bed 4 Private MD: Diagnosis: GI Bleed/ Gastrointestinal hemorrhage, unspecified-upper, massive;Hypotension, unspecified;Acute respiratory failure;Cardiac arrest due to other underlying condition- gi bleed, respiratory arrest Presentation: 11/04 10:39 Chief complaint: EMS states: Found on ground at home with dark emesis around mouth. Pt ss is receiving chemo treatment for esophageal CA. Appears lethargic. C/o pain to low back and neck. Coronavirus screen: Client denies travel out of the [place] in the last 14 days. Ebola Screen: Patient denies exposure to infectious person. Patient denies travel to an Ebola-affected area in the 21 days before illness onset. Initial Sepsis Screen: Does the patient meet any 2 criteria? RR > 20 per min. HR > 90 bpm. Does the patient have a suspected source of infection? No. Patient's initial sepsis screen is negative. Risk Assessment: Do you want to hurt yourself or someone else? Patient reports no desire to harm self or others. Onset of symptoms is unknown. 10:39 Acuity: KELLY 2 ss 10:39 Method Of Arrival: EMS: [facility] ss Historical: - Allergies: 10:42 No Known Allergies; ss - PMHx: 10:42 stomach cancer/on going chemo treatment; ss - Immunization history:: Client reports receiving the 2nd dose of the Covid vaccine. - Family history:: not pertinent. - Social history:: Smoking status: unknown. Screenin:15 Abuse screen: Denies threats or abuse. Denies injuries from another. Nutritional bp screening: PEG IN PLACE. Tuberculosis screening: No symptoms or risk factors identified. Fall Risk None identified. Assessment: 10:39 General: Appears distressed, uncomfortable, ill, slender, Behavior is calm, quiet, ss Reports feeling ill for 1-2 days, fatigue for 1-2 days. 10:39 General: Appears cachectic. Pain: Complains of pain in neck, lower back Pain currently ss is 8 out of 10 on a pain scale. Quality of pain is described as aching, tender. Neuro: Level of Consciousness is awake, lethargic, Oriented to person, place, situation, Electric Repair Supervisor are weak bilaterally Speech voice is weak, patient is having difficulty speaking.. Reports generalized weakness. . Cardiovascular: Pulses are palpable in right radial artery and left radial artery Edema is absent. Respiratory: Trachea midline Respiratory effort is even, unlabored, Breath sounds with rhonchi bilaterally. GI: Abdomen is round Reports Neighbor reports that patient had N/V dark emesis since yesterday Patient currently denies diarrhea. GI: PEG tube in place, clamped. : No signs and/or symptoms were reported regarding the genitourinary system. EENT: Nares are clear small amount of dry, coffee ground emesis noted to face. . Derm: Musculoskeletal: Capillary refill is > 3 seconds, is sluggish, in bilateral fingers. 12:15 Reassessment: RECD REPORT FROM CHARLIE JAMES. 65YO WM FOUND DOWN BY FAMILY, EXTENSIVE bp CANCER HX. PT MINIMALLY RESPONSIVE, HYPOTENSIVE. 12:45 Reassessment: PT TO CT WITH IMPROVEMENT NURSE. bp 12:50 Reassessment: CODE BLUE CALLED BY CT STAFF UPON NOTICING PT APNEIC AND PULSELESS. bp 12:55 Reassessment: PT PRONOUNCED BY DR MAURER TOJemma 1255. bp 15:21 Reassessment: PT RELEASED TO [facility]. bp Vital Signs: 10:39 BP 85 / 60; Pulse 96; Resp 26; Pulse Ox 94% on R/A; Weight 62.6 kg; ss 10:45 Temp 96.0(TE); ss 12:15 BP 66 / 52; Pulse 95; Resp 36; Pulse Ox 99% ; bp 12:30 BP 72 / 56; Pulse 94; Resp 34; Pulse Ox 100% ; bp ED Course: 10:38 Patient arrived in ED. ss 10:41 Carlos Maurer MD is Attending Physician. shabbir 10:42 Triage completed. ss 10:42 Arm band placed on right wrist. ss 11:04 EKG done, by ED staff, reviewed by Carlos Maurer MD. em1 11:08 Myriam Villa, RN is Primary Nurse. ss 11:46 XRAY Chest (1 view) In Process Unspecified. EDMS 11:50 Accessed Port-a-Cath. using accessed w/ # 20 Tee needle, ,sterile technique, per hospital protocol. Clean \T\ dry. Dressing intact. Good blood return. Flushes easily. 12:15 Patient has correct armband on for positive identification. Bed in low position. Call bp light in reach. Side rails up X2. 12:25 Maintain EMS IV. Dressing intact. Good blood return noted. Site clean \T\ dry. Gauge \T\ ss site: 22 gauge in R AC. 13:04 Carlos Maurer MD is Pronouncing Provider. shabbir Administered Medications: 11:08 Drug: NS 0.9% 1000 ml Route: IV; Rate: 1 bolus; Site: right antecubital; ss 12:24 Follow up: IV Status: Completed infusion; IV Intake: 1000ml ss 11:37 Not Given (Duplicate Order): Rocephin (cefTRIAXone) 1 grams IV at per protocol once; shabbir Given slow IV push per pharmacy instructions 12:20 Drug: ProTONIX (pantoprazole) 80 mg Route: IVP; Site: right antecubital; ss 13:27 Follow up: Response: No adverse reaction bp 12:23 Drug: NS 0.9% 1000 ml Route: IV; Rate: 1 bolus; Site: Port-a-cath; ss 13:13 Follow up: IV Status: Order to discontinue infusion bp 12:24 Drug: Meropenem 1 grams Route: IV; Rate: per protocol; Site: right antecubital; ss 13:14 Follow up: IV Status: Completed infusion; IV Intake: 100ml bp 12:30 Drug: NS 0.9% 1000 ml Route: IV; Rate: 125 ml/hr; Site: Port-a-cath; bp 13:14 Follow up: IV Status: Order to discontinue infusion bp 13:30 Not Given (Patient ): ProTONIX (pantoprazole) 8 mg/hr IV at 25 ml/hr continuous; bp (Standard dilution is 80 mg in 250 mL NS) Intake: 12:24 IV: 1000ml; Total: 1000ml. ss 13:14 IV: 100ml; Total: 1100ml. bp Outcome: 13:12 Patient : Time of 12:55 Pronounced by Carlos Maurer MD bp 13:12 Condition: 15:22 Patient left the ED. bp Signatures: Dispatcher [employer] EDDC Carlos Maurer MD MD cha Martinez, Eric em1 Myriam Villa RN RN ss Rinku Gore RN RN bp Corrections: (The following items were deleted from the chart) 15:17 10:39 General: Appears distressed, uncomfortable, ill, slender, Behavior is calm, ss quiet, ss
--- NOTE | 2020-11-04 13:07 | EDPHYS ---
Physician Documentation [facility] Name: Bulmaro Ann Age: 65 yrs Sex: Male : 1955 Arrival Date: 11/04/2020 Time: 10:38 Bed 4 Private MD: MARHTA Physician Carlos Davis HPI: 11/04 11:38 This 65 yrs old Male presents to ER via EMS with complaints of lethargic, low shabbir blood pressure. 11:38 The patient has shortness of breath at rest. Onset: The symptoms/episode began/occurred shabbir this morning. Duration: The symptoms are continuous, and are steadily getting worse. The patient's shortness of breath is aggravated by nothing, is alleviated by nothing. The patient presents with abdominal pain in the upper abdomen, in the lower abdomen, abdominal distention in the upper abdomen, in the lower abdomen. Onset: The symptoms/episode began/occurred 3 month(s) ago. The patient presents to the emergency department vomiting blood, a small amount, coffee grounds in nature, dark brown. Onset: The symptoms/episode began/occurred 3 day(s) ago. Abdominal pain: described as constant, crampy. Modifying factors: The symptoms are alleviated by nothing, the symptoms are aggravated by nothing. stage 4 eso/gastric cancer. Historical: - Allergies: 10:42 No Known Allergies; ss - PMHx: 10:42 stomach cancer/on going chemo treatment; ss - Immunization history:: Client reports receiving the 2nd dose of the Covid vaccine. - Family history:: not pertinent. - Social history:: Smoking status: unknown. ROS: 11:38 Neck: Negative for injury, pain, and swelling. shabbir 11:38 Constitutional: Positive for body aches, fatigue, fever, malaise, poor PO intake. 11:38 ENT: Positive for dried blood bilateral nasal passage. 11:38 Cardiovascular: Positive for palpitations. 11:38 Respiratory: Positive for cough, shortness of breath, at rest. 11:38 Abdomen/GI: Positive for abdominal pain, nausea and vomiting, abdominal cramps, abdominal distension. 11:38 MS/extremity: Positive for decreased range of motion, pain, of the right arm, left arm, right leg and left leg. 11:38 Skin: Positive for pallor. Exam: 11:43 Constitutional: The patient appears in obvious distress, mildly distressed, moderately shabbir distressed. 11:43 Eyes: Conjunctiva: pale. 11:43 Cardiovascular: Rate: normal, Rhythm: regular, Pulses: Pulses are 2+ in bilateral radial, brachial, femoral, popliteal, posterior tibial and and dorsalis pedis arteries.. Heart sounds: normal, Edema: is not appreciated, JVD: is not appreciated. 11:43 ECG was reviewed by the Attending Physician. Vital Signs: 10:39 BP 85 / 60; Pulse 96; Resp 26; Pulse Ox 94% on R/A; Weight 62.6 kg; ss 10:45 Temp 96.0(TE); ss 12:15 BP 66 / 52; Pulse 95; Resp 36; Pulse Ox 99% ; bp 12:30 BP 72 / 56; Pulse 94; Resp 34; Pulse Ox 100% ; bp MDM: 10:41 Patient medically screened. shabbir 11:45 Differential diagnosis: Anemia Bronchitis diverticulitis, pneumonia, Psychogenic shabbir pulmonary edema, reactive airway disease, gastritis, GI Bleed, Mesenteric ischemia or infarction, non-specific abd pain, pancreatitis, Peptic Ulcer Disease, Perf. Duodenal Ulcer, Perf. Gastric Ulcer, Peritonitis. Antibiotic administration: merrem. Differential Diagnosis altered mental status, sepsis. The patient's Wells Deep Vein Thrombosis Score was calculated as follows: Total Score: 0-2 Pts- Low Risk. The patient's pulmonary embolism risk score was calculated as follows: Total Score: 0-2 points. This patient was found to be at low risk for a pulmonary embolism by using the Well's assessment criteria. Immunization status: Pneumococcal vaccine: Influenza vaccine: Data reviewed: vital signs, nurses notes. Data interpreted: air sampling and monitoring: rate is 96 beats/min, rhythm is regular. Test interpretation: by ED physician or midlevel provider: ECG, plain radiologic studies. Counseling: I had a detailed discussion with the patient and/or guardian regarding: the historical points, exam findings, and any diagnostic results supporting the discharge/admit diagnosis, lab results. 13:03 ED course: dw patient, no compressions, no intubation. shabbir 11/04 10:47 Order name: Basic Metabolic Panel 11/04 10:47 Order name: CBC with Diff 11/04 10:47 Order name: LFT's 11/04 10:47 Order name: Magnesium 11/04 10:47 Order name: NT PRO-BNP 11/04 10:47 Order name: PT-INR 11/04 10:47 Order name: Troponin (emerg Dept Use Only) 11/04 10:47 Order name: Blood Culture Adult (2) 11/04 10:47 Order name: Lactate 11/04 10:47 Order name: Procalcitonin 11/04 10:48 Order name: Basic Metabolic Panel [facility] 11/04 10:48 Order name: Liver (Hepatic) Function [facility] 11/04 10:48 Order name: Magnesium [facility] 11/04 10:47 Order name: XRAY Chest (1 view) 11/04 10:48 Order name: Type And Screen 11/04 10:57 Order name: Urine Culture [facility] 11/04 11:38 Order name: Ckmb [facility] 11/04 11:38 Order name: CK [facility] 11/04 11:38 Order name: CKMB Creatine Kinase MB [facility] 11/04 11:38 Order name: Creatine Phosphokinase [facility] 11/04 14:08 Order name: SARS-COV-2 RT PCR [facility] 11/04 14:52 Order name: CBC Smear Scan [facility] 11/04 10:47 Order name: EKG; Complete Time: 10:48 11/04 10:47 Order name: Cardiac monitoring; Complete Time: 12:25 11/04 10:47 Order name: EKG - Nurse/Tech; Complete Time: 10:47 11/04 10:47 Order name: IV Saline Lock; Complete Time: 12:25 11/04 10:47 Order name: Labs collected and sent; Complete Time: 12:24 11/04 10:47 Order name: O2 Per Protocol; Complete Time: 12:24 11/04 10:47 Order name: O2 Sat Monitoring; Complete Time: 12:24 11/04 10:57 Order name: Urine Dipstick-Ancillary (obtain specimen); Complete Time: 12:46 [facility] 11/04 11:21 Order name: Labs - recollect needed: recollect type and screen; Complete Time: 12:24 11/04 11:37 Order name: Central Line Kit; Complete Time: 12:24 [facility] 11/04 12:04 Order name: Edge; Complete Time: 12:45 [facility] EC:43 Rate is 98 beats/min. Rhythm is regular. QRS [place] is Normal. NM interval is normal. QRS shabbir interval is normal. QT interval is normal. No Q waves. T waves are Normal. ST Segment is depressed in leads II, III, aVF, V4, V5, V6. Clinical impression: NSR w/ Non-specific ST/T Changes. Interpreted by me. Reviewed by me. Administered Medications: 11:08 Drug: NS 0.9% 1000 ml Route: IV; Rate: 1 bolus; Site: right antecubital; ss 12:24 Follow up: IV Status: Completed infusion; IV Intake: 1000ml ss 11:37 Not Given (Duplicate Order): Rocephin (cefTRIAXone) 1 grams IV at per protocol once; shabbir Given slow IV push per pharmacy instructions 12:20 Drug: ProTONIX (pantoprazole) 80 mg Route: IVP; Site: right antecubital; ss 13:27 Follow up: Response: No adverse reaction bp 12:23 Drug: NS 0.9% 1000 ml Route: IV; Rate: 1 bolus; Site: Port-a-cath; ss 13:13 Follow up: IV Status: Order to discontinue infusion bp 12:24 Drug: Meropenem 1 grams Route: IV; Rate: per protocol; Site: right antecubital; ss 13:14 Follow up: IV Status: Completed infusion; IV Intake: 100ml bp 12:30 Drug: NS 0.9% 1000 ml Route: IV; Rate: 125 ml/hr; Site: Port-a-cath; bp 13:14 Follow up: IV Status: Order to discontinue infusion bp 13:30 Not Given (Patient ): ProTONIX (pantoprazole) 8 mg/hr IV at 25 ml/hr continuous; bp (Standard dilution is 80 mg in 250 mL NS) Disposition Summary: 11/04/20 13:07 Patient Location: Home shabbir Pronouncing Physician: Carlos Davis cha Time of : 12:55 11/04/2020 shabbir Diagnosis - GI Bleed/ Gastrointestinal hemorrhage, unspecified - upper, massive shabbir - Hypotension, unspecified shabbir - Acute respiratory failure shabbir - Cardiac arrest due to other underlying condition - gi bleed, respiratory arrest shabbir Signatures: Dispatcher [employer] EDMS Abigail Donaldson Corey, MD MD cha Smirch, Shelby RN RN ss Sofía, Rinku, RN RN bp Corrections: (The following items were deleted from the chart) 12:04 11:37 Head C Spine Cap Wo Con+CT.RAD.BRZ ordered. EDMS EDMS 12:38 11:43 Head C Spine CAP W Con+CT.RAD.BRZ ordered. EDMS EDMS 12:39 10:48 CORONAVIRUS+MRReynaLAB.BRZ ordered. EDMS EDMS 12:59 12:38 Head C Spine Cap Wo Con ordered. EDMS EDMS
[2020-11-04 14:52] LABS: Anisocytosis 1+; Blood Morphology Comment NOTED (NOT SEEN); Platelet Estimate ADEQ; White Blood Cell Scan OK (OK)
[2020-11-04 15:02] LABS: Creatine Phosphokinase 135 U/L (39-308)
[2020-11-04 15:05] LABS: CKMB Creatine Kinase MB < 1.0 ng/mL (1.0-3.6)
[2020-11-04 15:36] VITALS: TEMP 96
[2020-11-04 15:38] VITALS: BP 72/56; O2SAT 100
== END 2020-11-04 15:22 | disposition expired ==
LOC: ER 10:35
DX: K92.2 Gastrointestinal hemorrhage, unspecified (principal); I46.8 Cardiac arrest due to other underlying condition; I95.9 Hypotension, unspecified; C16.9 Malignant neoplasm of stomach, unspecified; Z20.822 Contact with and (suspected) exposure to COVID-19
CPT/HCPCS: 96365; 96361; 93005; 87040 ×2; 85025; 80048; 36415; 86900; 83735; 86850; 82550; 85610; 86901; 80076; 83605; 84484; 82553; 84145; 83880; 71045; 96375; 99284; U0003; C9113; J0696; J2185; J7030; J7050